=== PATIENT | male | born 1975 | race Caucasian/White ===

== ENCOUNTER 2017-02-18 19:54 | Emergency (ER) | payer OTHER ==
[2017-02-18 20:07] VITALS: TEMP 98.2; BMI 27.4
--- NOTE | 2017-02-18 20:34 | PDOC ---
History of Present Illness - General Chief Complaint: Injury Stated Complaint: FALL/EVALUATION Time Seen by Provider: 02/18/17 20:17 History Source: Care Provider, Detention Records Exam Limitations: Clinical Condition - History of Present Illness Initial Comments: 02/18/17 20:33 41yo Male patient w/ PmHx: Neurotic disorder, Congenital Quadriplegia, Convulsive Epilepsy, Profound Mental Retardation, Cortical blindness, presented to ED by care provider stating patient was found on floor. 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 Patient was found on his back and sent to the ED for evaluation of injury. Patient is non-verbal. Patient has no signs of injury per caregiver. Past History - Travel Traveled outside of the country in the last 30 days: No Close contact w/someone who was outside of country & ill: No - Past Medical History Allergies/Adverse Reactions: Allergies Allergy/AdvReac Type Severity Reaction Status Date / Time No Known Allergies Allergy Verified 02/18/17 20:07 Home Medications: Ambulatory Orders Bisacodyl Suppository [Dulcolax Suppository -] 10 mg RC ONCE PRN 02/18/17 Calcium Carbonate/Vitamin D3 [Oyster Shell Calcium-Vit D Tab] 1 each PO TID Clindamycin Phosphate [Cleocin T] 60 ml TP ASDIR 02/18/17 Clobazam [Onfi -] 5 mg PO AM 02/18/17 Clobazam [Onfi -] 10 mg PO HS 02/18/17 Diazepam Rectal Gel [Diastat Rectal Gel -] 10 mg NC ONCE PRN 02/18/17 Diazepam [Valium] 5 mg PO Q8H 02/18/17 Magnesium Hydroxide [Milk of Magnesia] 15 ml PO AM 02/18/17 Magnesium Hydroxide [Milk of Magnesia] 30 ml PO HS 02/18/17 Multivits,Ca,Min/Iron/FA/Lycop [Centrum Men's Tablet] 1 each PO DAILY 02/18/17 Phenobarbital 64.8 mg PO HS 02/18/17 Sennosides/Docusate Sodium [Senna S Tablet] 2 each PO BID 02/18/17 Seizures: Yes Other medical history: Mental Retardation, Hydrocephalus,Cerebral palsy - Immunization History Immunization Up to Date: Yes - Psycho/Social/Smoking Cessation Hx Anxiety: No Suicidal Ideation: No Smoking History: Never smoked Have you smoked in the past 12 months: No Information on smoking cessation initiated: No Hx Alcohol Use: No Drug/Substance Use Hx: No Substance Use Type: None Review of Systems - Review of Systems Able to Perform ROS?: No Is the patient limited Urdu proficient: Yes Constitutional: No: Fever Respiratory: No: Stridor, Wheezing, Hemoptysis Cardiac (ROS): No: Irregular Heart Rate, Palpitations ABD/GI: No: Diarrhea, Nausea, Vomiting Integumentary: No: Bruising, Erythema, Lumps Neurological: No: Seizure All Other Systems: Reviewed and Negative *Physical Exam - Vital Signs Last Vital Signs Temp Pulse Resp BP Pulse Ox 98.2 F 93 H 19 125/89 97 02/18/17 20:01 02/18/17 20:01 02/18/17 20:01 02/18/17 20:01 02/18/17 20:01 - Physical Exam General Appearance: Yes: Nourished, Appropriately Dressed. No: Apparent Distress, Mild Distress, Moderate Distress, Severe Distress HEENT: positive: EOMI, CHUNG, TMs Normal, Pharynx Normal. negative: Pharyngeal Erythema, Tonsillar Exudate, Tonsillar Erythema, Nasal Congestion, Rhinorrhea, TM Bulging, TM Dull, TM Erythema Neck: positive: Trachea midline, Supple. negative: Lymphadenopathy (R), Lymphadenopathy (L) Respiratory/Chest: positive: Lungs Clear. negative: Respiratory Distress, Accessory Muscle Use, Labored Respiration, Rapid RR, Decreased Breath Sounds, Crackles, Rales, Rhonchi, Stridor, Wheezing Cardiovascular: positive: Regular Rhythm, Regular Rate. negative: Edema, Bradycardia, Tachycardia Gastrointestinal/Abdominal: positive: Normal Bowel Sounds, Flat, Soft. negative : Distended, Tenderness Musculoskeletal: positive: Normal Inspection (No obvious signs of injury, step offs or deformity noted on examination.) Extremity: positive: Normal Inspection Integumentary: positive: Normal Color, Dry, Warm Neurologic: positive: Alert *DC/Admit/Observation/Transfer Diagnosis at time of Disposition: Fall - Discharge Dispostion Disposition: NURSING HOME FACILITY Condition at time of disposition: Stable Admit: No - Patient Instructions Printed Discharge Instructions: How to Prevent Falls, DI for Closed Head Injury Additional Instructions: FOLLOW UP WITH PRIMARY CARE PROVIDER THIS WEEK FOR FURTHER EVALUATION. RETURN IF ANY CONCERNS FOR FURTHER EVALUATION. Print Language: KAZAKH
[2017-02-18 20:46] VITALS: BP 122/74; PULSE 91
== END 2017-02-18 20:47 ==
LOC: JER 19:54 → SUPCPDRO 19:54 → JER 20:47
DX: Z04.9 Encounter for examination and observation for unspecified reason (principal); W05.0XXA Fall from non-moving wheelchair, initial encounter; Y93.89 Activity, other specified; Y92.198 Other place in other specified residential institution as the place of occurrence of the external cause; F48.9 Nonpsychotic mental disorder, unspecified; G80.8 Other cerebral palsy; G40.802 Other epilepsy, not intractable, without status epilepticus; F73 Profound intellectual disabilities; H47.619 Cortical blindness, unspecified side of brain
CPT/HCPCS: 99282-25

== ENCOUNTER 2019-03-10 11:41 | Inpatient (IN) | payer OTHER | END 2019-03-14 15:18 | disposition home or self-care (01) | LOC: J8W 03-13 14:45 → JER 11:41 → JERBED 15:16 → J8W 18:43 ==

== ENCOUNTER 2019-05-03 06:56 | Inpatient (IN) | payer OTHER | END 2019-05-09 17:49 | LOC: JER 06:56 → JERBED 10:10 → J8W 11:39 ==

== ENCOUNTER 2019-09-03 16:09 | Emergency (ER) | payer OTHER ==
[2019-09-03 16:33] VITALS: BMI 14.5
--- NOTE | 2019-09-03 16:46 | PDOC ---
History of Present Illness - General Chief Complaint: Seizure Stated Complaint: SEIZURE Time Seen by Provider: 09/03/19 16:45 - History of Present Illness Initial Comments: 09/03/19 17:42 HPI: 44 y/o M from 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 Seizure was witnessed and lasted 4-5min. Patient's supposed to receive diastat rectally if seizure >3min however, staff at [facility] was not certified to administer medication and called EMS. Vitals were stable and afebrile. There was no trauma. Last documented seizure was 06/10/19 at [place] and patient received diastat and stayed at center. Aid at bedside and staff at [place] no other symptoms. Aid at bedside states he is currently at his baseline and smiling per usual. PMHx: as noted above ROS: as noted SHx: resident of [place] Allergies: pncln ROS: unable to perform due to mental status PE: GENERAL: Awake, nonverbal, contracted HEAD: No signs of trauma, normocephalic, atraumatic EYES: EOMI ENT: Auricles normal inspection, nares patent, oropharynx clear without exudates. Moist mucosa NECK: Normal ROM, no lymphadenopathy LUNGS: No increased work of breathing, symmetrical chest rise, clear to auscultation bilaterally, no wheezes, crackles or rhonchi HEART: Regular rate and rhythm, normal S1 and S2, no murmurs, peripheral pulses 2+ and equal bilaterally. ABDOMEN: Soft, nondistended, nontender, normoactive bowel sounds. No guarding, no rebound. No masses. No CVAT EXTREMITIES: contracted UEs and deformed LEs NEUROLOGICAL: unable to perform due to patient mental status SKIN: Warm, Dry, normal turgor, no rashes or lesions noted Past History - Past Medical History Allergies/Adverse Reactions: Allergies Allergy/AdvReac Type Severity Reaction Status Date / Time Penicillins Allergy Verified 05/03/19 07:23 Home Medications: Ambulatory Orders Bisacodyl Suppository [Dulcolax Suppository -] 10 mg RC ONCE PRN 02/18/17 Calcium Carbonate/Vitamin D3 [Oyster Shell Calcium-Vit D Tab] 1 each PO TID 05/ 20/17 Clobazam [Onfi -] 5 mg PO AM 02/18/17 Clobazam [Onfi -] 5 mg PO HS 02/18/17 Diazepam Rectal Gel [Diastat Rectal Gel -] 10 mg OH ONCE PRN 02/18/17 Diazepam [Valium] 5 mg PO TID 02/18/17 Magnesium Hydroxide [Milk of Magnesia] 15 ml PO AM 02/18/17 Magnesium Hydroxide [Milk of Magnesia] 30 ml PO HS 02/18/17 Multivit-Mins/Iron/Folic/Lycop [Centrum Men's Tablet] 1 each PO DAILY 02/18/17 Phenobarbital 64.8 mg PO HS 02/18/17 Sennosides/Docusate Sodium [Senna-S Tablet] 2 each PO BID 02/18/17 Calcium Carbonate/Vitamin D3 [Oyster Shell 500-Vit D3 200 Tb] 1 each PO TID 12/18 Clindamycin 1% Gel [Cleocin] 1 gm TP AM 09/03/19 COPD: No Seizures: Yes - Immunization History Immunization Up to Date: Yes - Psycho Social/Smoking Cessation Hx Smoking History: Never smoked Have you smoked in the past 12 months: No Information on smoking cessation initiated: No Hx Alcohol Use: No Drug/Substance Use Hx: No Substance Use Type: None Hx Substance Use Treatment: No *Physical Exam - Vital Signs Last Vital Signs Temp Pulse Resp BP Pulse Ox 98.9 F 66 18 129/95 97 09/03/19 16:26 09/03/19 16:26 09/03/19 16:26 09/03/19 16:26 09/03/19 16:26 Medical Decision Making - Medical Decision Making 09/03/19 18:11 44 y/o M from 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 VSS, AF. PE without any abnormal findings from patient's baseline -will administer phenobarb PM dose and valium midday dose -cxr 09/03/19 18:15 cxr without any acute findings after review with attending patient currently at baseline will DC to facility aid at bedside understands patient requires last 2 doses tonight; questions answered Discharge - Discharge Information Problems reviewed: Yes Clinical Impression/Diagnosis: Seizure Condition: Stable Disposition: HOME - Follow up/Referral Referrals: Heron De Oliveira MD [Primary Care Provider] - - Patient Discharge Instructions Patient Printed Discharge Instructions: DI for Seizure Disorder -- Adult Additional Instructions: Return to the ED if there is concern for new or worsening symptoms including prolonged seizure, fever, cough, foul smelling urine, concern for infection Please take remaining night valium dose and night clozabam dose Followup with physicians as needed - Post Discharge Activity
[2019-09-03] MEDS ORDERED: diazePAM 5 MG TABLET PO ONE (17:36)
[2019-09-03] MEDS ORDERED: PHENobarbital 30 MG TABLET PO ONE (17:37)
[2019-09-03] MEDS ORDERED: diazePAM 5 MG TABLET ONE (17:39)
[2019-09-03] MEDS ORDERED: PHENobarbital 30 MG TABLET ONE (17:47)
--- NOTE | 2019-09-03 18:13 | PDOC ---
Documentation entered by Mc Solano SCRIBE, acting as scribe for Meredith Segovia MD. Meredith Segovia MD: This documentation has been prepared by the Russ bautista Xhesika, SCRIBE, under my direction and personally reviewed by me in its entirety. I confirm that the documentation accurately reflects all work, treatment, procedures, and medical decision making performed by me. Attending Attestation - Resident Resident Name: Suzie Aranda - ED Attending Attestation I have performed the following: I have examined & evaluated the patient, The case was reviewed & discussed with the resident, I agree w/resident's findings & plan, Exceptions are as noted - HPI HPI: 09/03/19 17:42 44-year-old male with multiple medical problems from [facility] brought in by ambulance for seizure. He has a history of seizures. HPI his daycare facility that does not carry Diastat so ambulance needs to be called and he was brought here - Physicial Exam PE: 09/03/19 17:43 Patient appears to be at baseline according to the aide Head no scalp lacerations or scalp hematomas noted dentition -severe erosion/bruxism on maxillary dentition Lungs no wheezing or crackles appreciated CVS regular rate rhythm S1-S2 Extremities he has contracted limbs Musculoskeletal he has severe spinal lordosis Skin warm and dry Neuro functional quadriplegia, nonverbal, head turned to the left this is chronic - Medical Decision Making 09/03/19 18:15 pt is afebrile and at baseline evening dose of phenobarbital and valium given plan d/c back to [place] 09/03/19 18:16
[2019-09-03 18:23] VITALS: BP 139/85; PULSE 84; TEMP 98
[2019-09-04] MEDS ORDERED: PHENobarbital 30 MG TABLET PO ONE ×2 (17:37)
== END 2019-09-03 19:08 | disposition home or self-care (01) ==
LOC: JER 16:09
DX: R56.9 Unspecified convulsions (principal); Z88.0 Allergy status to penicillin; R62.50 Unspecified lack of expected normal physiological development in childhood; Z98.2 Presence of cerebrospinal fluid drainage device; H54.7 Unspecified visual loss; G80.8 Other cerebral palsy
CPT/HCPCS: 71045-TC-FY; 99282-25

== ENCOUNTER 2019-10-18 11:39 | Inpatient (IN) | payer OTHER ==
[2019-10-18] MEDS ORDERED: SODIUM CHLORIDE 1,089 ML IV ONE (12:05)
--- NOTE | 2019-10-18 12:08 | PDOC ---
History of Present Illness - General Chief Complaint: Cold Symptoms Stated Complaint: Cold Symptoms Time Seen by Provider: 10/18/19 12:06 History Source: Patient Exam Limitations: No Limitations - History of Present Illness Initial Comments: 10/18/19 12:08 Lauro Arevalo is a 44M with H epilepsy sent from [place] with flu-like symptoms. Per transfer paperwork, patient was sent for tachycardia and fever since last night, did not respond to pyretics. Pre home health aide at bedsides, come loose stools but otherwise no acute changes in mental status, SOB, vomiting. Reported to have outbreak of influenza at [place] with multiple other clients sick. No seizures today. Past History - Past Medical History Allergies/Adverse Reactions: Allergies Allergy/AdvReac Type Severity Reaction Status Date / Time Penicillins Allergy Verified 10/18/19 12:04 Home Medications: Ambulatory Orders Bisacodyl Suppository [Dulcolax Suppository -] 10 mg RC ONCE PRN 02/18/17 Clobazam [Onfi -] 5 mg PO AM 02/18/17 Clobazam [Onfi -] 5 mg PO HS 02/18/17 Diazepam Rectal Gel [Diastat Rectal Gel -] 10 mg MS ONCE PRN 02/18/17 Diazepam [Valium] 5 mg PO TID 02/18/17 Magnesium Hydroxide [Milk of Magnesia] 15 ml PO AM 02/18/17 Magnesium Hydroxide [Milk of Magnesia] 30 ml PO HS 02/18/17 Phenobarbital 64.8 mg PO HS 02/18/17 Sennosides/Docusate Sodium [Senna-S Tablet] 2 each PO BID 02/18/17 Calcium Carbonate/Vitamin D3 [Oyster Shell 500-Vit D3 200 Tb] 1 each PO TID 12/18 COPD: No Seizures: Yes - Immunization History Immunization Up to Date: Yes - Psycho Social/Smoking Cessation Hx Smoking History: Never smoked Have you smoked in the past 12 months: No Hx Alcohol Use: No Drug/Substance Use Hx: No Substance Use Type: None Hx Substance Use Treatment: No Review of Systems - Review of Systems Able to Perform ROS?: No (non-verbal at baseline) *Physical Exam - Vital Signs Last Vital Signs Temp Pulse Resp BP Pulse Ox 103.5 F H 141 H 26 H 143/89 96 10/18/19 11:59 10/18/19 11:59 10/18/19 11:59 10/18/19 11:59 10/18/19 11:59 - Physical Exam General Appearance: Yes: Thin. No: Apparent Distress HEENT: positive: EOMI, CHUNG, Symmetrical. negative: Scleral Icterus (R), Scleral Icterus (L), Excessive drooling, Thrush Neck: positive: Trachea midline, Normal Thyroid, Supple. negative: Tender, Lymphadenopathy (R), Lymphadenopathy (L) Respiratory/Chest: positive: Lungs Clear, Normal Breath Sounds, Labored Respiration. negative: Chest Tender, Respiratory Distress, Accessory Muscle Use , Crackles, Rales, Stridor, Wheezing Cardiovascular: positive: Regular Rhythm, Tachycardia. negative: Murmur Gastrointestinal/Abdominal: positive: Normal Bowel Sounds, Flat, Soft, Other ( ventriculoperitoneal shunt tubing palpable to right anterior chest and abdomen and non-tender, diaper in place without stool). negative: Tender Musculoskeletal: positive: Normal Inspection. negative: CVA Tenderness, Decreased Range of Motion, Vertebral Tenderness Integumentary: positive: Normal Color, Dry, Diaphoresis Neurologic: positive: Alert, Other (upper and lower extremities contracted). negative: proj mgr II-XII NML intact, Fully Oriented ED Treatment Course - LABORATORY CBC & Chemistry Diagram: 10/18/19 12:05 10/18/19 12:25 Medical Decision Making - Medical Decision Making 10/18/19 13:00 Patient is a 44M [facility] with PMH epilepsy presenting with tachycardia to 140s and fever with rectal temp 103.5. Sepsis workup initiated, including labs, BC, UA/UC, CXR, ECG ordered. Giving 1L NS bolus for tachycardia and presumed dehydration, giving Ofirmev for fever. Given prevalence of influenza at [place] getting influenza swab as well. Ddx includes PNA, flu, UTI. Patient BP and O2 saturation stable Labs notable for: - WBC 12.2 - CBG WNL - influenza A positive, consistent with symptoms - Trop negative - Coags hemolyzed but unnecessary to evaluation CXR shows no acute infiltrate concerning for PNA on prelim read. ECG is poor quality, shows sinus tachycardia with TWI in V1-V4 with improvement of TWI in inferior leads. 10/18/19 15:34 Patient has proven influenza A. Will symptomatically control and likely discharge back to [place]. HR down to 122, giving 2nd 1L NS Rectal temp down to 101F Giving Caldolor for further fever management. 10/18/19 16:53 HR down to 110 with 2nd bolus, patient more responsive and calm. Rectal temp down to 98.6. 3rd bolus ordered. 10/18/19 21:31 After 3rd bolus tachycardia persists to 110s. Unable to determine why. Patient appears well clinically but unable to get more history, non-verbal. Needs admission for further monitoring and eval of tachycardia despite appearing well. Discussed case with admitting team, [facility] for Med Surg under Dr. Jeter. Discharge - Discharge Information Problems reviewed: Yes Clinical Impression/Diagnosis: Influenza A Condition: Stable - Admission Yes - Follow up/Referral Referrals: Heron De Oliveira MD [Primary Care Provider] - - Patient Discharge Instructions Patient Printed Discharge Instructions: DI for Viral Upper Respiratory Infection -- Adult Additional Instructions: Today you were evaluated for fever and tachycardia. Your labs do not show a significant infection, and your chest X-ray does not show pneumonia. Your symptoms are caused by an influenza infection. The treatment for this is lots of fluids and soups and Tylenol as needed for fever every 4-6 hours. Follow-up with your primary doctor in the next 3 days. If you experience worsening fever, shortness of breath, chest pain, diarrhea, or any other new or concerning symptoms, please return to the emergency room. - Post Discharge Activity
[2019-10-18] MEDS ORDERED: ACETAMINOPHEN 1000 MG/100 ML VIAL (NON FORMULARY) IVPB ONE (12:09)
[2019-10-18] MEDS ORDERED: ACETAMINOPHEN INJECTION 100 ML IVPB ONE ×2 (12:12→23:46)
[2019-10-18 12:45] LABS: BASO % 0.3 % (0-2.0); HEMATOCRIT 51.2 % (35.4-49); HEMOGLOBIN 17.9 GM/dL (11.7-16.9); LYMPH % 3.1 % (8-40); MCH 30.2 pg (25.7-33.7); MCHC 34.9 g/dl (32.0-35.9); MEAN CELL VOLUME 86.8 fl (80-96); MEAN PLT VOLUME 9.2 fl (7.5-11.1); MONO % 6.8 % (3.8-10.2); NEUT % 89.8 % (42.8-82.8); PLATELET COUNT 198 K/MM3 (134-434); RBC 5.91 M/mm3 (4.00-5.60); RDW 13.4 % (11.9-15.9); WHITE BLOOD COUNT 12.2 K/mm3 (4.0-10.0)
[2019-10-18 12:55] LABS: VENOUS PC02 44.9 mmHg (38-52); VENOUS PO2 < 49 mmHg (28-48)
--- NOTE | 2019-10-18 13:15 | EKG ---
Test Reason : Blood Pressure : / mmHG Vent. Rate : 138 BPM Atrial Rate : 138 BPM P-R Int : 128 ms QRS Dur : 068 ms QT Int : 282 ms P-R-T Axes : 061 023 068 degrees QTc Int : 427 ms POOR DATA QUALITY, INTERPRETATION MAY BE ADVERSELY AFFECTED SINUS TACHYCARDIA POSSIBLE LEFT ATRIAL ENLARGEMENT ABNORMAL ECG WHEN COMPARED WITH ECG OF 03-MAY-2019 08:03, NONSPECIFIC T WAVE ABNORMALITY NO LONGER EVIDENT IN INFERIOR LEADS Confirmed by CAROLINA SILVA MD ([id number]) on 10/18/2019 1:14:57 PM Referred By: Confirmed By:CAROLINA SILVA MD
[2019-10-18 13:24] LABS: BILIRUBIN,TOTAL 0.5 mg/dL (0.2-1); BLOOD UREA NITROGEN 16.9 mg/dL (7-18); CREATININE 1.1 mg/dL (0.55-1.3); POTASSIUM 4.7 mmol/L (3.5-5.1); TOT PROT 7.8 g/dl (6.4-8.2)
[2019-10-18] MEDS ORDERED: IBUPROFEN 800 MG/8 ML IJ IVPB ONE ×2 (14:00→14:08)
--- NOTE | 2019-10-18 14:02 | PDOC ---
Documentation entered by Komal Glass SCRIBE, acting as scribe for Merced Ford MD. Merced Ford MD: This documentation has been prepared by the Quan bautista Brenda, SCRIBE, under my direction and personally reviewed by me in its entirety. I confirm that the documentation accurately reflects all work, treatment, procedures, and medical decision making performed by me. Attending Attestation - Resident Resident Name: ToniximenaJaime - ED Attending Attestation I have performed the following: I have examined & evaluated the patient, The case was reviewed & discussed with the resident, I agree w/resident's findings & plan, Exceptions are as noted - HPI HPI: 44 yo M history epilepsy sent from [place] for flu-like symptoms. He has had high fever, tachycardia that did not respond to antipyretics, as per note in his paperwork. Patient is non-verbal and unable to provide any history. - Physicial Exam PE: 10/18/19 13:06 GENERAL: Awake, alert, and fully oriented, in no acute distress HEAD: No signs of trauma EYES: PERRLA, EOMI, sclera anicteric, conjunctiva clear ENT: Auricles normal inspection, hearing grossly normal, nares patent, oropharynx clear without exudates. Moist mucosa NECK: Normal ROM, supple, no lymphadenopathy, JVD, or masses LUNGS: Breath sounds equal, clear to auscultation bilaterally. No wheezes, and no crackles HEART: Regular rate and rhythm, normal S1 and S2, no murmurs, rubs or gallops ABDOMEN: Soft, nontender, normoactive bowel sounds. No guarding, no rebound. No masses EXTREMITIES: Normal range of motion, no edema. No clubbing or cyanosis. No cords, erythema, or tenderness NEUROLOGICAL: Cranial nerves II through XII grossly intact. Normal speech, normal gait SKIN: Warm, Dry, normal turgor, no rashes or lesions noted. - Medical Decision Making Pt with high fever and tachycardia in the setting of a flu outbreak at [place]. Found to be flu A positive. He has clear lungs. Will give antipyretics and fluids. If vital signs improve, will DC back to [place].
[2019-10-18] MEDS ORDERED: SODIUM CHLORIDE 0.9% 500 ML INFUS.BAG IV ONE ×2 (15:34→17:31)
[2019-10-18] MEDS ORDERED: SODIUM CHLORIDE 1,000 ML IV STA (21:35)
--- NOTE | 2019-10-18 21:38 | HP ---
CHIEF COMPLAINT: shortness of breath PCP: Dr. Argueta HISTORY OF PRESENT ILLNESS: Patient is a 44 year old male with history of hydrocephalus (s/p BOOK REVIEWER shunt), cerebral palsy, functional quadriplegia, seizure disorder presents from [facility] with complaint of shortness of breath, and fevers with associated sneezing and coughing. Patient's aide at bedside endorses symptoms have been ongoing for past two days. Denies hemoptysis, dysuria, heamturia, diarrhea, melena, hematochezia. Admits sick contacts as numerous residents of [facility] with Influenza. Admits diminished oral intake (reportedly normally tolerates puree diet). Denies recent seizure activity. ER course was notable for: (1) Infleunza A positive (2) Chest radiograph without acute infiltrates. Questionable right rib fracture. (3) Tachycardic to 140s and febrile to 103.5 (rectal). WBC 12.2 Recent Travel: Denies PAST MEDICAL HISTORY: hydrocephalus, cerebral palsy, functional quadriplegia, seizure disorder PAST SURGICAL HISTORY: V/P shunt Social History: Resident of [facility]. Smoking: Denies Alcohol: Denies Drugs: Denies Allergies Penicillins Allergy (Verified 10/18/19 12:04) HOME MEDICATIONS: Home Medications Medication Instructions Recorded Bisacodyl Suppository [Dulcolax 10 mg RC ONCE PRN 02/18/17 Suppository -] Clobazam [Onfi -] 5 mg PO AM 02/18/17 Clobazam [Onfi -] 5 mg PO HS 02/18/17 Diazepam Rectal Gel [Diastat 10 mg OR ONCE PRN 02/18/17 Rectal Gel -] Diazepam [Valium] 5 mg PO TID 02/18/17 Magnesium Hydroxide [Milk of 15 ml PO AM 02/18/17 Magnesia] Magnesium Hydroxide [Milk of 30 ml PO HS 02/18/17 Magnesia] Phenobarbital 64.8 mg PO HS 02/18/17 Sennosides/Docusate Sodium 2 each PO BID 02/18/17 [Senna-S Tablet] Calcium Carbonate/Vitamin D3 1 each PO TID 09/03/19 [Oyster Shell 500-Vit D3 200 Tb] REVIEW OF SYSTEMS As per HPI; unable to evaluate further as patient nonverbal at baseline. PHYSICAL EXAMINATION Vital Signs - 24 hr 10/18/19 10/18/19 10/18/19 11:59 13:55 14:26 Temperature 103.5 F H 101.4 F H Pulse Rate 141 H Pulse Rate [ 121 H Apical] Respiratory 26 H 24 H Rate Blood Pressure 143/89 Blood Pressure 130/79 [Right Arm] O2 Sat by Pulse 96 98 Oximetry (%) 10/18/19 10/18/19 17:44 17:50 Temperature 98.6 F 98.6 F Pulse Rate Pulse Rate [ 113 H Apical] Respiratory 22 H Rate Blood Pressure Blood Pressure 128/92 [Right Arm] O2 Sat by Pulse 98 Oximetry (%) GENERAL: The patient is awake, alert, in no acute distress. HEAD: Normocephalic, atraumatic. EYES: PERRL, extraocular movements intact, sclera anicteric, conjunctiva clear. ENT: Oropharynx clear, without erythema or exudates. Dry mucous membranes. NECK: Supple without lymphadenopathy. Negative stridor. LUNGS: Good inspiratory effort and air entry bilaterally. Rhonchi auscultated bilaterally. No wheezes, no crackles. No accessory muscle use. HEART: Regular rate and rhythm. S1, S2 without murmur, rub or gallop. ABDOMEN: Soft, nondistended, nontender to light and deep palpation x4 quadrants. No rebound tenderness, no guarding. Normoactive bowel sounds x4 quadrants. No hepatosplenomegaly, no masses appreciated. EXTREMITIES: 2+ radial, dorsalis pedis pulses bilaterally. Warm, well-perfused. No lower extremity edema bilaterally. SKIN: Warm, dry. Laboratory Results - last 24 hr 10/18/19 10/18/19 10/18/19 12:05 12:11 12:25 WBC 12.2 H RBC 5.91 H Hgb 17.9 H Hct 51.2 H D MCV 86.8 MCH 30.2 MCHC 34.9 RDW 13.4 Plt Count 198 D MPV 9.2 D Absolute Neuts (auto) 10.9 H Neutrophils % 89.8 H D Lymphocytes % 3.1 L D Monocytes % 6.8 Eosinophils % 0.0 D Basophils % 0.3 Nucleated RBC % 0 PT with INR Cancelled INR Cancelled PTT (Actin FS) Cancelled VBG pH POC VBG pCO2 POC VBG pO2 VBG HCO3 VBG O2 Sat (Teo) VBG Base Excess Sodium Potassium Chloride Carbon Dioxide Anion Gap BUN Creatinine Est GFR (CKD-EPI)AfAm Est GFR (CKD-EPI)NonAf Random Glucose Lactic Acid Calcium Total Bilirubin AST ALT Alkaline Phosphatase Troponin I Total Protein Albumin Influenza A (Rapid) Positive A Influenza B (Rapid) Negative 10/18/19 10/18/19 10/18/19 12:25 12:25 12:25 WBC RBC Hgb Hct MCV MCH MCHC RDW Plt Count MPV Absolute Neuts (auto) Neutrophils % Lymphocytes % Monocytes % Eosinophils % Basophils % Nucleated RBC % PT with INR INR PTT (Actin FS) VBG pH 7.40 POC VBG pCO2 44.9 POC VBG pO2 < 49 H VBG HCO3 27.2 VBG O2 Sat (Teo) 37.2 L VBG Base Excess 2.2 H Sodium 138 Potassium 4.7 Chloride 106 Carbon Dioxide 26 Anion Gap 6 L BUN 16.9 Creatinine 1.1 Est GFR (CKD-EPI)AfAm 95.46 Est GFR (CKD-EPI)NonAf 82.36 Random Glucose 142 H Lactic Acid Calcium 9.0 Total Bilirubin 0.5 AST 31 ALT 26 Alkaline Phosphatase 156 H Troponin I < 0.02 Total Protein 7.8 Albumin 4.0 Influenza A (Rapid) Influenza B (Rapid) 10/18/19 12:25 WBC RBC Hgb Hct MCV MCH MCHC RDW Plt Count MPV Absolute Neuts (auto) Neutrophils % Lymphocytes % Monocytes % Eosinophils % Basophils % Nucleated RBC % PT with INR INR PTT (Actin FS) VBG pH POC VBG pCO2 POC VBG pO2 VBG HCO3 VBG O2 Sat (Teo) VBG Base Excess Sodium Potassium Chloride Carbon Dioxide Anion Gap BUN Creatinine Est GFR (CKD-EPI)AfAm Est GFR (CKD-EPI)NonAf Random Glucose Lactic Acid 1.7 Calcium Total Bilirubin AST ALT Alkaline Phosphatase Troponin I Total Protein Albumin Influenza A (Rapid) Influenza B (Rapid) ASSESSMENT/PLAN: Patient is a 44 year old male with history of hydrocephalus (s/p BOOK REVIEWER shunt), cerebral palsy, functional quadriplegia, seizure disorder presents from [facility] with complaint of shortness of breath, and fevers with associated sneezing and coughing. Sepsis secondary to Infleunza A -Tachycardic to 140s and febrile to 103.5 (rectal). WBC 12.2 -Chest radiograph without acute infiltrates. Questionable right rib fracture. Will obtain CT chest. -Infleunza A positive -Patient received 2L IV normal saline in ED. Bolus additional liter IV normal saline as patient remains clinically dry, tachycardic. -Continue hydration with IV normal saline at 125mL/ hour -Oseltamivir 30mL GT BID (adjusted for GFR, dosed with pharmacist) -Acetaminophen for fevers -Given chest radiograph does not reveal acute infiltrates, will withhold further antibiotics at this time. Seizures -Continue Onfi, Valium, Pheobarbital -Seizure precautions -Elevate head of bed, aspiration precautions. Constipation -Continue Magnesium Hydroxide, Senna, Colace. Bisacodyl PRN FEN -IV normal saline at 125mL/ hour -Follow BMP -Puree diet once tolerating oral intake Prophylaxis -Lovenox 40mg subq daily Disposition -Admit to medical surgical floor. Visit type - Emergency Visit Emergency Visit: Yes ED Registration Date: 10/18/19 Care time: The patient presented to the Emergency Department on the above date and was hospitalized for further evaluation of their emergent condition. - New Patient This patient is new to me today: Yes Date on this admission: 10/19/19 - Critical Care Critical Care patient: No ATTENDING PHYSICIAN STATEMENT I saw and evaluated the patient. I reviewed the resident's note and discussed the case with the resident. I agree with the resident's findings and plan as documented. SUBJECTIVE: OBJECTIVE: ASSESSMENT AND PLAN:
--- NOTE | 2019-10-18 21:57 | PN ---
Teaching Attending Note Name of Resident: Wilder Mcclendon ATTENDING PHYSICIAN STATEMENT I saw and evaluated the patient. I reviewed the resident's note and discussed the case with the resident. I agree with the resident's findings and plan as documented. 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 He has had high fever, tachycardia that did not respond to antipyretics, as per note in his paperwork. Patient is non-verbal and unable to provide any additional history. Per home health aide at bedsides, come loose stools but otherwise no acute changes in mental status, SOB, vomiting. There is a reported of Influenza at [facility] with multiple other clients sick. No witnessed seizures today. OBJECTIVE: Alert and nonverbal Vital Signs Period Temp Pulse Resp BP Sys/Patterson Pulse Ox Last 24 Hr 98.6 F-103.5 F 113-141 22-26 128-143/79-92 96-98 HEENT: No Jaundice, eye redness or discharge, PERRLA, EOMI. Normocephalic; surgical scar occipital region. External ears are normal; No nasal discharge. Neck: Supple, nontender. No palpable adenopathy or thyromegaly. No JVD Chest: Good effort. Intermittent rhonchi. Clear to percussion. Heart: Tachycardia. No S3, rub or murmur Abdomen: Not distended, soft, nontender and no HSM. No rebound or guarding. Normal bowel sounds. Ext: Limb contractures. No leg edema. Skin: Warm and dry. No petechiae, rash or ecchymosis. Neuro: Alert. Quadriplegia. Psych: Unable to assess. Current Medications Generic Name Dose Route Start Last Admin Trade Name Freq PRN Reason Stop Dose Admin Acetaminophen 1,000 mg 10/18/19 21:01 Ofirmev Injection - IVPB Q6H PRN FEVER Enoxaparin Sodium 40 mg 10/19/19 10:00 Lovenox - SQ DAILY VERONICA Oseltamivir Phosphate 75 mg 10/18/19 22:00 Tamiflu Oral Suspension - PO 10/23/19 21:59 BID [facility] Home Medications Medication Instructions Recorded Bisacodyl Suppository [Dulcolax 10 mg RC ONCE PRN 02/18/17 Suppository -] Clobazam [Onfi -] 5 mg PO AM 02/18/17 Clobazam [Onfi -] 5 mg PO HS 02/18/17 Diazepam Rectal Gel [Diastat 10 mg MN ONCE PRN 02/18/17 Rectal Gel -] Diazepam [Valium] 5 mg PO TID 02/18/17 Magnesium Hydroxide [Milk of 15 ml PO AM 02/18/17 Magnesia] Magnesium Hydroxide [Milk of 30 ml PO HS 02/18/17 Magnesia] Phenobarbital 64.8 mg PO HS 02/18/17 Sennosides/Docusate Sodium 2 each PO BID 02/18/17 [Senna-S Tablet] Calcium Carbonate/Vitamin D3 1 each PO TID 09/03/19 [Oyster Shell 500-Vit D3 200 Tb] Abnormal Lab Results 10/18/19 10/18/19 10/18/19 12:05 12:11 12:25 WBC 12.2 H RBC 5.91 H Hgb 17.9 H Hct 51.2 H D Absolute Neuts (auto) 10.9 H Neutrophils % 89.8 H D Lymphocytes % 3.1 L D POC VBG pO2 VBG O2 Sat (Teo) VBG Base Excess Anion Gap 6 L Random Glucose 142 H Alkaline Phosphatase 156 H Influenza A (Rapid) Positive A 10/18/19 12:25 WBC RBC Hgb Hct Absolute Neuts (auto) Neutrophils % Lymphocytes % POC VBG pO2 < 49 H VBG O2 Sat (Teo) 37.2 L VBG Base Excess 2.2 H Anion Gap Random Glucose Alkaline Phosphatase Influenza A (Rapid) ASSESSMENT AND PLAN: 1. Influenza A infection - No acute infiltrate on CXR but possible "right rib fracture" - will get a chest CT for clarification. Placed on isolation and being treated with Tamiflu, tylenol and IV NS. EKG shows sinus tachycardia at 138/minute, LAE and no significant ST-T wave changes. Erythrocytosis may be due to dehydration - will hydrate and repeat CBC. Will continue comprehensive care for all of patients comorbid conditions including, seizure/aspiration precautions, phenobarb for epilepsy and frequent repositioning to prevent decubitus ulcers. 2. DVT prophylaxis - Lovenox 40 mg SQ q 24 hours. 3. Advance directives - Full code
[2019-10-18] MEDS ORDERED: OSELTAMIVIR PHOSPHATE 6 MG/1 ML PO SCH (22:00)
[2019-10-18] MEDS ORDERED: OSELTAMIVIR PHOSPHATE 75 MG CAPSULE ONE (22:18)
[2019-10-18] MEDS: ACETAMINOPHEN 1000 MG/100 ML VIAL (NON FORMULARY) IVPB PRN (23:45)
[2019-10-19] MEDS ORDERED: SODIUM CHLORIDE 1,000 ML IV SCH (00:45)
[2019-10-19] MEDS ORDERED: diazePAM ACUDIAL 5-7.5-10 MG 1 EACH KIT RC PRN (01:05)
[2019-10-19] MEDS ORDERED: ACETAMINOPHEN INJECTION 100 ML IVPB ONE ×3 (05:14→20:31)
[2019-10-19] MEDS ORDERED: diazePAM 5 MG TABLET ONE ×2 (05:14→15:47)
[2019-10-19] MEDS: ACETAMINOPHEN 1000 MG/100 ML VIAL (NON FORMULARY) IVPB PRN ×2 (05:24→20:30)
[2019-10-19] MEDS: diazePAM 5 MG TABLET PO SCH ×3 (05:46→23:04)
[2019-10-19] MEDS: cloBAZam 10 MG TABLET PO SCH ×2 (06:28→23:04)
[2019-10-19] MEDS: MAGNESIUM HYDROX 2400MG/30ML ORAL SUSPENSION 30 ML CUP PO SCH ×2 (07:20→22:47)
[2019-10-19 09:48] LABS: HEMATOCRIT 43.5 % (35.4-49); HEMOGLOBIN 14.9 GM/dL (11.7-16.9); MCH 29.9 pg (25.7-33.7); MCHC 34.2 g/dl (32.0-35.9); MEAN CELL VOLUME 87.5 fl (80-96); MEAN PLT VOLUME 8.5 fl (7.5-11.1); PLATELET COUNT 104 K/MM3 (134-434); RBC 4.97 M/mm3 (4.00-5.60)
[2019-10-19 09:56] LABS: WHITE BLOOD COUNT 1.2 K/mm3 (4.0-10.0)
[2019-10-19] MEDS: OSELTAMIVIR PHOSPHATE 6 MG/1 ML PO SCH ×2 (10:56→23:29)
[2019-10-19] MEDS: ENOXAPARIN NA (PORCINE) 40 MG/0.4 ML DISP.SYRIN SQ SCH (10:56)
[2019-10-19] MEDS: SENNOSIDES/DOCUSATE COMBO (SENNA PLUS) TABLET (UD) PO SCH ×2 (10:56→23:28)
[2019-10-19 12:18] LABS: ALBUMIN 2.7 g/dl (3.4-5.0); BILIRUBIN,TOTAL 0.9 mg/dL (0.2-1); BLOOD UREA NITROGEN 17.2 mg/dL (7-18); CALCIUM 7.6 mg/dL (8.5-10.1); CREATININE 1.1 mg/dL (0.55-1.3); MAGNESIUM 1.6 mg/dL (1.8-2.4); PHOSPHOROUS 1.4 mg/dL (2.5-4.9); POTASSIUM 3.3 mmol/L (3.5-5.1); TOT PROT 5.3 g/dl (6.4-8.2)
[2019-10-19] MEDS ORDERED: HEPARIN NA (PORCINE) 5,000 UNITS/ML 1ML VIAL ONE (14:57)
[2019-10-19] MEDS: DEXTROSE 5%-0.45% SALINE 1,000 ML IV SCH (15:20)
[2019-10-19 15:33] LABS: ANISOCYTOSIS 2+; MACROCYTOSIS 0; PLATELET ESTIMATE DECREASED; TEAR DROP CELLS 1+
[2019-10-19] MEDS ORDERED: KCL 10 MEQ IVPB 10 MEQ/100 ML INFUS.BAG IVPB ONE (17:22)
[2019-10-19] MEDS: KCL 10 MEQ IVPB 10 MEQ/100 ML INFUS.BAG IVPB SCH ×3 (17:29→19:59)
--- NOTE | 2019-10-19 18:01 | PN ---
Progress Note, Physician History of Present Illness: 44 y.o. male with PMH of Cerebral palsy, hydrocephalus s/p PRINTED CIRCUIT BOARDS PLASMA ETCHER shunt, epilepsy, functional quadriplegia sent from [facility] for fever > 103F and tachycardia noted from the previous night. No incidence of recent seizure noted. There is reportedly an influenza outbreak at the facility currently. In the ER patient was noted to be febrile to 103.5F with leukocytosis. Influenza A test +. Pt himself is nonverbal and not a source of history. - Current Medication List Current Medications: Active Medications Acetaminophen (Ofirmev Injection -) 1,000 mg IVPB Q6H PRN PRN Reason: FEVER Last Admin: 10/19/19 05:24 Dose: 1,000 mg Clobazam (Onfi -) 5 mg PO AM [facility] Last Admin: 10/19/19 06:28 Dose: 5 mg Clobazam (Onfi -) 5 mg PO HS [facility] Diazepam (Valium -) 5 mg PO TID [facility] Last Admin: 10/19/19 15:14 Dose: 5 mg Diazepam (Diastat Rectal Gel -) 10 mg RC PRN PRN PRN Reason: seizure Enoxaparin Sodium (Lovenox -) 40 mg SQ DAILY [facility] Last Admin: 10/19/19 10:56 Dose: 40 mg Dextrose/Sodium Chloride (D5-1/2ns -) 1,000 mls @ 100 mls/hr IV ASDIR [facility] Magnesium Hydroxide (Milk Of Magnesia -) 15 ml PO AM [facility] Last Admin: 10/19/19 07:20 Dose: Not Given Magnesium Hydroxide (Milk Of Magnesia -) 30 ml PO HS [facility] Oseltamivir Phosphate (Tamiflu Oral Suspension -) 30 mg PO BID [facility] Stop: 10/23/19 21:59 Last Admin: 10/19/19 10:56 Dose: 30 mg Phenobarbital (Phenobarbital -) 60 mg PO HS [facility] Senna/Docusate Sodium (Pericolace -) 2 tablet PO BID [facility] Last Admin: 10/19/19 10:56 Dose: 2 tablet - Objective Vital Signs: Vital Signs Temperature 101 F H 10/19/19 17:16 Pulse Rate 128 H 10/19/19 17:16 Respiratory Rate 20 10/19/19 17:16 Blood Pressure 90/59 L 10/19/19 17:16 O2 Sat by Pulse Oximetry (%) 96 10/19/19 14:40 Constitutional: Yes: Mild Distress Eyes: Yes: Other (injected sclera b/l) Cardiovascular: Yes: Tachycardia Respiratory: Yes: Regular Gastrointestinal: Yes: Normal Bowel Sounds, Soft Genitourinary: Yes: WNL Extremities: Yes: Other (contracted) Edema: No Peripheral Pulses WNL: Yes Integumentary: Yes: WNL Neurological: Yes: Alert, Other (mentally retarded, nonverbal) Labs: CBC, BMP 10/19/19 09:40 10/19/19 09:40 INR, PTT INR Cancelled 10/18/19 12:25 Laboratory Tests 10/18/19 10/18/19 10/18/19 12:05 12:11 12:25 WBC 12.2 H RBC 5.91 H Hgb 17.9 H Hct 51.2 H D MCV 86.8 MCH 30.2 MCHC 34.9 RDW 13.4 Plt Count 198 D MPV 9.2 D Absolute Neuts (auto) 10.9 H Neutrophils % 89.8 H D Neutrophils % (Manual) Band Neutrophils % Lymphocytes % 3.1 L D Lymphocytes % (Manual) Monocytes % 6.8 Monocytes % (Manual) Eosinophils % 0.0 D Eosinophils % (Manual) Basophils % 0.3 Basophils % (Manual) Myelocytes % (Man) Promyelocytes % (Man) Blast Cells % (Manual) Nucleated RBC % 0 Metamyelocytes Hypochromia Platelet Estimate Platelet Comment Polychromasia Poikilocytosis Anisocytosis Microcytosis Macrocytosis Spherocytes Tear Drop Cells Ruddy Cells Schistocytes PT with INR Cancelled INR Cancelled PTT (Actin FS) Cancelled VBG pH POC VBG pCO2 POC VBG pO2 VBG HCO3 VBG O2 Sat (Teo) VBG Base Excess Sodium Potassium Chloride Carbon Dioxide Anion Gap BUN Creatinine Est GFR (CKD-EPI)AfAm Est GFR (CKD-EPI)NonAf Random Glucose Lactic Acid Calcium Phosphorus Magnesium Total Bilirubin AST ALT Alkaline Phosphatase Troponin I Total Protein Albumin Influenza A (Rapid) Positive A Influenza B (Rapid) Negative 10/18/19 10/18/19 10/18/19 12:25 12:25 12:25 WBC RBC Hgb Hct MCV MCH MCHC RDW Plt Count MPV Absolute Neuts (auto) Neutrophils % Neutrophils % (Manual) Band Neutrophils % Lymphocytes % Lymphocytes % (Manual) Monocytes % Monocytes % (Manual) Eosinophils % Eosinophils % (Manual) Basophils % Basophils % (Manual) Myelocytes % (Man) Promyelocytes % (Man) Blast Cells % (Manual) Nucleated RBC % Metamyelocytes Hypochromia Platelet Estimate Platelet Comment Polychromasia Poikilocytosis Anisocytosis Microcytosis Macrocytosis Spherocytes Tear Drop Cells [place] Cells Schistocytes PT with INR INR PTT (Actin FS) VBG pH 7.40 POC VBG pCO2 44.9 POC VBG pO2 < 49 H VBG HCO3 27.2 VBG O2 Sat (Teo) 37.2 L VBG Base Excess 2.2 H Sodium 138 Potassium 4.7 Chloride 106 Carbon Dioxide 26 Anion Gap 6 L BUN 16.9 Creatinine 1.1 Est GFR (CKD-EPI)AfAm 95.46 Est GFR (CKD-EPI)NonAf 82.36 Random Glucose 142 H Lactic Acid Calcium 9.0 Phosphorus Magnesium Total Bilirubin 0.5 AST 31 ALT 26 Alkaline Phosphatase 156 H Troponin I < 0.02 Total Protein 7.8 Albumin 4.0 Influenza A (Rapid) Influenza B (Rapid) 10/18/19 10/19/19 10/19/19 12:25 09:40 09:40 WBC 1.2 L* RBC 4.97 Hgb 14.9 Hct 43.5 D MCV 87.5 MCH 29.9 MCHC 34.2 RDW 13.0 Plt Count 104 L D MPV 8.5 Absolute Neuts (auto) Neutrophils % Neutrophils % (Manual) 67.1 D Band Neutrophils % 5.3 Lymphocytes % Lymphocytes % (Manual) 17.1 D Monocytes % Monocytes % (Manual) 0 L D Eosinophils % Eosinophils % (Manual) 1.3 D Basophils % Basophils % (Manual) 0.0 Myelocytes % (Man) 0 Promyelocytes % (Man) 0 Blast Cells % (Manual) 0 Nucleated RBC % 0 Metamyelocytes 0 Hypochromia 0 Platelet Estimate Decreased Platelet Comment Present Polychromasia 0 Poikilocytosis 2+ Anisocytosis 2+ Microcytosis 2+ Macrocytosis 0 Spherocytes 2+ Tear Drop Cells 1+ [place] Cells 2+ Schistocytes 1+ PT with INR INR PTT (Actin FS) VBG pH POC VBG pCO2 POC VBG pO2 VBG HCO3 VBG O2 Sat (Teo) VBG Base Excess Sodium 143 Potassium 3.3 L Chloride 115 H Carbon Dioxide 18 L Anion Gap 10 BUN 17.2 Creatinine 1.1 Est GFR (CKD-EPI)AfAm 95.46 Est GFR (CKD-EPI)NonAf 82.36 Random Glucose 85 Lactic Acid 1.7 Calcium 7.6 L Phosphorus 1.4 L Magnesium 1.6 L Total Bilirubin 0.9 AST 42 H ALT 31 Alkaline Phosphatase 141 H Troponin I Total Protein 5.3 L Albumin 2.7 L Influenza A (Rapid) Influenza B (Rapid) - ....Imaging Chest X-ray: Report Reviewed Problem List - Problems (1) Influenza A Code(s): J10.1 - FLU DUE TO OTH IDENT INFLUENZA VIRUS W OTH RESP MANIFEST (2) Epilepsy Code(s): G40.909 - EPILEPSY, UNSP, NOT INTRACTABLE, WITHOUT STATUS EPILEPTICUS (3) Hydrocephalus Code(s): G91.9 - HYDROCEPHALUS, UNSPECIFIED (4) Fever Code(s): R50.9 - FEVER, UNSPECIFIED (5) Sepsis Code(s): A41.9 - SEPSIS, UNSPECIFIED ORGANISM Qualifiers: Sepsis type: sepsis due to unspecified organism Qualified Code(s): A41.9 - Sepsis, unspecified organism Assessment/Plan 44 y.o. male with PMH of Cerebral palsy, hydrocephalus s/p PRINTED CIRCUIT BOARDS PLASMA ETCHER shunt, epilepsy, functional quadriplegia sent from [facility] for fever > 103F and tachycardia noted from the previous night Influenza A Fever Tachycardia Leukocytosis Sepsis Cerebral Palsy Hydrocephalus s/p PRINTED CIRCUIT BOARDS PLASMA ETCHER Shunt Epilepsy -- started on Tamiflu. Will add Levaquin empirically for now. -- blood cultures neg 24hr, continue to follow -- repeat cbc -- CT Chest ordered -- monitor vitals closely Will follow Thank you
--- NOTE | 2019-10-19 18:51 | CONSULT ---
Consult Consult Specialty:: Heme Referred by:: Dr. Jeter Reason for Consultation:: neutropenia - History of Present Illness History of Present Illness: 44M, from SNF, with hydrocephalus s/p PROMOTIONAL MARKETING ANALYST shunt, seizure d/o, developmental delay , blindness, non-verbal at baseline, congenital quadrapligia presented with influenza yesterday. Started on Tamiflu. On presentation yesterday, WBC 12.2 ( ANC 10.9), plt 198, Hgb 17.9. Today WBC 1.2, ANC 800, Hgb 14. Pt unable to provide hx. - History Source History Provided By: Caregiver Limitations to Obtaining History: Other - Alcohol/Substance Use Hx Alcohol Use: No - Smoking History Smoking history: Never smoked Have you smoked in the past 12 months: No Home Medications - Allergies Allergies/Adverse Reactions: Allergies Allergy/AdvReac Type Severity Reaction Status Date / Time Penicillins Allergy Verified 10/18/19 12:04 - Home Medications Home Medications: Ambulatory Orders Bisacodyl Suppository [Dulcolax Suppository -] 10 mg RC ONCE PRN 02/18/17 Clobazam [Onfi -] 5 mg PO AM 02/18/17 Clobazam [Onfi -] 5 mg PO HS 02/18/17 Diazepam Rectal Gel [Diastat Rectal Gel -] 10 mg MA ONCE PRN 02/18/17 Diazepam [Valium] 5 mg PO TID 02/18/17 Magnesium Hydroxide [Milk of Magnesia] 15 ml PO AM 02/18/17 Magnesium Hydroxide [Milk of Magnesia] 30 ml PO HS 02/18/17 Phenobarbital 64.8 mg PO HS 02/18/17 Sennosides/Docusate Sodium [Senna-S Tablet] 2 each PO BID 02/18/17 Calcium Carbonate/Vitamin D3 [Oyster Shell 500-Vit D3 200 Tb] 1 each PO TID 12/18 Physical Exam Vital Signs: Vital Signs Temperature 101 F H 10/19/19 17:16 Pulse Rate 128 H 10/19/19 17:16 Respiratory Rate 20 10/19/19 17:16 Blood Pressure 90/59 L 10/19/19 17:16 O2 Sat by Pulse Oximetry (%) 96 10/19/19 14:40 Constitutional: Yes: No Distress, Calm Eyes: Yes: Other (erythematous sclera) Cardiovascular: Yes: Tachycardia Respiratory: Yes: Regular, CTA Bilaterally Edema: No Labs: CBC, BMP 10/19/19 09:40 10/19/19 09:40 Assessment/Plan 44M, from SNF, with hydrocephalus s/p PROMOTIONAL MARKETING ANALYST shunt, seizure d/o, developmental delay , blindness, non-verbal at baseline, congenital quadrapligia presented with influenza yesterday. Started on Tamiflu. Acute thrombocytopenia and leukopenia likely 2/2 influenza. Peripheral smear without plt clumps, schistocytes; neutropenia, no immature cells. Continue to monitor CBC
--- NOTE | 2019-10-19 20:23 | PN ---
Progress Note, Physician - Current Medication List Current Medications: Active Medications Acetaminophen (Ofirmev Injection -) 1,000 mg IVPB Q6H PRN PRN Reason: FEVER Last Admin: 10/19/19 05:24 Dose: 1,000 mg Clobazam (Onfi -) 5 mg PO AM [facility] Last Admin: 10/19/19 06:28 Dose: 5 mg Clobazam (Onfi -) 5 mg PO HS [facility] Diazepam (Valium -) 5 mg PO TID [facility] Last Admin: 10/19/19 15:14 Dose: 5 mg Diazepam (Diastat Rectal Gel -) 10 mg RC PRN PRN PRN Reason: seizure Enoxaparin Sodium (Lovenox -) 40 mg SQ DAILY [facility] Last Admin: 10/19/19 10:56 Dose: 40 mg Dextrose/Sodium Chloride (D5-1/2ns -) 1,000 mls @ 100 mls/hr IV ASDIR [facility] Last Admin: 10/19/19 15:20 Dose: 100 mls/hr Levofloxacin (Levaquin 750 Mg Premixed Ivpb -) 750 mg in 150 mls @ 100 mls/hr IVPB Q2D [facility]; Protocol Last Admin: 10/19/19 19:42 Dose: 100 mls/hr Magnesium Hydroxide (Milk Of Magnesia -) 15 ml PO AM [facility] Last Admin: 10/19/19 07:20 Dose: Not Given Magnesium Hydroxide (Milk Of Magnesia -) 30 ml PO HS [facility] Oseltamivir Phosphate (Tamiflu Oral Suspension -) 30 mg PO BID [facility] Stop: 10/23/19 21:59 Last Admin: 10/19/19 10:56 Dose: 30 mg Phenobarbital (Phenobarbital -) 60 mg PO HS [facility] Senna/Docusate Sodium (Pericolace -) 2 tablet PO BID [facility] Last Admin: 10/19/19 10:56 Dose: 2 tablet - Objective Vital Signs: Vital Signs Temperature 101 F H 10/19/19 17:16 Pulse Rate 128 H 10/19/19 17:16 Respiratory Rate 20 10/19/19 17:16 Blood Pressure 90/59 L 10/19/19 17:16 O2 Sat by Pulse Oximetry (%) 96 10/19/19 14:40 Labs: CBC, BMP 10/19/19 09:40 10/19/19 09:40 INR, PTT INR Cancelled 10/18/19 12:25
[2019-10-19 20:37] LABS: EPI CELLS 3.1 /HPF (0-5/HPF); HYALINE CASTS 13 /lpf (0-8); PH,URINE 5.5 (5.0-8.0); URINE APPEARANCE TURBID; URINE BACTERIA 371.2 /hpf (NEGATIVE); URINE BILIRUBIN NEGATIVE (NEGATIVE); URINE COLOR YELLOW; URINE GLUCOSE (UA) NEGATIVE (NEGATIVE); URINE KETONE TRACE (NEGATIVE); URINE LEUK ESTERASE 2+ (NEGATIVE); URINE NITRITE NEGATIVE (NEGATIVE); URINE PROTEIN 1+ (NEGATIVE); URINE RBC 16 /hpf (0-4); URINE WBC 215 /hpf (0-5)
[2019-10-19 21:22] LABS: BASO % 0.1 % (0-2.0); HEMATOCRIT 43.1 % (35.4-49); HEMOGLOBIN 14.4 GM/dL (11.7-16.9); LYMPH % 2.5 % (8-40); MCH 29.6 pg (25.7-33.7); MCHC 33.4 g/dl (32.0-35.9); MEAN CELL VOLUME 88.7 fl (80-96); MEAN PLT VOLUME 8.8 fl (7.5-11.1); MONO % 1.3 % (3.8-10.2); NEUT % 96.1 % (42.8-82.8); PLATELET COUNT 92 K/MM3 (134-434); RBC 4.86 M/mm3 (4.00-5.60); RDW 13.4 % (11.9-15.9); WHITE BLOOD COUNT 18.9 K/mm3 (4.0-10.0)
[2019-10-19 21:49] LABS: ALBUMIN 2.5 g/dl (3.4-5.0); BILIRUBIN,TOTAL 0.7 mg/dL (0.2-1); BLOOD UREA NITROGEN 23.9 mg/dL (7-18); CREATININE 1.7 mg/dL (0.55-1.3); TOT PROT 5.2 g/dl (6.4-8.2)
[2019-10-19] MEDS ORDERED: PATIENT'S OWN MEDICATION (NON-FORMULARY) (Phenobarbital [Phenobarbital] 64.8 MG) PO SCH (22:00)
[2019-10-19] MEDS ORDERED: PHENobarbital 30 MG TABLET PO SCH ×2 (22:51→23:15)
[2019-10-19 23:26] LABS: PLATELET ESTIMATE DECREASED; TOXIC GRANULATION 1+
[2019-10-19] MEDS: PHENobarbital 30 MG TABLET PO SCH (23:28)
[2019-10-20 00:58] VITALS: BMI 25.7
[2019-10-20] MEDS: ACETAMINOPHEN 1000 MG/100 ML VIAL (NON FORMULARY) IVPB PRN ×2 (02:07→19:27)
[2019-10-20] MEDS: DEXTROSE 5%-0.45% SALINE 1,000 ML IV SCH ×2 (03:47→14:16)
[2019-10-20] MEDS: cloBAZam 10 MG TABLET PO SCH (06:48)
[2019-10-20] MEDS: diazePAM 5 MG TABLET PO SCH ×2 (06:48→14:16)
[2019-10-20] MEDS: MAGNESIUM HYDROX 2400MG/30ML ORAL SUSPENSION 30 ML CUP PO SCH (06:48)
[2019-10-20 08:54] LABS: BASO % 0.1 % (0-2.0); EOS % 0.3 % (0-4.5); HEMATOCRIT 41.6 % (35.4-49); HEMOGLOBIN 14.3 GM/dL (11.7-16.9); LYMPH % 6.7 % (8-40); MCH 29.8 pg (25.7-33.7); MCHC 34.4 g/dl (32.0-35.9); MEAN CELL VOLUME 86.6 fl (80-96); MEAN PLT VOLUME 9.3 fl (7.5-11.1); MONO % 1.9 % (3.8-10.2); PLATELET COUNT 64 K/MM3 (134-434); RBC 4.81 M/mm3 (4.00-5.60); RDW 13.4 % (11.9-15.9); WHITE BLOOD COUNT 20.3 K/mm3 (4.0-10.0)
[2019-10-20 09:29] LABS: ALBUMIN 2.4 g/dl (3.4-5.0); BILIRUBIN,TOTAL 1.1 mg/dL (0.2-1); BLOOD UREA NITROGEN 24.1 mg/dL (7-18); CALCIUM 7.3 mg/dL (8.5-10.1); CREATININE 1.2 mg/dL (0.55-1.3); POTASSIUM 3.9 mmol/L (3.5-5.1); TOT PROT 5.1 g/dl (6.4-8.2)
[2019-10-20] MEDS: SENNOSIDES/DOCUSATE COMBO (SENNA PLUS) TABLET (UD) PO SCH (10:38)
[2019-10-20] MEDS: ENOXAPARIN NA (PORCINE) 40 MG/0.4 ML DISP.SYRIN SQ SCH (10:38)
[2019-10-20] MEDS: OSELTAMIVIR PHOSPHATE 6 MG/1 ML PO SCH (10:39)
[2019-10-20 12:50] LABS: ANISOCYTOSIS 1+; MACROCYTOSIS 0; PLATELET ESTIMATE DECREASED; TEAR DROP CELLS 1+
--- NOTE | 2019-10-20 18:11 | PN ---
Progress Note, Physician History of Present Illness: Pt appears be less lethargic. Currently afebrile, without acute distress. WBC trending up. - Current Medication List Current Medications: Active Medications Acetaminophen (Ofirmev Injection -) 1,000 mg IVPB Q6H PRN PRN Reason: FEVER Last Admin: 10/20/19 02:07 Dose: 1,000 mg Clobazam (Onfi -) 5 mg PO AM [facility] Last Admin: 10/20/19 06:48 Dose: 5 mg Clobazam (Onfi -) 5 mg PO HS [facility] Last Admin: 10/19/19 23:04 Dose: 5 mg Diazepam (Valium -) 5 mg PO TID [facility] Last Admin: 10/20/19 14:16 Dose: 5 mg Diazepam (Diastat Rectal Gel -) 10 mg RC PRN PRN PRN Reason: seizure Enoxaparin Sodium (Lovenox -) 40 mg SQ DAILY [facility] Last Admin: 10/20/19 10:38 Dose: 40 mg Dextrose/Sodium Chloride (D5-1/2ns -) 1,000 mls @ 100 mls/hr IV ASDIR [facility] Last Admin: 10/20/19 14:16 Dose: 100 mls/hr Levofloxacin (Levaquin 750 Mg Premixed Ivpb -) 750 mg in 150 mls @ 100 mls/hr IVPB Q2D [facility]; Protocol Last Admin: 10/19/19 19:42 Dose: 100 mls/hr Magnesium Hydroxide (Milk Of Magnesia -) 15 ml PO AM [facility] Last Admin: 10/20/19 06:48 Dose: Not Given Magnesium Hydroxide (Milk Of Magnesia -) 30 ml PO HS [facility] Last Admin: 10/19/19 22:47 Dose: Not Given Oseltamivir Phosphate (Tamiflu Oral Suspension -) 30 mg PO BID [facility] Stop: 10/23/19 21:59 Last Admin: 10/20/19 10:39 Dose: 30 mg Phenobarbital (Phenobarbital -) 60 mg PO HS [facility] Last Admin: 10/19/19 23:28 Dose: 60 mg Senna/Docusate Sodium (Pericolace -) 2 tablet PO BID [facility] Last Admin: 10/20/19 10:38 Dose: 2 tablet - Objective Vital Signs: Vital Signs Temperature 97.9 F 10/20/19 14:00 Pulse Rate 120 H 10/20/19 14:00 Respiratory Rate 20 01/19/20 14:00 Blood Pressure 121/77 10/20/19 14:00 O2 Sat by Pulse Oximetry (%) 96 10/20/19 09:00 Constitutional: Yes: No Distress, Calm Cardiovascular: Yes: Tachycardia Respiratory: Yes: CTA Bilaterally (but poor inspiratory effort) Gastrointestinal: Yes: Normal Bowel Sounds, Soft Genitourinary: Yes: WNL Extremities: Yes: Other (contracted) Edema: No Labs: CBC, BMP 10/20/19 07:00 10/20/19 07:00 INR, PTT INR Cancelled 10/18/19 12:25 - ....Imaging Chest X-ray: Report Reviewed Cat Scan: Pending Problem List - Problems (1) Influenza A Code(s): J10.1 - FLU DUE TO OTH IDENT INFLUENZA VIRUS W OTH RESP MANIFEST (2) Epilepsy Code(s): G40.909 - EPILEPSY, UNSP, NOT INTRACTABLE, WITHOUT STATUS EPILEPTICUS (3) Hydrocephalus Code(s): G91.9 - HYDROCEPHALUS, UNSPECIFIED (4) Fever Code(s): R50.9 - FEVER, UNSPECIFIED (5) Sepsis Code(s): A41.9 - SEPSIS, UNSPECIFIED ORGANISM Qualifiers: Sepsis type: sepsis due to unspecified organism Qualified Code(s): A41.9 - Sepsis, unspecified organism Assessment/Plan 44 y.o. male with PMH of Cerebral palsy, hydrocephalus s/p OFFICE SERVICES COORDINATOR shunt, epilepsy, functional quadriplegia sent from [facility] for fever > 103F and tachycardia noted from the previous night Influenza A Sepsis r/o UTI Fever Leukocytosis Cerebral Palsy Hydrocephalus s/p OFFICE SERVICES COORDINATOR Shunt Epilepsy -- WBC and LFTs increasing, currently afebrile/BP stable -- blood cultures neg so far, urine culture is pending -- continue Tamiflu -- will switch from Levaquin to Meropenem, monitor for seizure activity/adverse effects -- CT Chest results pending -- monitor vitals closely
[2019-10-20] MEDS ORDERED: DEXTROSE 5%-WATER 100 ML IVPB ONE (18:52)
[2019-10-20] MEDS ORDERED: MEROPENEM 1 GM VIAL (RESTRICTED TO ID) IVPB ONE (18:52)
[2019-10-20] MEDS: MEROPENEM 1 GM in DEXTROSE 5%-WATER 100 ML IVPB SCH (18:55)
--- NOTE | 2019-10-20 23:15 | PN ---
Progress Note, Physician History of Present Illness: No new changes - Current Medication List Current Medications: Active Medications Acetaminophen (Ofirmev Injection -) 1,000 mg IVPB Q6H PRN PRN Reason: FEVER Last Admin: 10/20/19 19:27 Dose: 1,000 mg Clobazam (Onfi -) 5 mg PO AM [facility] Last Admin: 10/20/19 06:48 Dose: 5 mg Clobazam (Onfi -) 5 mg PO HS [facility] Last Admin: 10/19/19 23:04 Dose: 5 mg Diazepam (Valium -) 5 mg PO TID [facility] Last Admin: 10/20/19 14:16 Dose: 5 mg Diazepam (Diastat Rectal Gel -) 10 mg RC PRN PRN PRN Reason: seizure Enoxaparin Sodium (Lovenox -) 40 mg SQ DAILY [facility] Last Admin: 10/20/19 10:38 Dose: 40 mg Dextrose/Sodium Chloride (D5-1/2ns -) 1,000 mls @ 100 mls/hr IV ASDIR [facility] Last Admin: 10/20/19 14:16 Dose: 100 mls/hr Meropenem 1 gm/ Dextrose 100 mls @ 200 mls/hr IVPB Q8H-IV [facility] Last Admin: 10/20/19 18:55 Dose: 200 mls/hr Magnesium Hydroxide (Milk Of Magnesia -) 15 ml PO AM [facility] Last Admin: 10/20/19 06:48 Dose: Not Given Magnesium Hydroxide (Milk Of Magnesia -) 30 ml PO HS [facility] Last Admin: 10/19/19 22:47 Dose: Not Given Oseltamivir Phosphate (Tamiflu Oral Suspension -) 30 mg PO BID [facility] Stop: 10/23/19 21:59 Last Admin: 10/20/19 10:39 Dose: 30 mg Phenobarbital (Phenobarbital -) 60 mg PO HS [facility] Last Admin: 10/19/19 23:28 Dose: 60 mg Senna/Docusate Sodium (Pericolace -) 2 tablet PO BID [facility] Last Admin: 10/20/19 10:38 Dose: 2 tablet - Objective Vital Signs: Vital Signs Temperature 101 F H 10/20/19 19:27 Pulse Rate 121 H 10/20/19 18:00 Respiratory Rate 20 10/20/19 18:00 Blood Pressure 137/85 10/20/19 18:00 O2 Sat by Pulse Oximetry (%) 96 10/20/19 09:00 Neck: Yes: WNL, Supple Cardiovascular: Yes: Tachycardia Respiratory: Yes: Diminished Gastrointestinal: Yes: WNL, Normal Bowel Sounds, Soft Labs: CBC, BMP 10/20/19 07:00 10/20/19 07:00 INR, PTT INR Cancelled 10/18/19 12:25 Problem List - Problems (1) Sepsis Assessment/Plan: Cont IV antibx Monitor cultures Code(s): A41.9 - SEPSIS, UNSPECIFIED ORGANISM Qualifiers: Sepsis type: sepsis due to unspecified organism Qualified Code(s): A41.9 - Sepsis, unspecified organism (2) Influenza A Assessment/Plan: Cont antiviral Cont IVF Code(s): J10.1 - FLU DUE TO OTH IDENT INFLUENZA VIRUS W OTH RESP MANIFEST (3) Seizure Assessment/Plan: Cont phenobarb Code(s): R56.9 - UNSPECIFIED CONVULSIONS (4) Pancytopenia Assessment/Plan: Will dc lovenox due to thrombocytopenia Code(s): D61.818 - OTHER PANCYTOPENIA (5) Elevated LFTs Assessment/Plan: Check US abd GI consult Code(s): R94.5 - ABNORMAL RESULTS OF LIVER FUNCTION STUDIES
[2019-10-21] MEDS: PHENobarbital 30 MG TABLET PO SCH ×2 (00:07→21:42)
[2019-10-21] MEDS: diazePAM 5 MG TABLET PO SCH ×4 (00:09→21:43)
[2019-10-21] MEDS: cloBAZam 10 MG TABLET PO SCH ×3 (00:09→21:42)
[2019-10-21] MEDS: MAGNESIUM HYDROX 2400MG/30ML ORAL SUSPENSION 30 ML CUP PO SCH ×3 (00:09→21:42)
[2019-10-21] MEDS: OSELTAMIVIR PHOSPHATE 6 MG/1 ML PO SCH ×3 (00:11→21:42)
[2019-10-21] MEDS ORDERED: DEXTROSE 5%-WATER 100 ML IVPB ONE ×3 (01:27→17:20)
[2019-10-21] MEDS ORDERED: MEROPENEM 1 GM VIAL (RESTRICTED TO ID) IVPB ONE ×3 (01:27→17:20)
[2019-10-21] MEDS: SENNOSIDES/DOCUSATE COMBO (SENNA PLUS) TABLET (UD) PO SCH ×3 (01:30→21:42)
[2019-10-21] MEDS: MEROPENEM 1 GM in DEXTROSE 5%-WATER 100 ML IVPB SCH ×3 (01:32→17:50)
[2019-10-21] MEDS: DEXTROSE 5%-0.45% SALINE 1,000 ML IV SCH ×2 (06:22→13:40)
[2019-10-21 09:04] LABS: BASO % 0.2 % (0-2.0); EOS % 0.1 % (0-4.5); HEMATOCRIT 41.6 % (35.4-49); HEMOGLOBIN 14.4 GM/dL (11.7-16.9); LYMPH % 6.9 % (8-40); MCH 29.7 pg (25.7-33.7); MCHC 34.5 g/dl (32.0-35.9); MEAN CELL VOLUME 86.1 fl (80-96); MEAN PLT VOLUME 10.4 fl (7.5-11.1); MONO % 3.4 % (3.8-10.2); NEUT % 89.4 % (42.8-82.8); PLATELET COUNT 54 K/MM3 (134-434); RBC 4.83 M/mm3 (4.00-5.60); RDW 13.4 % (11.9-15.9); WHITE BLOOD COUNT 15.7 K/mm3 (4.0-10.0)
[2019-10-21 09:30] LABS: ALBUMIN 2.1 g/dl (3.4-5.0); BILIRUBIN,TOTAL 0.6 mg/dL (0.2-1); BLOOD UREA NITROGEN 14.6 mg/dL (7-18); CALCIUM 7.4 mg/dL (8.5-10.1); CREATININE 0.7 mg/dL (0.55-1.3); POTASSIUM 3.2 mmol/L (3.5-5.1); TOT PROT 4.8 g/dl (6.4-8.2)
[2019-10-21] MEDS ORDERED: PT OWN MED DRAWER 7, Y5N ONE (11:53)
--- NOTE | 2019-10-21 12:30 | PN ---
Progress Note (short form) - Note Progress Note: Patient seen and examined Last Vital Signs Temp Pulse Resp BP Pulse Ox 100.1 F H 111 H 18 114/62 96 10/21/19 11:00 10/21/19 11:00 10/21/19 11:00 10/21/19 11:00 10/20/19 21:00 Lungs- rhonchi anteriorly Cor-RSR Abdomen- distended Ext- contracted CBC, BMP 10/21/19 08:23 10/21/19 08:23 Current Medications Generic Name Dose Route Start Last Admin Trade Name Freq PRN Reason Stop Dose Admin Acetaminophen 1,000 mg 10/18/19 21:01 10/20/19 19:27 Ofirmev Injection - IVPB 1,000 mg Q6H PRN Administration FEVER Clobazam 5 mg 10/19/19 07:00 10/21/19 06:15 Onfi - PO 5 mg AM [facility] Administration Clobazam 5 mg 10/19/19 22:00 10/21/19 00:09 Onfi - PO 5 mg HS [facility] Administration Diazepam 5 mg 10/19/19 06:00 10/21/19 06:15 Valium - PO 5 mg TID [facility] Administration Diazepam 10 mg 10/19/19 01:05 Diastat Rectal Gel - RC PRN PRN seizure Dextrose/Sodium Chloride 1,000 mls @ 100 mls/hr 10/19/19 13:30 10/21/19 06:22 D5-1/2ns - IV 100 mls/hr ASDIR [facility] Administration Meropenem 1 gm/ Dextrose 100 mls @ 200 mls/hr 10/20/19 18:30 10/21/19 11:56 IVPB 200 mls/hr Q8H-IV [facility] Administration Potassium Chloride 10 meq in 100 mls @ 100 mls/hr 10/21/19 11:45 Potassium Chloride 10 Meq Premix Ivpb - IVPB 10/21/19 14:44 Q60M [facility] Magnesium Hydroxide 15 ml 10/19/19 07:00 10/21/19 06:15 Milk Of Magnesia - PO Not Given AM [facility] Magnesium Hydroxide 30 ml 10/19/19 22:00 10/21/19 00:09 Milk Of Magnesia - PO 30 ml HS [facility] Administration Oseltamivir Phosphate 30 mg 10/18/19 23:08 10/21/19 00:11 Tamiflu Oral Suspension - PO 10/23/19 21:59 30 mg BID [facility] Administration Phenobarbital 60 mg 10/19/19 23:15 10/21/19 00:07 Phenobarbital - PO 60 mg HS [facility] Administration Senna/Docusate Sodium 2 tablet 10/19/19 10:00 10/21/19 01:30 Pericolace - PO 2 tablet BID [facility] Administration 44M, from SNF, with hydrocephalus s/p UNITIZER shunt, seizure d/o, developmental delay , blindness, non-verbal at baseline, congenital quadrapligia presented with influenza yesterday. Started on Tamiflu. Acute thrombocytopenia and leukopenia likely 2/2 influenza. Peripheral smear without plt clumps, schistocytes; neutropenia, no immature cells. Continue to monitor CBC Suspect lab with WBC on 10/19- spurious value Falling platelets- Suspect flu related, check HIT antibody To monitor
[2019-10-21 12:51] LABS: ANISOCYTOSIS 1+; MACROCYTOSIS 0; PLATELET ESTIMATE DECREASED; TARGET CELLS 1+; TEAR DROP CELLS 1+; TOXIC GRANULATION 1+
[2019-10-21] MEDS: KCL 10 MEQ IVPB 10 MEQ/100 ML INFUS.BAG IVPB SCH ×3 (13:04→16:09)
--- NOTE | 2019-10-21 14:30 | PN ---
Progress Note, Physician History of Present Illness: patient still spikng fevers wbc trending down - Current Medication List Current Medications: Active Medications Acetaminophen (Ofirmev Injection -) 1,000 mg IVPB Q6H PRN PRN Reason: FEVER Last Admin: 10/20/19 19:27 Dose: 1,000 mg Clobazam (Onfi -) 5 mg PO AM [facility] Last Admin: 10/21/19 06:15 Dose: 5 mg Clobazam (Onfi -) 5 mg PO [facility] Last Admin: 10/21/19 00:09 Dose: 5 mg Diazepam (Valium -) 5 mg PO TID [facility] Last Admin: 10/21/19 06:15 Dose: 5 mg Diazepam (Diastat Rectal Gel -) 10 mg RC PRN PRN PRN Reason: seizure Dextrose/Sodium Chloride (D5-1/2ns -) 1,000 mls @ 100 mls/hr IV ASDIR [facility] Last Admin: 10/21/19 06:22 Dose: 100 mls/hr Meropenem 1 gm/ Dextrose 100 mls @ 200 mls/hr IVPB Q8H-IV [facility] Last Admin: 10/21/19 11:56 Dose: 200 mls/hr Potassium Chloride (Potassium Chloride 10 Meq Premix Ivpb -) 10 meq in 100 mls @ 100 mls/hr IVPB Q60M [facility] Stop: 10/21/19 14:44 Last Admin: 10/21/19 13:04 Dose: 100 mls/hr Magnesium Hydroxide (Milk Of Magnesia -) 15 ml PO AM [facility] Last Admin: 10/21/19 06:15 Dose: Not Given Magnesium Hydroxide (Milk Of Magnesia -) 30 ml PO [facility] Last Admin: 10/21/19 00:09 Dose: 30 ml Oseltamivir Phosphate (Tamiflu Oral Suspension -) 30 mg PO BID [facility] Stop: 10/23/19 21:59 Last Admin: 10/21/19 12:30 Dose: Not Given Phenobarbital (Phenobarbital -) 60 mg PO [facility] Last Admin: 10/21/19 00:07 Dose: 60 mg Senna/Docusate Sodium (Pericolace -) 2 tablet PO BID [facility] Last Admin: 10/21/19 12:30 Dose: Not Given - Objective Vital Signs: Vital Signs Temperature 100.1 F H 10/21/19 11:00 Pulse Rate 111 H 10/21/19 11:00 Respiratory Rate 18 10/21/19 11:00 Blood Pressure 114/62 10/21/19 11:00 O2 Sat by Pulse Oximetry (%) 96 10/20/19 21:00 Constitutional: Yes: Other HENT: Yes: Other Neck: Yes: Supple Cardiovascular: Yes: S1, S2 Respiratory: Yes: On Nasal O2, Poor Air Entry, Rhonchi Gastrointestinal: Yes: Normal Bowel Sounds, Soft Musculoskeletal: Yes: Other Extremities: Yes: Other Neurological: Yes: Other Labs: CBC, BMP 10/21/19 08:23 10/21/19 08:23 INR, PTT INR Cancelled 10/18/19 12:25 Assessment/Plan Problem List - Problems (1) Influenza A Code(s): J10.1 - FLU DUE TO OTH IDENT INFLUENZA VIRUS W OTH RESP MANIFEST (2) Epilepsy Code(s): G40.909 - EPILEPSY, UNSP, NOT INTRACTABLE, WITHOUT STATUS EPILEPTICUS (3) Hydrocephalus Code(s): G91.9 - HYDROCEPHALUS, UNSPECIFIED (4) Fever Code(s): R50.9 - FEVER, UNSPECIFIED (5) Sepsis Code(s): A41.9 - SEPSIS, UNSPECIFIED ORGANISM Qualifiers: Sepsis type: sepsis due to unspecified organism Qualified Code(s): A41.9 - Sepsis, unspecified organism Assessment/Plan 44 y.o. 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
[2019-10-21] MEDS: ACETAMINOPHEN 1000 MG/100 ML VIAL (NON FORMULARY) IVPB PRN (14:42)
--- NOTE | 2019-10-21 15:25 | CON.GI ---
Consult Consult Specialty:: GI Referred by:: Dr. Londono Reason for Consultation:: abnormal LFTs - History of Present Illness Chief Complaint: Patient non-verbal. History per the chart History of Present Illness: 44M admitted from [facility] for evaluation of fever, cough, sneezing. Noted influenza A +. Noted top have elevated ALP on admission. Transaminases lady as well during the course of the admission along with bilirubin. Has been getting IV tylenol. Abdominal US limited but revealed normal appearing GB and CBD. He has been developing a metabolic acidosis as well. He has received heparin, lovenox, levaquin during the course of his admission. Liver chemistries seem to be in a downward trend. 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, Other (Hydrocephalus, cerebral palsy, quadraplegia) - Past Surgical History Additional Surgical History: SUPERVISOR CD AREA-Shunt - Alcohol/Substance Use Hx Alcohol Use: No History of Substance Use: reports: None - Smoking History Smoking history: Never smoked Have you smoked in the past 12 months: No - Social History Usual Living Arrangement: Halfway ADL: Support Services Place of : [facility] History of Recent Travel: No Home Medications - Allergies Allergies/Adverse Reactions: Allergies Allergy/AdvReac Type Severity Reaction Status Date / Time Penicillins Allergy Verified 10/18/19 12:04 - Home Medications Home Medications: Ambulatory Orders Bisacodyl Suppository [Dulcolax Suppository -] 10 mg RC ONCE PRN 02/18/17 Clobazam [Onfi -] 5 mg PO AM 02/18/17 Clobazam [Onfi -] 5 mg PO HS 02/18/17 Diazepam Rectal Gel [Diastat Rectal Gel -] 10 mg GA ONCE PRN 02/18/17 Diazepam [Valium] 5 mg PO TID 02/18/17 Magnesium Hydroxide [Milk of Magnesia] 15 ml PO AM 02/18/17 Magnesium Hydroxide [Milk of Magnesia] 30 ml PO HS 02/18/17 Phenobarbital 64.8 mg PO HS 02/18/17 Sennosides/Docusate Sodium [Senna-S Tablet] 2 each PO BID 02/18/17 Calcium Carbonate/Vitamin D3 [Oyster Shell 500-Vit D3 200 Tb] 1 each PO TID 12/18 Family Medical History Family History: Unable to Obtain Review of Systems Unable to obtain ROS, reason: Patient non-verbal Physical Exam-GI Vital Signs: Vital Signs Temperature 100.1 F H 10/21/19 11:00 Pulse Rate 111 H 10/21/19 11:00 Respiratory Rate 18 10/21/19 11:00 Blood Pressure 114/62 10/21/19 11:00 O2 Sat by Pulse Oximetry (%) 96 10/20/19 21:00 Constitutional: Yes: Calm Eyes: No: Sclera Icterus Cardiovascular: Yes: Regular Rate and Rhythm Respiratory: Yes: Diminished (at bases bilaterally but with poor insp effort) Gastrointestinal Inspection: Yes: Scars (RLQ scar, two horizontal right sided upper abdominal scars), Other. No: Distention ...Auscultate: Yes: Normoactive Bowel Sounds ...Palpate: Yes: Soft, Other (palpable cord extending from right paramedian upper abdomen to right lower abdomen (presumed SUPERVISOR CD AREA shunt)). No: Tenderness (No grimacing upon palpation) ...Percussion: No: Tympanitic Extremities: Yes: Other (contractures) Edema: No (No LE eema) Neurological: Yes: Other (somnolent) Labs: CBC, BMP 10/21/19 08:23 10/21/19 08:23 INR, PTT INR Cancelled 10/18/19 12:25 Problem List - Problems (1) Elevated LFTs Assessment/Plan: Seem to be on a downward trend. ? if medication related, related to ongoing respiratory process. No sign of biliary tract pathology on US: Advise: Avoiding hepatotoxic agents. D/C'd IV tylenol Ordered CPK to assess for component of rhabdo. If elevated, further w/u per primary team Ordered urine for legionella antigen Ordered Hepatitis A/B panel, HCV antibody Monitor LFT's Code(s): R94.5 - ABNORMAL RESULTS OF LIVER FUNCTION STUDIES
[2019-10-21] MEDS ORDERED: KCL 10 MEQ IVPB 10 MEQ/100 ML INFUS.BAG IVPB SCH (16:00)
--- NOTE | 2019-10-21 17:33 | CONSULT ---
Consultation: REQUESTING PROVIDER: Dr. Londono CONSULT REQUEST: We have been asked to medically evaluate this patient for ICU monitoring. HISTORY OF PRESENT ILLNESS: 44M w/ pmhx of hydrocephalus (s/p SNUFF DRIER shunt), cerebral palsy, functional quadriplegia, seizure disorder presents from [facility] with shortness of breath, and fevers with associated sneezing and coughing admitted on 10/18/19 found to be Influenza A positive. Upon presentation in the ED, pt was found to be febrile at 103.5, and tachycardic. UA showed LE 2+, WBC 215. Full septic workup was initiated with results pending. Pt is currently on Oseltamivir and Meropenem for treatment of Flu A as well as possible UTI. ICU was consulted for concern of worsening lethargy, mental status and fever despite antibiotic therapy. Latest recorded temp was 103.8 today at 3pm. Pt was not able to receive PO meds earlier today due to increasing lethargy worsening temp. Upon my exam, pt was found to be awake and alert. He was responsive to verbal stimuli and able to open his mouth when physically prompted. Per nurse, pt was much more alert during my exam. He had no visible facial grimace to pain upon palpation and was in no acute distress. Pt remained hemodynamically stable. REVIEW OF SYSTEMS: Unable to obtain due to underlying medical condition. Nonverbal at baseline. PHYSICAL EXAMINATION Vital Signs - 24 hr 10/20/19 10/20/19 10/20/19 18:00 19:27 21:00 Temperature 101 F H 101 F H Pulse Rate 121 H Respiratory 20 Rate Blood Pressure 137/85 O2 Sat by Pulse 96 Oximetry (%) 10/20/19 10/21/19 10/21/19 22:00 02:00 07:00 Temperature 97.5 F L 98.6 F 98.0 F Pulse Rate 114 H 118 H 102 H Respiratory 20 20 2 L Rate Blood Pressure 132/73 118/70 98/74 O2 Sat by Pulse Oximetry (%) 10/21/19 10/21/19 11:00 15:00 Temperature 100.1 F H 103.8 F H Pulse Rate 111 H 129 H Respiratory 18 18 Rate Blood Pressure 114/62 118/70 O2 Sat by Pulse Oximetry (%) GENERAL: Awake and alert. NAD. Resting comfortably in bed. Mildly diaphoretic. Nonverbal. HEENT: Well healed surgical scar on head. Dry mucus membranes. Opens eyes spontaneously. Opens mouth when physically prompted. NECK: Moves neck with ease. No LAD/JVD. LUNGS: Poor inspiratory effort. Decreased breath sounds, no wheezes or rales appreciated. HEART: Regular rate and rhythm, normal S1 and S2 without murmur, rub or gallop. ABDOMEN: Distended. Nontender to palpation. Hypoactive bowel sounds. Tympanic to percussion. MUSCULOSKELETAL: Chronic u/l extremity contractures bilaterally. B/l hand and foot deformities. UPPER EXTREMITIES: 2+ pulses, warm, well-perfused. No cyanosis. No clubbing. Cap refill <2 seconds. No peripheral edema. LOWER EXTREMITIES: 2+ pulses, warm, well-perfused. No calf tenderness. No peripheral edema. NEUROLOGICAL: Facial symmetry noted. SKIN: Warm, dry, normal turgor, no rashes or lesions noted. CBCD WBC 15.7 K/mm3 (4.0-10.0) H 10/21/19 08:23 RBC 4.83 M/mm3 (4.00-5.60) 10/21/19 08:23 Hgb 14.4 GM/dL (11.7-16.9) 10/21/19 08:23 Hct 41.6 % (35.4-49) 10/21/19 08:23 MCV 86.1 fl (80-96) 10/21/19 08:23 MCHC 34.5 g/dl (32.0-35.9) 10/21/19 08:23 RDW 13.4 % (11.9-15.9) 10/21/19 08:23 Plt Count 54 K/MM3 (134-434) L 10/21/19 08:23 MPV 10.4 fl (7.5-11.1) D 10/21/19 08:23 CMP Sodium 143 mmol/L (136-145) 10/21/19 08:23 Potassium 3.2 mmol/L (3.5-5.1) L 10/21/19 08:23 Chloride 114 mmol/L (98-107) H 10/21/19 08:23 Carbon Dioxide 23 mmol/L (21-32) 10/21/19 08:23 Anion Gap 6 MMOL/L (8-16) L 10/21/19 08:23 BUN 14.6 mg/dL (7-18) 10/21/19 08:23 Creatinine 0.7 mg/dL (0.55-1.3) 10/21/19 08:23 Calcium 7.4 mg/dL (8.5-10.1) L 10/21/19 08:23 Total Bilirubin 0.6 mg/dL (0.2-1) 10/21/19 08:23 AST 193 U/L (15-37) H 10/21/19 08:23 ALT 364 U/L (13-61) H 10/21/19 08:23 Alkaline Phosphatase 124 U/L (45-117) H 10/21/19 08:23 Total Protein 4.8 g/dl (6.4-8.2) L 10/21/19 08:23 Albumin 2.1 g/dl (3.4-5.0) L 10/21/19 08:23 Active Medications Clobazam (Onfi -) 5 mg PO AM [facility] Last Admin: 10/21/19 06:15 Dose: 5 mg Clobazam (Onfi -) 5 mg PO [facility] Last Admin: 10/21/19 00:09 Dose: 5 mg Diazepam (Valium -) 5 mg PO TID [facility] Last Admin: 10/21/19 15:00 Dose: Not Given Diazepam (Diastat Rectal Gel -) 10 mg RC PRN PRN PRN Reason: seizure Dextrose/Sodium Chloride (D5-1/2ns -) 1,000 mls @ 100 mls/hr IV ASDIR [facility] Last Admin: 10/21/19 13:40 Dose: Not Given Meropenem 1 gm/ Dextrose 100 mls @ 200 mls/hr IVPB Q8H-IV [facility] Last Admin: 10/21/19 17:50 Dose: 200 mls/hr Magnesium Hydroxide (Milk Of Magnesia -) 15 ml PO AM [facility] Last Admin: 10/21/19 06:15 Dose: Not Given Magnesium Hydroxide (Milk Of Magnesia -) 30 ml PO [facility] Last Admin: 10/21/19 00:09 Dose: 30 ml Oseltamivir Phosphate (Tamiflu Oral Suspension -) 30 mg PO BID [facility] Stop: 10/23/19 21:59 Last Admin: 10/21/19 12:30 Dose: Not Given Phenobarbital (Phenobarbital -) 60 mg PO [facility] Last Admin: 10/21/19 00:07 Dose: 60 mg Senna/Docusate Sodium (Pericolace -) 2 tablet PO BID [facility] Last Admin: 10/21/19 12:30 Dose: Not Given ASSESSMENT/PLAN: 44M w/ pmhx of hydrocephalus (s/p SNUFF DRIER shunt), cerebral palsy, functional quadriplegia, seizure disorder presents from [facility] with shortness of breath, and fevers with associated sneezing and coughing admitted on 10/18/19 found to be Influenza A positive. Neuro Hx of Seizure Disorder Cerebral Palsy Hydrocephalus (s/p SNUFF DRIER shunt) Functional Quadriplegia -Now awake and alert; mental status improved. -Cont home meds: Clobazam, Diazepam, Onfi, Phenobarbital Cardiovascular -Hemodynamically stable -Cont to monitor Pulmonary Shortness of breath, likely 2/2 Sepsis -Stable -CXR unremarkable -O2 2L NC GI Acute Transaminitis Hx of Constipation -Pt remains with distended abdomen. LFTs are elevated but are currently trending down. -GI consulted with recommendation to obtain hepatitis panel -Abd U/S showed normal CBD, no acute GB pathology, trace R sided pleural effusion noted -Cont to trend LFTs; avoid hepatotoxic agents -Cont home meds: Milk of Magnesia ID Sepsis 2/2 +Influenza A, UTI R/o Intra-Abdominal source -Pt remains febrile with leukocytosis today, temp 103.8. Droplet precautions. -UA 2+ LE, 216 WBCs -BCx neg x72h, UCx/SCx neg; Repeat BCx pending. Lactate wnl today. -Urine Legionella/S. pneumo ordered -Currently on Oseltamivir 30 BID and Meropenem 1gm Q8H IVP -IV Tylenol given; however given transaminitis, consider NSAIDs PRN for breakthrough fever. Cont ice packs. -ID consulted -CXR unremarkable -Abd showed normal CBD, no acute GB pathology, trace R sided pleural effusion noted -Pt remains aspiration risk; advise to keep HOB elevated Heme Acute Thrombocytopenia, likely flu-related Leukopenia; likely lab error as it is inconsistent with rest of labs -WBC 15.7 --> 17.1 today -Pl 54 --> 57 -Heme consulted, recommend checking HIT Ab -Cont to trend CBC -Hold heparin products for now Prophylaxis DVT: SCDs; hold heparin products due to thrombocytopenia FEN -cont IVf -recheck lytes in AM (K+) -NPO for now except for meds Dispo Pt does not currently need ICU level of care at this time. Please re-consult if patient needs hemodynamic monitoring requiring pressor support or intubation. Dispo: We will continue to follow the patient. Thank you for this consultative opportunity. Visit type - Emergency Visit Emergency Visit: Yes ED Registration Date: 10/18/19 Care time: The patient presented to the Emergency Department on the above date and was hospitalized for further evaluation of their emergent condition. - New Patient This patient is new to me today: Yes Date on this admission: 10/21/19 - Critical Care Critical Care patient: No ATTENDING PHYSICIAN STATEMENT I saw and evaluated the patient. I reviewed the resident's note and discussed the case with the resident. I agree with the resident's findings and plan as documented. SUBJECTIVE: OBJECTIVE: ASSESSMENT AND PLAN:
[2019-10-21 18:17] LABS: BASO % 0.1 % (0-2.0); HEMATOCRIT 43.6 % (35.4-49); LYMPH % 8.2 % (8-40); MCH 29.6 pg (25.7-33.7); MCHC 34.5 g/dl (32.0-35.9); MEAN PLT VOLUME 11.2 fl (7.5-11.1); MONO % 3.3 % (3.8-10.2); NEUT % 88.4 % (42.8-82.8); PLATELET COUNT 57 K/MM3 (134-434); RBC 5.07 M/mm3 (4.00-5.60); RDW 13.4 % (11.9-15.9); WHITE BLOOD COUNT 17.1 K/mm3 (4.0-10.0)
[2019-10-21 18:43] LABS: ALBUMIN 2.4 g/dl (3.4-5.0); BLOOD UREA NITROGEN 16.1 mg/dL (7-18); CALCIUM 7.5 mg/dL (8.5-10.1); CREATININE 0.7 mg/dL (0.55-1.3); POTASSIUM 3.6 mmol/L (3.5-5.1); TOT PROT 5.1 g/dl (6.4-8.2)
[2019-10-21 19:37] LABS: PLATELET ESTIMATE DECREASED
--- NOTE | 2019-10-21 22:37 | PN ---
Progress Note, Physician History of Present Illness: Pt found to be lethargic today - Current Medication List Current Medications: Active Medications Clobazam (Onfi -) 5 mg PO AM [facility] Last Admin: 10/21/19 06:15 Dose: 5 mg Clobazam (Onfi -) 5 mg PO HS [facility] Last Admin: 10/21/19 21:42 Dose: Not Given Diazepam (Valium -) 5 mg PO TID [facility] Last Admin: 10/21/19 21:43 Dose: Not Given Diazepam (Diastat Rectal Gel -) 10 mg RC PRN PRN PRN Reason: seizure Dextrose/Sodium Chloride (D5-1/2ns -) 1,000 mls @ 100 mls/hr IV ASDIR [facility] Last Admin: 10/21/19 13:40 Dose: Not Given Meropenem 1 gm/ Dextrose 100 mls @ 200 mls/hr IVPB Q8H-IV [facility] Last Admin: 10/21/19 17:50 Dose: 200 mls/hr Magnesium Hydroxide (Milk Of Magnesia -) 15 ml PO AM [facility] Last Admin: 10/21/19 06:15 Dose: Not Given Magnesium Hydroxide (Milk Of Magnesia -) 30 ml PO [facility] Last Admin: 10/21/19 21:42 Dose: Not Given Oseltamivir Phosphate (Tamiflu Oral Suspension -) 30 mg PO BID [facility] Stop: 10/23/19 21:59 Last Admin: 10/21/19 21:42 Dose: Not Given Phenobarbital (Phenobarbital -) 60 mg PO [facility] Last Admin: 10/21/19 21:42 Dose: Not Given Senna/Docusate Sodium (Pericolace -) 2 tablet PO BID [facility] Last Admin: 10/21/19 21:42 Dose: Not Given - Objective Vital Signs: Vital Signs Temperature 101.1 F H 10/21/19 19:00 Pulse Rate 118 H 10/21/19 19:00 Respiratory Rate 18 10/21/19 19:00 Blood Pressure 126/66 10/21/19 19:00 O2 Sat by Pulse Oximetry (%) 95 10/21/19 09:00 Neck: Yes: WNL, Supple Cardiovascular: Yes: WNL, Regular Rate and Rhythm Respiratory: Yes: WNL, Regular, CTA Bilaterally Gastrointestinal: Yes: WNL, Normal Bowel Sounds, Soft Labs: CBC, BMP 10/21/19 17:35 10/21/19 17:35 INR, PTT INR Cancelled 10/18/19 12:25 Problem List - Problems (1) Sepsis Assessment/Plan: Pt evaluated by ICU due to sepsis/fatigue Influenza A Cont os Cont IV meropenem Monitor cultures Code(s): A41.9 - SEPSIS, UNSPECIFIED ORGANISM Qualifiers: Sepsis type: sepsis due to unspecified organism Qualified Code(s): A41.9 - Sepsis, unspecified organism (2) Influenza A Assessment/Plan: Cont antiviral Cont IVF Code(s): J10.1 - FLU DUE TO OTH IDENT INFLUENZA VIRUS W OTH RESP MANIFEST (3) Seizure Assessment/Plan: Cont phenobarb Code(s): R56.9 - UNSPECIFIED CONVULSIONS (4) Pancytopenia Assessment/Plan: Counts havwe improved Cont to monitor plts Code(s): D61.818 - OTHER PANCYTOPENIA (5) Elevated LFTs Assessment/Plan: Abdominal US was unremarkable DC tylenol GI consult noted Hep panel pending Code(s): R94.5 - ABNORMAL RESULTS OF LIVER FUNCTION STUDIES (6) Functional quadriplegia Code(s): R53.2 - FUNCTIONAL QUADRIPLEGIA (7) Hydrocephalus Code(s): G91.9 - HYDROCEPHALUS, UNSPECIFIED
[2019-10-21] MEDS ORDERED: IBUPROFEN 400 MG TABLET (FP) PO PRN (22:51)
[2019-10-22] MEDS ORDERED: MEROPENEM 1 GM VIAL (RESTRICTED TO ID) IVPB ONE ×3 (00:56→17:07)
[2019-10-22] MEDS ORDERED: DEXTROSE 5%-WATER 100 ML IVPB ONE ×3 (00:57→17:08)
[2019-10-22] MEDS: DEXTROSE 5%-0.45% SALINE 1,000 ML IV SCH ×3 (01:02→16:28)
[2019-10-22] MEDS: MEROPENEM 1 GM in DEXTROSE 5%-WATER 100 ML IVPB SCH ×3 (01:02→17:13)
[2019-10-22] MEDS: IBUPROFEN 800 MG/8 ML IJ IVPB PRN ×3 (01:03→22:45)
[2019-10-22] MEDS: cloBAZam 10 MG TABLET PO SCH ×2 (06:12→22:02)
[2019-10-22] MEDS: MAGNESIUM HYDROX 2400MG/30ML ORAL SUSPENSION 30 ML CUP PO SCH ×2 (06:12→22:09)
[2019-10-22] MEDS: diazePAM 5 MG TABLET PO SCH ×3 (06:12→22:01)
[2019-10-22] MEDS ORDERED: PT OWN MED DRAWER 7, Y5N ONE (09:21)
[2019-10-22] MEDS: OSELTAMIVIR PHOSPHATE 6 MG/1 ML PO SCH ×2 (10:59→22:03)
[2019-10-22] MEDS: SENNOSIDES/DOCUSATE COMBO (SENNA PLUS) TABLET (UD) PO SCH ×2 (11:06→22:02)
--- NOTE | 2019-10-22 12:23 | PN ---
Progress Note, Physician History of Present Illness: still spiking fevers events noted patient looks comfortable today - Current Medication List Current Medications: Active Medications Clobazam (Onfi -) 5 mg PO AM [facility] Last Admin: 10/22/19 06:12 Dose: Not Given Clobazam (Onfi -) 5 mg PO HS [facility] Last Admin: 10/21/19 21:42 Dose: Not Given Diazepam (Valium -) 5 mg PO TID [facility] Last Admin: 10/22/19 06:12 Dose: Not Given Diazepam (Diastat Rectal Gel -) 10 mg RC PRN PRN PRN Reason: seizure Dextrose/Sodium Chloride (D5-1/2ns -) 1,000 mls @ 100 mls/hr IV ASDIR [facility] Last Admin: 10/22/19 01:02 Dose: 100 mls/hr Meropenem 1 gm/ Dextrose 100 mls @ 200 mls/hr IVPB Q8H-IV [facility] Last Admin: 10/22/19 09:25 Dose: 200 mls/hr Ibuprofen (Caldolor Injection -) 400 mg IVPB Q6H PRN PRN Reason: FEVER Last Admin: 10/22/19 10:53 Dose: 400 mg Magnesium Hydroxide (Milk Of Magnesia -) 15 ml PO AM [facility] Last Admin: 10/22/19 06:12 Dose: Not Given Magnesium Hydroxide (Milk Of Magnesia -) 30 ml PO [facility] Last Admin: 10/21/19 21:42 Dose: Not Given Oseltamivir Phosphate (Tamiflu Oral Suspension -) 30 mg PO BID [facility] Stop: 10/23/19 21:59 Last Admin: 10/22/19 10:59 Dose: 30 mg Phenobarbital (Phenobarbital -) 60 mg PO [facility] Last Admin: 10/21/19 21:42 Dose: Not Given Senna/Docusate Sodium (Pericolace -) 2 tablet PO BID [facility] Last Admin: 10/22/19 11:06 Dose: 2 tablet - Objective Vital Signs: Vital Signs Temperature 102.1 F H 10/22/19 10:31 Pulse Rate 112 H 10/22/19 10:31 Respiratory Rate 18 10/22/19 10:31 Blood Pressure 115/65 10/22/19 10:31 O2 Sat by Pulse Oximetry (%) 95 10/21/19 21:00 Constitutional: Yes: No Distress, Calm Cardiovascular: Yes: S1, S2 Respiratory: Yes: Regular, Poor Air Entry (bases) Gastrointestinal: Yes: Normal Bowel Sounds, Soft Musculoskeletal: Yes: WNL Extremities: Yes: Other Neurological: Yes: Other Psychiatric: Yes: Other Labs: CBC, BMP 10/21/19 17:35 10/21/19 17:35 INR, PTT INR Cancelled 10/18/19 12:25 Assessment/Plan Problem List - Problems (1) Influenza A Code(s): J10.1 - FLU DUE TO OTH IDENT INFLUENZA VIRUS W OTH RESP MANIFEST (2) Epilepsy Code(s): G40.909 - EPILEPSY, UNSP, NOT INTRACTABLE, WITHOUT STATUS EPILEPTICUS (3) Hydrocephalus Code(s): G91.9 - HYDROCEPHALUS, UNSPECIFIED (4) Fever Code(s): R50.9 - FEVER, UNSPECIFIED (5) Sepsis Code(s): A41.9 - SEPSIS, UNSPECIFIED ORGANISM Qualifiers: Sepsis type: sepsis due to unspecified organism Qualified Code(s): A41.9 - Sepsis, unspecified organism Assessment/Plan 44 y.o. male with PMH of Cerebral palsy, hydrocephalus s/p SETUP OPERATOR shunt, epilepsy, functional quadriplegia sent from [facility] for fever > 103F and tachycardia noted from the previous night Influenza A Sepsis r/o UTI Fever Leukocytosis Cerebral Palsy Hydrocephalus s/p SETUP OPERATOR Shunt Epilepsy plan continue abx avoid aspiration monitor fevers rest as per the team await for cx reports
[2019-10-22 15:48] LABS: INR 1.1 (0.83-1.09)
[2019-10-22 15:58] LABS: ALBUMIN 1.9 g/dl (3.4-5.0); BILIRUBIN,DIRECT 0.4 mg/dL (0.0-0.2); BILIRUBIN,TOTAL 1.1 mg/dL (0.2-1); TOT PROT 4.5 g/dl (6.4-8.2)
[2019-10-22 16:14] LABS: BASO % 0.2 % (0-2.0); HEMATOCRIT 39.2 % (35.4-49); HEMOGLOBIN 13.6 GM/dL (11.7-16.9); LYMPH % 10.6 % (8-40); MCH 29.7 pg (25.7-33.7); MCHC 34.8 g/dl (32.0-35.9); MEAN CELL VOLUME 85.5 fl (80-96); MEAN PLT VOLUME 10.1 fl (7.5-11.1); MONO % 5.9 % (3.8-10.2); NEUT % 82.3 % (42.8-82.8); PLATELET COUNT 47 K/MM3 (134-434); RBC 4.58 M/mm3 (4.00-5.60); RDW 13.5 % (11.9-15.9)
[2019-10-22 16:19] LABS: ALBUMIN 1.9 g/dl (3.4-5.0); BILIRUBIN,TOTAL 0.9 mg/dL (0.2-1); BLOOD UREA NITROGEN 13.8 mg/dL (7-18); CALCIUM 7.3 mg/dL (8.5-10.1); CREATININE 0.5 mg/dL (0.55-1.3); MAGNESIUM 1.8 mg/dL (1.8-2.4); TOT PROT 4.5 g/dl (6.4-8.2)
[2019-10-22 16:24] LABS: POTASSIUM 2.9 mmol/L (3.5-5.1)
[2019-10-22 17:01] LABS: PLATELET ESTIMATE DECREASED
--- NOTE | 2019-10-22 17:37 | PN ---
Progress Note (short form) - Note Progress Note: Patient seen and examined Prior notes reviewed Platelets decreased to 47K No active bleeding ?? infection , ??meds, ??HIT, ??liver dysfunction (although currently improving ) Last Vital Signs Temp Pulse Resp BP Pulse Ox 101.1 F H 96 H 20 131/79 95 10/22/19 14:43 10/22/19 14:43 10/22/19 14:43 10/22/19 14:43 10/21/19 21:00 Lungs-rhonchi RSR Soft abdomen, scar, palpable cord (APPEALS COORDINATOR shunt) Contracted CBC, BMP 10/22/19 15:00 10/22/19 15:00 Current Medications Generic Name Dose Route Start Last Admin Trade Name Freq PRN Reason Stop Dose Admin Clobazam 5 mg 10/19/19 07:00 10/22/19 06:12 Onfi - PO Not Given AM [facility] Clobazam 5 mg 10/19/19 22:00 10/21/19 21:42 Onfi - PO Not Given HS [facility] Diazepam 5 mg 10/19/19 06:00 10/22/19 14:02 Valium - PO 5 mg TID [facility] Administration Diazepam 10 mg 10/19/19 01:05 Diastat Rectal Gel - RC PRN PRN seizure Dextrose/Sodium Chloride 1,000 mls @ 100 mls/hr 10/19/19 13:30 10/22/19 16:28 D5-1/2ns - IV 100 mls/hr ASDIR [facility] Administration Meropenem 1 gm/ Dextrose 100 mls @ 200 mls/hr 10/20/19 18:30 10/22/19 17:13 IVPB 200 mls/hr Q8H-IV [facility] Administration Ibuprofen 400 mg 10/21/19 23:31 10/22/19 10:53 Caldolor Injection - IVPB 400 mg Q6H PRN Administration FEVER Magnesium Hydroxide 15 ml 10/19/19 07:00 10/22/19 06:12 Milk Of Magnesia - PO Not Given AM [facility] Magnesium Hydroxide 30 ml 10/19/19 22:00 10/21/19 21:42 Milk Of Magnesia - PO Not Given HS [facility] Oseltamivir Phosphate 30 mg 10/18/19 23:08 10/22/19 10:59 Tamiflu Oral Suspension - PO 10/23/19 21:59 30 mg BID [facility] Administration Phenobarbital 60 mg 10/19/19 23:15 10/21/19 21:42 Phenobarbital - PO Not Given HS [facility] Senna/Docusate Sodium 2 tablet 10/19/19 10:00 10/22/19 11:06 Pericolace - PO 2 tablet BID [facility] Administration Impression: Thrombocytopenia--etiology --???HIT, MEDS,Infection, Abnormal LFT's Monitor
--- NOTE | 2019-10-22 18:33 | PN.GI ---
GI Progress Note Subjective: No acute events Continued fevers Loos - Objective Vital Signs: Vital Signs Temperature 101.1 F H 10/22/19 14:43 Pulse Rate 96 H 10/22/19 14:43 Respiratory Rate 10/22/19 14:43 Blood Pressure 131/79 10/22/19 14:43 O2 Sat by Pulse Oximetry (%) 95 10/21/19 21:00 Constitutional: Calm Cardiovascular: No: Tachycardia Respiratory: Yes: Diminished (at bases bilaterally) Gastrointestinal Inspection: Yes: Other (protuberant abdomen) ...Auscultate: Yes: Normoactive Bowel Sounds, Other (protuberant) ...Palpate: Yes: Soft. No: Tenderness (No grimacing upon palpation) ...Percussion: Yes: Tympanitic Neurological: Yes: Alert Labs: CBC, BMP 10/22/19 15:00 10/22/19 15:00 INR, PTT INR 1.10 (0.83-1.09) H 10/22/19 15:00 Problem List - Problems (1) Elevated LFTs Assessment/Plan: Some improvement. ? if reactive from systemic process, CPK was elevated. ? if some component of rhabdomyolysis contrinuting to transaminase elevation as well. Ordered CT scan of A/P with IV contrast to evaluate for ileus ort any obvious intraabdominal source for sepsis. Stool for C. Diff ordered Avoid hepatotoxic agents Follow-up hepatitis serologies Code(s): R94.5 - ABNORMAL RESULTS OF LIVER FUNCTION STUDIES
[2019-10-22] MEDS: KCL 10 MEQ IVPB 10 MEQ/100 ML INFUS.BAG IVPB SCH ×2 (20:52→22:21)
[2019-10-22] MEDS: PHENobarbital 30 MG TABLET PO SCH (22:02)
--- NOTE | 2019-10-22 23:37 | PN ---
Progress Note, Physician - Current Medication List Current Medications: Active Medications Clobazam (Onfi -) 5 mg PO AM [facility] Last Admin: 10/22/19 06:12 Dose: Not Given Clobazam (Onfi -) 5 mg PO HS [facility] Last Admin: 10/22/19 22:02 Dose: 5 mg Diazepam (Valium -) 5 mg PO TID [facility] Last Admin: 10/22/19 22:01 Dose: 5 mg Diazepam (Diastat Rectal Gel -) 10 mg RC PRN PRN PRN Reason: seizure Dextrose/Sodium Chloride (D5-1/2ns -) 1,000 mls @ 100 mls/hr IV ASDIR [facility] Last Admin: 10/22/19 16:28 Dose: 100 mls/hr Meropenem 1 gm/ Dextrose 100 mls @ 200 mls/hr IVPB Q8H-IV [facility] Last Admin: 10/22/19 17:13 Dose: 200 mls/hr Ibuprofen (Caldolor Injection -) 400 mg IVPB Q6H PRN PRN Reason: FEVER Last Admin: 10/22/19 22:45 Dose: 400 mg Magnesium Hydroxide (Milk Of Magnesia -) 15 ml PO AM [facility] Last Admin: 10/22/19 06:12 Dose: Not Given Magnesium Hydroxide (Milk Of Magnesia -) 30 ml PO HS [facility] Last Admin: 10/22/19 22:09 Dose: Not Given Oseltamivir Phosphate (Tamiflu Oral Suspension -) 30 mg PO BID [facility] Stop: 10/23/19 21:59 Last Admin: 10/22/19 22:03 Dose: 30 mg Pantoprazole Sodium (Protonix Iv) 40 mg IVPUSH DAILY [facility] Phenobarbital (Phenobarbital -) [address] [facility] Last Admin: 10/22/19 22:02 Dose: 60 mg Senna/Docusate Sodium (Pericolace -) 2 tablet PO BID [facility] Last Admin: 10/22/19 22:02 Dose: 2 tablet - Objective Vital Signs: Vital Signs Temperature 103.3 F H 10/22/19 22:30 Pulse Rate 106 H 10/22/19 18:00 Respiratory Rate 22 H 10/22/19 18:00 Blood Pressure 134/85 10/22/19 18:00 O2 Sat by Pulse Oximetry (%) 95 10/22/19 09:00 Labs: CBC, BMP 10/22/19 15:00 10/22/19 15:00 INR, PTT INR 1.10 (0.83-1.09) H 10/22/19 15:00 Problem List - Problems (1) Sepsis Code(s): A41.9 - SEPSIS, UNSPECIFIED ORGANISM Qualifiers: Sepsis type: sepsis due to unspecified organism Qualified Code(s): A41.9 - Sepsis, unspecified organism (2) Influenza A Code(s): J10.1 - FLU DUE TO OTH IDENT INFLUENZA VIRUS W OTH RESP MANIFEST (3) Seizure Code(s): R56.9 - UNSPECIFIED CONVULSIONS (4) Pancytopenia Code(s): D61.818 - OTHER PANCYTOPENIA (5) Elevated LFTs Code(s): R94.5 - ABNORMAL RESULTS OF LIVER FUNCTION STUDIES (6) Functional quadriplegia Code(s): R53.2 - FUNCTIONAL QUADRIPLEGIA (7) Hydrocephalus Code(s): G91.9 - HYDROCEPHALUS, UNSPECIFIED
[2019-10-23] MEDS: KCL 10 MEQ IVPB 10 MEQ/100 ML INFUS.BAG IVPB SCH (00:38)
[2019-10-23] MEDS ORDERED: MEROPENEM 1 GM VIAL (RESTRICTED TO ID) IVPB ONE ×3 (01:32→18:30)
[2019-10-23] MEDS ORDERED: DEXTROSE 5%-WATER 200 ML IVPB ONE (01:33)
[2019-10-23] MEDS: MEROPENEM 1 GM in DEXTROSE 5%-WATER 100 ML IVPB SCH ×3 (02:03→18:36)
[2019-10-23] MEDS: cloBAZam 10 MG TABLET PO SCH ×2 (06:50→23:16)
[2019-10-23] MEDS: diazePAM 5 MG TABLET PO SCH ×3 (06:50→23:17)
[2019-10-23] MEDS: MAGNESIUM HYDROX 2400MG/30ML ORAL SUSPENSION 30 ML CUP PO SCH ×2 (06:51→22:23)
--- NOTE | 2019-10-23 11:09 | PN ---
Progress Note, Physician History of Present Illness: still continues to spike fever last wbc was normal - Current Medication List Current Medications: Active Medications Clobazam (Onfi -) 5 mg PO AM [facility] Last Admin: 10/23/19 06:50 Dose: 5 mg Clobazam (Onfi -) 5 mg PO HS [facility] Last Admin: 10/22/19 22:02 Dose: 5 mg Diazepam (Valium -) 5 mg PO TID [facility] Last Admin: 10/23/19 06:50 Dose: 5 mg Diazepam (Diastat Rectal Gel -) 10 mg RC PRN PRN PRN Reason: seizure Dextrose/Sodium Chloride (D5-1/2ns -) 1,000 mls @ 100 mls/hr IV ASDIR [facility] Last Admin: 10/22/19 16:28 Dose: 100 mls/hr Meropenem 1 gm/ Dextrose 100 mls @ 200 mls/hr IVPB Q8H-IV [facility] Last Admin: 10/23/19 02:03 Dose: 200 mls/hr Ibuprofen (Caldolor Injection -) 400 mg IVPB Q6H PRN PRN Reason: FEVER Last Admin: 10/22/19 22:45 Dose: 400 mg Magnesium Hydroxide (Milk Of Magnesia -) 15 ml PO AM [facility] Last Admin: 10/23/19 06:51 Dose: 15 ml Magnesium Hydroxide (Milk Of Magnesia -) 30 ml PO HS [facility] Last Admin: 10/22/19 22:09 Dose: Not Given Oseltamivir Phosphate (Tamiflu Oral Suspension -) 30 mg PO BID [facility] Stop: 10/23/19 21:59 Last Admin: 10/22/19 22:03 Dose: 30 mg Pantoprazole Sodium (Protonix Iv) 40 mg IVPUSH DAILY [facility] Phenobarbital (Phenobarbital -) 60 mg PO [facility] Last Admin: 10/22/19 22:02 Dose: 60 mg Senna/Docusate Sodium (Pericolace -) 2 tablet PO BID [facility] Last Admin: 10/22/19 22:02 Dose: 2 tablet - Objective Vital Signs: Vital Signs Temperature 99.4 F 10/23/19 09:54 Pulse Rate 91 H 10/23/19 09:54 Respiratory Rate 20 10/23/19 09:54 Blood Pressure 112/78 10/23/19 09:54 O2 Sat by Pulse Oximetry (%) 96 10/22/19 21:00 Constitutional: Yes: No Distress, Calm Cardiovascular: Yes: S1, S2 Respiratory: Yes: Regular, CTA Bilaterally Gastrointestinal: Yes: Normal Bowel Sounds, Soft Musculoskeletal: Yes: WNL Extremities: Yes: Other Neurological: Yes: Other Labs: CBC, BMP 10/22/19 15:00 10/22/19 15:00 INR, PTT INR 1.10 (0.83-1.09) H 10/22/19 15:00 Assessment/Plan Problem List - Problems (1) Influenza A Code(s): J10.1 - FLU DUE TO OTH IDENT INFLUENZA VIRUS W OTH RESP MANIFEST (2) Epilepsy Code(s): G40.909 - EPILEPSY, UNSP, NOT INTRACTABLE, WITHOUT STATUS EPILEPTICUS (3) Hydrocephalus Code(s): G91.9 - HYDROCEPHALUS, UNSPECIFIED (4) Fever Code(s): R50.9 - FEVER, UNSPECIFIED (5) Sepsis Code(s): A41.9 - SEPSIS, UNSPECIFIED ORGANISM Qualifiers: Sepsis type: sepsis due to unspecified organism Qualified Code(s): A41.9 - Sepsis, unspecified organism Assessment/Plan 44 y.o. male with PMH of Cerebral palsy, hydrocephalus s/p RN FLOAT shunt, epilepsy, functional quadriplegia sent from [facility] for fever > 103F and tachycardia noted from the previous night Influenza A Sepsis r/o UTI Fever Leukocytosis Cerebral Palsy Hydrocephalus s/p RN FLOAT Shunt Epilepsy plan continue abx avoid aspiration monitor fevers rest as per the team await for cx reports
[2019-10-23] MEDS ORDERED: DEXTROSE 5%-WATER 100 ML IVPB ONE ×2 (11:30→18:30)
[2019-10-23] MEDS ORDERED: PT OWN MED DRAWER 7, Y5N ONE (11:31)
[2019-10-23] MEDS: SENNOSIDES/DOCUSATE COMBO (SENNA PLUS) TABLET (UD) PO SCH ×3 (11:35→23:16)
[2019-10-23] MEDS: PANTOPRAZOLE SODIUM 40 MG VIAL IVPUSH SCH (11:35)
[2019-10-23] MEDS: OSELTAMIVIR PHOSPHATE 6 MG/1 ML PO SCH (11:38)
[2019-10-23] MEDS: DEXTROSE 5%-0.45% SALINE 1,000 ML IV SCH ×2 (11:38→15:09)
[2019-10-23 14:15] LABS: BASO % 0.3 % (0-2.0); EOS % 6.3 % (0-4.5); HEMATOCRIT 40.3 % (35.4-49); HEMOGLOBIN 14.1 GM/dL (11.7-16.9); LYMPH % 20.1 % (8-40); MCH 29.8 pg (25.7-33.7); MEAN CELL VOLUME 85.1 fl (80-96); MEAN PLT VOLUME 9.9 fl (7.5-11.1); MONO % 14.6 % (3.8-10.2); NEUT % 58.7 % (42.8-82.8); PLATELET COUNT 65 K/MM3 (134-434); RBC 4.74 M/mm3 (4.00-5.60); RDW 13.5 % (11.9-15.9); WHITE BLOOD COUNT 7.2 K/mm3 (4.0-10.0)
[2019-10-23 14:52] LABS: BILIRUBIN,TOTAL 0.7 mg/dL (0.2-1); CALCIUM 7.5 mg/dL (8.5-10.1); CREATININE 0.5 mg/dL (0.55-1.3); POTASSIUM 3.2 mmol/L (3.5-5.1); TOT PROT 4.7 g/dl (6.4-8.2)
--- NOTE | 2019-10-23 15:17 | CONSULT ---
Admitting History and Physical - Admission History of Present Illness: Pt admitted with Flu. Poor PO acceptance. Nursing having difficulty giving medication and she is not sure if pt received Tamiflu as he spits most PO trials out. Pt on puree honey thick liquid at facility. PSelected Entries 10/19/19 10/19/19 10/19/19 00:39 04:00 06:52 Breakfast Lunch Supper Temperature 101.3 F H 100.2 F H 98.9 F 10/19/19 10/19/19 10/19/19 10:00 11:45 14:40 Breakfast Lunch Supper Temperature 102.8 F H 104.5 F H 102 F H 10/19/19 10/19/19 10/20/19 17:16 23:00 02:04 Breakfast Lunch Supper Temperature 101 F H 99.4 F 101.9 F H 10/20/19 10/20/19 10/20/19 06:00 06:32 10:00 Breakfast Lunch Supper Temperature 99.9 F H 99.4 F 98.4 F 10/20/19 10/20/19 10/20/19 14:00 18:00 19:27 Breakfast NPO NPO Lunch NPO NPO Supper Temperature 97.9 F 101 F H 101 F H 10/20/19 10/21/19 10/21/19 22:00 02:00 07:00 Breakfast Lunch Supper Temperature 97.5 F L 98.6 F 98.0 F 10/21/19 10/21/19 10/21/19 11:00 15:00 18:00 Breakfast NPO NPO Lunch NPO NPO Supper Temperature 100.1 F H 103.8 F H 10/21/19 10/21/19 10/22/19 19:00 22:00 00:45 Breakfast Lunch Supper Temperature 101.1 F H 101.6 F H 103 F H 10/22/19 10/22/19 10/22/19 04:00 07:36 10:31 Breakfast Lunch Supper Temperature 100.9 F H 100 F H 102.1 F H 10/22/19 10/22/19 10/22/19 14:43 18:00 22:30 Breakfast Lunch 0 Supper 25% Temperature 101.1 F H 100.2 F H 103.3 F H 10/23/19 10/23/19 10/23/19 02:00 06:00 09:54 Breakfast Lunch Supper Temperature 100.8 F H 99.9 F H 99.4 F Laboratory Tests 10/19/19 10/20/19 10/21/19 09:40 07:00 08:23 WBC 1.2 L* 20.3 H 15.7 H 10/22/19 10/23/19 15:00 13:45 WBC 9.0 7.2 This is my first consult with this pt. 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, Other (Hydrocephalus, cerebral palsy, quadraplegia) - Smoking History Smoking history: Never smoked Have you smoked in the past 12 months: No - Alcohol/Substance Use Hx Alcohol Use: No History of Substance Use: reports: None - Social History ADL: Support Services History of Recent Travel: No History - Admission Reason For Visit: INFLUENZA DUE TO INFLUENZA VIRUS,TYPE A, HUMAN, - Diagnostics X-ray: Report Reviewed - General Ability to Follow Directions: Poor Head/Neck Control: Needs Assist - Hearing Hearing Aide: No With Patient: No Speech Evaluation - Communication Primary Language: CZECH Communication: Yes: Non-Communicable - Swallow Evaluation/Bedside Assessment Current Nutritional Intake: Dysphagia Pureed, Honey Textured Liquids Oral Secretions: Yes: WFL (coughs, upper airway congestion vs aspiration with cough response with po trials) Jaw Position: Open at Rest Laryngeal Elevation: Impaired Laryngeal Movement: Reduced Excursion, Labored,delay initiation Rate of Intake: Slow/Holding (tongue thrust, open mouth posture, with impaired bolus formation, retention, anmd propulsion) Labial Seal: Impaired Bilaterally Oral Prep Time: Increased A-P Transit: Impaired Pocketing: Present Bilaterally Timing of Swallow: Delayed Coughing/Throat Clear: Yes Recommendations - Speech Evaluation, Impression/Plan Impression: Tongue thrust, open mouth posture, with impaired bolus formation, retention, anmd propulsion. Coughs, upper airway congestion vs aspiration with cough response with po trials - Dysphagia Impressions/Plan Swallowing Skills: Impaired (Baseline swallowing function likely impaired but functional ? on puree/honey TL) Dysphagia Impressions: Ongoing Evaluation *Silent aspiration: cannot be R/O at bedside Recommendations: Other ( No longer febrile/WBC down. Ready for mbs vs wait? Would family allow NGT feeding for medication/nutrition until medically improved.)
[2019-10-23] MEDS: IBUPROFEN 800 MG/8 ML IJ IVPB PRN ×2 (15:35→22:31)
--- NOTE | 2019-10-23 16:56 | PN.GI ---
GI Progress Note Subjective: Pt seen/examined at bedside, lethargic, nonverbal, per nurse has had limited po intake, spits out food and medications, loose bm reported, still with fevers - Objective Vital Signs: Vital Signs Temperature 102.6 F H 10/23/19 15:00 Pulse Rate 95 H 10/23/19 13:00 Respiratory Rate 10/23/19 13:00 Blood Pressure 102/72 10/23/19 13:00 O2 Sat by Pulse Oximetry (%) 96 10/22/19 21:00 Constitutional: Calm Cardiovascular: Yes: WNL, Regular Rate and Rhythm Respiratory: Yes: WNL, Regular, Diminished ...Palpate: Yes: Other (Abd softly distended, no tenderness elicited) Labs: CBC, BMP 10/23/19 13:45 10/23/19 13:45 INR, PTT INR 1.10 (0.83-1.09) H 10/22/19 15:00 Problem List - Problems (1) Elevated LFTs Assessment/Plan: 44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 Now downtrending and likely multifactorial in setting of sepsis, medications. Hep panel pending. CT revealing possible sigmoid colon thickening however limited exam, no obvious hepatobiliary abnormality. -Recommend continue to monitor LFT trend to ensure improvement/normalization -Await results of hepatitis panel -Avoid nonessential hepatotoxic medications -Consider NG tube placement in the interim if limited po intake/tolerance -Check C difficile if further loose stool -Repeat cxr and cultures -Could consider flex sig to evaluate CT findings once clinically improved and pending infectious workup -Further recommendations per primary team and ID Code(s): R94.5 - ABNORMAL RESULTS OF LIVER FUNCTION STUDIES
--- NOTE | 2019-10-23 18:11 | PN ---
Progress Note (short form) - Note Progress Note: Discussed with nursing staff- Spiking fevers. Repeat chest - x-ray and cultures - pending Unable to tolerate p.o. meds- coughs and tongue thrusts. Not taking meals ?? need for NG tube -- GI input / swallowing input . Platelet count improved--to monitor --
[2019-10-23] MEDS: PHENobarbital 30 MG TABLET PO SCH (23:16)
--- NOTE | 2019-10-23 23:42 | PN ---
Progress Note, Physician History of Present Illness: Spiked temp to 102 today Pt not taking PO and probably not taking meds - Current Medication List Current Medications: Active Medications Clobazam (Onfi -) 5 mg PO AM [facility] Last Admin: 10/23/19 06:50 Dose: 5 mg Clobazam (Onfi -) 5 mg PO [facility] Last Admin: 10/23/19 23:16 Dose: Not Given Diazepam (Valium -) 5 mg PO TID [facility] Last Admin: 10/23/19 23:17 Dose: Not Given Diazepam (Diastat Rectal Gel -) 10 mg RC PRN PRN PRN Reason: seizure Dextrose/Sodium Chloride (D5-1/2ns -) 1,000 mls @ 100 mls/hr IV ASDIR [facility] Last Admin: 10/23/19 15:09 Dose: Not Given Meropenem 1 gm/ Dextrose 100 mls @ 200 mls/hr IVPB Q8H-IV [facility] Last Admin: 10/23/19 18:36 Dose: 200 mls/hr Ibuprofen (Caldolor Injection -) 400 mg IVPB Q6H PRN PRN Reason: FEVER Last Admin: 10/23/19 22:31 Dose: 400 mg Magnesium Hydroxide (Milk Of Magnesia -) 15 ml PO AM [facility] Last Admin: 10/23/19 06:51 Dose: 15 ml Magnesium Hydroxide (Milk Of Magnesia -) 30 ml PO [facility] Last Admin: 10/23/19 22:23 Dose: Not Given Pantoprazole Sodium (Protonix Iv) 40 mg IVPUSH DAILY [facility] Last Admin: 10/23/19 11:35 Dose: 40 mg Phenobarbital (Phenobarbital -) 60 mg PO [facility] Last Admin: 10/23/19 23:16 Dose: Not Given Senna/Docusate Sodium (Pericolace -) 2 tablet PO BID [facility] Last Admin: 10/23/19 23:16 Dose: Not Given - Objective Vital Signs: Vital Signs Temperature 100.8 F H 10/23/19 22:28 Pulse Rate 88 10/23/19 22:28 Respiratory Rate 20 10/23/19 22:28 Blood Pressure 136/94 10/23/19 22:28 O2 Sat by Pulse Oximetry (%) 96 10/23/19 09:00 Neck: Yes: WNL, Supple Cardiovascular: Yes: Tachycardia Respiratory: Yes: Diminished Gastrointestinal: Yes: WNL, Normal Bowel Sounds, Soft Labs: CBC, BMP 10/23/19 13:45 10/23/19 13:45 INR, PTT INR 1.10 (0.83-1.09) H 10/22/19 15:00 Problem List - Problems (1) Sepsis Assessment/Plan: Pt continues to spike temp Influenza A Possibly due to poor intake w/ tamiflu? Cultures remain negative Cont tamiflu Cont IV meropenem Monitor cultures Pt's nutritional status is poor Swallow eval noted NGT vs IV clinamax Will speak to GI Will speak to family Code(s): A41.9 - SEPSIS, UNSPECIFIED ORGANISM Qualifiers: Sepsis type: sepsis due to unspecified organism Qualified Code(s): A41.9 - Sepsis, unspecified organism (2) Influenza A Assessment/Plan: Cont tamiflu Cont IVF Code(s): J10.1 - FLU DUE TO OTH IDENT INFLUENZA VIRUS W OTH RESP MANIFEST (3) Seizure Assessment/Plan: Cont phenobarb Code(s): R56.9 - UNSPECIFIED CONVULSIONS (4) Pancytopenia Assessment/Plan: Counts have improved Cont to monitor plts Code(s): D61.818 - OTHER PANCYTOPENIA (5) Elevated LFTs Assessment/Plan: Abdominal US was unremarkable DC tylenol GI consult noted Hep panel pending LFT's are improving Code(s): R94.5 - ABNORMAL RESULTS OF LIVER FUNCTION STUDIES (6) Functional quadriplegia Code(s): R53.2 - FUNCTIONAL QUADRIPLEGIA (7) Hydrocephalus Code(s): G91.9 - HYDROCEPHALUS, UNSPECIFIED
[2019-10-24] MEDS: DEXTROSE 5%-0.45% SALINE 1,000 ML IV SCH ×2 (01:11→14:54)
[2019-10-24] MEDS ORDERED: DEXTROSE 5%-WATER 100 ML IVPB ONE ×3 (01:22→18:32)
[2019-10-24] MEDS ORDERED: MEROPENEM 1 GM VIAL (RESTRICTED TO ID) IVPB ONE ×3 (01:22→18:32)
[2019-10-24] MEDS: KCL 10 MEQ IVPB 10 MEQ/100 ML INFUS.BAG IVPB SCH ×4 (01:24→17:32)
[2019-10-24] MEDS: MEROPENEM 1 GM in DEXTROSE 5%-WATER 100 ML IVPB SCH ×3 (02:14→18:39)
[2019-10-24] MEDS: diazePAM 5 MG TABLET PO SCH ×3 (05:19→22:09)
[2019-10-24] MEDS: cloBAZam 10 MG TABLET PO SCH ×2 (05:19→06:18)
[2019-10-24] MEDS: MAGNESIUM HYDROX 2400MG/30ML ORAL SUSPENSION 30 ML CUP PO SCH ×3 (05:35→22:10)
--- NOTE | 2019-10-24 10:47 | PN ---
Progress Note, Physician History of Present Illness: still spiking fevers spitting out everything moew awake today though - Current Medication List Current Medications: Active Medications Clobazam (Onfi -) 5 mg PO AM [facility] Last Admin: 10/24/19 06:18 Dose: Not Given Clobazam (Onfi -) 5 mg PO HS [facility] Last Admin: 10/23/19 23:16 Dose: Not Given Diazepam (Valium -) 5 mg PO TID [facility] Last Admin: 10/24/19 05:19 Dose: 5 mg Diazepam (Diastat Rectal Gel -) 10 mg RC PRN PRN PRN Reason: seizure Dextrose/Sodium Chloride (D5-1/2ns -) 1,000 mls @ 100 mls/hr IV ASDIR [facility] Last Admin: 10/24/19 01:11 Dose: 100 mls/hr Meropenem 1 gm/ Dextrose 100 mls @ 200 mls/hr IVPB Q8H-IV [facility] Last Admin: 10/24/19 02:14 Dose: 200 mls/hr Ibuprofen (Caldolor Injection -) 400 mg IVPB Q6H PRN PRN Reason: FEVER Last Admin: 10/23/19 22:31 Dose: 400 mg Magnesium Hydroxide (Milk Of Magnesia -) 15 ml PO AM [facility] Last Admin: 10/24/19 06:18 Dose: Not Given Magnesium Hydroxide (Milk Of Magnesia -) 30 ml PO [facility] Last Admin: 10/23/19 22:23 Dose: Not Given Pantoprazole Sodium (Protonix Iv) 40 mg IVPUSH DAILY [facility] Last Admin: 10/23/19 11:35 Dose: 40 mg Phenobarbital (Phenobarbital -) 60 mg PO [facility] Last Admin: 10/23/19 23:16 Dose: Not Given Senna/Docusate Sodium (Pericolace -) 2 tablet PO BID [facility] Last Admin: 10/23/19 23:16 Dose: Not Given - Objective Vital Signs: Vital Signs Temperature 99.6 F 10/24/19 06:00 Pulse Rate 87 10/24/19 06:00 Respiratory Rate 20 10/24/19 06:00 Blood Pressure 131/79 10/24/19 06:00 O2 Sat by Pulse Oximetry (%) 96 10/23/19 21:00 Constitutional: Yes: Calm Cardiovascular: Yes: S1, S2 Respiratory: Yes: On Nasal O2, Poor Air Entry, Other Gastrointestinal: Yes: Normal Bowel Sounds, Soft Musculoskeletal: Yes: WNL Extremities: Yes: Other Neurological: Yes: Alert Psychiatric: Yes: Other Labs: CBC, BMP 10/23/19 13:45 10/23/19 13:45 INR, PTT INR 1.10 (0.83-1.09) H 10/22/19 15:00 Assessment/Plan Problem List - Problems (1) Influenza A Code(s): J10.1 - FLU DUE TO OTH IDENT INFLUENZA VIRUS W OTH RESP MANIFEST (2) Epilepsy Code(s): G40.909 - EPILEPSY, UNSP, NOT INTRACTABLE, WITHOUT STATUS EPILEPTICUS (3) Hydrocephalus Code(s): G91.9 - HYDROCEPHALUS, UNSPECIFIED (4) Fever Code(s): R50.9 - FEVER, UNSPECIFIED (5) Sepsis Code(s): A41.9 - SEPSIS, UNSPECIFIED ORGANISM Qualifiers: Sepsis type: sepsis due to unspecified organism Qualified Code(s): A41.9 - Sepsis, unspecified organism Assessment/Plan 44 y.o. male with PMH of Cerebral palsy, hydrocephalus s/p BANKRUPTCY ATTORNEY shunt, epilepsy, functional quadriplegia sent from [facility] for fever > 103F and tachycardia noted from the previous night Influenza A Sepsis r/o UTI Fever Leukocytosis Cerebral Palsy Hydrocephalus s/p BANKRUPTCY ATTORNEY Shunt Epilepsy plan continue abx avoid aspiration monitor fevers rest as per the team
[2019-10-24] MEDS: PANTOPRAZOLE SODIUM 40 MG VIAL IVPUSH SCH (10:53)
[2019-10-24] MEDS: SENNOSIDES/DOCUSATE COMBO (SENNA PLUS) TABLET (UD) PO SCH (10:55)
[2019-10-24 11:45] LABS: BASO % 0.2 % (0-2.0); EOS % 8.9 % (0-4.5); HEMATOCRIT 39.7 % (35.4-49); HEMOGLOBIN 13.9 GM/dL (11.7-16.9); MCH 29.7 pg (25.7-33.7); MEAN CELL VOLUME 84.8 fl (80-96); MEAN PLT VOLUME 9.6 fl (7.5-11.1); MONO % 12.4 % (3.8-10.2); NEUT % 63.5 % (42.8-82.8); PLATELET COUNT 122 K/MM3 (134-434); RBC 4.68 M/mm3 (4.00-5.60); RDW 13.5 % (11.9-15.9); WHITE BLOOD COUNT 8.1 K/mm3 (4.0-10.0)
[2019-10-24 12:08] LABS: BILIRUBIN,TOTAL 0.6 mg/dL (0.2-1); BLOOD UREA NITROGEN 5.8 mg/dL (7-18); CALCIUM 7.5 mg/dL (8.5-10.1); CREATININE 0.4 mg/dL (0.55-1.3); POTASSIUM 3.4 mmol/L (3.5-5.1); TOT PROT 4.8 g/dl (6.4-8.2)
[2019-10-24] MEDS: IBUPROFEN 800 MG/8 ML IJ IVPB PRN (12:49)
--- NOTE | 2019-10-24 14:32 | PN ---
Progress Note, NURSE CASE MANAGEMENT - Note Progress Note: Selected Entries 10/23/19 10/23/19 10/23/19 02:00 06:00 09:54 Breakfast Lunch Temperature 100.8 F H 99.9 F H 99.4 F 10/23/19 10/23/19 10/23/19 15:00 19:00 22:28 Breakfast 25% Lunch 0 Temperature 102.6 F H 100.3 F H 100.8 F H 10/24/19 10/24/19 01:56 06:00 Breakfast Lunch Temperature 98.9 F 99.6 F Laboratory Tests 10/23/19 10/24/19 13:45 10:40 WBC 7.2 8.1 Repeat chest - x-ray and cultures - pending Pt coughs with and without po intake, with tongue thrust pushing out all PO. Baseline Dysphagia suspected with Puree/honey thick liquid at facility. Consider NGT, if family/facility agrees, if not medically contraaindicated? Clinimix?
--- NOTE | 2019-10-24 18:27 | PN.GI ---
GI Progress Note Subjective: No acute events oor PO intake Still with fevers CT scan with mild sided hydrnephosis, renal calculi, significant bladder thickening along with equivocal sigmoid thickening. No copious diarrhea noted - Objective Vital Signs: Vital Signs Temperature 100.3 F H 10/24/19 14:00 Pulse Rate 88 10/24/19 14:00 Respiratory Rate 10/24/19 14:00 Blood Pressure 106/62 10/24/19 14:00 O2 Sat by Pulse Oximetry (%) 98 10/24/19 09:00 Constitutional: Calm Eyes: No: Sclera Icterus Cardiovascular: Yes: Regular Rate and Rhythm Gastrointestinal Inspection: No: Distention ...Auscultate: Yes: Normoactive Bowel Sounds ...Palpate: Yes: Soft. No: Hepatomegaly, Splenomegaly, Tenderness ...Percussion: No: Tympanitic Neurological: Yes: Alert Labs: CBC, BMP 10/24/19 10:40 10/24/19 10:40 INR, PTT INR 1.10 (0.83-1.09) H 10/22/19 15:00 Hepatic Panel Total Bilirubin 0.6 mg/dL (0.2-1) 10/24/19 10:40 Direct Bilirubin 0.4 mg/dL (0.0-0.2) H 10/22/19 15:00 AST 43 U/L (15-37) H 10/24/19 10:40 ALT 96 U/L (13-61) H 10/24/19 10:40 Alkaline Phosphatase 98 U/L (45-117) 10/24/19 10:40 Albumin 2.0 g/dl (3.4-5.0) L 10/24/19 10:40 Problem List - Problems (1) Elevated LFTs Assessment/Plan: Liver chemistries continue to improve Still with low grade fevers. ? if urological source given CT scan findings of thickened bladder and mild left sided hydroureter. Further evaluation per PMD Avoid hepatotoxic agents Monitor LFts Code(s): R94.5 - ABNORMAL RESULTS OF LIVER FUNCTION STUDIES
[2019-10-24 21:07] LABS: HEP B CORE AB, TOT Negative (Negative)
[2019-10-24] MEDS ORDERED: PT OWN MED DRAWER 7, Y5N ONE (21:54)
[2019-10-24] MEDS: PHENobarbital 30 MG TABLET PO SCH (22:09)
--- NOTE | 2019-10-24 22:47 | PN ---
Progress Note, Physician History of Present Illness: Tmax 100.3 - Current Medication List Current Medications: Active Medications Clobazam (Onfi -) 5 mg PO AM [facility] Last Admin: 10/24/19 06:18 Dose: Not Given Diazepam (Valium -) 5 mg PO TID [facility] Last Admin: 10/24/19 22:09 Dose: 5 mg Dextrose/Sodium Chloride (D5-1/2ns -) 1,000 mls @ 100 mls/hr IV ASDIR [facility] Last Admin: 10/24/19 14:54 Dose: 100 mls/hr Meropenem 1 gm/ Dextrose 100 mls @ 200 mls/hr IVPB Q8H-IV [facility] Last Admin: 10/24/19 18:39 Dose: 200 mls/hr Ibuprofen (Caldolor Injection -) 400 mg IVPB Q6H PRN PRN Reason: FEVER Last Admin: 10/24/19 12:49 Dose: 400 mg Magnesium Hydroxide (Milk Of Magnesia -) 15 ml PO AM [facility] Last Admin: 10/24/19 06:18 Dose: Not Given Magnesium Hydroxide (Milk Of Magnesia -) 30 ml PO HS [facility] Last Admin: 10/24/19 22:10 Dose: Not Given Pantoprazole Sodium (Protonix Iv) 40 mg IVPUSH DAILY [facility] Last Admin: 10/24/19 10:53 Dose: 40 mg Phenobarbital (Phenobarbital -) 60 mg PO HS [facility] Last Admin: 10/24/19 22:09 Dose: 60 mg Senna/Docusate Sodium (Pericolace -) 2 tablet PO BID [facility] Last Admin: 10/24/19 10:55 Dose: Not Given - Objective Vital Signs: Vital Signs Temperature 99.4 F 10/24/19 18:00 Pulse Rate 86 10/24/19 18:00 Respiratory Rate 20 10/24/19 18:00 Blood Pressure 108/71 10/24/19 18:00 O2 Sat by Pulse Oximetry (%) 98 10/24/19 09:00 Cardiovascular: Yes: WNL, Regular Rate and Rhythm Respiratory: Yes: WNL, Regular, CTA Bilaterally Gastrointestinal: Yes: WNL, Normal Bowel Sounds, Soft Labs: CBC, BMP 10/24/19 10:40 10/24/19 10:40 INR, PTT INR 1.10 (0.83-1.09) H 10/22/19 15:00 Problem List - Problems (1) Sepsis Assessment/Plan: Pt continues to spike temp Influenza A Possibly due to poor intake w/ tamiflu? Cultures remain negative CXR showed pleural effusion Cont tamiflu Cont IV meropenem Monitor cultures Pt's nutritional status is poor Swallow eval noted NGT vs IV clinamax Spoke to pt's father Dr Lionel Arevalo who has agreed to NGT and we also spoke the possibility of PEG wc he is agreeable to also if necessary Will place NGT in am Code(s): A41.9 - SEPSIS, UNSPECIFIED ORGANISM Qualifiers: Sepsis type: sepsis due to unspecified organism Qualified Code(s): A41.9 - Sepsis, unspecified organism (2) Hydronephrosis Assessment/Plan: Uro consult Code(s): N13.30 - UNSPECIFIED HYDRONEPHROSIS (3) Influenza A Assessment/Plan: Cont tamiflu Cont IVF Code(s): J10.1 - FLU DUE TO OTH IDENT INFLUENZA VIRUS W OTH RESP MANIFEST (4) Seizure Assessment/Plan: Cont phenobarb Code(s): R56.9 - UNSPECIFIED CONVULSIONS (5) Pancytopenia Assessment/Plan: Counts have improved Cont to monitor plts Code(s): D61.818 - OTHER PANCYTOPENIA (6) Elevated LFTs Assessment/Plan: Abdominal US was unremarkable DC'ed tylenol LFT's are improving Code(s): R94.5 - ABNORMAL RESULTS OF LIVER FUNCTION STUDIES (7) Functional quadriplegia Code(s): R53.2 - FUNCTIONAL QUADRIPLEGIA (8) Hydrocephalus Code(s): G91.9 - HYDROCEPHALUS, UNSPECIFIED
[2019-10-25] MEDS: SENNOSIDES/DOCUSATE COMBO (SENNA PLUS) TABLET (UD) PO SCH ×3 (00:02→23:20)
[2019-10-25] MEDS ORDERED: MEROPENEM 1 GM VIAL (RESTRICTED TO ID) IVPB ONE ×2 (00:30→11:48)
[2019-10-25] MEDS ORDERED: DEXTROSE 5%-WATER 100 ML IVPB ONE ×2 (00:30→11:49)
[2019-10-25] MEDS: MEROPENEM 1 GM in DEXTROSE 5%-WATER 100 ML IVPB SCH ×2 (02:44→11:50)
[2019-10-25] MEDS: DEXTROSE 5%-0.45% SALINE 1,000 ML IV SCH ×2 (02:44→15:06)
[2019-10-25] MEDS: cloBAZam 10 MG TABLET PO SCH (06:23)
[2019-10-25] MEDS: MAGNESIUM HYDROX 2400MG/30ML ORAL SUSPENSION 30 ML CUP PO SCH ×2 (06:23→23:21)
[2019-10-25] MEDS: diazePAM 5 MG TABLET PO SCH ×3 (06:23→23:15)
[2019-10-25 08:44] LABS: BASO % 0.5 % (0-2.0); EOS % 9.5 % (0-4.5); HEMATOCRIT 40.4 % (35.4-49); HEMOGLOBIN 13.8 GM/dL (11.7-16.9); LYMPH % 19.3 % (8-40); MCH 29.5 pg (25.7-33.7); MCHC 34.2 g/dl (32.0-35.9); MEAN CELL VOLUME 86.2 fl (80-96); MEAN PLT VOLUME 9.3 fl (7.5-11.1); NEUT % 59.7 % (42.8-82.8); PLATELET COUNT 204 K/MM3 (134-434); RBC 4.68 M/mm3 (4.00-5.60); RDW 13.7 % (11.9-15.9); WHITE BLOOD COUNT 11.1 K/mm3 (4.0-10.0)
--- NOTE | 2019-10-25 09:17 | CONSULT ---
Consult Consult Specialty:: UROLOGY Reason for Consultation:: LEFT HYDRO AND FEVER - History of Present Illness Chief Complaint: 44 Y/O Male patient with history of CP, Hydrocephalus s/p GAS LEAK TESTER shunt and Quadriplegia. developed fever and CT-scan revealed Left renal stone 1.8 cm with left hydronephrosis. 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, Other (Hydrocephalus, cerebral palsy, quadraplegia) - Past Surgical History Additional Surgical History: GAS LEAK TESTER-Shunt - Alcohol/Substance Use Hx Alcohol Use: No History of Substance Use: reports: None - Smoking History Smoking history: Never smoked Have you smoked in the past 12 months: No - Social History Usual Living Arrangement: Long-Term ADL: Support Services History of Recent Travel: No Home Medications - Allergies Allergies/Adverse Reactions: Allergies Allergy/AdvReac Type Severity Reaction Status Date / Time Penicillins Allergy Verified 10/18/19 12:04 - Home Medications Home Medications: Ambulatory Orders Bisacodyl Suppository [Dulcolax Suppository -] 10 mg RC ONCE PRN 02/18/17 Clobazam [Onfi -] 5 mg PO AM 02/18/17 Clobazam [Onfi -] 5 mg PO HS 02/18/17 Diazepam Rectal Gel [Diastat Rectal Gel -] 10 mg ID ONCE PRN 02/18/17 Diazepam [Valium] 5 mg PO TID 02/18/17 Magnesium Hydroxide [Milk of Magnesia] 15 ml PO AM 02/18/17 Magnesium Hydroxide [Milk of Magnesia] 30 ml PO HS 02/18/17 Phenobarbital 64.8 mg PO HS 02/18/17 Sennosides/Docusate Sodium [Senna-S Tablet] 2 each PO BID 02/18/17 Calcium Carbonate/Vitamin D3 [Oyster Shell 500-Vit D3 200 Tb] 1 each PO TID 12/18 Physical Exam Vital Signs: Vital Signs Temperature 99.1 F 10/25/19 06:00 Pulse Rate 63 10/25/19 06:00 Respiratory Rate 20 10/25/19 06:00 Blood Pressure 130/78 10/25/19 06:00 O2 Sat by Pulse Oximetry (%) 98 10/24/19 21:00 Labs: CBC, BMP 10/25/19 07:37 Assessment/Plan Left renal stone Left hydronephrosis UTI Plan: Keep NPO for left URS, laser and jj stent insertion. keep IV abx.
[2019-10-25 09:28] LABS: ALBUMIN 2.2 g/dl (3.4-5.0); BILIRUBIN,TOTAL 0.6 mg/dL (0.2-1); CALCIUM 7.5 mg/dL (8.5-10.1); CREATININE 0.5 mg/dL (0.55-1.3); POTASSIUM 4.1 mmol/L (3.5-5.1); TOT PROT 5.4 g/dl (6.4-8.2)
--- NOTE | 2019-10-25 11:41 | PN ---
Physical Exam: SUBJECTIVE: Patient seen and examined still with fever OBJECTIVE: Vital Signs Period Temp Pulse Resp BP Sys/Patterson Pulse Ox Last 24 Hr 99.1 F-100.3 F 63-96 20-22 106-135/62-87 98 GENERAL: The patient is awake, alert, in no acute distress. HEAD: Normocephalic, atraumatic. EYES: PERRL, extraocular movements intact, sclera anicteric, conjunctiva clear. ENT: Oropharynx clear, without erythema or exudates. Dry mucous membranes. NECK: Supple without lymphadenopathy. Negative stridor. LUNGS: Good inspiratory effort and air entry bilaterally. Rhonchi auscultated bilaterally. No wheezes, no crackles. No accessory muscle use. HEART: Regular rate and rhythm. S1, S2 without murmur, rub or gallop. ABDOMEN: Soft, nondistended, nontender to light and deep palpation x4 quadrants. No rebound tenderness, no guarding. Normoactive bowel sounds x4 quadrants. No hepatosplenomegaly, no masses appreciated. EXTREMITIES: 2+ radial, dorsalis pedis pulses bilaterally. Warm, well-perfused. No lower extremity edema bilaterally. SKIN: Warm, dry. Laboratory Results - last 24 hr 10/22/19 10/24/19 10/24/19 15:00 10:40 10:40 WBC 8.1 RBC 4.68 Hgb 13.9 Hct 39.7 MCV 84.8 MCH 29.7 MCHC 35.0 RDW 13.5 Plt Count 122 L D MPV 9.6 Absolute Neuts (auto) 5.2 Neutrophils % 63.5 Lymphocytes % 15.0 D Monocytes % 12.4 H Eosinophils % 8.9 H Basophils % 0.2 Nucleated RBC % 0 Sodium 142 Potassium 3.4 L Chloride 109 H Carbon Dioxide 29 Anion Gap 4 L BUN 5.8 L Creatinine 0.4 L Est GFR (CKD-EPI)AfAm 169.79 Est GFR (CKD-EPI)NonAf 146.50 Random Glucose 109 H Calcium 7.5 L Total Bilirubin 0.6 AST 43 H ALT 96 H Alkaline Phosphatase 98 Total Protein 4.8 L Albumin 2.0 L Hep A IgM Ab Confirm Negative Hepatitis A Ab Total Positive H Hep Bs Antigen Negative Hep Bs Antibody Reactive Hep B Core Total Ab Negative Hep B Core IgM Ab Negative Hepatitis Be Antibody Negative Hepatitis Be Antigen Negative 10/25/19 10/25/19 07:37 07:37 WBC 11.1 H RBC 4.68 Hgb 13.8 Hct 40.4 MCV 86.2 MCH 29.5 MCHC 34.2 RDW 13.7 Plt Count 204 D MPV 9.3 Absolute Neuts (auto) 6.6 Neutrophils % 59.7 Lymphocytes % 19.3 D Monocytes % 11.0 H Eosinophils % 9.5 H Basophils % 0.5 Nucleated RBC % 0 Sodium 138 Potassium 4.1 Chloride 108 H Carbon Dioxide 21 Anion Gap 10 BUN 5.0 L Creatinine 0.5 L Est GFR (CKD-EPI)AfAm 154.91 Est GFR (CKD-EPI)NonAf 133.66 Random Glucose 104 Calcium 7.5 L Total Bilirubin 0.6 AST 41 H ALT 81 H Alkaline Phosphatase 100 Total Protein 5.4 L Albumin 2.2 L Hep A IgM Ab Confirm Hepatitis A Ab Total Hep Bs Antigen Hep Bs Antibody Hep B Core Total Ab Hep B Core IgM Ab Hepatitis Be Antibody Hepatitis Be Antigen Active Medications Generic Name Dose Route Start Last Admin Trade Name Freq PRN Reason Stop Dose Admin Clobazam 5 mg 10/19/19 07:00 10/25/19 06:23 Onfi - PO 5 mg AM [facility] Administration Diazepam 5 mg 10/19/19 06:00 10/25/19 06:23 Valium - PO 5 mg TID [facility] Administration Dextrose/Sodium Chloride 1,000 mls @ 100 mls/hr 10/19/19 13:30 10/25/19 02:44 D5-1/2ns - IV 100 mls/hr ASDIR [facility] Administration Meropenem 1 gm/ Dextrose 100 mls @ 200 mls/hr 10/20/19 18:30 10/25/19 02:44 IVPB 200 mls/hr Q8H-IV [facility] Administration Ibuprofen 400 mg 10/21/19 23:31 10/24/19 12:49 Caldolor Injection - IVPB 400 mg Q6H PRN Administration FEVER Magnesium Hydroxide 15 ml 10/19/19 07:00 10/25/19 06:23 Milk Of Magnesia - PO Not Given AM [facility] Magnesium Hydroxide 30 ml 10/19/19 22:00 10/24/19 22:10 Milk Of Magnesia - PO Not Given HS [facility] Pantoprazole Sodium 40 mg 10/23/19 10:00 10/24/19 10:53 Protonix Iv IVPUSH 40 mg DAILY [facility] Administration Phenobarbital 60 mg 10/19/19 23:15 10/24/19 22:09 Phenobarbital - PO 60 mg HS [facility] Administration Senna/Docusate Sodium 2 tablet 10/19/19 10:00 10/25/19 00:02 Pericolace - PO 2 tablet BID [facility] Administration CBC, BMP 10/25/19 07:37 10/25/19 07:37 ASSESSMENT/PLAN: 44 y.o. male with PMH of Cerebral palsy, hydrocephalus s/p CUSHION INSTALLER shunt, epilepsy, functional quadriplegia sent from [facility] for fever > 103F and tachycardia noted from the previous night Influenza A Sepsis r/o UTI Fever Leukocytosis Cerebral Palsy Hydrocephalus s/p CUSHION INSTALLER Shunt Epilepsy plan continue abx avoid aspiration monitor fevers rest as per the team Visit type - Emergency Visit Emergency Visit: Yes ED Registration Date: 10/18/19 Care time: The patient presented to the Emergency Department on the above date and was hospitalized for further evaluation of their emergent condition. - New Patient This patient is new to me today: No - Critical Care Critical Care patient: No - Discharge Referral Referred to [facility] No ATTENDING PHYSICIAN STATEMENT I saw and evaluated the patient. I reviewed the resident's note and discussed the case with the resident. I agree with the resident's findings and plan as documented. SUBJECTIVE: OBJECTIVE: ASSESSMENT AND PLAN:
--- NOTE | 2019-10-25 11:50 | PN ---
Progress Note, Physician History of Present Illness: stable no new issues fever curve better - Current Medication List Current Medications: Active Medications Clobazam (Onfi -) 5 mg PO AM [facility] Last Admin: 10/25/19 06:23 Dose: 5 mg Diazepam (Valium -) 5 mg PO TID [facility] Last Admin: 10/25/19 06:23 Dose: 5 mg Dextrose/Sodium Chloride (D5-1/2ns -) 1,000 mls @ 100 mls/hr IV ASDIR [facility] Last Admin: 10/25/19 02:44 Dose: 100 mls/hr Meropenem 1 gm/ Dextrose 100 mls @ 200 mls/hr IVPB Q8H-IV [facility] Last Admin: 10/25/19 02:44 Dose: 200 mls/hr Ibuprofen (Caldolor Injection -) 400 mg IVPB Q6H PRN PRN Reason: FEVER Last Admin: 10/24/19 12:49 Dose: 400 mg Magnesium Hydroxide (Milk Of Magnesia -) 15 ml PO AM [facility] Last Admin: 10/25/19 06:23 Dose: Not Given Magnesium Hydroxide (Milk Of Magnesia -) 30 ml PO HS [facility] Last Admin: 10/24/19 22:10 Dose: Not Given Pantoprazole Sodium (Protonix Iv) 40 mg IVPUSH DAILY [facility] Last Admin: 10/24/19 10:53 Dose: 40 mg Phenobarbital (Phenobarbital -) 60 mg PO HS [facility] Last Admin: 10/24/19 22:09 Dose: 60 mg Senna/Docusate Sodium (Pericolace -) 2 tablet PO BID [facility] Last Admin: 10/25/19 00:02 Dose: 2 tablet - Objective Vital Signs: Vital Signs Temperature 99.1 F 10/25/19 06:00 Pulse Rate 63 10/25/19 06:00 Respiratory Rate 20 10/25/19 06:00 Blood Pressure 130/78 10/25/19 06:00 O2 Sat by Pulse Oximetry (%) 98 10/24/19 21:00 Constitutional: Yes: No Distress, Calm Cardiovascular: Yes: S1, S2 Respiratory: Yes: Regular, Poor Air Entry Gastrointestinal: Yes: Normal Bowel Sounds, Soft Musculoskeletal: Yes: WNL Extremities: Yes: Other Neurological: Yes: Alert, Other Labs: CBC, BMP 10/25/19 07:37 10/25/19 07:37 INR, PTT INR 1.10 (0.83-1.09) H 10/22/19 15:00 Assessment/Plan Problem List - Problems (1) Influenza A Code(s): J10.1 - FLU DUE TO OTH IDENT INFLUENZA VIRUS W OTH RESP MANIFEST (2) Epilepsy Code(s): G40.909 - EPILEPSY, UNSP, NOT INTRACTABLE, WITHOUT STATUS EPILEPTICUS (3) Hydrocephalus Code(s): G91.9 - HYDROCEPHALUS, UNSPECIFIED (4) Fever Code(s): R50.9 - FEVER, UNSPECIFIED (5) Sepsis Code(s): A41.9 - SEPSIS, UNSPECIFIED ORGANISM Qualifiers: Sepsis type: sepsis due to unspecified organism Qualified Code(s): A41.9 - Sepsis, unspecified organism Assessment/Plan 44 y.o. male with PMH of Cerebral palsy, hydrocephalus s/p ELECTRICAL LINE SPLICER shunt, epilepsy, functional quadriplegia sent from [facility] for fever > 103F and tachycardia noted from the previous night Influenza A Sepsis r/o UTI Fever Leukocytosis Cerebral Palsy Hydrocephalus s/p ELECTRICAL LINE SPLICER Shunt Epilepsy plan continue abx avoid aspiration monitor fevers rest as per the team
[2019-10-25] MEDS: PANTOPRAZOLE SODIUM 40 MG VIAL IVPUSH SCH (11:53)
--- NOTE | 2019-10-25 12:02 | PN ---
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 Pt better able to eat yesterday, accepted 25% B/L and 50% dinner. Swallowing reassessed. Pt better able to accept po, still with tongue thrust which is likely baseline, but no longer with responsive cough. Reported to be coughing but less frequently. Pt looks more comfortable. Consider deferring NGT, continue PO trials, add Ensure compact TID for more nutritionally dense caloric intact. Possibly Clinimix , if not medically contraindicated, for additional support.
[2019-10-25] MEDS: AMINO ACIDS 4.25%/D5W 1,000 ML IV SCH (15:06)
[2019-10-25] MEDS ORDERED: GENTAMICIN SO4 80 MG/2 ML VIAL ONE (16:41)
[2019-10-25] MEDS ORDERED: ROCURONIUM BROMIDE 50 MG/5 ML SYRINGE ONE (17:01)
[2019-10-25] MEDS ORDERED: PROPOFOL 20 ML ONE (17:01)
--- NOTE | 2019-10-25 17:07 | PN ---
Progress Note (short form) - Note Progress Note: Patient off floor Still spiking fevers To O.R. for cysto and stents Platelets- normal.
--- NOTE | 2019-10-25 17:10 | HP ---
DATE OF ADMISSION: 10/18/2019 DATE OF DICTATION: 10/25/2019 Patient is a 44-year-old male resident of [facility], history of CP with hydrocephalus status post PROPERTY CARETAKER shunt. Patient is quadriplegic. Developed fever, abdominal pain. A CAT scan revealed a 1.8-cm left ureteral stone with hydronephrosis and perinephric stranding. Patient is incontinent of urine and wears a condom catheter. He is on multiple medications including clobazam, diazepam, phenobarbital, vitamins, and stool softeners. His temperature is 99.1, blood pressure 130/78. His white count is 11,100. Hemoglobin 13.8, hematocrit 40.4, platelets are 204. The patient's BUN is 5, creatinine 0.5. Random glucose is 104. Blood cultures, there was no growth after 24 hours incubation. Urine also showed no growth. The patient's maximum temperature today is 100.2. I spoke to the patient's father and , and we got a verbal consent for a cystoscopy, left retrograde pyelogram, left placement of a JJ stent. ABELINO CAUSEY M.D. [id number]
[2019-10-25] MEDS ORDERED: NEOSTIGMINE METHYLSULFATE 0.5 MG/1 ML - 10 ML MDV ONE (17:39)
--- NOTE | 2019-10-25 17:49 | OP ---
Operative Note - Note: Operative Date: 10/25/19 Pre-Operative Diagnosis: lt. hydro,lt. ureteral stone Operation: cysto,lt. retro. pyelogram and lt. ureteroscopy, stone manipulation and jj stent insertion Findings: lt. hydreonephrosis Post-Operative Diagnosis: Same as Pre-op Surgeon: Durga De Oliveira Anesthesia: General Estimated Blood Loss (mls): 0 Drains & Tubes with Location: 22cm-6f lt. jj stent Drains, Volume Out (mls): 0 Blood Volume Replaced (mls): 0 Fluid Volume Replaced (mls): 0 Operative Report Dictated: Yes
[2019-10-25] MEDS ORDERED: ONDANSETRON 4 MG/2 ML VIAL IVPUSH PRN (18:01)
--- NOTE | 2019-10-25 18:09 | OP ---
DATE OF OPERATION: 10/25/2019 PREOPERATIVE DIAGNOSIS: Left hydronephrosis, left pyonephrosis, left upper ureteral stone. OPERATIVE PROCEDURE: Cystoscopy, left retrograde pyelogram, left ureteroscopy, stone manipulation, and placement of a left JJ stent. ANESTHESIA: General DESCRIPTION OF PROCEDURE: Under above-stated anesthesia, patient is prepped and draped in the usual sterile manner. He is placed in the dorsal lithotomy position. Cystoscopy revealed a normal anterior urethra. Prostatic urethra was high riding. The cystoscope was able to pass into the bladder. There appeared to be a large amount of postvoid residual. Patient is on continuous condom catheter drainage. The bladder revealed a grade 2 trabeculation. No overt lesions or calculi were seen. Ureteral orifices were within normal limits. Efflux of urine was noted from the right. None was seen from the left. A Flexi-Tip catheter was placed into the left ureteral orifice, and contrast was injected. This revealed a filling defect at the left ureteropelvic junction due to a 2-cm stone at that level. There was proximal hydronephrosis. Ureteroscopy was performed, and the stone was pushed into the renal pelvis. No other lesions or stones were seen. A Glidewire was left in the renal pelvis, and the ureteroscope was withdrawn. A 22-cm 6-Armenian JJ stent was left in place. X-rays confirmed good position of the stent. The bladder was emptied. The scope was removed. The patient tolerated the procedure well. He returned to the recovery room in good condition. Mauricio [id number]
[2019-10-25] MEDS ORDERED: LACTATED RINGERS SOLUTION 1,000 ML IV SCH (18:15)
[2019-10-25] MEDS ORDERED: PT OWN MED DRAWER 7, Y5N ONE (21:25)
--- NOTE | 2019-10-25 21:37 | PN ---
Progress Note, Physician - Current Medication List Current Medications: Active Medications Clobazam (Onfi -) 5 mg PO AM [facility] Last Admin: 10/25/19 06:23 Dose: 5 mg Diazepam (Valium -) 5 mg PO TID [facility] Last Admin: 10/25/19 15:08 Dose: 5 mg Fentanyl (Sublimaze Injection -) 50 mcg IVPUSH [id number] PRN PRN Reason: PAIN-PACU ORDER X 4 DOSES ONLY Dextrose/Sodium Chloride (D5-1/2ns -) 1,000 mls @ 100 mls/hr IV ASDIR [facility] Last Admin: 10/25/19 15:06 Dose: Not Given Meropenem 1 gm/ Dextrose 100 mls @ 200 mls/hr IVPB Q8H-IV [facility] Last Admin: 10/25/19 11:50 Dose: 200 mls/hr Amino Acids (Clinimix -) 1,000 mls @ 42 mls/hr IV Q24H [facility] Last Admin: 10/25/19 15:06 Dose: 42 mls/hr Lactated Ringer's (Lactated Ringers Solution) 1,000 mls @ 125 mls/hr IV ASDIR [facility] Ibuprofen (Caldolor Injection -) 400 mg IVPB Q6H PRN PRN Reason: FEVER Last Admin: 10/24/19 12:49 Dose: 400 mg Magnesium Hydroxide (Milk Of Magnesia -) 15 ml PO AM [facility] Last Admin: 10/25/19 06:23 Dose: Not Given Magnesium Hydroxide (Milk Of Magnesia -) 30 ml PO HS [facility] Last Admin: 10/24/19 22:10 Dose: Not Given Ondansetron HCl (Zofran Injection) 4 mg IVPUSH Q6H PRN PRN Reason: NAUSEA AND/OR VOMITING Pantoprazole Sodium (Protonix Iv) 40 mg IVPUSH DAILY [facility] Last Admin: 10/25/19 11:53 Dose: 40 mg Phenobarbital (Phenobarbital -) 60 mg PO HS [facility] Last Admin: 10/24/19 22:09 Dose: 60 mg Senna/Docusate Sodium (Pericolace -) 2 tablet PO BID [facility] Last Admin: 10/25/19 11:55 Dose: 2 tablet - Objective Vital Signs: Vital Signs Temperature 98.8 F 10/25/19 19:30 Pulse Rate 79 10/25/19 19:30 Respiratory Rate 19 10/25/19 19:30 Blood Pressure 127/86 10/25/19 19:30 O2 Sat by Pulse Oximetry (%) 100 10/25/19 19:30 Labs: CBC, BMP 10/25/19 07:37 10/25/19 07:37 INR, PTT INR 1.10 (0.83-1.09) H 10/22/19 15:00 Problem List - Problems (1) Sepsis Code(s): A41.9 - SEPSIS, UNSPECIFIED ORGANISM Qualifiers: Sepsis type: sepsis due to unspecified organism Qualified Code(s): A41.9 - Sepsis, unspecified organism (2) Hydronephrosis Code(s): N13.30 - UNSPECIFIED HYDRONEPHROSIS (3) Influenza A Code(s): J10.1 - FLU DUE TO OTH IDENT INFLUENZA VIRUS W OTH RESP MANIFEST (4) Seizure Code(s): R56.9 - UNSPECIFIED CONVULSIONS (5) Pancytopenia Code(s): D61.818 - OTHER PANCYTOPENIA (6) Elevated LFTs Code(s): R94.5 - ABNORMAL RESULTS OF LIVER FUNCTION STUDIES (7) Functional quadriplegia Code(s): R53.2 - FUNCTIONAL QUADRIPLEGIA (8) Hydrocephalus Code(s): G91.9 - HYDROCEPHALUS, UNSPECIFIED
[2019-10-25] MEDS: PHENobarbital 30 MG TABLET PO SCH (23:13)
[2019-10-26] MEDS ORDERED: MEROPENEM 1 GM VIAL (RESTRICTED TO ID) IVPB ONE ×3 (01:14→17:45)
[2019-10-26] MEDS ORDERED: DEXTROSE 5%-WATER 100 ML IVPB ONE ×3 (01:15→17:46)
[2019-10-26] MEDS: MEROPENEM 1 GM in DEXTROSE 5%-WATER 100 ML IVPB SCH ×3 (01:23→18:00)
[2019-10-26] MEDS: MAGNESIUM HYDROX 2400MG/30ML ORAL SUSPENSION 30 ML CUP PO SCH (06:20)
[2019-10-26] MEDS: diazePAM 5 MG TABLET PO SCH (06:22)
[2019-10-26] MEDS: PANTOPRAZOLE SODIUM 40 MG VIAL IVPUSH SCH (09:06)
[2019-10-26] MEDS: SENNOSIDES/DOCUSATE COMBO (SENNA PLUS) TABLET (UD) PO SCH (09:06)
--- NOTE | 2019-10-26 12:01 | PN ---
Progress Note, Physician History of Present Illness: stable still with fevers - Current Medication List Current Medications: Active Medications Fentanyl (Sublimaze Injection -) 50 mcg IVPUSH [id number] PRN PRN Reason: PAIN-PACU ORDER X 4 DOSES ONLY Meropenem 1 gm/ Dextrose 100 mls @ 200 mls/hr IVPB Q8H-IV [facility] Last Admin: 10/26/19 09:15 Dose: 200 mls/hr Amino Acids (Clinimix -) 1,000 mls @ 42 mls/hr IV Q24H [facility] Last Admin: 10/25/19 15:06 Dose: 42 mls/hr Ibuprofen (Caldolor Injection -) 400 mg IVPB Q6H PRN PRN Reason: FEVER Last Admin: 10/24/19 12:49 Dose: 400 mg Magnesium Hydroxide (Milk Of Magnesia -) 15 ml PO AM [facility] Last Admin: 10/26/19 06:20 Dose: Not Given Magnesium Hydroxide (Milk Of Magnesia -) 30 ml PO HS [facility] Last Admin: 10/25/19 23:21 Dose: Not Given Ondansetron HCl (Zofran Injection) 4 mg IVPUSH Q6H PRN PRN Reason: NAUSEA AND/OR VOMITING Pantoprazole Sodium (Protonix Iv) 40 mg IVPUSH DAILY [facility] Last Admin: 10/26/19 09:06 Dose: 40 mg Phenobarbital (Phenobarbital -) 60 mg PO [facility] Senna/Docusate Sodium (Pericolace -) 2 tablet PO BID [facility] Last Admin: 10/26/19 09:06 Dose: 2 tablet - Objective Vital Signs: Vital Signs Temperature 98.9 F 10/26/19 06:00 Pulse Rate 93 H 10/26/19 06:00 Respiratory Rate 20 10/26/19 06:00 Blood Pressure 125/65 10/26/19 06:00 O2 Sat by Pulse Oximetry (%) 100 10/25/19 21:00 Constitutional: Yes: No Distress, Calm Cardiovascular: Yes: S1, S2 Respiratory: Yes: Regular, CTA Bilaterally Gastrointestinal: Yes: Normal Bowel Sounds, Soft Musculoskeletal: Yes: WNL Extremities: Yes: Other Neurological: Yes: Alert Psychiatric: Yes: Alert Labs: CBC, BMP 10/25/19 07:37 10/25/19 07:37 INR, PTT INR 1.10 (0.83-1.09) H 10/22/19 15:00 Assessment/Plan Problem List - Problems (1) Influenza A Code(s): J10.1 - FLU DUE TO OTH IDENT INFLUENZA VIRUS W OTH RESP MANIFEST (2) Epilepsy Code(s): G40.909 - EPILEPSY, UNSP, NOT INTRACTABLE, WITHOUT STATUS EPILEPTICUS (3) Hydrocephalus Code(s): G91.9 - HYDROCEPHALUS, UNSPECIFIED (4) Fever Code(s): R50.9 - FEVER, UNSPECIFIED (5) Sepsis Code(s): A41.9 - SEPSIS, UNSPECIFIED ORGANISM Qualifiers: Sepsis type: sepsis due to unspecified organism Qualified Code(s): A41.9 - Sepsis, unspecified organism Assessment/Plan 44 y.o. male with PMH of Cerebral palsy, hydrocephalus s/p PAVING AND SURFACING LABOURER shunt, epilepsy, functional quadriplegia sent from [facility] for fever > 103F and tachycardia noted from the previous night Influenza A Sepsis r/o UTI Fever Leukocytosis Cerebral Palsy Hydrocephalus s/p PAVING AND SURFACING LABOURER Shunt Epilepsy plan continue abx avoid aspiration monitor fevers rest as per the team
[2019-10-26] MEDS: AMINO ACIDS 4.25%/D5W 1,000 ML IV SCH (17:45)
--- NOTE | 2019-10-26 22:03 | PN ---
Progress Note, Physician - Current Medication List Current Medications: Active Medications Fentanyl (Sublimaze Injection -) 50 mcg IVPUSH [id number] PRN PRN Reason: PAIN-PACU ORDER X 4 DOSES ONLY Meropenem 1 gm/ Dextrose 100 mls @ 200 mls/hr IVPB Q8H-IV [facility] Last Admin: 10/26/19 18:00 Dose: 200 mls/hr Amino Acids (Clinimix -) 1,000 mls @ 42 mls/hr IV Q24H [facility] Last Admin: 10/26/19 17:45 Dose: 42 mls/hr Ibuprofen (Caldolor Injection -) 400 mg IVPB Q6H PRN PRN Reason: FEVER Last Admin: 10/24/19 12:49 Dose: 400 mg Magnesium Hydroxide (Milk Of Magnesia -) 15 ml PO AM [facility] Last Admin: 10/26/19 06:20 Dose: Not Given Magnesium Hydroxide (Milk Of Magnesia -) 30 ml PO HS [facility] Last Admin: 10/25/19 23:21 Dose: Not Given Ondansetron HCl (Zofran Injection) 4 mg IVPUSH Q6H PRN PRN Reason: NAUSEA AND/OR VOMITING Pantoprazole Sodium (Protonix Iv) 40 mg IVPUSH DAILY [facility] Last Admin: 10/26/19 09:06 Dose: 40 mg Phenobarbital (Phenobarbital -) 60 mg PO [facility] Senna/Docusate Sodium (Pericolace -) 2 tablet PO BID [facility] Last Admin: 10/26/19 09:06 Dose: 2 tablet - Objective Vital Signs: Vital Signs Temperature 100 F H 10/26/19 18:00 Pulse Rate 96 H 10/26/19 18:00 Respiratory Rate 20 10/26/19 18:00 Blood Pressure 101/71 10/26/19 18:00 O2 Sat by Pulse Oximetry (%) 97 10/26/19 09:00 Labs: CBC, BMP 10/25/19 07:37 10/25/19 07:37 INR, PTT INR 1.10 (0.83-1.09) H 10/22/19 15:00 Problem List - Problems (1) Sepsis Code(s): A41.9 - SEPSIS, UNSPECIFIED ORGANISM Qualifiers: Sepsis type: sepsis due to unspecified organism Qualified Code(s): A41.9 - Sepsis, unspecified organism (2) Hydronephrosis Code(s): N13.30 - UNSPECIFIED HYDRONEPHROSIS (3) Influenza A Code(s): J10.1 - FLU DUE TO OTH IDENT INFLUENZA VIRUS W OTH RESP MANIFEST (4) Seizure Code(s): R56.9 - UNSPECIFIED CONVULSIONS (5) Pancytopenia Code(s): D61.818 - OTHER PANCYTOPENIA (6) Elevated LFTs Code(s): R94.5 - ABNORMAL RESULTS OF LIVER FUNCTION STUDIES (7) Functional quadriplegia Code(s): R53.2 - FUNCTIONAL QUADRIPLEGIA (8) Hydrocephalus Code(s): G91.9 - HYDROCEPHALUS, UNSPECIFIED
[2019-10-27] MEDS: PHENobarbital 30 MG TABLET PO SCH ×2 (00:04→22:44)
[2019-10-27] MEDS: SENNOSIDES/DOCUSATE COMBO (SENNA PLUS) TABLET (UD) PO SCH ×3 (00:06→22:43)
[2019-10-27] MEDS: MAGNESIUM HYDROX 2400MG/30ML ORAL SUSPENSION 30 ML CUP PO SCH ×3 (00:07→22:44)
[2019-10-27] MEDS ORDERED: MEROPENEM 1 GM VIAL (RESTRICTED TO ID) IVPB ONE ×3 (02:04→17:09)
[2019-10-27] MEDS ORDERED: DEXTROSE 5%-WATER 100 ML IVPB ONE ×3 (02:04→17:09)
[2019-10-27] MEDS: MEROPENEM 1 GM in DEXTROSE 5%-WATER 100 ML IVPB SCH ×3 (02:12→17:30)
[2019-10-27] MEDS: PANTOPRAZOLE SODIUM 40 MG VIAL IVPUSH SCH (11:08)
--- NOTE | 2019-10-27 12:21 | PN ---
Progress Note, Physician History of Present Illness: stable still with fevers but low grade - Current Medication List Current Medications: Active Medications Fentanyl (Sublimaze Injection -) 50 mcg IVPUSH [id number] PRN PRN Reason: PAIN-PACU ORDER X 4 DOSES ONLY Meropenem 1 gm/ Dextrose 100 mls @ 200 mls/hr IVPB Q8H-IV [facility] Last Admin: 10/27/19 11:12 Dose: 200 mls/hr Amino Acids (Clinimix -) 1,000 mls @ 42 mls/hr IV Q24H [facility] Last Admin: 10/26/19 17:45 Dose: 42 mls/hr Ibuprofen (Caldolor Injection -) 400 mg IVPB Q6H PRN PRN Reason: FEVER Last Admin: 10/24/19 12:49 Dose: 400 mg Magnesium Hydroxide (Milk Of Magnesia -) 15 ml PO AM [facility] Last Admin: 10/27/19 06:54 Dose: Not Given Magnesium Hydroxide (Milk Of Magnesia -) 30 ml PO HS [facility] Last Admin: 10/27/19 00:07 Dose: Not Given Ondansetron HCl (Zofran Injection) 4 mg IVPUSH Q6H PRN PRN Reason: NAUSEA AND/OR VOMITING Pantoprazole Sodium (Protonix Iv) 40 mg IVPUSH DAILY [facility] Last Admin: 10/27/19 11:08 Dose: 40 mg Phenobarbital (Phenobarbital -) 60 mg PO [facility] Last Admin: 10/27/19 00:04 Dose: 60 mg Senna/Docusate Sodium (Pericolace -) 2 tablet PO BID [facility] Last Admin: 10/27/19 11:09 Dose: 2 tablet - Objective Vital Signs: Vital Signs Temperature 97.8 F 10/27/19 10:00 Pulse Rate 84 10/27/19 10:00 Respiratory Rate 20 10/27/19 10:00 Blood Pressure 108/63 10/27/19 10:00 O2 Sat by Pulse Oximetry (%) 100 10/26/19 21:00 Constitutional: Yes: No Distress, Calm Cardiovascular: Yes: S1, S2 Respiratory: Yes: Regular, CTA Bilaterally, On Nasal O2 Gastrointestinal: Yes: Normal Bowel Sounds, Soft Musculoskeletal: Yes: WNL Extremities: Yes: Other Neurological: Yes: Alert, Other Psychiatric: Yes: Other Labs: CBC, BMP 10/25/19 07:37 10/25/19 07:37 INR, PTT INR 1.10 (0.83-1.09) H 10/22/19 15:00 Assessment/Plan Problem List - Problems (1) Influenza A Code(s): J10.1 - FLU DUE TO OTH IDENT INFLUENZA VIRUS W OTH RESP MANIFEST (2) Epilepsy Code(s): G40.909 - EPILEPSY, UNSP, NOT INTRACTABLE, WITHOUT STATUS EPILEPTICUS (3) Hydrocephalus Code(s): G91.9 - HYDROCEPHALUS, UNSPECIFIED (4) Fever Code(s): R50.9 - FEVER, UNSPECIFIED (5) Sepsis Code(s): A41.9 - SEPSIS, UNSPECIFIED ORGANISM Qualifiers: Sepsis type: sepsis due to unspecified organism Qualified Code(s): A41.9 - Sepsis, unspecified organism Assessment/Plan 44 y.o. 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
[2019-10-27] MEDS: AMINO ACIDS 4.25%/D5W 1,000 ML IV SCH (16:55)
--- NOTE | 2019-10-27 20:38 | PN ---
Progress Note, Physician History of Present Illness: Pt more awake and eating more - Current Medication List Current Medications: Active Medications Fentanyl (Sublimaze Injection -) 50 mcg IVPUSH [id number] PRN PRN Reason: PAIN-PACU ORDER X 4 DOSES ONLY Meropenem 1 gm/ Dextrose 100 mls @ 200 mls/hr IVPB Q8H-IV [facility] Last Admin: 10/27/19 17:30 Dose: 200 mls/hr Amino Acids (Clinimix -) 1,000 mls @ 42 mls/hr IV Q24H [facility] Last Admin: 10/27/19 16:55 Dose: 42 mls/hr Ibuprofen (Caldolor Injection -) 400 mg IVPB Q6H PRN PRN Reason: FEVER Last Admin: 10/24/19 12:49 Dose: 400 mg Magnesium Hydroxide (Milk Of Magnesia -) 15 ml PO AM [facility] Last Admin: 10/27/19 06:54 Dose: Not Given Magnesium Hydroxide (Milk Of Magnesia -) 30 ml PO HS [facility] Last Admin: 10/27/19 00:07 Dose: Not Given Ondansetron HCl (Zofran Injection) 4 mg IVPUSH Q6H PRN PRN Reason: NAUSEA AND/OR VOMITING Pantoprazole Sodium (Protonix Iv) 40 mg IVPUSH DAILY [facility] Last Admin: 10/27/19 11:08 Dose: 40 mg Phenobarbital (Phenobarbital -) 60 mg PO [facility] Last Admin: 10/27/19 00:04 Dose: 60 mg Senna/Docusate Sodium (Pericolace -) 2 tablet PO BID [facility] Last Admin: 10/27/19 11:09 Dose: 2 tablet - Objective Vital Signs: Vital Signs Temperature 98.0 F 10/27/19 18:00 Pulse Rate 96 H 10/27/19 18:00 Respiratory Rate 20 10/27/19 18:00 Blood Pressure 100/67 10/27/19 18:00 O2 Sat by Pulse Oximetry (%) 100 10/27/19 09:00 Neck: Yes: WNL, Supple Cardiovascular: Yes: WNL, Regular Rate and Rhythm Respiratory: Yes: WNL, Regular, CTA Bilaterally Gastrointestinal: Yes: WNL, Normal Bowel Sounds, Soft Extremities: Yes: Other ((+) contractures) Labs: CBC, BMP 10/25/19 07:37 10/25/19 07:37 INR, PTT INR 1.10 (0.83-1.09) H 10/22/19 15:00 Problem List - Problems (1) Sepsis Assessment/Plan: Influenza A Cultures remain negative CXR showed pleural effusion Cont IV meropenem Cont clinimix Code(s): A41.9 - SEPSIS, UNSPECIFIED ORGANISM Qualifiers: Sepsis type: sepsis due to unspecified organism Qualified Code(s): A41.9 - Sepsis, unspecified organism (2) Hydronephrosis Assessment/Plan: S/P cysto/Lt pyelogram w/ jj stent placement Code(s): N13.30 - UNSPECIFIED HYDRONEPHROSIS (3) Influenza A Assessment/Plan: Pt finished course of tamiflu Code(s): J10.1 - FLU DUE TO OTH IDENT INFLUENZA VIRUS W OTH RESP MANIFEST (4) Seizure Assessment/Plan: Cont phenobarb Code(s): R56.9 - UNSPECIFIED CONVULSIONS (5) Pancytopenia Assessment/Plan: Counts have improved Resolved Code(s): D61.818 - OTHER PANCYTOPENIA (6) Elevated LFTs Assessment/Plan: Abdominal US was unremarkable DC'ed tylenol LFT's have returned to normal Code(s): R94.5 - ABNORMAL RESULTS OF LIVER FUNCTION STUDIES (7) Functional quadriplegia Code(s): R53.2 - FUNCTIONAL QUADRIPLEGIA (8) Hydrocephalus Code(s): G91.9 - HYDROCEPHALUS, UNSPECIFIED
[2019-10-27] MEDS ORDERED: PT OWN MED DRAWER 7, Y5N ONE (22:37)
[2019-10-28] MEDS ORDERED: DEXTROSE 5%-WATER 100 ML IVPB ONE ×2 (04:56→09:07)
[2019-10-28] MEDS ORDERED: MEROPENEM 1 GM VIAL (RESTRICTED TO ID) IVPB ONE ×2 (04:56→09:07)
[2019-10-28] MEDS: MEROPENEM 1 GM in DEXTROSE 5%-WATER 100 ML IVPB SCH ×3 (04:57→11:30)
[2019-10-28] MEDS: MAGNESIUM HYDROX 2400MG/30ML ORAL SUSPENSION 30 ML CUP PO SCH (06:13)
[2019-10-28 08:47] LABS: BASO % 0.3 % (0-2.0); HEMATOCRIT 39.5 % (35.4-49); HEMOGLOBIN 13.8 GM/dL (11.7-16.9); LYMPH % 22.5 % (8-40); MCH 29.7 pg (25.7-33.7); MEAN CELL VOLUME 84.8 fl (80-96); MEAN PLT VOLUME 8.3 fl (7.5-11.1); MONO % 9.8 % (3.8-10.2); NEUT % 62.4 % (42.8-82.8); PLATELET COUNT 491 K/MM3 (134-434); RBC 4.65 M/mm3 (4.00-5.60); RDW 13.5 % (11.9-15.9); WHITE BLOOD COUNT 9.4 K/mm3 (4.0-10.0)
[2019-10-28] MEDS ORDERED: PT OWN MED DRAWER 7, Y5N ONE (09:08)
[2019-10-28 09:28] LABS: ALBUMIN 2.7 g/dl (3.4-5.0); BILIRUBIN,TOTAL 0.6 mg/dL (0.2-1); BLOOD UREA NITROGEN 13.4 mg/dL (7-18); CALCIUM 8.4 mg/dL (8.5-10.1); CREATININE 0.4 mg/dL (0.55-1.3); TOT PROT 6.5 g/dl (6.4-8.2)
[2019-10-28] MEDS: SENNOSIDES/DOCUSATE COMBO (SENNA PLUS) TABLET (UD) PO SCH (11:12)
[2019-10-28] MEDS: PANTOPRAZOLE SODIUM 40 MG VIAL IVPUSH SCH (11:30)
--- NOTE | 2019-10-28 11:45 | PN ---
Progress Note, Physician History of Present Illness: stable has been afebrile - Current Medication List Current Medications: Active Medications Fentanyl (Sublimaze Injection -) 50 mcg IVPUSH [id number] PRN PRN Reason: PAIN-PACU ORDER X 4 DOSES ONLY Amino Acids (Clinimix -) 1,000 mls @ 42 mls/hr IV Q24H [facility] Last Admin: 10/27/19 16:55 Dose: 42 mls/hr Ibuprofen (Caldolor Injection -) 400 mg IVPB Q6H PRN PRN Reason: FEVER Last Admin: 10/24/19 12:49 Dose: 400 mg Ondansetron HCl (Zofran Injection) 4 mg IVPUSH Q6H PRN PRN Reason: NAUSEA AND/OR VOMITING Pantoprazole Sodium (Protonix Iv) 40 mg IVPUSH DAILY [facility] Last Admin: 10/28/19 11:30 Dose: 40 mg Phenobarbital (Phenobarbital -) 60 mg PO HS [facility] Last Admin: 10/27/19 22:44 Dose: 60 mg - Objective Vital Signs: Vital Signs Temperature 98.5 F 10/28/19 11:36 Pulse Rate 101 H 10/28/19 11:36 Respiratory Rate 18 10/28/19 11:36 Blood Pressure 126/72 10/28/19 11:36 O2 Sat by Pulse Oximetry (%) 100 10/27/19 21:00 Constitutional: Yes: No Distress, Calm Cardiovascular: Yes: S1, S2 Respiratory: Yes: Regular, CTA Bilaterally Gastrointestinal: Yes: Normal Bowel Sounds, Soft Genitourinary: Yes: Anderson Present Musculoskeletal: Yes: WNL Extremities: Yes: WNL Neurological: Yes: Alert Psychiatric: Yes: Other Labs: CBC, BMP 10/28/19 08:04 10/28/19 08:04 INR, PTT INR 1.10 (0.83-1.09) H 10/22/19 15:00 Assessment/Plan Problem List - Problems (1) Influenza A Code(s): J10.1 - FLU DUE TO OTH IDENT INFLUENZA VIRUS W OTH RESP MANIFEST (2) Epilepsy Code(s): G40.909 - EPILEPSY, UNSP, NOT INTRACTABLE, WITHOUT STATUS EPILEPTICUS (3) Hydrocephalus Code(s): G91.9 - HYDROCEPHALUS, UNSPECIFIED (4) Fever Code(s): R50.9 - FEVER, UNSPECIFIED (5) Sepsis Code(s): A41.9 - SEPSIS, UNSPECIFIED ORGANISM Qualifiers: Sepsis type: sepsis due to unspecified organism Qualified Code(s): A41.9 - Sepsis, unspecified organism Assessment/Plan 44 y.o. 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
--- NOTE | 2019-10-28 13:20 | PN ---
Progress Note, RED CAP - Note Progress Note: Selected Entries 10/24/19 10/24/19 10/25/19 14:00 18:00 14:00 Breakfast 25% 25% Lunch 25% 25% Supper 50% Temperature 10/26/19 10/26/19 10/27/19 15:00 18:00 02:00 Breakfast 25% Lunch 25% Supper 25% Temperature 97.8 F 10/27/19 10/27/19 10/27/19 06:00 10:00 14:00 Breakfast Lunch Supper Temperature 98.3 F 97.8 F 99.4 F 10/27/19 10/27/19 10/27/19 15:00 18:00 22:00 Breakfast 25% Lunch 25% Supper 25% Temperature 98.0 F 98.9 F 10/28/19 10/28/19 10/28/19 02:00 06:00 11:36 Breakfast Lunch Supper Temperature 99.4 F 99.6 F 98.5 F Laboratory Tests 10/25/19 10/28/19 07:37 08:04 WBC 11.1 H 9.4 Reported to be stable, afebrile. Pt tolerating diet but accepting only 25% per meal. Tongue thrust, pushes food out with staff aware of swallowing techniques to continue to provide trials, as tolerated and desired. Pt dislikes Ensure pudding. Suggest Magic cup TID. Plan is for pt to return to [facility] when medically cleared. I suspect pt will eat more, with his caretakers in his own environment.
[2019-10-28] MEDS: AMINO ACIDS 4.25%/D5W 1,000 ML IV SCH (17:38)
[2019-10-28] MEDS: PHENobarbital 30 MG TABLET PO SCH (22:15)
--- NOTE | 2019-10-28 22:30 | PN ---
Progress Note, Physician History of Present Illness: No new complaints - Current Medication List Current Medications: Active Medications Fentanyl (Sublimaze Injection -) 50 mcg IVPUSH [id number] PRN PRN Reason: PAIN-PACU ORDER X 4 DOSES ONLY Amino Acids (Clinimix -) 1,000 mls @ 42 mls/hr IV Q24H [facility] Last Admin: 10/28/19 17:38 Dose: 42 mls/hr Ibuprofen (Caldolor Injection -) 400 mg IVPB Q6H PRN PRN Reason: FEVER Last Admin: 10/24/19 12:49 Dose: 400 mg Ondansetron HCl (Zofran Injection) 4 mg IVPUSH Q6H PRN PRN Reason: NAUSEA AND/OR VOMITING Pantoprazole Sodium (Protonix Iv) 40 mg IVPUSH DAILY [facility] Last Admin: 10/28/19 11:30 Dose: 40 mg Phenobarbital (Phenobarbital -) 60 mg PO HS [facility] Last Admin: 10/28/19 22:15 Dose: 60 mg - Objective Vital Signs: Vital Signs Temperature 98.3 F 10/28/19 19:00 Pulse Rate 107 H 10/28/19 19:00 Respiratory Rate 18 10/28/19 19:00 Blood Pressure 108/70 10/28/19 19:00 O2 Sat by Pulse Oximetry (%) 96 10/28/19 09:00 Neck: Yes: WNL, Supple Cardiovascular: Yes: WNL, Regular Rate and Rhythm Respiratory: Yes: WNL, Regular, CTA Bilaterally Gastrointestinal: Yes: WNL, Normal Bowel Sounds, Soft Labs: CBC, BMP 10/28/19 08:04 10/28/19 08:04 INR, PTT INR 1.10 (0.83-1.09) H 10/22/19 15:00 Problem List - Problems (1) Sepsis Assessment/Plan: Influenza A Cultures remain negative CXR showed pleural effusion Antibxs dc'ed DC planning for am Code(s): A41.9 - SEPSIS, UNSPECIFIED ORGANISM Qualifiers: Sepsis type: sepsis due to unspecified organism Qualified Code(s): A41.9 - Sepsis, unspecified organism (2) Hydronephrosis Assessment/Plan: S/P cysto/Lt pyelogram w/ jj stent placement Code(s): N13.30 - UNSPECIFIED HYDRONEPHROSIS (3) Influenza A Assessment/Plan: Pt finished course of tamiflu Code(s): J10.1 - FLU DUE TO OTH IDENT INFLUENZA VIRUS W OTH RESP MANIFEST (4) Seizure Assessment/Plan: Cont phenobarb Code(s): R56.9 - UNSPECIFIED CONVULSIONS (5) Pancytopenia Assessment/Plan: Counts have improved Resolved Code(s): D61.818 - OTHER PANCYTOPENIA (6) Elevated LFTs Assessment/Plan: Abdominal US was unremarkable DC'ed tylenol LFT's have returned to normal Code(s): R94.5 - ABNORMAL RESULTS OF LIVER FUNCTION STUDIES (7) Functional quadriplegia Code(s): R53.2 - FUNCTIONAL QUADRIPLEGIA (8) Hydrocephalus Code(s): G91.9 - HYDROCEPHALUS, UNSPECIFIED
--- NOTE | 2019-10-29 09:40 | PN ---
DATE OF DICTATION: 10/27/2019 HISTORY: Patient is postop day number 3. He is status post cystoscopy, left retrograde pyelogram, left ureteroscopic stone manipulation, and placement of a left JJ stent. An ultrasound revealed resolution of left hydronephrosis. The patient remains afebrile. BUN 5, creatinine 0.5, his white count is 11,000. His abdomen is soft. His urine is clear. PLAN: Uneventful postop course. Patient is urologically cleared for discharge. Will need elective extracorporeal shock-wave lithotripsy as an outpatient in the near future. Once this is performed then the double J stent can be removed. We will follow patient in office. Mauricio [id number]
[2019-10-29] MEDS: PANTOPRAZOLE SODIUM 40 MG VIAL IVPUSH SCH (10:38)
--- NOTE | 2019-10-29 11:34 | PN ---
DATE OF DICTATION: 10/28/2019 Patient is a 44-year-old quadriplegic cerebral palsy patient from [facility]. His vital signs are stable. He is status post a cystoscopy with stone manipulation and placement of a left JJ stent due to left hydronephrosis and pyonephrosis. Patient is urologically cleared for discharge. He is tolerating a diet, but accepting only 25% per meal. Tongue thrusts, pushes food out with staff aware of swallowing technique. To continue to provide trials as tolerated and desired. Patient dislikes Ensure pudding. Suggest Magic Cup p IV. When the patient returns to [facility], he will probably eat more being in his own environment and with caretakers that he is used to. Patient will be scheduled for an outpatient extracorporeal shock wave lithotripsy in several weeks. After that, the JJ stent will be removed. ABELINO CAUSEY M.D. [id number]
--- NOTE | 2019-10-29 12:10 | PN ---
Progress Note, Physician History of Present Illness: stable no new issues - Current Medication List Current Medications: Active Medications Fentanyl (Sublimaze Injection -) 50 mcg IVPUSH [id number] PRN PRN Reason: PAIN-PACU ORDER X 4 DOSES ONLY Amino Acids (Clinimix -) 1,000 mls @ 42 mls/hr IV Q24H [facility] Last Admin: 10/28/19 17:38 Dose: 42 mls/hr Ibuprofen (Caldolor Injection -) 400 mg IVPB Q6H PRN PRN Reason: FEVER Last Admin: 10/24/19 12:49 Dose: 400 mg Ondansetron HCl (Zofran Injection) 4 mg IVPUSH Q6H PRN PRN Reason: NAUSEA AND/OR VOMITING Pantoprazole Sodium (Protonix Iv) 40 mg IVPUSH DAILY [facility] Last Admin: 10/29/19 10:38 Dose: 40 mg Phenobarbital (Phenobarbital -) 60 mg PO HS [facility] Last Admin: 10/28/19 22:15 Dose: 60 mg - Objective Vital Signs: Vital Signs Temperature 98.4 F 10/29/19 10:00 Pulse Rate 111 H 10/29/19 10:00 Respiratory Rate 19 10/29/19 10:00 Blood Pressure 107/70 10/29/19 10:00 O2 Sat by Pulse Oximetry (%) 98 10/28/19 21:00 Constitutional: Yes: No Distress, Calm Cardiovascular: Yes: S1, S2 Respiratory: Yes: Regular, CTA Bilaterally Gastrointestinal: Yes: Normal Bowel Sounds, Soft Musculoskeletal: Yes: WNL Extremities: Yes: Other Neurological: Yes: Alert Psychiatric: Yes: Other Labs: CBC, BMP 10/28/19 08:04 10/28/19 08:04 INR, PTT INR 1.10 (0.83-1.09) H 10/22/19 15:00 Assessment/Plan Problem List - Problems (1) Influenza A Code(s): J10.1 - FLU DUE TO OTH IDENT INFLUENZA VIRUS W OTH RESP MANIFEST (2) Epilepsy Code(s): G40.909 - EPILEPSY, UNSP, NOT INTRACTABLE, WITHOUT STATUS EPILEPTICUS (3) Hydrocephalus Code(s): G91.9 - HYDROCEPHALUS, UNSPECIFIED (4) Fever Code(s): R50.9 - FEVER, UNSPECIFIED (5) Sepsis Code(s): A41.9 - SEPSIS, UNSPECIFIED ORGANISM Qualifiers: Sepsis type: sepsis due to unspecified organism Qualified Code(s): A41.9 - Sepsis, unspecified organism Assessment/Plan 44 y.o. male with PMH of Cerebral palsy, hydrocephalus s/p MANAGER DELIVERY shunt, epilepsy, functional quadriplegia sent from [facility] for fever > 103F and tachycardia noted from the previous night Influenza A Sepsis r/o UTI Fever Leukocytosis Cerebral Palsy Hydrocephalus s/p MANAGER DELIVERY Shunt Epilepsy plan continue current mgmt patient improving
[2019-10-29] MEDS: AMINO ACIDS 4.25%/D5W 1,000 ML IV SCH (19:11)
[2019-10-29] MEDS: PHENobarbital 30 MG TABLET PO SCH (21:44)
--- NOTE | 2019-10-29 22:57 | PN ---
Progress Note, Physician History of Present Illness: Pt was discharged however then developed a temp to 100.2 - Current Medication List Current Medications: Active Medications Fentanyl (Sublimaze Injection -) 50 mcg IVPUSH [id number] PRN PRN Reason: PAIN-PACU ORDER X 4 DOSES ONLY Amino Acids (Clinimix -) 1,000 mls @ 42 mls/hr IV Q24H [facility] Last Admin: 10/29/19 19:11 Dose: 42 mls/hr Ibuprofen (Caldolor Injection -) 400 mg IVPB Q6H PRN PRN Reason: FEVER Last Admin: 10/24/19 12:49 Dose: 400 mg Ondansetron HCl (Zofran Injection) 4 mg IVPUSH Q6H PRN PRN Reason: NAUSEA AND/OR VOMITING Pantoprazole Sodium (Protonix Iv) 40 mg IVPUSH DAILY [facility] Last Admin: 10/29/19 10:38 Dose: 40 mg Phenobarbital (Phenobarbital -) 60 mg PO HS [facility] Last Admin: 10/29/19 21:44 Dose: 60 mg - Objective Vital Signs: Vital Signs Temperature 99 F 10/29/19 18:00 Pulse Rate 96 H 10/29/19 16:02 Respiratory Rate 18 10/29/19 18:00 Blood Pressure 136/81 10/29/19 18:00 O2 Sat by Pulse Oximetry (%) 95 10/29/19 09:00 Neck: Yes: WNL, Supple Cardiovascular: Yes: WNL, Regular Rate and Rhythm Respiratory: Yes: WNL, Regular, CTA Bilaterally Gastrointestinal: Yes: WNL, Normal Bowel Sounds, Soft Labs: CBC, BMP 10/28/19 08:04 10/28/19 08:04 INR, PTT INR 1.10 (0.83-1.09) H 10/22/19 15:00 Problem List - Problems (1) Sepsis Assessment/Plan: Influenza A Cultures remain negative CXR showed pleural effusion Antibxs dc'ed Cont to monitor temp curve Code(s): A41.9 - SEPSIS, UNSPECIFIED ORGANISM Qualifiers: Sepsis type: sepsis due to unspecified organism Qualified Code(s): A41.9 - Sepsis, unspecified organism (2) Hydronephrosis Assessment/Plan: S/P cysto/Lt pyelogram w/ jj stent placement Code(s): N13.30 - UNSPECIFIED HYDRONEPHROSIS (3) Influenza A Assessment/Plan: Pt finished course of tamiflu Code(s): J10.1 - FLU DUE TO OTH IDENT INFLUENZA VIRUS W OTH RESP MANIFEST (4) Seizure Assessment/Plan: Cont phenobarb Code(s): R56.9 - UNSPECIFIED CONVULSIONS (5) Pancytopenia Assessment/Plan: Counts have improved Resolved Code(s): D61.818 - OTHER PANCYTOPENIA (6) Elevated LFTs Assessment/Plan: Abdominal US was unremarkable DC'ed tylenol LFT's have returned to normal Code(s): R94.5 - ABNORMAL RESULTS OF LIVER FUNCTION STUDIES (7) Functional quadriplegia Code(s): R53.2 - FUNCTIONAL QUADRIPLEGIA (8) Hydrocephalus Code(s): G91.9 - HYDROCEPHALUS, UNSPECIFIED
[2019-10-30] MEDS: PANTOPRAZOLE SODIUM 40 MG VIAL IVPUSH SCH (10:49)
--- NOTE | 2019-10-30 11:33 | PN ---
Progress Note, Physician History of Present Illness: stable no new issues - Current Medication List Current Medications: Active Medications Acetaminophen (Tylenol -) 650 mg PO Q6H PRN PRN Reason: FEVER Fentanyl (Sublimaze Injection -) 50 mcg IVPUSH [id number] PRN PRN Reason: PAIN-PACU ORDER X 4 DOSES ONLY Amino Acids (Clinimix -) 1,000 mls @ 42 mls/hr IV Q24H [facility] Last Admin: 10/29/19 19:11 Dose: 42 mls/hr Ibuprofen (Caldolor Injection -) 400 mg IVPB Q6H PRN PRN Reason: FEVER Last Admin: 10/24/19 12:49 Dose: 400 mg Ondansetron HCl (Zofran Injection) 4 mg IVPUSH Q6H PRN PRN Reason: NAUSEA AND/OR VOMITING Pantoprazole Sodium (Protonix Iv) 40 mg IVPUSH DAILY [facility] Last Admin: 10/30/19 10:49 Dose: 40 mg Phenobarbital (Phenobarbital -) 60 mg PO HS [facility] Last Admin: 10/29/19 21:44 Dose: 60 mg - Objective Vital Signs: Vital Signs Temperature 99.6 F 10/30/19 06:00 Pulse Rate 104 H 10/30/19 06:00 Respiratory Rate 18 10/30/19 06:00 Blood Pressure 118/68 10/30/19 06:00 O2 Sat by Pulse Oximetry (%) 95 10/29/19 21:00 Constitutional: Yes: No Distress, Calm Cardiovascular: Yes: S1, S2 Respiratory: Yes: Regular, CTA Bilaterally Gastrointestinal: Yes: Normal Bowel Sounds, Soft Musculoskeletal: Yes: WNL Extremities: Yes: Other Neurological: Yes: Alert, Oriented Psychiatric: Yes: Alert, Oriented Labs: CBC, BMP 10/28/19 08:04 10/28/19 08:04 INR, PTT INR 1.10 (0.83-1.09) H 10/22/19 15:00 Assessment/Plan Problem List - Problems (1) Influenza A Code(s): J10.1 - FLU DUE TO OTH IDENT INFLUENZA VIRUS W OTH RESP MANIFEST (2) Epilepsy Code(s): G40.909 - EPILEPSY, UNSP, NOT INTRACTABLE, WITHOUT STATUS EPILEPTICUS (3) Hydrocephalus Code(s): G91.9 - HYDROCEPHALUS, UNSPECIFIED (4) Fever Code(s): R50.9 - FEVER, UNSPECIFIED (5) Sepsis Code(s): A41.9 - SEPSIS, UNSPECIFIED ORGANISM Qualifiers: Sepsis type: sepsis due to unspecified organism Qualified Code(s): A41.9 - Sepsis, unspecified organism Assessment/Plan 44 y.o. male with PMH of Cerebral palsy, hydrocephalus s/p [employer] shunt, epilepsy, functional quadriplegia sent from [facility] for fever > 103F and tachycardia noted from the previous night Influenza A Sepsis r/o UTI Fever Leukocytosis Cerebral Palsy Hydrocephalus s/p [employer] Shunt Epilepsy plan continue current mgmt patient improving
[2019-10-30] MEDS: ACETAMINOPHEN 325 MG TABLET (FP) PO PRN (12:00)
--- NOTE | 2019-10-30 12:15 | PN ---
Progress Note, SOLUTION ADVISOR - Note Progress Note: Selected Entries 10/28/19 10/28/19 10/28/19 02:00 06:00 11:36 Breakfast Lunch Temperature 99.4 F 99.6 F 98.5 F 10/28/19 10/28/19 10/28/19 15:00 19:00 22:00 Breakfast 25% Lunch 50% Temperature 99.3 F 98.3 F 98.6 F 10/29/19 10/29/19 10/29/19 02:00 06:00 10:00 Breakfast Lunch Temperature 98.1 F 98.5 F 98.4 F 10/29/19 10/29/19 10/29/19 16:02 16:15 18:00 Breakfast 25% 25% Lunch 25% 25% Temperature 98.0 F 100.2 F H 99 F 10/29/19 10/30/19 10/30/19 23:00 03:00 06:00 Breakfast Lunch Temperature 99.1 F 99.4 F 99.6 F Laboratory Tests 10/28/19 08:04 WBC 9.4 On puree/honey thick liquid,on Ensure pudding, magic cup Pt dislikes Ensure pudding. Suggest Magic cup TID. Plan is for pt to return to [facility] when medically cleared. I suspect pt will eat more, with his caretakers in his own environment.
[2019-10-30] MEDS: PHENobarbital 30 MG TABLET PO SCH (22:41)
--- NOTE | 2019-10-30 23:16 | PN ---
Progress Note, Physician History of Present Illness: Tmax 100.3 - Current Medication List Current Medications: Active Medications Acetaminophen (Tylenol -) 650 mg PO Q6H PRN PRN Reason: FEVER Last Admin: 10/30/19 12:00 Dose: 650 mg Fentanyl (Sublimaze Injection -) 50 mcg IVPUSH [id number] PRN PRN Reason: PAIN-PACU ORDER X 4 DOSES ONLY Amino Acids (Clinimix -) 1,000 mls @ 42 mls/hr IV Q24H [facility] Last Admin: 10/29/19 19:11 Dose: 42 mls/hr Ibuprofen (Caldolor Injection -) 400 mg IVPB Q6H PRN PRN Reason: FEVER Last Admin: 10/24/19 12:49 Dose: 400 mg Ondansetron HCl (Zofran Injection) 4 mg IVPUSH Q6H PRN PRN Reason: NAUSEA AND/OR VOMITING Pantoprazole Sodium (Protonix Iv) 40 mg IVPUSH DAILY [facility] Last Admin: 10/30/19 10:49 Dose: 40 mg Phenobarbital (Phenobarbital -) 60 mg PO HS [facility] Last Admin: 10/30/19 22:41 Dose: 60 mg - Objective Vital Signs: Vital Signs Temperature 98.9 F 10/30/19 18:00 Pulse Rate 114 H 10/30/19 18:00 Respiratory Rate 18 10/30/19 18:00 Blood Pressure 127/64 10/30/19 18:00 O2 Sat by Pulse Oximetry (%) 96 10/30/19 16:14 Cardiovascular: Yes: Tachycardia Respiratory: Yes: Diminished Gastrointestinal: Yes: WNL, Normal Bowel Sounds, Soft Labs: CBC, BMP 10/28/19 08:04 10/28/19 08:04 INR, PTT INR 1.10 (0.83-1.09) H 10/22/19 15:00 Problem List - Problems (1) Sepsis Assessment/Plan: Influenza A treated Cultures negative CXR showed pleural effusion Antibxs dc'ed Cont to monitor temp curve Code(s): A41.9 - SEPSIS, UNSPECIFIED ORGANISM Qualifiers: Sepsis type: sepsis due to unspecified organism Qualified Code(s): A41.9 - Sepsis, unspecified organism (2) Hydronephrosis Assessment/Plan: S/P cysto/Lt pyelogram w/ jj stent placement Code(s): N13.30 - UNSPECIFIED HYDRONEPHROSIS (3) Influenza A Assessment/Plan: Pt finished course of tamiflu Code(s): J10.1 - FLU DUE TO OTH IDENT INFLUENZA VIRUS W OTH RESP MANIFEST (4) Seizure Assessment/Plan: Cont phenobarb Code(s): R56.9 - UNSPECIFIED CONVULSIONS (5) Pancytopenia Assessment/Plan: Counts have improved Resolved Code(s): D61.818 - OTHER PANCYTOPENIA (6) Elevated LFTs Assessment/Plan: Abdominal US was unremarkable DC'ed tylenol LFT's have returned to normal Code(s): R94.5 - ABNORMAL RESULTS OF LIVER FUNCTION STUDIES (7) Functional quadriplegia Code(s): R53.2 - FUNCTIONAL QUADRIPLEGIA (8) Hydrocephalus Code(s): G91.9 - HYDROCEPHALUS, UNSPECIFIED
[2019-10-31] MEDS ORDERED: LORazepam 2 MG/ML SDV VIAL ONE (09:12)
--- NOTE | 2019-10-31 09:26 | RAPID ---
Physical Examination Vital Signs: Vital Signs Temperature 99.5 F 10/31/19 06:00 Pulse Rate 116 H 10/31/19 06:00 Respiratory Rate 18 10/31/19 06:00 Blood Pressure 118/65 10/31/19 06:00 O2 Sat by Pulse Oximetry (%) 96 10/30/19 21:00 Rapid response called 0912. Rapid response team to bedside. Per nurse patient actively seizing for 5 minutes. Patient has a history of seizure and did not receive morning medications yet. Patient stopped seizing when rapid response team arrived. Ativan not given. Vitals: HR 132, 97% SpO2 Physical: Head: NCAT Cardio: tachycardic Neuro: nystagmus, tonic clonic movements of the head and upper extremities On chart review of patient's home meds, only phenobarbital on active medication list. Advised nurse to give morning meds. Ordered 5mg Clobazam once time dose as per patients home meds. Ordered 1000mg Keppra for loading dose. Reinstated home meds. Labs: CBC, BMP 10/28/19 08:04 10/28/19 08:04
[2019-10-31] MEDS ORDERED: diazePAM ACUDIAL 5-7.5-10 MG 1 EACH KIT RC SCH (09:30)
[2019-10-31] MEDS ORDERED: levETIRAcetam 500 MG/5 ML INJECTION VIAL IVPB ONE (10:30)
[2019-10-31] MEDS ORDERED: cloBAZam 10 MG TABLET PO ONE (10:30)
[2019-10-31] MEDS: PANTOPRAZOLE SODIUM 40 MG VIAL IVPUSH SCH (11:18)
[2019-10-31] MEDS: ACETAMINOPHEN 325 MG TABLET (FP) PO PRN (11:19)
[2019-10-31] MEDS: AMINO ACIDS 4.25%/D5W 1,000 ML IV SCH (11:19)
--- NOTE | 2019-10-31 13:00 | PN ---
Progress Note, Physician - Current Medication List Current Medications: Active Medications Acetaminophen (Tylenol -) 650 mg PO Q6H PRN PRN Reason: FEVER Last Admin: 10/31/19 11:19 Dose: 650 mg Clobazam (Onfi -) 5 mg PO HS [facility] Clobazam (Onfi -) 5 mg PO DAILY [facility] Diazepam (Valium -) 5 mg PO TID [facility] Diazepam (Diastat Rectal Gel -) 10 mg RC PRN [facility] Fentanyl (Sublimaze Injection -) 50 mcg IVPUSH [id number] PRN PRN Reason: PAIN-PACU ORDER X 4 DOSES ONLY Ibuprofen (Caldolor Injection -) 400 mg IVPB Q6H PRN PRN Reason: FEVER Last Admin: 10/24/19 12:49 Dose: 400 mg Ondansetron HCl (Zofran Injection) 4 mg IVPUSH Q6H PRN PRN Reason: NAUSEA AND/OR VOMITING Pantoprazole Sodium (Protonix Iv) 40 mg IVPUSH DAILY [facility] Last Admin: 10/31/19 11:18 Dose: 40 mg Phenobarbital (Phenobarbital -) 60 mg PO HS [facility] Last Admin: 10/30/19 22:41 Dose: 60 mg - Objective Vital Signs: Vital Signs Temperature 99.5 F 10/31/19 06:00 Pulse Rate 116 H 10/31/19 06:00 Respiratory Rate 18 10/31/19 06:00 Blood Pressure 118/65 10/31/19 06:00 O2 Sat by Pulse Oximetry (%) 97 10/31/19 09:00 Labs: CBC, BMP 10/28/19 08:04 10/28/19 08:04 INR, PTT INR 1.10 (0.83-1.09) H 10/22/19 15:00
--- NOTE | 2019-10-31 14:06 | PN ---
Progress Note, COTA - Note Progress Note: Selected Entries 10/28/19 10/28/19 10/28/19 02:00 06:00 11:36 Breakfast Lunch Temperature 99.4 F 99.6 F 98.5 F 10/28/19 10/28/19 10/28/19 15:00 19:00 22:00 Breakfast 25% Lunch 50% Temperature 99.3 F 98.3 F 98.6 F 10/29/19 10/29/19 10/29/19 02:00 06:00 10:00 Breakfast Lunch Temperature 98.1 F 98.5 F 98.4 F 10/29/19 10/29/19 10/29/19 16:02 16:15 18:00 Breakfast 25% 25% Lunch 25% 25% Temperature 98.0 F 100.2 F H 99 F 10/29/19 10/30/19 10/30/19 23:00 03:00 06:00 Breakfast Lunch Temperature 99.1 F 99.4 F 99.6 F Laboratory Tests 10/28/19 08:04 WBC 9.4 Selected Entries 10/30/19 10/30/19 10/30/19 03:00 06:00 10:18 Breakfast Lunch Supper Temperature 99.4 F 99.6 F 100.3 F H 10/30/19 10/30/19 10/30/19 14:00 15:00 17:20 Breakfast 25% Lunch 50% Supper 50% Temperature 99.4 F 10/30/19 10/30/19 10/31/19 18:00 22:00 01:54 Breakfast Lunch Supper Temperature 98.9 F 99 F 99.4 F 10/31/19 06:00 Breakfast Lunch Supper Temperature 99.5 F Laboratory Tests 10/28/19 08:04 WBC 9.4 Seizure this am, noted by nursing. Pt tolerated lunch well afterwards. Enjoyed Ensure pudding today. On puree/honey thick liquid,on Ensure pudding, magic cup Plan is for pt to return to [facility] when medically cleared. I suspect pt will eat more, with his caretakers in his own environment.
[2019-10-31] MEDS: diazePAM 5 MG TABLET PO SCH ×2 (16:33→21:33)
--- NOTE | 2019-10-31 20:59 | CONSULT ---
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 Maintained on: Bisacodyl Suppository; Clobazam [Onfi -] 5 mg BID; Diazepam Rectal PRN; Diazepam 5 mg PO TID; Phenobarbital 64.8 mg PO HS. Admitted with fever, UTI. Rapid response this AM for generalized seizure activity x 5 mins Given 1000 mg Levetiracetam and replaced on out patient therapy. 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 Anderson or suprapubic Eyes open. No resonse to name. Frequent, stereotyped left conjugate gaze deviation and left head turning. Clonus left ankle. IMP: Severe, B/L cerebral dysfunction (Static encephalopathy). Probably continuing to have right cerebral (frontal) partial seizures. SUGGEST: Check PB level. May need to be reloaded with phenobarbital. Until available, continue levetiracetam 500 mg IV or elixor q 12 hrs, Clobazam 5 mg q12 hrs; Valium 5 mg TID; and Phenobarbitral 64.8 mg qHS. If seizures controlled on levetiracetam continue this Rx as out patient. Perhaps this will allow simplification of regimen wince both clobazam and Valium are benzodiazepines and, in conjuction with PB, might be respiratory depressant. Thank you very much, Kenton Arenas MD
[2019-10-31] MEDS: cloBAZam 10 MG TABLET PO SCH (21:33)
[2019-10-31] MEDS: PHENobarbital 30 MG TABLET PO SCH (21:34)
[2019-10-31] MEDS: levETIRAcetam 500 MG/5 ML ORAL SOLUTION (UNIT-DOSE CUPS) PO SCH (21:34)
--- NOTE | 2019-10-31 22:35 | PN ---
Progress Note, Physician - Current Medication List Current Medications: Active Medications Acetaminophen (Tylenol -) 650 mg PO Q6H PRN PRN Reason: FEVER Last Admin: 10/31/19 11:19 Dose: 650 mg Clobazam (Onfi -) 5 mg PO HS [facility] Last Admin: 10/31/19 21:33 Dose: 5 mg Clobazam (Onfi -) 5 mg PO DAILY [facility] Diazepam (Valium -) 5 mg PO TID [facility] Last Admin: 10/31/19 21:33 Dose: 5 mg Diazepam (Diastat Rectal Gel -) 10 mg RC PRN [facility] Fentanyl (Sublimaze Injection -) 50 mcg IVPUSH [id number] PRN PRN Reason: PAIN-PACU ORDER X 4 DOSES ONLY Ibuprofen (Caldolor Injection -) 400 mg IVPB Q6H PRN PRN Reason: FEVER Last Admin: 10/24/19 12:49 Dose: 400 mg Levetiracetam (Keppra Oral Solution -) 500 mg PO BID [facility] Last Admin: 10/31/19 21:34 Dose: 500 mg Ondansetron HCl (Zofran Injection) 4 mg IVPUSH Q6H PRN PRN Reason: NAUSEA AND/OR VOMITING Pantoprazole Sodium (Protonix Iv) 40 mg IVPUSH DAILY [facility] Last Admin: 10/31/19 11:18 Dose: 40 mg Phenobarbital (Phenobarbital -) 60 mg PO HS [facility] Last Admin: 10/31/19 21:34 Dose: 60 mg - Objective Vital Signs: Vital Signs Temperature 98.1 F 10/31/19 18:00 Pulse Rate 122 H 10/31/19 18:00 Respiratory Rate 20 10/31/19 18:00 Blood Pressure 120/63 10/31/19 18:00 O2 Sat by Pulse Oximetry (%) 97 10/31/19 09:00 Labs: CBC, BMP 10/28/19 08:04 10/28/19 08:04 INR, PTT INR 1.10 (0.83-1.09) H 10/22/19 15:00 Problem List - Problems (1) Sepsis Code(s): A41.9 - SEPSIS, UNSPECIFIED ORGANISM Qualifiers: Sepsis type: sepsis due to unspecified organism Qualified Code(s): A41.9 - Sepsis, unspecified organism (2) Hydronephrosis Code(s): N13.30 - UNSPECIFIED HYDRONEPHROSIS (3) Influenza A Code(s): J10.1 - FLU DUE TO OTH IDENT INFLUENZA VIRUS W OTH RESP MANIFEST (4) Seizure Code(s): R56.9 - UNSPECIFIED CONVULSIONS (5) Pancytopenia Code(s): D61.818 - OTHER PANCYTOPENIA (6) Elevated LFTs Code(s): R94.5 - ABNORMAL RESULTS OF LIVER FUNCTION STUDIES (7) Functional quadriplegia Code(s): R53.2 - FUNCTIONAL QUADRIPLEGIA (8) Hydrocephalus Code(s): G91.9 - HYDROCEPHALUS, UNSPECIFIED
[2019-11-01] MEDS: ACETAMINOPHEN 325 MG TABLET (FP) PO PRN (03:47)
[2019-11-01] MEDS: diazePAM 5 MG TABLET PO SCH ×2 (05:31→15:09)
[2019-11-01 09:14] LABS: BASO % 0.9 % (0-2.0); EOS % 0.1 % (0-4.5); HEMATOCRIT 46.4 % (35.4-49); HEMOGLOBIN 16.2 GM/dL (11.7-16.9); LYMPH % 30.2 % (8-40); MCHC 34.8 g/dl (32.0-35.9); MEAN CELL VOLUME 86.3 fl (80-96); MONO % 11.9 % (3.8-10.2); NEUT % 56.9 % (42.8-82.8); PLATELET COUNT 800 K/MM3 (134-434); RBC 5.38 M/mm3 (4.00-5.60); RDW 13.7 % (11.9-15.9); WHITE BLOOD COUNT 10.4 K/mm3 (4.0-10.0)
[2019-11-01 09:55] LABS: ALBUMIN 3.5 g/dl (3.4-5.0); BILIRUBIN,TOTAL 0.8 mg/dL (0.2-1); BLOOD UREA NITROGEN 26.4 mg/dL (7-18); CALCIUM 9.5 mg/dL (8.5-10.1); CREATININE 0.7 mg/dL (0.55-1.3); POTASSIUM 4.9 mmol/L (3.5-5.1); TOT PROT 7.8 g/dl (6.4-8.2)
--- NOTE | 2019-11-01 11:03 | PN ---
Progress Note, Physician History of Present Illness: had a seizure spiked fever today and yesterday clinically looks tired - Current Medication List Current Medications: Active Medications Acetaminophen (Tylenol -) 650 mg PO Q6H PRN PRN Reason: FEVER Last Admin: 11/01/19 03:47 Dose: 650 mg Clobazam (Onfi -) 5 mg PO HS [facility] Last Admin: 10/31/19 21:33 Dose: 5 mg Clobazam (Onfi -) 5 mg PO DAILY [facility] Diazepam (Valium -) 5 mg PO TID [facility] Last Admin: 11/01/19 05:31 Dose: 5 mg Diazepam (Diastat Rectal Gel -) 10 mg RC PRN [facility] Ibuprofen (Caldolor Injection -) 400 mg IVPB Q6H PRN PRN Reason: FEVER Last Admin: 10/24/19 12:49 Dose: 400 mg Levetiracetam (Keppra Oral Solution -) 500 mg PO BID [facility] Last Admin: 10/31/19 21:34 Dose: 500 mg Ondansetron HCl (Zofran Injection) 4 mg IVPUSH Q6H PRN PRN Reason: NAUSEA AND/OR VOMITING Phenobarbital (Phenobarbital -) 60 mg PO HS [facility] Last Admin: 10/31/19 21:34 Dose: 60 mg - Objective Vital Signs: Vital Signs Temperature 100.4 F H 11/01/19 05:39 Pulse Rate 128 H 10/31/19 22:00 Respiratory Rate 24 H 10/31/19 22:00 Blood Pressure 97/51 L 10/31/19 22:00 O2 Sat by Pulse Oximetry (%) 95 10/31/19 21:00 Constitutional: Yes: No Distress, Calm Cardiovascular: Yes: S1, S2 Respiratory: Yes: Regular, CTA Bilaterally Gastrointestinal: Yes: Normal Bowel Sounds, Soft Musculoskeletal: Yes: WNL Extremities: Yes: Other Neurological: Yes: Alert, Other Psychiatric: Yes: Other Labs: CBC, BMP 11/01/19 08:00 11/01/19 08:00 INR, PTT INR 1.10 (0.83-1.09) H 10/22/19 15:00 Assessment/Plan Problem List - Problems (1) Influenza A Code(s): J10.1 - FLU DUE TO OTH IDENT INFLUENZA VIRUS W OTH RESP MANIFEST (2) Epilepsy Code(s): G40.909 - EPILEPSY, UNSP, NOT INTRACTABLE, WITHOUT STATUS EPILEPTICUS (3) Hydrocephalus Code(s): G91.9 - HYDROCEPHALUS, UNSPECIFIED (4) Fever Code(s): R50.9 - FEVER, UNSPECIFIED (5) Sepsis Code(s): A41.9 - SEPSIS, UNSPECIFIED ORGANISM Qualifiers: Sepsis type: sepsis due to unspecified organism Qualified Code(s): A41.9 - Sepsis, unspecified organism Assessment/Plan 44 y.o. male with PMH of Cerebral palsy, hydrocephalus s/p [employer] shunt, epilepsy, functional quadriplegia sent from [facility] for fever > 103F and tachycardia noted from the previous night Influenza A Sepsis r/o UTI Fever Leukocytosis Cerebral Palsy Hydrocephalus s/p [employer] Shunt Epilepsy plan continue current mgmt monitor fevers asp precautions rest as per the team
[2019-11-01] MEDS: levETIRAcetam 500 MG/5 ML ORAL SOLUTION (UNIT-DOSE CUPS) PO SCH (11:17)
[2019-11-01] MEDS: cloBAZam 10 MG TABLET PO SCH (11:18)
--- NOTE | 2019-11-01 21:51 | PN ---
Progress Note, Physician - Current Medication List Current Medications: Active Medications Acetaminophen (Tylenol -) 650 mg PO Q6H PRN PRN Reason: FEVER Last Admin: 11/01/19 03:47 Dose: 650 mg Clobazam (Onfi -) 5 mg PO HS [facility] Last Admin: 10/31/19 21:33 Dose: 5 mg Clobazam (Onfi -) 5 mg PO DAILY [facility] Last Admin: 11/01/19 11:18 Dose: 5 mg Diazepam (Valium -) 5 mg PO TID [facility] Last Admin: 11/01/19 15:09 Dose: 5 mg Diazepam (Diastat Rectal Gel -) 10 mg RC PRN [facility] Ibuprofen (Caldolor Injection -) 400 mg IVPB Q6H PRN PRN Reason: FEVER Last Admin: 10/24/19 12:49 Dose: 400 mg Levetiracetam (Keppra Oral Solution -) 500 mg PO BID [facility] Last Admin: 11/01/19 11:17 Dose: 500 mg Ondansetron HCl (Zofran Injection) 4 mg IVPUSH Q6H PRN PRN Reason: NAUSEA AND/OR VOMITING Phenobarbital (Phenobarbital -) 60 mg PO HS [facility] Last Admin: 10/31/19 21:34 Dose: 60 mg - Objective Vital Signs: Vital Signs Temperature 99.5 F 11/01/19 18:00 Pulse Rate 123 H 11/01/19 18:00 Respiratory Rate 24 H 11/01/19 14:00 Blood Pressure 130/82 11/01/19 18:00 O2 Sat by Pulse Oximetry (%) 95 11/01/19 09:00 Labs: CBC, BMP 11/01/19 08:00 11/01/19 08:00 INR, PTT INR 1.10 (0.83-1.09) H 10/22/19 15:00 Problem List - Problems (1) Sepsis Code(s): A41.9 - SEPSIS, UNSPECIFIED ORGANISM Qualifiers: Sepsis type: sepsis due to unspecified organism Qualified Code(s): A41.9 - Sepsis, unspecified organism (2) Hydronephrosis Code(s): N13.30 - UNSPECIFIED HYDRONEPHROSIS (3) Influenza A Code(s): J10.1 - FLU DUE TO OTH IDENT INFLUENZA VIRUS W OTH RESP MANIFEST (4) Seizure Code(s): R56.9 - UNSPECIFIED CONVULSIONS (5) Pancytopenia Code(s): D61.818 - OTHER PANCYTOPENIA (6) Elevated LFTs Code(s): R94.5 - ABNORMAL RESULTS OF LIVER FUNCTION STUDIES (7) Functional quadriplegia Code(s): R53.2 - FUNCTIONAL QUADRIPLEGIA (8) Hydrocephalus Code(s): G91.9 - HYDROCEPHALUS, UNSPECIFIED
[2019-11-02] MEDS: ACETAMINOPHEN 325 MG TABLET (FP) PO PRN (01:43)
[2019-11-02] MEDS: diazePAM 5 MG TABLET PO SCH ×4 (07:54→21:58)
[2019-11-02 09:20] LABS: BASO % 0.8 % (0-2.0); EOS % 0.1 % (0-4.5); HEMOGLOBIN 16.8 GM/dL (11.7-16.9); LYMPH % 17.2 % (8-40); MCH 29.2 pg (25.7-33.7); MCHC 33.6 g/dl (32.0-35.9); MEAN CELL VOLUME 86.8 fl (80-96); MEAN PLT VOLUME 8.3 fl (7.5-11.1); MONO % 12.5 % (3.8-10.2); NEUT % 69.4 % (42.8-82.8); PLATELET COUNT 645 K/MM3 (134-434); RBC 5.75 M/mm3 (4.00-5.60); RDW 13.6 % (11.9-15.9); WHITE BLOOD COUNT 16.7 K/mm3 (4.0-10.0)
[2019-11-02 09:48] LABS: ALBUMIN 3.7 g/dl (3.4-5.0); BILIRUBIN,TOTAL 0.8 mg/dL (0.2-1); BLOOD UREA NITROGEN 35.8 mg/dL (7-18); CALCIUM 9.5 mg/dL (8.5-10.1); CREATININE 0.9 mg/dL (0.55-1.3); POTASSIUM 4.7 mmol/L (3.5-5.1); TOT PROT 8.3 g/dl (6.4-8.2)
[2019-11-02] MEDS: levETIRAcetam 500 MG/5 ML ORAL SOLUTION (UNIT-DOSE CUPS) PO SCH ×3 (09:51→21:58)
[2019-11-02] MEDS: cloBAZam 10 MG TABLET PO SCH ×3 (09:51→21:59)
--- NOTE | 2019-11-02 14:29 | PN ---
Progress Note, Physician History of Present Illness: Pt alert (baseline mental status , nonverbal) but febrile this a.m. Tmax 101.7F last night. No distress noted. No seizures noted today. - Current Medication List Current Medications: Active Medications Acetaminophen (Tylenol -) 650 mg PO Q6H PRN PRN Reason: FEVER Last Admin: 11/02/19 01:43 Dose: 650 mg Clobazam (Onfi -) 5 mg PO HS [facility] Last Admin: 11/02/19 00:00 Dose: 5 mg Clobazam (Onfi -) 5 mg PO DAILY [facility] Last Admin: 11/02/19 09:51 Dose: 5 mg Diazepam (Valium -) 5 mg PO TID [facility] Last Admin: 11/02/19 07:54 Dose: Not Given Diazepam (Diastat Rectal Gel -) 10 mg RC PRN [facility] Ibuprofen (Caldolor Injection -) 400 mg IVPB Q6H PRN PRN Reason: FEVER Last Admin: 10/24/19 12:49 Dose: 400 mg Levetiracetam (Keppra Oral Solution -) 500 mg PO BID [facility] Last Admin: 11/02/19 09:51 Dose: 500 mg Ondansetron HCl (Zofran Injection) 4 mg IVPUSH Q6H PRN PRN Reason: NAUSEA AND/OR VOMITING Phenobarbital (Phenobarbital -) 60 mg PO HS [facility] Last Admin: 11/02/19 00:00 Dose: 60 mg - Objective Vital Signs: Vital Signs Temperature 100.1 F H 11/02/19 10:02 Pulse Rate 120 H 11/02/19 10:02 Respiratory Rate 19 11/02/19 10:02 Blood Pressure 116/96 11/02/19 10:02 O2 Sat by Pulse Oximetry (%) 95 11/01/19 21:00 Constitutional: Yes: No Distress, Calm Eyes: Yes: Conjunctiva Clear Cardiovascular: Yes: Tachycardia Respiratory: Yes: Regular Gastrointestinal: Yes: Normal Bowel Sounds, Soft Genitourinary: Yes: Other (condom catheter) Integumentary: Yes: WNL Neurological: Yes: Alert Labs: CBC, BMP 11/02/19 08:05 11/02/19 08:05 INR, PTT INR 1.10 (0.83-1.09) H 10/22/19 15:00 Microbiology 10/23/19 18:00 Blood - Peripheral Venous Blood Culture - Final NO GROWTH AFTER 5 DAYS INCUBATION 10/23/19 18:00 Blood - Peripheral Venous Blood Culture - Final NO GROWTH AFTER 5 DAYS INCUBATION 10/27/19 15:41 Stool Clostridioides difficile Antigen - Final 10/27/19 15:41 Stool Clostridioides difficile Toxin Assay - Final 10/21/19 17:35 Blood - Peripheral Venous Blood Culture - Final NO GROWTH AFTER 5 DAYS INCUBATION 10/21/19 17:40 Blood - Peripheral Venous Blood Culture - Final NO GROWTH AFTER 5 DAYS INCUBATION 10/22/19 22:45 Urine - Urine Clean Catch Legionella Antigen - Final 10/22/19 22:45 Urine - Urine Clean Catch Streptococcus pneumoniae Antigen ( M - Final 10/18/19 12:25 Blood - Peripheral Venous Blood Culture - Final NO GROWTH AFTER 5 DAYS INCUBATION 10/18/19 12:25 Blood - Peripheral Venous Blood Culture - Final NO GROWTH AFTER 5 DAYS INCUBATION 10/20/19 18:00 Sputum - Oropharynx Suctioned Sputum Gram Stain - Final 10/20/19 18:00 Sputum - Oropharynx Suctioned Sputum Sputum Culture - Final NORMAL RESPIRATORY PO 10/19/19 20:24 Urine - Urine - Catheterized Urine Culture - Final NO GROWTH OBTAINED Problem List - Problems (1) Influenza A Code(s): J10.1 - FLU DUE TO OTH IDENT INFLUENZA VIRUS W OTH RESP MANIFEST (2) Epilepsy Code(s): G40.909 - EPILEPSY, UNSP, NOT INTRACTABLE, WITHOUT STATUS EPILEPTICUS (3) Hydrocephalus Code(s): G91.9 - HYDROCEPHALUS, UNSPECIFIED Assessment/Plan Fever Leukocytosis Epilepsy - seizure yesterday Lt hydronephrosis/nephrolithiasis s/p ureteral stent placement s/p Influenza - completed treatment Cerebral Palsy Hydrocephalus / [employer] shunt Functional quadriplegia -- Pt febrile, wbc trending up -- repeat blood and urine cultures -- seizure/ aspiration precautions, no respiratory distress noted -- will start Aztreonam empirically for now -- if diarrhea noted, repeat stool CDT monitor closely
[2019-11-02] MEDS: AZTREONAM 2 GM in DEXTROSE 5%-WATER 100 ML IVPB SCH ×2 (16:19→19:25)
[2019-11-02] MEDS ORDERED: PT OWN MED DRAWER 7, Y5N ONE (19:19)
--- NOTE | 2019-11-02 21:39 | PN ---
Progress Note, Physician - Current Medication List Current Medications: Active Medications Acetaminophen (Tylenol -) 650 mg PO Q6H PRN PRN Reason: FEVER Last Admin: 11/02/19 01:43 Dose: 650 mg Clobazam (Onfi -) 5 mg PO HS [facility] Last Admin: 11/02/19 00:00 Dose: 5 mg Clobazam (Onfi -) 5 mg PO DAILY [facility] Last Admin: 11/02/19 09:51 Dose: 5 mg Diazepam (Valium -) 5 mg PO TID [facility] Last Admin: 11/02/19 15:00 Dose: 5 mg Diazepam (Diastat Rectal Gel -) 10 mg RC PRN [facility] Aztreonam 2 gm/ Dextrose 100 mls @ 100 mls/hr IVPB Q8H-IV [facility]; Protocol Last Admin: 11/02/19 19:25 Dose: 100 mls/hr Ibuprofen (Caldolor Injection -) 400 mg IVPB Q6H PRN PRN Reason: FEVER Last Admin: 10/24/19 12:49 Dose: 400 mg Levetiracetam (Keppra Oral Solution -) 500 mg PO BID [facility] Last Admin: 11/02/19 09:51 Dose: 500 mg Ondansetron HCl (Zofran Injection) 4 mg IVPUSH Q6H PRN PRN Reason: NAUSEA AND/OR VOMITING Phenobarbital (Phenobarbital -) 60 mg PO HS [facility] Last Admin: 11/02/19 00:00 Dose: 60 mg - Objective Vital Signs: Vital Signs Temperature 100.1 F H 11/02/19 14:00 Pulse Rate 129 H 11/02/19 14:00 Respiratory Rate 20 11/02/19 14:00 Blood Pressure 115/72 11/02/19 14:00 O2 Sat by Pulse Oximetry (%) 98 11/02/19 09:00 Labs: CBC, BMP 11/02/19 08:05 11/02/19 08:05 INR, PTT INR 1.10 (0.83-1.09) H 10/22/19 15:00 Problem List - Problems (1) Sepsis Code(s): A41.9 - SEPSIS, UNSPECIFIED ORGANISM Qualifiers: Sepsis type: sepsis due to unspecified organism Qualified Code(s): A41.9 - Sepsis, unspecified organism (2) Hydronephrosis Code(s): N13.30 - UNSPECIFIED HYDRONEPHROSIS (3) Influenza A Code(s): J10.1 - FLU DUE TO OTH IDENT INFLUENZA VIRUS W OTH RESP MANIFEST (4) Seizure Code(s): R56.9 - UNSPECIFIED CONVULSIONS (5) Pancytopenia Code(s): D61.818 - OTHER PANCYTOPENIA (6) Elevated LFTs Code(s): R94.5 - ABNORMAL RESULTS OF LIVER FUNCTION STUDIES (7) Functional quadriplegia Code(s): R53.2 - FUNCTIONAL QUADRIPLEGIA (8) Hydrocephalus Code(s): G91.9 - HYDROCEPHALUS, UNSPECIFIED
[2019-11-02] MEDS: PHENobarbital 30 MG TABLET PO SCH ×2 (21:58)
[2019-11-03] MEDS: ACETAMINOPHEN 325 MG TABLET (FP) PO PRN (01:44)
[2019-11-03] MEDS: AZTREONAM 2 GM in DEXTROSE 5%-WATER 100 ML IVPB SCH ×3 (01:44→18:27)
[2019-11-03] MEDS ORDERED: ACETAMINOPHEN 1000 MG/100 ML VIAL (NON FORMULARY) IVPB ONE (06:02)
[2019-11-03] MEDS: diazePAM 5 MG TABLET PO SCH ×3 (06:22→22:38)
[2019-11-03] MEDS ORDERED: PT OWN MED DRAWER 7, Y5N ONE (09:14)
[2019-11-03] MEDS: cloBAZam 10 MG TABLET PO SCH ×2 (09:49→22:44)
[2019-11-03] MEDS: levETIRAcetam 500 MG/5 ML ORAL SOLUTION (UNIT-DOSE CUPS) PO SCH (09:49)
[2019-11-03] MEDS: IBUPROFEN 800 MG/8 ML IJ IVPB PRN (12:28)
--- NOTE | 2019-11-03 15:26 | CONSULT ---
Consult - text type - Consultation Consultation Note: NEUROLOGY PROGRESS: Events reviewed and discussed with RN. Patient examined. Low-grade fevers noted. On Aztreatam. Cultures pending. Having ultrasound to eval ureteral stent. Pt. continues with frequent, stereotyped episodes of leftward eye and head deviation with posturing of left arm suggesting right partial motor seizures. Nurses note that it is difficult to feed patient during these spells. They note bleeding from left inner cheek PB level = 12 ug% Exam unchanged: Right sided [employer] shunt IMP: Severe static encephalopathy Seizure disorder Possibly exacerbated by fever/infection. SUGGEST: Continue antibiotics. Consider few days of IV hydration Reload with phenobarbital 500 mg slow IV via pump over 1-2 hours. Continue Clobazam 5 mg q 12 hrs Continue levetiracetam 500 mg IV or PO (Elixor) q 12 hrs Continue PB 64.8 mg PO or IV q HS Continue valium 5 mg q 8 Hrs (Can give slow IVP or drip if not taking PO well.) Thank you very much, Kenton Arenas MD
[2019-11-03] MEDS ORDERED: PHENobarbital SODIUM 130 MG/1 ML VIAL IV ONE (16:00)
--- NOTE | 2019-11-03 16:18 | PN ---
Progress Note, Physician History of Present Illness: Pt remains febrile. Evaluated by Neurology and could be having partial seizures. Repeat blood cultures pending. Does not appear to be in respiratory distress. High risk for aspiration. WBC increasing. - Current Medication List Current Medications: Active Medications Acetaminophen (Tylenol -) 650 mg PO Q6H PRN PRN Reason: FEVER Last Admin: 11/03/19 01:44 Dose: 650 mg Clobazam (Onfi -) 5 mg PO HS [facility] Last Admin: 11/02/19 21:59 Dose: 5 mg Clobazam (Onfi -) 5 mg PO DAILY [facility] Last Admin: 11/03/19 09:49 Dose: 5 mg Diazepam (Valium -) 5 mg PO TID [facility] Last Admin: 11/03/19 14:55 Dose: Not Given Diazepam (Diastat Rectal Gel -) 10 mg RC PRN [facility] Aztreonam 2 gm/ Dextrose 100 mls @ 100 mls/hr IVPB Q8H-IV [facility]; Protocol Last Admin: 11/03/19 09:49 Dose: 100 mls/hr Dextrose/Sodium Chloride (D5-1/2ns -) 1,000 mls @ 75 mls/hr IV ASDIR [facility] Ibuprofen (Caldolor Injection -) 400 mg IVPB Q6H PRN PRN Reason: FEVER Last Admin: 11/03/19 12:28 Dose: 400 mg Levetiracetam (Keppra Oral Solution -) 500 mg PO BID [facility] Last Admin: 11/03/19 09:49 Dose: 500 mg Ondansetron HCl (Zofran Injection) 4 mg IVPUSH Q6H PRN PRN Reason: NAUSEA AND/OR VOMITING Phenobarbital (Phenobarbital -) 60 mg PO [facility] Last Admin: 11/02/19 21:58 Dose: 60 mg - Objective Vital Signs: Vital Signs Temperature 100.4 F H 11/03/19 14:00 Pulse Rate 113 H 11/03/19 14:00 Respiratory Rate 11/03/19 14:00 Blood Pressure 137/80 11/03/19 14:00 O2 Sat by Pulse Oximetry (%) 100 11/02/19 21:00 Constitutional: Yes: No Distress Neck: Yes: Supple Cardiovascular: Yes: Tachycardia Respiratory: Yes: Diminished (poor inspiratory effort) Gastrointestinal: Yes: Normal Bowel Sounds, Soft Genitourinary: Yes: WNL Musculoskeletal: Yes: Other (contracted) Edema: No Neurological: Yes: Other (nonverbal/non-communicative at baseline) Labs: CBC, BMP 11/02/19 08:05 11/02/19 08:05 INR, PTT INR 1.10 (0.83-1.09) H 10/22/19 15:00 Microbiology 10/23/19 18:00 Blood - Peripheral Venous Blood Culture - Final NO GROWTH AFTER 5 DAYS INCUBATION 10/23/19 18:00 Blood - Peripheral Venous Blood Culture - Final NO GROWTH AFTER 5 DAYS INCUBATION 10/27/19 15:41 Stool Clostridioides difficile Antigen - Final 10/27/19 15:41 Stool Clostridioides difficile Toxin Assay - Final 10/21/19 17:35 Blood - Peripheral Venous Blood Culture - Final NO GROWTH AFTER 5 DAYS INCUBATION 10/21/19 17:40 Blood - Peripheral Venous Blood Culture - Final NO GROWTH AFTER 5 DAYS INCUBATION 10/22/19 22:45 Urine - Urine Clean Catch Legionella Antigen - Final 10/22/19 22:45 Urine - Urine Clean Catch Streptococcus pneumoniae Antigen ( M - Final 10/18/19 12:25 Blood - Peripheral Venous Blood Culture - Final NO GROWTH AFTER 5 DAYS INCUBATION 10/18/19 12:25 Blood - Peripheral Venous Blood Culture - Final NO GROWTH AFTER 5 DAYS INCUBATION 10/20/19 18:00 Sputum - Oropharynx Suctioned Sputum Gram Stain - Final 10/20/19 18:00 Sputum - Oropharynx Suctioned Sputum Sputum Culture - Final NORMAL RESPIRATORY PO 10/19/19 20:24 Urine - Urine - Catheterized Urine Culture - Final NO GROWTH OBTAINED Problem List - Problems (1) Influenza A Code(s): J10.1 - FLU DUE TO OTH IDENT INFLUENZA VIRUS W OTH RESP MANIFEST (2) Epilepsy Code(s): G40.909 - EPILEPSY, UNSP, NOT INTRACTABLE, WITHOUT STATUS EPILEPTICUS (3) Hydrocephalus Code(s): G91.9 - HYDROCEPHALUS, UNSPECIFIED Assessment/Plan Fever Leukocytosis Epilepsy - possibly having partial seizures Lt hydronephrosis/nephrolithiasis s/p ureteral stent placement s/p Influenza - completed treatment Cerebral Palsy 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
[2019-11-03] MEDS ORDERED: PHENobarbital SODIUM 65 MG/1 ML VIAL IVPB ONE (16:45)
[2019-11-03] MEDS: DEXTROSE 5%-0.45% SALINE 1,000 ML IV SCH (16:49)
--- NOTE | 2019-11-03 18:36 | PN ---
Progress Note, Physician History of Present Illness: Pt spiking temps again and is lethargic - Current Medication List Current Medications: Active Medications Acetaminophen (Tylenol -) 650 mg PO Q6H PRN PRN Reason: FEVER Last Admin: 11/03/19 01:44 Dose: 650 mg Clobazam (Onfi -) 5 mg PO HS [facility] Last Admin: 11/02/19 21:59 Dose: 5 mg Clobazam (Onfi -) 5 mg PO DAILY [facility] Last Admin: 11/03/19 09:49 Dose: 5 mg Diazepam (Valium -) 5 mg PO TID [facility] Last Admin: 11/03/19 14:55 Dose: Not Given Diazepam (Diastat Rectal Gel -) 10 mg RC PRN [facility] Aztreonam 2 gm/ Dextrose 100 mls @ 100 mls/hr IVPB Q8H-IV [facility]; Protocol Last Admin: 11/03/19 18:27 Dose: 100 mls/hr Dextrose/Sodium Chloride (D5-1/2ns -) 1,000 mls @ 75 mls/hr IV ASDIR [facility] Last Admin: 11/03/19 16:49 Dose: 75 mls/hr Vancomycin HCl (Vancomycin (Pre-Docked)) 1,000 mg in 250 mls @ 166.667 mls/hr IVPB BID@0600,1800 [facility]; Protocol Ibuprofen (Caldolor Injection -) 400 mg IVPB Q6H PRN PRN Reason: FEVER Last Admin: 11/03/19 12:28 Dose: 400 mg Levetiracetam (Keppra Oral Solution -) 500 mg PO BID [facility] Last Admin: 11/03/19 09:49 Dose: 500 mg Ondansetron HCl (Zofran Injection) 4 mg IVPUSH Q6H PRN PRN Reason: NAUSEA AND/OR VOMITING Phenobarbital (Phenobarbital -) 60 mg PO [facility] Last Admin: 11/02/19 21:58 Dose: 60 mg - Objective Vital Signs: Vital Signs Temperature 100.4 F H 11/03/19 14:00 Pulse Rate 113 H 11/03/19 14:00 Respiratory Rate 11/03/19 14:00 Blood Pressure 137/80 11/03/19 14:00 O2 Sat by Pulse Oximetry (%) 97 11/03/19 09:00 Cardiovascular: Yes: Tachycardia Respiratory: Yes: Diminished Gastrointestinal: Yes: WNL, Normal Bowel Sounds, Soft Extremities: Yes: Other ((+) contractures) Labs: CBC, BMP 11/02/19 08:05 11/02/19 08:05 INR, PTT INR 1.10 (0.83-1.09) H 10/22/19 15:00 Problem List - Problems (1) Seizure Assessment/Plan: As per neuro pt is having seizures Phenobarb dose incresed Cont keppra Code(s): R56.9 - UNSPECIFIED CONVULSIONS (2) Sepsis Assessment/Plan: Influenza A treated Cultures negative CXR showed pleural effusion Pt restarted on IV Aztreonam/vanco Pancultured Code(s): A41.9 - SEPSIS, UNSPECIFIED ORGANISM Qualifiers: Sepsis type: sepsis due to unspecified organism Qualified Code(s): A41.9 - Sepsis, unspecified organism (3) Hydronephrosis Assessment/Plan: S/P cysto/Lt pyelogram w/ jj stent placement Repeat renal US showed normal rt kidney Reconsult uro due to fevers Monitor repeat urine culture Code(s): N13.30 - UNSPECIFIED HYDRONEPHROSIS (4) Pancytopenia Assessment/Plan: Counts have improved Resolved Code(s): D61.818 - OTHER PANCYTOPENIA (5) Elevated LFTs Assessment/Plan: Abdominal US was unremarkable LFT's have returned to normal Code(s): R94.5 - ABNORMAL RESULTS OF LIVER FUNCTION STUDIES (6) Functional quadriplegia Code(s): R53.2 - FUNCTIONAL QUADRIPLEGIA (7) Hydrocephalus Code(s): G91.9 - HYDROCEPHALUS, UNSPECIFIED (8) Influenza A Assessment/Plan: Pt finished course of tamiflu Code(s): J10.1 - FLU DUE TO OTH IDENT INFLUENZA VIRUS W OTH RESP MANIFEST
[2019-11-03] MEDS: VANCOMYCIN 1 GRAM (PRE-DOCKED) 1,000 MG/250 ML BAG IVPB SCH (19:34)
[2019-11-03] MEDS: levETIRAcetam 500 MG/5 ML INJECTION VIAL IVPB SCH (22:34)
[2019-11-04] MEDS ORDERED: PT OWN MED DRAWER 7, Y5N ONE ×3 (02:19→17:22)
[2019-11-04] MEDS: AZTREONAM 2 GM in DEXTROSE 5%-WATER 100 ML IVPB SCH ×3 (02:25→17:25)
[2019-11-04] MEDS: VANCOMYCIN 1 GRAM (PRE-DOCKED) 1,000 MG/250 ML BAG IVPB SCH ×2 (06:09→18:51)
[2019-11-04] MEDS: diazePAM 5 MG TABLET PO SCH ×3 (06:13→22:21)
[2019-11-04] MEDS: levETIRAcetam 500 MG/5 ML INJECTION VIAL IVPB SCH ×2 (10:02→22:11)
[2019-11-04] MEDS: cloBAZam 10 MG TABLET PO SCH ×2 (10:07→22:12)
--- NOTE | 2019-11-04 10:46 | PN ---
Progress Note (short form) - Note Progress Note: , but to, Pt with left renal calculus s/p cysto laserlitho and stent placement. Subsequently pt. has been spiking but yesterday temp was normal and today 99.2. Will ask Dr. Nick for possible PCN Left for better drainage. will follow as necessary.
[2019-11-04 11:21] LABS: BASO % 1.2 % (0-2.0); EOS % 4.9 % (0-4.5); HEMATOCRIT 42.2 % (35.4-49); HEMOGLOBIN 14.1 GM/dL (11.7-16.9); LYMPH % 20.8 % (8-40); MCH 29.2 pg (25.7-33.7); MCHC 33.4 g/dl (32.0-35.9); MEAN CELL VOLUME 87.5 fl (80-96); MEAN PLT VOLUME 8.7 fl (7.5-11.1); MONO % 6.4 % (3.8-10.2); NEUT % 66.7 % (42.8-82.8); PLATELET COUNT 344 K/MM3 (134-434); RBC 4.82 M/mm3 (4.00-5.60); RDW 13.2 % (11.9-15.9); WHITE BLOOD COUNT 13.6 K/mm3 (4.0-10.0)
[2019-11-04 11:48] LABS: ALBUMIN 2.7 g/dl (3.4-5.0); BILIRUBIN,TOTAL 0.6 mg/dL (0.2-1); BLOOD UREA NITROGEN 26.2 mg/dL (7-18); CALCIUM 8.3 mg/dL (8.5-10.1); CREATININE 0.6 mg/dL (0.55-1.3); POTASSIUM 4.1 mmol/L (3.5-5.1); TOT PROT 6.5 g/dl (6.4-8.2)
--- NOTE | 2019-11-04 14:37 | PN ---
Progress Note, Physician History of Present Illness: clinically looks stable - Current Medication List Current Medications: Active Medications Acetaminophen (Tylenol -) 650 mg PO Q6H PRN PRN Reason: FEVER Last Admin: 11/03/19 01:44 Dose: 650 mg Clobazam (Onfi -) 5 mg PO HS [facility] Last Admin: 11/03/19 22:44 Dose: 5 mg Clobazam (Onfi -) 5 mg PO DAILY [facility] Last Admin: 11/04/19 10:07 Dose: Not Given Diazepam (Valium -) 5 mg PO TID [facility] Last Admin: 11/04/19 06:13 Dose: 5 mg Diazepam (Diastat Rectal Gel -) 10 mg RC PRN [facility] Aztreonam 2 gm/ Dextrose 100 mls @ 100 mls/hr IVPB Q8H-IV [facility]; Protocol Last Admin: 11/04/19 10:40 Dose: 100 mls/hr Dextrose/Sodium Chloride (D5-1/2ns -) 1,000 mls @ 75 mls/hr IV ASDIR [facility] Last Admin: 11/03/19 16:49 Dose: 75 mls/hr Vancomycin HCl (Vancomycin (Pre-Docked)) 1,000 mg in 250 mls @ 166.667 mls/hr IVPB BID@0600,1800 [facility]; Protocol Last Admin: 11/04/19 06:09 Dose: 166.667 mls/hr Ibuprofen (Caldolor Injection -) 400 mg IVPB Q6H PRN PRN Reason: FEVER Last Admin: 11/03/19 12:28 Dose: 400 mg Levetiracetam (Keppra Injection -) 500 mg IVPB BID [facility] Last Admin: 11/04/19 10:02 Dose: 500 mg Ondansetron HCl (Zofran Injection) 4 mg IVPUSH Q6H PRN PRN Reason: NAUSEA AND/OR VOMITING Phenobarbital (Phenobarbital -) 60 mg PO HS [facility] Last Admin: 11/02/19 21:58 Dose: 60 mg - Objective Vital Signs: Vital Signs Temperature 99.3 F 11/04/19 10:00 Pulse Rate 99 H 11/04/19 10:00 Respiratory Rate 18 11/04/19 10:00 Blood Pressure 124/84 11/04/19 10:00 O2 Sat by Pulse Oximetry (%) 96 11/03/19 21:00 Constitutional: Yes: No Distress, Calm Cardiovascular: Yes: S1, S2 Respiratory: Yes: Regular, Poor Air Entry (bases) Gastrointestinal: Yes: Normal Bowel Sounds, Soft Musculoskeletal: Yes: WNL Extremities: Yes: Other Neurological: Yes: Alert Labs: CBC, BMP 11/04/19 10:05 11/04/19 10:05 INR, PTT INR 1.10 (0.83-1.09) H 10/22/19 15:00 Assessment/Plan Problem List - Problems (1) Influenza A Code(s): J10.1 - FLU DUE TO OTH IDENT INFLUENZA VIRUS W OTH RESP MANIFEST (2) Epilepsy Code(s): G40.909 - EPILEPSY, UNSP, NOT INTRACTABLE, WITHOUT STATUS EPILEPTICUS (3) Hydrocephalus Code(s): G91.9 - HYDROCEPHALUS, UNSPECIFIED (4) Fever Code(s): R50.9 - FEVER, UNSPECIFIED (5) Sepsis Code(s): A41.9 - SEPSIS, UNSPECIFIED ORGANISM Qualifiers: Sepsis type: sepsis due to unspecified organism Qualified Code(s): A41.9 - Sepsis, unspecified organism Assessment/Plan 44 y.o. male with PMH of Cerebral palsy, hydrocephalus s/p [employer] shunt, epilepsy, functional quadriplegia sent from [facility] for fever > 103F and tachycardia noted from the previous night Influenza A Sepsis r/o UTI Fever Leukocytosis Cerebral Palsy Hydrocephalus s/p [employer] Shunt Epilepsy plan repeat cx noted wbc trending down continue abx rest as per the team
[2019-11-04] MEDS: DEXTROSE 5%-0.45% SALINE 1,000 ML IV SCH ×2 (14:54→19:17)
[2019-11-04] MEDS: ACETAMINOPHEN 325 MG TABLET (FP) PO PRN (20:55)
[2019-11-04] MEDS: IBUPROFEN 800 MG/8 ML IJ IVPB PRN (20:57)
--- NOTE | 2019-11-04 21:52 | PN ---
Progress Note, Physician - Current Medication List Current Medications: Active Medications Acetaminophen (Tylenol -) 650 mg PO Q6H PRN PRN Reason: FEVER Last Admin: 11/03/19 01:44 Dose: 650 mg Clobazam (Onfi -) 5 mg PO HS [facility] Last Admin: 11/03/19 22:44 Dose: 5 mg Clobazam (Onfi -) 5 mg PO DAILY [facility] Last Admin: 11/04/19 10:07 Dose: Not Given Diazepam (Valium -) 5 mg PO TID [facility] Last Admin: 11/04/19 14:55 Dose: Not Given Diazepam (Diastat Rectal Gel -) 10 mg RC PRN [facility] Aztreonam 2 gm/ Dextrose 100 mls @ 100 mls/hr IVPB Q8H-IV [facility]; Protocol Last Admin: 11/04/19 17:25 Dose: 100 mls/hr Dextrose/Sodium Chloride (D5-1/2ns -) 1,000 mls @ 75 mls/hr IV ASDIR [facility] Last Admin: 11/04/19 19:17 Dose: 75 mls/hr Vancomycin HCl (Vancomycin (Pre-Docked)) 1,000 mg in 250 mls @ 166.667 mls/hr IVPB BID@0600,1800 [facility]; Protocol Last Admin: 11/04/19 18:51 Dose: 166.667 mls/hr Ibuprofen (Caldolor Injection -) 400 mg IVPB Q6H PRN PRN Reason: FEVER Last Admin: 11/04/19 20:57 Dose: 400 mg Levetiracetam (Keppra Injection -) 500 mg IVPB BID [facility] Last Admin: 11/04/19 10:02 Dose: 500 mg Ondansetron HCl (Zofran Injection) 4 mg IVPUSH Q6H PRN PRN Reason: NAUSEA AND/OR VOMITING Phenobarbital (Phenobarbital -) 60 mg PO HS [facility] Last Admin: 11/02/19 21:58 Dose: 60 mg - Objective Vital Signs: Vital Signs Temperature 99.6 F 11/04/19 18:00 Pulse Rate 111 H 11/04/19 18:00 Respiratory Rate 18 11/04/19 18:00 Blood Pressure 125/92 11/04/19 18:00 O2 Sat by Pulse Oximetry (%) 97 11/04/19 10:00 Labs: CBC, BMP 11/04/19 10:05 11/04/19 10:05 INR, PTT INR 1.10 (0.83-1.09) H 10/22/19 15:00 Problem List - Problems (1) Seizure Code(s): R56.9 - UNSPECIFIED CONVULSIONS (2) Sepsis Code(s): A41.9 - SEPSIS, UNSPECIFIED ORGANISM Qualifiers: Sepsis type: sepsis due to unspecified organism Qualified Code(s): A41.9 - Sepsis, unspecified organism (3) Hydronephrosis Code(s): N13.30 - UNSPECIFIED HYDRONEPHROSIS (4) Pancytopenia Code(s): D61.818 - OTHER PANCYTOPENIA (5) Elevated LFTs Code(s): R94.5 - ABNORMAL RESULTS OF LIVER FUNCTION STUDIES (6) Functional quadriplegia Code(s): R53.2 - FUNCTIONAL QUADRIPLEGIA (7) Hydrocephalus Code(s): G91.9 - HYDROCEPHALUS, UNSPECIFIED (8) Influenza A Code(s): J10.1 - FLU DUE TO OTH IDENT INFLUENZA VIRUS W OTH RESP MANIFEST
[2019-11-04] MEDS: PHENobarbital 30 MG TABLET PO SCH (22:11)
[2019-11-05] MEDS ORDERED: PT OWN MED DRAWER 7, Y5N ONE ×3 (02:00→18:19)
[2019-11-05] MEDS: AZTREONAM 2 GM in DEXTROSE 5%-WATER 100 ML IVPB SCH ×3 (02:04→18:53)
[2019-11-05] MEDS: VANCOMYCIN 1 GRAM (PRE-DOCKED) 1,000 MG/250 ML BAG IVPB SCH (05:43)
[2019-11-05] MEDS: diazePAM 5 MG TABLET PO SCH ×3 (05:55→22:56)
[2019-11-05] MEDS: cloBAZam 10 MG TABLET PO SCH ×2 (09:20→22:56)
[2019-11-05] MEDS: levETIRAcetam 500 MG/5 ML INJECTION VIAL IVPB SCH ×2 (09:20→21:07)
--- NOTE | 2019-11-05 12:50 | PN ---
Progress Note, Physician History of Present Illness: patient stable still with low grade fever more awake still very congested gurgling - Current Medication List Current Medications: Active Medications Acetaminophen (Tylenol -) 650 mg PO Q6H PRN PRN Reason: FEVER Last Admin: 11/03/19 01:44 Dose: 650 mg Clobazam (Onfi -) 5 mg PO HS [facility] Last Admin: 11/04/19 22:12 Dose: 5 mg Clobazam (Onfi -) 5 mg PO DAILY [facility] Last Admin: 11/05/19 09:20 Dose: Not Given Diazepam (Valium -) 5 mg PO TID [facility] Last Admin: 11/05/19 05:55 Dose: Not Given Diazepam (Diastat Rectal Gel -) 10 mg RC PRN [facility] Aztreonam 2 gm/ Dextrose 100 mls @ 100 mls/hr IVPB Q8H-IV [facility]; Protocol Last Admin: 11/05/19 11:28 Dose: 100 mls/hr Dextrose/Sodium Chloride (D5-1/2ns -) 1,000 mls @ 75 mls/hr IV ASDIR [facility] Last Admin: 11/04/19 19:17 Dose: 75 mls/hr Vancomycin HCl (Vancomycin (Pre-Docked)) 1,000 mg in 250 mls @ 166.667 mls/hr IVPB BID@0600,1800 [facility]; Protocol Last Admin: 11/05/19 05:43 Dose: 166.667 mls/hr Ibuprofen (Caldolor Injection -) 400 mg IVPB Q6H PRN PRN Reason: FEVER Last Admin: 11/04/19 20:57 Dose: 400 mg Levetiracetam (Keppra Injection -) 500 mg IVPB BID [facility] Last Admin: 11/05/19 09:20 Dose: 500 mg Ondansetron HCl (Zofran Injection) 4 mg IVPUSH Q6H PRN PRN Reason: NAUSEA AND/OR VOMITING Phenobarbital (Phenobarbital -) 60 mg PO HS [facility] Last Admin: 11/04/19 22:11 Dose: 60 mg - Objective Vital Signs: Vital Signs Temperature 99.0 F 11/05/19 10:00 Pulse Rate 84 11/05/19 10:00 Respiratory Rate 18 11/05/19 10:00 Blood Pressure 103/77 11/05/19 10:00 O2 Sat by Pulse Oximetry (%) 98 11/04/19 21:00 Constitutional: Yes: No Distress, Calm Cardiovascular: Yes: S1, S2 Respiratory: Yes: Regular, CTA Bilaterally Gastrointestinal: Yes: Normal Bowel Sounds, Soft Musculoskeletal: Yes: WNL Extremities: Yes: Other Neurological: Yes: Alert Psychiatric: Yes: Other Labs: CBC, BMP 11/04/19 10:05 11/04/19 10:05 INR, PTT INR 1.10 (0.83-1.09) H 10/22/19 15:00 Assessment/Plan Problem List - Problems (1) Influenza A Code(s): J10.1 - FLU DUE TO OTH IDENT INFLUENZA VIRUS W OTH RESP MANIFEST (2) Epilepsy Code(s): G40.909 - EPILEPSY, UNSP, NOT INTRACTABLE, WITHOUT STATUS EPILEPTICUS (3) Hydrocephalus Code(s): G91.9 - HYDROCEPHALUS, UNSPECIFIED (4) Fever Code(s): R50.9 - FEVER, UNSPECIFIED (5) Sepsis Code(s): A41.9 - SEPSIS, UNSPECIFIED ORGANISM Qualifiers: Sepsis type: sepsis due to unspecified organism Qualified Code(s): A41.9 - Sepsis, unspecified organism Assessment/Plan 44 y.o. male with PMH of Cerebral palsy, hydrocephalus s/p [employer] TE[employer] shunt, epilepsy, functional quadriplegia sent from [facility] for fever > 103F and tachycardia noted from the previous night Influenza A Sepsis r/o UTI Fever Leukocytosis Cerebral Palsy Hydrocephalus s/p [employer] Shunt Epilepsy plan repeat cx noted wbc trending down continue abx rest as per the team will stop kwaku
[2019-11-05] MEDS: DEXTROSE 5%-0.45% SALINE 1,000 ML IV SCH ×2 (14:08→15:49)
[2019-11-05] MEDS: IBUPROFEN 800 MG/8 ML IJ IVPB PRN (15:48)
--- NOTE | 2019-11-05 21:19 | PN ---
Progress Note, Physician History of Present Illness: Pt lethargic today and not taking much PO - Current Medication List Current Medications: Active Medications Acetaminophen (Tylenol -) 650 mg PO Q6H PRN PRN Reason: FEVER Last Admin: 11/03/19 01:44 Dose: 650 mg Clobazam (Onfi -) 5 mg PO [facility] Last Admin: 11/04/19 22:12 Dose: 5 mg Clobazam (Onfi -) 5 mg PO DAILY [facility] Last Admin: 11/05/19 09:20 Dose: Not Given Diazepam (Valium -) 5 mg PO TID [facility] Last Admin: 11/05/19 14:08 Dose: Not Given Diazepam (Diastat Rectal Gel -) 10 mg RC PRN [facility] Aztreonam 2 gm/ Dextrose 100 mls @ 100 mls/hr IVPB Q8H-IV [facility]; Protocol Last Admin: 11/05/19 18:53 Dose: 100 mls/hr Dextrose/Sodium Chloride (D5-1/2ns -) 1,000 mls @ 75 mls/hr IV ASDIR [facility] Last Admin: 11/05/19 15:49 Dose: 75 mls/hr Ibuprofen (Caldolor Injection -) 400 mg IVPB Q6H PRN PRN Reason: FEVER Last Admin: 11/05/19 15:48 Dose: 400 mg Levetiracetam (Keppra Injection -) 500 mg IVPB BID [facility] Last Admin: 11/05/19 21:07 Dose: 500 mg Ondansetron HCl (Zofran Injection) 4 mg IVPUSH Q6H PRN PRN Reason: NAUSEA AND/OR VOMITING Phenobarbital (Phenobarbital -) 60 mg PO [facility] Last Admin: 11/04/19 22:11 Dose: 60 mg - Objective Vital Signs: Vital Signs Temperature 97.6 F 11/05/19 18:00 Pulse Rate 95 H 11/05/19 20:17 Respiratory Rate 18 11/05/19 20:17 Blood Pressure 123/43 L 11/05/19 20:17 O2 Sat by Pulse Oximetry (%) 99 11/05/19 10:00 Cardiovascular: Yes: Tachycardia Respiratory: Yes: WNL, Regular, CTA Bilaterally Gastrointestinal: Yes: WNL, Normal Bowel Sounds, Soft Extremities: Yes: Other ((+) Contractures) Labs: CBC, BMP 11/04/19 10:05 11/04/19 10:05 INR, PTT INR 1.10 (0.83-1.09) H 10/22/19 15:00 Problem List - Problems (1) Fever Assessment/Plan: Cont IV aztreonam Cultures remain negative Lethargy due to fevers Cont IVF Code(s): R50.9 - FEVER, UNSPECIFIED (2) Seizure Assessment/Plan: Cont phenobarb/keppra Will give both meds IV while pt is not tolerating PO Code(s): R56.9 - UNSPECIFIED CONVULSIONS (3) Hydronephrosis Assessment/Plan: S/P cysto/Lt pyelogram w/ jj stent placement Repeat renal US showed normal rt kidney and 2 nonobstructing stones LT kidney Repeat urine culture remains negative Code(s): N13.30 - UNSPECIFIED HYDRONEPHROSIS (4) Pancytopenia Assessment/Plan: Counts have improved Resolved Code(s): D61.818 - OTHER PANCYTOPENIA (5) Elevated LFTs Assessment/Plan: Abdominal US was unremarkable LFT's have returned to normal Code(s): R94.5 - ABNORMAL RESULTS OF LIVER FUNCTION STUDIES (6) Functional quadriplegia Code(s): R53.2 - FUNCTIONAL QUADRIPLEGIA (7) Hydrocephalus Code(s): G91.9 - HYDROCEPHALUS, UNSPECIFIED (8) Influenza A Assessment/Plan: Pt finished course of tamiflu Code(s): J10.1 - FLU DUE TO OTH IDENT INFLUENZA VIRUS W OTH RESP MANIFEST
[2019-11-05] MEDS: PHENobarbital SODIUM 65 MG/1 ML VIAL IV SCH (22:43)
[2019-11-06] MEDS: AZTREONAM 2 GM in DEXTROSE 5%-WATER 100 ML IVPB SCH ×3 (01:59→19:00)
[2019-11-06] MEDS: diazePAM 5 MG TABLET PO SCH ×3 (05:30→21:31)
[2019-11-06] MEDS ORDERED: PT OWN MED DRAWER 7, Y5N ONE ×2 (09:04→19:53)
[2019-11-06 09:15] LABS: BASO % 0.9 % (0-2.0); EOS % 8.8 % (0-4.5); HEMATOCRIT 36.3 % (35.4-49); HEMOGLOBIN 12.4 GM/dL (11.7-16.9); LYMPH % 31.1 % (8-40); MCH 28.8 pg (25.7-33.7); MCHC 34.1 g/dl (32.0-35.9); MEAN CELL VOLUME 84.6 fl (80-96); MEAN PLT VOLUME 8.8 fl (7.5-11.1); MONO % 7.2 % (3.8-10.2); PLATELET COUNT 260 K/MM3 (134-434); RDW 12.6 % (11.9-15.9); WHITE BLOOD COUNT 7.1 K/mm3 (4.0-10.0)
[2019-11-06] MEDS: levETIRAcetam 500 MG/5 ML INJECTION VIAL IVPB SCH ×2 (09:15→21:31)
[2019-11-06] MEDS: cloBAZam 10 MG TABLET PO SCH ×2 (09:17→21:31)
[2019-11-06 09:44] LABS: ALBUMIN 2.2 g/dl (3.4-5.0); BILIRUBIN,TOTAL 0.3 mg/dL (0.2-1); BLOOD UREA NITROGEN 12.7 mg/dL (7-18); CALCIUM 7.8 mg/dL (8.5-10.1); CREATININE 0.4 mg/dL (0.55-1.3); POTASSIUM 3.5 mmol/L (3.5-5.1); TOT PROT 5.6 g/dl (6.4-8.2)
--- NOTE | 2019-11-06 10:57 | PN ---
Progress Note (short form) - Note Progress Note: Urology followup. Renal ultrasound reviwed. Two small non obstructing calc left . No hydro. Will just observe. No intervention at present.
--- NOTE | 2019-11-06 12:47 | PN ---
Progress Note, Physician History of Present Illness: stable no new issues - Current Medication List Current Medications: Active Medications Acetaminophen (Tylenol -) 650 mg PO Q6H PRN PRN Reason: FEVER Last Admin: 11/03/19 01:44 Dose: 650 mg Clobazam (Onfi -) 5 mg PO HS [facility] Last Admin: 11/05/19 22:56 Dose: Not Given Clobazam (Onfi -) 5 mg PO DAILY [facility] Last Admin: 11/06/19 09:17 Dose: Not Given Diazepam (Valium -) 5 mg PO TID [facility] Last Admin: 11/06/19 05:30 Dose: Not Given Diazepam (Diastat Rectal Gel -) 10 mg RC PRN [facility] Aztreonam 2 gm/ Dextrose 100 mls @ 100 mls/hr IVPB Q8H-IV [facility]; Protocol Last Admin: 11/06/19 09:15 Dose: 100 mls/hr Dextrose/Sodium Chloride (D5-1/2ns -) 1,000 mls @ 75 mls/hr IV ASDIR [facility] Last Admin: 11/05/19 15:49 Dose: 75 mls/hr Ibuprofen (Caldolor Injection -) 400 mg IVPB Q6H PRN PRN Reason: FEVER Last Admin: 11/05/19 15:48 Dose: 400 mg Levetiracetam (Keppra Injection -) 500 mg IVPB BID [facility] Last Admin: 11/06/19 09:15 Dose: 500 mg Ondansetron HCl (Zofran Injection) 4 mg IVPUSH Q6H PRN PRN Reason: NAUSEA AND/OR VOMITING Phenobarbital (Phenobarbital Injection -) 60 mg IV HS [facility] Last Admin: 11/05/19 22:43 Dose: 60 mg - Objective Vital Signs: Vital Signs Temperature 98 F 11/06/19 09:12 Pulse Rate 74 11/06/19 09:12 Respiratory Rate 18 11/06/19 09:12 Blood Pressure 121/72 11/06/19 09:12 O2 Sat by Pulse Oximetry (%) 99 11/05/19 21:00 Constitutional: Yes: No Distress, Calm Cardiovascular: Yes: S1, S2 Respiratory: Yes: Regular, CTA Bilaterally Gastrointestinal: Yes: Normal Bowel Sounds, Soft Musculoskeletal: Yes: WNL Extremities: Yes: Other Neurological: Yes: Alert Psychiatric: Yes: Other Labs: CBC, BMP 11/06/19 07:55 11/06/19 07:55 INR, PTT INR 1.10 (0.83-1.09) H 10/22/19 15:00 Assessment/Plan Problem List - Problems (1) Influenza A Code(s): J10.1 - FLU DUE TO OTH IDENT INFLUENZA VIRUS W OTH RESP MANIFEST (2) Epilepsy Code(s): G40.909 - EPILEPSY, UNSP, NOT INTRACTABLE, WITHOUT STATUS EPILEPTICUS (3) Hydrocephalus Code(s): G91.9 - HYDROCEPHALUS, UNSPECIFIED (4) Fever Code(s): R50.9 - FEVER, UNSPECIFIED (5) Sepsis Code(s): A41.9 - SEPSIS, UNSPECIFIED ORGANISM Qualifiers: Sepsis type: sepsis due to unspecified organism Qualified Code(s): A41.9 - Sepsis, unspecified organism Assessment/Plan 44 y.o. male with PMH of Cerebral palsy, hydrocephalus s/p [employer] shunt, epilepsy, functional quadriplegia sent from [facility] for fever > 103F and tachycardia noted from the previous night Influenza A Sepsis r/o UTI Fever Leukocytosis Cerebral Palsy Hydrocephalus s/p [employer] Shunt Epilepsy plan continue abx wbc normalized will deescalte rest as per the team
[2019-11-06] MEDS: DEXTROSE 5%-0.45% SALINE 1,000 ML IV SCH (21:30)
[2019-11-06] MEDS: PHENobarbital SODIUM 65 MG/1 ML VIAL IV SCH (21:30)
--- NOTE | 2019-11-06 22:07 | PN ---
Progress Note, Physician - Current Medication List Current Medications: Active Medications Acetaminophen (Tylenol -) 650 mg PO Q6H PRN PRN Reason: FEVER Last Admin: 11/03/19 01:44 Dose: 650 mg Clobazam (Onfi -) 5 mg PO HS [facility] Last Admin: 11/06/19 21:31 Dose: Not Given Clobazam (Onfi -) 5 mg PO DAILY [facility] Last Admin: 11/06/19 09:17 Dose: Not Given Diazepam (Valium -) 5 mg PO TID [facility] Last Admin: 11/06/19 21:31 Dose: Not Given Diazepam (Diastat Rectal Gel -) 10 mg RC PRN [facility] Aztreonam 2 gm/ Dextrose 100 mls @ 100 mls/hr IVPB Q8H-IV [facility]; Protocol Last Admin: 11/06/19 19:00 Dose: 100 mls/hr Dextrose/Sodium Chloride (D5-1/2ns -) 1,000 mls @ 75 mls/hr IV ASDIR [facility] Last Admin: 11/06/19 21:30 Dose: 75 mls/hr Ibuprofen (Caldolor Injection -) 400 mg IVPB Q6H PRN PRN Reason: FEVER Last Admin: 11/05/19 15:48 Dose: 400 mg Levetiracetam (Keppra Injection -) 500 mg IVPB BID [facility] Last Admin: 11/06/19 21:31 Dose: 500 mg Ondansetron HCl (Zofran Injection) 4 mg IVPUSH Q6H PRN PRN Reason: NAUSEA AND/OR VOMITING Phenobarbital (Phenobarbital Injection -) 60 mg IV HS [facility] Last Admin: 11/06/19 21:30 Dose: 60 mg - Objective Vital Signs: Vital Signs Temperature 98.4 F 11/06/19 18:00 Pulse Rate 82 11/06/19 18:00 Respiratory Rate 18 11/06/19 18:00 Blood Pressure 115/71 11/06/19 18:00 O2 Sat by Pulse Oximetry (%) 100 11/06/19 09:00 Labs: CBC, BMP 11/06/19 07:55 11/06/19 07:55 INR, PTT INR 1.10 (0.83-1.09) H 10/22/19 15:00 Problem List - Problems (1) Fever Code(s): R50.9 - FEVER, UNSPECIFIED (2) Seizure Code(s): R56.9 - UNSPECIFIED CONVULSIONS (3) Hydronephrosis Code(s): N13.30 - UNSPECIFIED HYDRONEPHROSIS (4) Pancytopenia Code(s): D61.818 - OTHER PANCYTOPENIA (5) Elevated LFTs Code(s): R94.5 - ABNORMAL RESULTS OF LIVER FUNCTION STUDIES (6) Functional quadriplegia Code(s): R53.2 - FUNCTIONAL QUADRIPLEGIA (7) Hydrocephalus Code(s): G91.9 - HYDROCEPHALUS, UNSPECIFIED (8) Influenza A Code(s): J10.1 - FLU DUE TO OTH IDENT INFLUENZA VIRUS W OTH RESP MANIFEST
[2019-11-07] MEDS: AZTREONAM 2 GM in DEXTROSE 5%-WATER 100 ML IVPB SCH ×3 (02:05→17:32)
[2019-11-07] MEDS: diazePAM 5 MG TABLET PO SCH ×3 (06:06→22:04)
[2019-11-07] MEDS: levETIRAcetam 500 MG/5 ML INJECTION VIAL IVPB SCH ×2 (09:43→21:58)
[2019-11-07] MEDS: cloBAZam 10 MG TABLET PO SCH (09:45)
--- NOTE | 2019-11-07 13:01 | PN ---
Progress Note, Physician History of Present Illness: stable - Current Medication List Current Medications: Active Medications Acetaminophen (Tylenol -) 650 mg PO Q6H PRN PRN Reason: FEVER Last Admin: 11/03/19 01:44 Dose: 650 mg Clobazam (Onfi -) 5 mg PO HS [facility] Last Admin: 11/06/19 21:31 Dose: Not Given Clobazam (Onfi -) 5 mg PO DAILY [facility] Last Admin: 11/07/19 09:45 Dose: 5 mg Diazepam (Valium -) 5 mg PO TID [facility] Last Admin: 11/07/19 06:06 Dose: Not Given Diazepam (Diastat Rectal Gel -) 10 mg RC PRN [facility] Aztreonam 2 gm/ Dextrose 100 mls @ 100 mls/hr IVPB Q8H-IV [facility]; Protocol Last Admin: 11/07/19 09:42 Dose: 100 mls/hr Dextrose/Sodium Chloride (D5-1/2ns -) 1,000 mls @ 75 mls/hr IV ASDIR [facility] Last Admin: 11/06/19 21:30 Dose: 75 mls/hr Ibuprofen (Caldolor Injection -) 400 mg IVPB Q6H PRN PRN Reason: FEVER Last Admin: 11/05/19 15:48 Dose: 400 mg Levetiracetam (Keppra Injection -) 500 mg IVPB BID [facility] Last Admin: 11/07/19 09:43 Dose: 500 mg Ondansetron HCl (Zofran Injection) 4 mg IVPUSH Q6H PRN PRN Reason: NAUSEA AND/OR VOMITING Phenobarbital (Phenobarbital Injection -) 60 mg IV HS [facility] Last Admin: 11/06/19 21:30 Dose: 60 mg - Objective Vital Signs: Vital Signs Temperature 98.8 F 11/07/19 09:32 Pulse Rate 73 11/07/19 09:32 Respiratory Rate 20 11/07/19 09:32 Blood Pressure 125/82 11/07/19 09:32 O2 Sat by Pulse Oximetry (%) 98 11/06/19 21:00 Constitutional: Yes: No Distress, Calm Cardiovascular: Yes: S1, S2 Respiratory: Yes: Regular, CTA Bilaterally Gastrointestinal: Yes: Normal Bowel Sounds, Soft Musculoskeletal: Yes: WNL Extremities: Yes: WNL Neurological: Yes: Alert Psychiatric: Yes: Alert Labs: CBC, BMP 11/06/19 07:55 11/06/19 07:55 INR, PTT INR 1.10 (0.83-1.09) H 10/22/19 15:00 Assessment/Plan Problem List - Problems (1) Influenza A Code(s): J10.1 - FLU DUE TO OTH IDENT INFLUENZA VIRUS W OTH RESP MANIFEST (2) Epilepsy Code(s): G40.909 - EPILEPSY, UNSP, NOT INTRACTABLE, WITHOUT STATUS EPILEPTICUS (3) Hydrocephalus Code(s): G91.9 - HYDROCEPHALUS, UNSPECIFIED (4) Fever Code(s): R50.9 - FEVER, UNSPECIFIED (5) Sepsis Code(s): A41.9 - SEPSIS, UNSPECIFIED ORGANISM Qualifiers: Sepsis type: sepsis due to unspecified organism Qualified Code(s): A41.9 - Sepsis, unspecified organism Assessment/Plan 44 y.o. male with PMH of Cerebral palsy, hydrocephalus s/p [employer]LL [employer] shunt, epilepsy, functional quadriplegia sent from [facility] for fever > 103F and tachycardia noted from the previous night Influenza A Sepsis r/o UTI Fever Leukocytosis Cerebral Palsy Hydrocephalus s/p [employer] Shunt Epilepsy plan continue current mgmt rest as per the team
[2019-11-07] MEDS: DEXTROSE 5%-0.45% SALINE 1,000 ML IV SCH (17:32)
[2019-11-07] MEDS ORDERED: PT OWN MED DRAWER 7, Y5N ONE (21:46)
[2019-11-07] MEDS: PHENobarbital SODIUM 65 MG/1 ML VIAL IV SCH (22:16)
--- NOTE | 2019-11-07 23:28 | PN ---
Progress Note, Physician History of Present Illness: No new complaints Pt afebrile - Current Medication List Current Medications: Active Medications Acetaminophen (Tylenol -) 650 mg PO Q6H PRN PRN Reason: FEVER Last Admin: 11/03/19 01:44 Dose: 650 mg Clobazam (Onfi -) 5 mg PO DAILY [facility] Last Admin: 11/07/19 09:45 Dose: 5 mg Clobazam (Onfi -) 5 mg PO HS [facility] Diazepam (Valium -) 5 mg PO TID [facility] Last Admin: 11/07/19 22:04 Dose: 5 mg Diazepam (Diastat Rectal Gel -) 10 mg RC PRN [facility] Aztreonam 2 gm/ Dextrose 100 mls @ 100 mls/hr IVPB Q8H-IV [facility]; Protocol Last Admin: 11/07/19 17:32 Dose: 100 mls/hr Dextrose/Sodium Chloride (D5-1/2ns -) 1,000 mls @ 75 mls/hr IV ASDIR [facility] Last Admin: 11/07/19 17:32 Dose: 75 mls/hr Ibuprofen (Caldolor Injection -) 400 mg IVPB Q6H PRN PRN Reason: FEVER Last Admin: 11/05/19 15:48 Dose: 400 mg Levetiracetam (Keppra Injection -) 500 mg IVPB BID [facility] Last Admin: 11/07/19 21:58 Dose: 500 mg Ondansetron HCl (Zofran Injection) 4 mg IVPUSH Q6H PRN PRN Reason: NAUSEA AND/OR VOMITING Phenobarbital (Phenobarbital Injection -) 60 mg IV HS [facility] Last Admin: 11/07/19 22:16 Dose: 60 mg - Objective Vital Signs: Vital Signs Temperature 97.8 F 11/07/19 18:00 Pulse Rate 80 11/07/19 18:00 Respiratory Rate 20 11/07/19 18:00 Blood Pressure 116/80 11/07/19 18:00 O2 Sat by Pulse Oximetry (%) 98 11/07/19 09:00 Neck: Yes: WNL, Supple Cardiovascular: Yes: WNL, Regular Rate and Rhythm Respiratory: Yes: WNL, Regular, CTA Bilaterally Gastrointestinal: Yes: WNL, Normal Bowel Sounds, Soft Extremities: Yes: Other ((+) contractures) Labs: CBC, BMP 11/06/19 07:55 11/06/19 07:55 INR, PTT INR 1.10 (0.83-1.09) H 10/22/19 15:00 Problem List - Problems (1) Fever Assessment/Plan: Cont IV aztreonam Cultures remain negative WBC now normal Code(s): R50.9 - FEVER, UNSPECIFIED (2) Seizure Assessment/Plan: Cont phenobarb/keppra Code(s): R56.9 - UNSPECIFIED CONVULSIONS (3) Hydronephrosis Assessment/Plan: S/P cysto/Lt pyelogram w/ jj stent placement Repeat renal US showed normal rt kidney and 2 nonobstructing stones LT kidney Repeat urine culture remains negative Code(s): N13.30 - UNSPECIFIED HYDRONEPHROSIS (4) Pancytopenia Assessment/Plan: Counts have improved Resolved Code(s): D61.818 - OTHER PANCYTOPENIA (5) Elevated LFTs Assessment/Plan: Abdominal US was unremarkable LFT's have returned to normal Code(s): R94.5 - ABNORMAL RESULTS OF LIVER FUNCTION STUDIES (6) Functional quadriplegia Code(s): R53.2 - FUNCTIONAL QUADRIPLEGIA (7) Hydrocephalus Code(s): G91.9 - HYDROCEPHALUS, UNSPECIFIED (8) Influenza A Code(s): J10.1 - FLU DUE TO OTH IDENT INFLUENZA VIRUS W OTH RESP MANIFEST
[2019-11-08] MEDS ORDERED: cloBAZam 10 MG TABLET PO ONE (01:06)
[2019-11-08] MEDS ORDERED: PT OWN MED DRAWER 7, Y5N ONE ×2 (01:09→11:48)
[2019-11-08] MEDS: AZTREONAM 2 GM in DEXTROSE 5%-WATER 100 ML IVPB SCH ×2 (01:25→11:56)
[2019-11-08] MEDS: diazePAM 5 MG TABLET PO SCH ×3 (06:37→22:56)
[2019-11-08 08:32] LABS: BASO % 0.7 % (0-2.0); EOS % 4.9 % (0-4.5); HEMATOCRIT 39.2 % (35.4-49); HEMOGLOBIN 13.9 GM/dL (11.7-16.9); MCH 29.9 pg (25.7-33.7); MCHC 35.5 g/dl (32.0-35.9); MEAN CELL VOLUME 84.2 fl (80-96); MEAN PLT VOLUME 9.1 fl (7.5-11.1); MONO % 8.1 % (3.8-10.2); NEUT % 56.3 % (42.8-82.8); PLATELET COUNT 252 K/MM3 (134-434); RBC 4.65 M/mm3 (4.00-5.60); RDW 12.6 % (11.9-15.9); WHITE BLOOD COUNT 7.6 K/mm3 (4.0-10.0)
[2019-11-08 08:58] LABS: ALBUMIN 2.3 g/dl (3.4-5.0); BILIRUBIN,TOTAL 0.4 mg/dL (0.2-1); BLOOD UREA NITROGEN 7.2 mg/dL (7-18); CALCIUM 8.2 mg/dL (8.5-10.1); CREATININE 0.4 mg/dL (0.55-1.3); POTASSIUM 3.2 mmol/L (3.5-5.1)
[2019-11-08] MEDS: cloBAZam 10 MG TABLET PO SCH ×2 (11:55→22:55)
[2019-11-08] MEDS: levETIRAcetam 500 MG/5 ML INJECTION VIAL IVPB SCH ×2 (11:55→22:55)
--- NOTE | 2019-11-08 13:29 | PN ---
Progress Note, Physician History of Present Illness: stable looks better remaining afebrile - Current Medication List Current Medications: Active Medications Acetaminophen (Tylenol -) 650 mg PO Q6H PRN PRN Reason: FEVER Last Admin: 11/03/19 01:44 Dose: 650 mg Clobazam (Onfi -) 5 mg PO DAILY [facility] Last Admin: 11/08/19 11:55 Dose: 5 mg Clobazam (Onfi -) 5 mg PO HS [facility] Diazepam (Valium -) 5 mg PO TID [facility] Last Admin: 11/08/19 06:37 Dose: 5 mg Diazepam (Diastat Rectal Gel -) 10 mg RC PRN [facility] Aztreonam 2 gm/ Dextrose 100 mls @ 100 mls/hr IVPB Q8H-IV [facility]; Protocol Last Admin: 11/08/19 11:56 Dose: 100 mls/hr Dextrose/Sodium Chloride (D5-1/2ns -) 1,000 mls @ 75 mls/hr IV ASDIR [facility] Last Admin: 11/07/19 17:32 Dose: 75 mls/hr Potassium Chloride (Potassium Chloride 10 Meq Premix Ivpb -) 10 meq in 100 mls @ 100 mls/hr IVPB Q60M [facility] Stop: 11/08/19 14:44 Ibuprofen (Caldolor Injection -) 400 mg IVPB Q6H PRN PRN Reason: FEVER Last Admin: 11/05/19 15:48 Dose: 400 mg Levetiracetam (Keppra Injection -) 500 mg IVPB BID [facility] Last Admin: 11/08/19 11:55 Dose: 500 mg Ondansetron HCl (Zofran Injection) 4 mg IVPUSH Q6H PRN PRN Reason: NAUSEA AND/OR VOMITING Phenobarbital (Phenobarbital Injection -) 60 mg IV HS [facility] Last Admin: 11/07/19 22:16 Dose: 60 mg - Objective Vital Signs: Vital Signs Temperature 98.3 F 11/08/19 09:07 Pulse Rate 70 11/08/19 09:07 Respiratory Rate 20 11/08/19 09:07 Blood Pressure 135/95 11/08/19 09:07 O2 Sat by Pulse Oximetry (%) 99 11/08/19 09:00 Constitutional: Yes: No Distress, Calm Cardiovascular: Yes: S1, S2 Respiratory: Yes: Regular, CTA Bilaterally Gastrointestinal: Yes: Normal Bowel Sounds, Soft Musculoskeletal: Yes: WNL Extremities: Yes: Other Neurological: Yes: Alert Labs: CBC, BMP 11/08/19 07:45 11/08/19 07:45 INR, PTT INR 1.10 (0.83-1.09) H 10/22/19 15:00 Assessment/Plan Problem List - Problems (1) Influenza A Code(s): J10.1 - FLU DUE TO OTH IDENT INFLUENZA VIRUS W OTH RESP MANIFEST (2) Epilepsy Code(s): G40.909 - EPILEPSY, UNSP, NOT INTRACTABLE, WITHOUT STATUS EPILEPTICUS (3) Hydrocephalus Code(s): G91.9 - HYDROCEPHALUS, UNSPECIFIED (4) Fever Code(s): R50.9 - FEVER, UNSPECIFIED (5) Sepsis Code(s): A41.9 - SEPSIS, UNSPECIFIED ORGANISM Qualifiers: Sepsis type: sepsis due to unspecified organism Qualified Code(s): A41.9 - Sepsis, unspecified organism Assessment/Plan 44 y.o. male with PMH of Cerebral palsy, hydrocephalus s/p [employer] shunt, epilepsy, functional quadriplegia sent from [facility] for fever > 103F and tachycardia noted from the previous night Influenza A Sepsis r/o UTI Fever Leukocytosis Cerebral Palsy Hydrocephalus s/p [employer] Shunt Epilepsy plan will stop abx monitor rest as per the team
[2019-11-08] MEDS: KCL 10 MEQ IVPB 10 MEQ/100 ML INFUS.BAG IVPB SCH ×3 (14:40→18:04)
[2019-11-08] MEDS: DEXTROSE 5%-0.45% SALINE 1,000 ML IV SCH (14:41)
--- NOTE | 2019-11-08 21:09 | PN ---
Progress Note, Physician - Current Medication List Current Medications: Active Medications Acetaminophen (Tylenol -) 650 mg PO Q6H PRN PRN Reason: FEVER Last Admin: 11/03/19 01:44 Dose: 650 mg Clobazam (Onfi -) 5 mg PO DAILY [facility] Last Admin: 11/08/19 11:55 Dose: 5 mg Clobazam (Onfi -) 5 mg PO HS [facility] Diazepam (Valium -) 5 mg PO TID [facility] Last Admin: 11/08/19 14:40 Dose: 5 mg Diazepam (Diastat Rectal Gel -) 10 mg RC PRN [facility] Dextrose/Sodium Chloride (D5-1/2ns -) 1,000 mls @ 75 mls/hr IV ASDIR [facility] Last Admin: 11/08/19 14:41 Dose: 75 mls/hr Ibuprofen (Caldolor Injection -) 400 mg IVPB Q6H PRN PRN Reason: FEVER Last Admin: 11/05/19 15:48 Dose: 400 mg Levetiracetam (Keppra Injection -) 500 mg IVPB BID [facility] Last Admin: 11/08/19 11:55 Dose: 500 mg Ondansetron HCl (Zofran Injection) 4 mg IVPUSH Q6H PRN PRN Reason: NAUSEA AND/OR VOMITING Phenobarbital (Phenobarbital Injection -) 60 mg IV HS [facility] Last Admin: 11/07/19 22:16 Dose: 60 mg - Objective Vital Signs: Vital Signs Temperature 98.2 F 11/08/19 18:00 Pulse Rate 86 11/08/19 18:00 Respiratory Rate 20 11/08/19 18:00 Blood Pressure 143/74 11/08/19 18:00 O2 Sat by Pulse Oximetry (%) 99 11/08/19 09:00 Labs: CBC, BMP 11/08/19 07:45 11/08/19 07:45 INR, PTT INR 1.10 (0.83-1.09) H 10/22/19 15:00 Problem List - Problems (1) Fever Code(s): R50.9 - FEVER, UNSPECIFIED (2) Seizure Code(s): R56.9 - UNSPECIFIED CONVULSIONS (3) Hydronephrosis Code(s): N13.30 - UNSPECIFIED HYDRONEPHROSIS (4) Pancytopenia Code(s): D61.818 - OTHER PANCYTOPENIA (5) Elevated LFTs Code(s): R94.5 - ABNORMAL RESULTS OF LIVER FUNCTION STUDIES (6) Functional quadriplegia Code(s): R53.2 - FUNCTIONAL QUADRIPLEGIA (7) Hydrocephalus Code(s): G91.9 - HYDROCEPHALUS, UNSPECIFIED (8) Influenza A Code(s): J10.1 - FLU DUE TO OTH IDENT INFLUENZA VIRUS W OTH RESP MANIFEST
[2019-11-08] MEDS: PHENobarbital SODIUM 65 MG/1 ML VIAL IV SCH (22:55)
[2019-11-09] MEDS: diazePAM 5 MG TABLET PO SCH ×3 (06:47→23:02)
[2019-11-09 10:19] LABS: ALBUMIN 2.3 g/dl (3.4-5.0); BILIRUBIN,TOTAL 0.4 mg/dL (0.2-1); BLOOD UREA NITROGEN 3.2 mg/dL (7-18); CREATININE 0.3 mg/dL (0.55-1.3); POTASSIUM 3.3 mmol/L (3.5-5.1); TOT PROT 5.9 g/dl (6.4-8.2)
[2019-11-09] MEDS: levETIRAcetam 500 MG/5 ML INJECTION VIAL IVPB SCH ×2 (10:20→22:58)
[2019-11-09] MEDS: cloBAZam 10 MG TABLET PO SCH ×2 (10:21→23:01)
[2019-11-09] MEDS: DEXTROSE 5%-0.45% SALINE 1,000 ML IV SCH ×2 (10:23→15:49)
--- NOTE | 2019-11-09 11:34 | PN ---
Progress Note, Physician History of Present Illness: stable no new issues - Current Medication List Current Medications: Active Medications Acetaminophen (Tylenol -) 650 mg PO Q6H PRN PRN Reason: FEVER Last Admin: 11/03/19 01:44 Dose: 650 mg Clobazam (Onfi -) 5 mg PO DAILY [facility] Last Admin: 11/09/19 10:21 Dose: 5 mg Clobazam (Onfi -) 5 mg PO HS [facility] Last Admin: 11/08/19 22:55 Dose: 5 mg Diazepam (Valium -) 5 mg PO TID [facility] Last Admin: 11/09/19 06:47 Dose: 5 mg Diazepam (Diastat Rectal Gel -) 10 mg RC PRN [facility] Dextrose/Sodium Chloride (D5-1/2ns -) 1,000 mls @ 75 mls/hr IV ASDIR [facility] Last Admin: 11/09/19 10:23 Dose: 75 mls/hr Ibuprofen (Caldolor Injection -) 400 mg IVPB Q6H PRN PRN Reason: FEVER Last Admin: 11/05/19 15:48 Dose: 400 mg Levetiracetam (Keppra Injection -) 500 mg IVPB BID [facility] Last Admin: 11/09/19 10:20 Dose: 500 mg Nystatin (Nystop Powder -) 1 applic TP BID [facility] Ondansetron HCl (Zofran Injection) 4 mg IVPUSH Q6H PRN PRN Reason: NAUSEA AND/OR VOMITING Phenobarbital (Phenobarbital Injection -) 60 mg IV HS [facility] Last Admin: 11/08/19 22:55 Dose: 60 mg - Objective Vital Signs: Vital Signs Temperature 98.8 F 11/09/19 09:00 Pulse Rate 94 H 11/09/19 09:00 Respiratory Rate 20 11/09/19 09:00 Blood Pressure 131/79 11/09/19 09:00 O2 Sat by Pulse Oximetry (%) 98 11/08/19 21:00 Constitutional: Yes: No Distress, Calm Cardiovascular: Yes: S1, S2 Respiratory: Yes: Regular, CTA Bilaterally Gastrointestinal: Yes: Normal Bowel Sounds, Soft Musculoskeletal: Yes: Other Extremities: Yes: Other Neurological: Yes: Alert Psychiatric: Yes: Alert Labs: CBC, BMP 11/08/19 07:45 11/09/19 06:00 INR, PTT INR 1.10 (0.83-1.09) H 10/22/19 15:00 Assessment/Plan Problem List - Problems (1) Influenza A Code(s): J10.1 - FLU DUE TO OTH IDENT INFLUENZA VIRUS W OTH RESP MANIFEST (2) Epilepsy Code(s): G40.909 - EPILEPSY, UNSP, NOT INTRACTABLE, WITHOUT STATUS EPILEPTICUS (3) Hydrocephalus Code(s): G91.9 - HYDROCEPHALUS, UNSPECIFIED (4) Fever Code(s): R50.9 - FEVER, UNSPECIFIED (5) Sepsis Code(s): A41.9 - SEPSIS, UNSPECIFIED ORGANISM Qualifiers: Sepsis type: sepsis due to unspecified organism Qualified Code(s): A41.9 - Sepsis, unspecified organism Assessment/Plan 44 y.o. male with PMH of Cerebral palsy, hydrocephalus s/p [employer] shunt, epilepsy, functional quadriplegia sent from [facility] for fever > 103F and tachycardia noted from the previous night Influenza A Sepsis r/o UTI Fever Leukocytosis Cerebral Palsy Hydrocephalus s/p [employer] Shunt Epilepsy plan continue current mgmt rest as per the team
[2019-11-09] MEDS ORDERED: PT OWN MED DRAWER 7, Y5N ONE ×2 (15:51→17:10)
[2019-11-09] MEDS: NYSTATIN POWDER 100,000 UNITS/GM - 15 GM TOPICAL POWDER TP SCH ×2 (15:52→23:02)
[2019-11-09] MEDS: KCL 10 MEQ IVPB 10 MEQ/100 ML INFUS.BAG IVPB SCH ×3 (18:01→21:27)
[2019-11-09] MEDS ORDERED: POLYETHYLENE GLYCOL 3350 119 GM BTL PO SCH (18:15)
--- NOTE | 2019-11-09 22:19 | PN ---
Progress Note, Physician - Current Medication List Current Medications: Active Medications Acetaminophen (Tylenol -) 650 mg PO Q6H PRN PRN Reason: FEVER Last Admin: 11/03/19 01:44 Dose: 650 mg Clobazam (Onfi -) 5 mg PO DAILY [facility] Last Admin: 11/09/19 10:21 Dose: 5 mg Clobazam (Onfi -) 5 mg PO HS [facility] Last Admin: 11/08/19 22:55 Dose: 5 mg Diazepam (Valium -) 5 mg PO TID [facility] Last Admin: 11/09/19 15:47 Dose: 5 mg Diazepam (Diastat Rectal Gel -) 10 mg RC PRN [facility] Dextrose/Sodium Chloride (D5-1/2ns -) 1,000 mls @ 75 mls/hr IV ASDIR [facility] Last Admin: 11/09/19 15:49 Dose: Not Given Ibuprofen (Caldolor Injection -) 400 mg IVPB Q6H PRN PRN Reason: FEVER Last Admin: 11/05/19 15:48 Dose: 400 mg Levetiracetam (Keppra Injection -) 500 mg IVPB BID [facility] Last Admin: 11/09/19 10:20 Dose: 500 mg Nystatin (Nystop Powder -) 1 applic TP BID [facility] Last Admin: 11/09/19 15:52 Dose: 1 applic Ondansetron HCl (Zofran Injection) 4 mg IVPUSH Q6H PRN PRN Reason: NAUSEA AND/OR VOMITING Phenobarbital (Phenobarbital Injection -) 60 mg IV HS [facility] Last Admin: 11/08/19 22:55 Dose: 60 mg - Objective Vital Signs: Vital Signs Temperature 98.8 F 11/09/19 18:00 Pulse Rate 93 H 11/09/19 18:00 Respiratory Rate 20 11/09/19 18:00 Blood Pressure 130/89 11/09/19 18:00 O2 Sat by Pulse Oximetry (%) 98 11/09/19 09:00 Labs: CBC, BMP 11/08/19 07:45 11/09/19 06:00 INR, PTT INR 1.10 (0.83-1.09) H 10/22/19 15:00 Problem List - Problems (1) Fever Code(s): R50.9 - FEVER, UNSPECIFIED (2) Seizure Code(s): R56.9 - UNSPECIFIED CONVULSIONS (3) Hydronephrosis Code(s): N13.30 - UNSPECIFIED HYDRONEPHROSIS (4) Pancytopenia Code(s): D61.818 - OTHER PANCYTOPENIA (5) Elevated LFTs Code(s): R94.5 - ABNORMAL RESULTS OF LIVER FUNCTION STUDIES (6) Functional quadriplegia Code(s): R53.2 - FUNCTIONAL QUADRIPLEGIA (7) Hydrocephalus Code(s): G91.9 - HYDROCEPHALUS, UNSPECIFIED (8) Influenza A Code(s): J10.1 - FLU DUE TO OTH IDENT INFLUENZA VIRUS W OTH RESP MANIFEST
[2019-11-09] MEDS: PHENobarbital SODIUM 65 MG/1 ML VIAL IV SCH (23:01)
[2019-11-10] MEDS: diazePAM 5 MG TABLET PO SCH ×3 (05:39→22:06)
[2019-11-10] MEDS: DEXTROSE 5%-0.45% SALINE 1,000 ML IV SCH ×3 (05:39→22:15)
[2019-11-10 08:57] LABS: ALBUMIN 2.3 g/dl (3.4-5.0); BILIRUBIN,TOTAL 0.4 mg/dL (0.2-1); CALCIUM 8.3 mg/dL (8.5-10.1); CREATININE 0.3 mg/dL (0.55-1.3); POTASSIUM 3.7 mmol/L (3.5-5.1); TOT PROT 5.9 g/dl (6.4-8.2)
[2019-11-10 09:03] LABS: BASO % 0.6 % (0-2.0); BLOOD UREA NITROGEN 2.7 mg/dL (7-18); EOS % 5.1 % (0-4.5); HEMOGLOBIN 13.1 GM/dL (11.7-16.9); LYMPH % 32.5 % (8-40); MCH 29.5 pg (25.7-33.7); MCHC 35.4 g/dl (32.0-35.9); MEAN CELL VOLUME 83.2 fl (80-96); MEAN PLT VOLUME 8.8 fl (7.5-11.1); MONO % 10.1 % (3.8-10.2); NEUT % 51.7 % (42.8-82.8); PLATELET COUNT 279 K/MM3 (134-434); RBC 4.44 M/mm3 (4.00-5.60); RDW 13.1 % (11.9-15.9); WHITE BLOOD COUNT 8.6 K/mm3 (4.0-10.0)
[2019-11-10] MEDS ORDERED: POLYETHYLENE GLYCOL 3350 119 GM BTL PO SCH (10:00)
[2019-11-10] MEDS: levETIRAcetam 500 MG/5 ML INJECTION VIAL IVPB SCH ×2 (10:59→22:06)
[2019-11-10] MEDS: cloBAZam 10 MG TABLET PO SCH ×2 (10:59→22:06)
[2019-11-10] MEDS: NYSTATIN POWDER 100,000 UNITS/GM - 15 GM TOPICAL POWDER TP SCH ×2 (11:00→22:07)
[2019-11-10] MEDS ORDERED: PT OWN MED DRAWER 7, Y5N ONE (16:55)
[2019-11-10] MEDS: PHENobarbital SODIUM 65 MG/1 ML VIAL IV SCH (22:06)
--- NOTE | 2019-11-10 22:48 | PN ---
Progress Note, Physician History of Present Illness: No new complaints Pt afebrile - Current Medication List Current Medications: Active Medications Acetaminophen (Tylenol -) 650 mg PO Q6H PRN PRN Reason: FEVER Last Admin: 11/03/19 01:44 Dose: 650 mg Clobazam (Onfi -) 5 mg PO DAILY [facility] Last Admin: 11/10/19 10:59 Dose: 5 mg Clobazam (Onfi -) 5 mg PO HS [facility] Last Admin: 11/10/19 22:06 Dose: 5 mg Diazepam (Valium -) 5 mg PO TID [facility] Last Admin: 11/10/19 22:06 Dose: 5 mg Diazepam (Diastat Rectal Gel -) 10 mg RC PRN [facility] Dextrose/Sodium Chloride (D5-1/2ns -) 1,000 mls @ 75 mls/hr IV ASDIR [facility] Last Admin: 11/10/19 22:15 Dose: 75 mls/hr Ibuprofen (Caldolor Injection -) 400 mg IVPB Q6H PRN PRN Reason: FEVER Last Admin: 11/05/19 15:48 Dose: 400 mg Levetiracetam (Keppra Injection -) 500 mg IVPB BID [facility] Last Admin: 11/10/19 22:06 Dose: 500 mg Nystatin (Nystop Powder -) 1 applic TP BID [facility] Last Admin: 11/10/19 22:07 Dose: 1 applic Ondansetron HCl (Zofran Injection) 4 mg IVPUSH Q6H PRN PRN Reason: NAUSEA AND/OR VOMITING Phenobarbital (Phenobarbital Injection -) 60 mg IV HS [facility] Last Admin: 11/10/19 22:06 Dose: 60 mg - Objective Vital Signs: Vital Signs Temperature 98.7 F 11/10/19 18:00 Pulse Rate 81 11/10/19 18:00 Respiratory Rate 18 11/10/19 18:00 Blood Pressure 111/78 11/10/19 18:00 O2 Sat by Pulse Oximetry (%) 98 11/10/19 09:00 Neck: Yes: WNL, Supple Cardiovascular: Yes: WNL, Regular Rate and Rhythm Respiratory: Yes: WNL, Regular, CTA Bilaterally Gastrointestinal: Yes: WNL, Normal Bowel Sounds, Soft Labs: CBC, BMP 11/10/19 07:23 11/10/19 07:23 INR, PTT INR 1.10 (0.83-1.09) H 10/22/19 15:00 Problem List - Problems (1) Fever Assessment/Plan: Pt has been off antibxs Cultures remain negative WBC now normal DC planning for am Code(s): R50.9 - FEVER, UNSPECIFIED (2) Seizure Assessment/Plan: Cont phenobarb/keppra Code(s): R56.9 - UNSPECIFIED CONVULSIONS (3) Hydronephrosis Assessment/Plan: S/P cysto/Lt pyelogram w/ jj stent placement Repeat renal US showed normal rt kidney and 2 nonobstructing stones LT kidney Repeat urine culture remains negative Code(s): N13.30 - UNSPECIFIED HYDRONEPHROSIS (4) Pancytopenia Assessment/Plan: Counts have improved Resolved Code(s): D61.818 - OTHER PANCYTOPENIA (5) Elevated LFTs Assessment/Plan: Abdominal US was unremarkable LFT's have returned to normal Code(s): R94.5 - ABNORMAL RESULTS OF LIVER FUNCTION STUDIES (6) Functional quadriplegia Code(s): R53.2 - FUNCTIONAL QUADRIPLEGIA (7) Hydrocephalus Code(s): G91.9 - HYDROCEPHALUS, UNSPECIFIED (8) Influenza A Assessment/Plan: Pt finished course of tamiflu Code(s): J10.1 - FLU DUE TO OTH IDENT INFLUENZA VIRUS W OTH RESP MANIFEST
[2019-11-11] MEDS: diazePAM 5 MG TABLET PO SCH ×2 (05:41→14:52)
[2019-11-11 08:53] VITALS: BP 139/78; PULSE 69; TEMP 97.5
[2019-11-11] MEDS: NYSTATIN POWDER 100,000 UNITS/GM - 15 GM TOPICAL POWDER TP SCH (10:15)
[2019-11-11] MEDS: levETIRAcetam 500 MG/5 ML INJECTION VIAL IVPB SCH (10:15)
[2019-11-11] MEDS: cloBAZam 10 MG TABLET PO SCH (10:15)
--- NOTE | 2019-11-11 11:11 | PN ---
Progress Note, Physician History of Present Illness: stable no new issues - Current Medication List Current Medications: Active Medications Acetaminophen (Tylenol -) 650 mg PO Q6H PRN PRN Reason: FEVER Last Admin: 11/03/19 01:44 Dose: 650 mg Clobazam (Onfi -) 5 mg PO DAILY [facility] Last Admin: 11/11/19 10:15 Dose: 5 mg Clobazam (Onfi -) 5 mg PO HS [facility] Last Admin: 11/10/19 22:06 Dose: 5 mg Diazepam (Valium -) 5 mg PO TID [facility] Last Admin: 11/11/19 05:41 Dose: 5 mg Diazepam (Diastat Rectal Gel -) 10 mg RC PRN [facility] Dextrose/Sodium Chloride (D5-1/2ns -) 1,000 mls @ 75 mls/hr IV ASDIR [facility] Last Admin: 11/10/19 22:15 Dose: 75 mls/hr Ibuprofen (Caldolor Injection -) 400 mg IVPB Q6H PRN PRN Reason: FEVER Last Admin: 11/05/19 15:48 Dose: 400 mg Levetiracetam (Keppra Injection -) 500 mg IVPB BID [facility] Last Admin: 11/11/19 10:15 Dose: 500 mg Nystatin (Nystop Powder -) 1 applic TP BID [facility] Last Admin: 11/11/19 10:15 Dose: 1 applic Ondansetron HCl (Zofran Injection) 4 mg IVPUSH Q6H PRN PRN Reason: NAUSEA AND/OR VOMITING Phenobarbital (Phenobarbital Injection -) 60 mg IV HS [facility] Last Admin: 11/10/19 22:06 Dose: 60 mg - Objective Vital Signs: Vital Signs Temperature 97.5 F L 11/11/19 08:52 Pulse Rate 69 11/11/19 08:52 Respiratory Rate 18 11/11/19 08:52 Blood Pressure 139/78 11/11/19 08:52 O2 Sat by Pulse Oximetry (%) 97 11/10/19 21:00 Constitutional: Yes: No Distress, Calm Cardiovascular: Yes: S1, S2 Respiratory: Yes: Regular, CTA Bilaterally Gastrointestinal: Yes: Normal Bowel Sounds, Soft Musculoskeletal: Yes: WNL Extremities: Yes: Other Neurological: Yes: Alert Psychiatric: Yes: Other Labs: CBC, BMP 11/10/19 07:23 11/10/19 07:23 INR, PTT INR 1.10 (0.83-1.09) H 10/22/19 15:00 Assessment/Plan Problem List - Problems (1) Influenza A Code(s): J10.1 - FLU DUE TO OTH IDENT INFLUENZA VIRUS W OTH RESP MANIFEST (2) Epilepsy Code(s): G40.909 - EPILEPSY, UNSP, NOT INTRACTABLE, WITHOUT STATUS EPILEPTICUS (3) Hydrocephalus Code(s): G91.9 - HYDROCEPHALUS, UNSPECIFIED (4) Fever Code(s): R50.9 - FEVER, UNSPECIFIED (5) Sepsis Code(s): A41.9 - SEPSIS, UNSPECIFIED ORGANISM Qualifiers: Sepsis type: sepsis due to unspecified organism Qualified Code(s): A41.9 - Sepsis, unspecified organism Assessment/Plan 44 y.o. male with PMH of Cerebral palsy, hydrocephalus s/p FLIGHT ATTENDANT IN[employer]IGHT SERVICES shunt, epilepsy, functional quadriplegia sent from [facility] for fever > 103F and tachycardia noted from the previous night Influenza A Sepsis r/o UTI Fever Leukocytosis Cerebral Palsy Hydrocephalus s/p FLIGHT ATTENDANT [employer] Shunt Epilepsy plan continue current mgmt rest as per the team
--- NOTE | 2019-11-11 11:12 | PN ---
Progress Note, Physician History of Present Illness: stable no new issues - Current Medication List Current Medications: Active Medications Acetaminophen (Tylenol -) 650 mg PO Q6H PRN PRN Reason: FEVER Last Admin: 11/03/19 01:44 Dose: 650 mg Clobazam (Onfi -) 5 mg PO DAILY [facility] Last Admin: 11/11/19 10:15 Dose: 5 mg Clobazam (Onfi -) 5 mg PO HS [facility] Last Admin: 11/10/19 22:06 Dose: 5 mg Diazepam (Valium -) 5 mg PO TID [facility] Last Admin: 11/11/19 05:41 Dose: 5 mg Diazepam (Diastat Rectal Gel -) 10 mg RC PRN [facility] Dextrose/Sodium Chloride (D5-1/2ns -) 1,000 mls @ 75 mls/hr IV ASDIR [facility] Last Admin: 11/10/19 22:15 Dose: 75 mls/hr Ibuprofen (Caldolor Injection -) 400 mg IVPB Q6H PRN PRN Reason: FEVER Last Admin: 11/05/19 15:48 Dose: 400 mg Levetiracetam (Keppra Injection -) 500 mg IVPB BID [facility] Last Admin: 11/11/19 10:15 Dose: 500 mg Nystatin (Nystop Powder -) 1 applic TP BID [facility] Last Admin: 11/11/19 10:15 Dose: 1 applic Ondansetron HCl (Zofran Injection) 4 mg IVPUSH Q6H PRN PRN Reason: NAUSEA AND/OR VOMITING Phenobarbital (Phenobarbital Injection -) 60 mg IV HS [facility] Last Admin: 11/10/19 22:06 Dose: 60 mg - Objective Vital Signs: Vital Signs Temperature 97.5 F L 11/11/19 08:52 Pulse Rate 69 11/11/19 08:52 Respiratory Rate 18 11/11/19 08:52 Blood Pressure 139/78 11/11/19 08:52 O2 Sat by Pulse Oximetry (%) 97 11/10/19 21:00 Constitutional: Yes: No Distress, Calm Cardiovascular: Yes: S1, S2 Respiratory: Yes: Regular, CTA Bilaterally Gastrointestinal: Yes: Normal Bowel Sounds, Soft Musculoskeletal: Yes: WNL Extremities: Yes: Other Neurological: Yes: Alert Labs: CBC, BMP 11/10/19 07:23 11/10/19 07:23 INR, PTT INR 1.10 (0.83-1.09) H 10/22/19 15:00 Assessment/Plan Problem List - Problems (1) Influenza A Code(s): J10.1 - FLU DUE TO OTH IDENT INFLUENZA VIRUS W OTH RESP MANIFEST (2) Epilepsy Code(s): G40.909 - EPILEPSY, UNSP, NOT INTRACTABLE, WITHOUT STATUS EPILEPTICUS (3) Hydrocephalus Code(s): G91.9 - HYDROCEPHALUS, UNSPECIFIED (4) Fever Code(s): R50.9 - FEVER, UNSPECIFIED (5) Sepsis Code(s): A41.9 - SEPSIS, UNSPECIFIED ORGANISM Qualifiers: Sepsis type: sepsis due to unspecified organism Qualified Code(s): A41.9 - Sepsis, unspecified organism Assessment/Plan 44 y.o. male with PMH of Cerebral palsy, hydrocephalus s/p UNIT COORDINATOR shunt, epilepsy, functional quadriplegia sent from [facility] for fever > 103F and tachycardia noted from the previous night Influenza A Sepsis r/o UTI Fever Leukocytosis Cerebral Palsy Hydrocephalus s/p UNIT COORDINATOR Shunt Epilepsy plan continue current mgmt rest as per the team nutrition asp precautions
== END 2019-11-11 15:41 | disposition home or self-care (01) | DRG 853 ==
LOC: JER 11:39 → JERBED 19:47 → J5S 10-19 22:25
PROVIDERS: ADMIT Internal Medicine; ATTEND Internal Medicine
PROC: 0T778DZ Dilation of Left Ureter with Intraluminal Device, Via Natural or Artificial Opening Endoscopic (ICD-10-PCS; principal; 2019-10-25 15:00)
PROC: BT1FYZZ Fluoroscopy of Left Kidney, Ureter and Bladder using Other Contrast (ICD-10-PCS; 2019-10-25 15:00)
DX: A41.9 Sepsis, unspecified organism (principal); R53.2 Functional quadriplegia; G91.9 Hydrocephalus, unspecified; G93.40 Encephalopathy, unspecified; J90 Pleural effusion, not elsewhere classified; N13.2 Hydronephrosis with renal and ureteral calculous obstruction; N39.0 Urinary tract infection, site not specified; J10.1 Influenza due to other identified influenza virus with other respiratory manifestations; R00.0 Tachycardia, unspecified; R50.9 Fever, unspecified; D72.829 Elevated white blood cell count, unspecified; G80.9 Cerebral palsy, unspecified; D69.6 Thrombocytopenia, unspecified; G40.909 Epilepsy, unspecified, not intractable, without status epilepticus; R74.0 Nonspecific elevation of levels of transaminase and lactic acid dehydrogenase [LDH]; D70.9 Neutropenia, unspecified; K59.00 Constipation, unspecified
CPT/HCPCS: 36415; 71045-TC-FY; 71046-TC-FY; 71250-TC; 74177-TC; 76000-TC-FY; 76700-TC; 76775-TC; 80053; 80076; 80184; 81003; 82550; 82553; 82803; 83605; 83735; 84100; 84484; 85025; 85027; 85610; 86022; 86704; 86706; 86707; 86708; 86709; 86803; 87040; 87070; 87086; 87205; 87324; 87340; 87449; 87804; 87899; 93005; 93010; 94760; 99285-25; J0131; J7030

== ENCOUNTER 2019-12-06 15:27 | Emergency (ER) | payer OTHER ==
[2019-12-06 15:52] VITALS: BMI 21.0
--- NOTE | 2019-12-06 15:54 | PDOC ---
Rapid Medical Evaluation Chief Complaint: Pain, Acute Time Seen by Provider: 12/06/19 15:47 Medical Evaluation: Allergies Allergy/AdvReac Type Severity Reaction Status Date / Time Penicillins Allergy Verified 12/06/19 15:47 12/06/19 15:52 Pt c/o: staff concerned with knee swelling noted after day program Pt on brief exam: mild effusion to rt knee, no increased warmth no erythema Pt ordered for : KNEE XRAY pt to proceed to the ED Discharge Disposition - Diagnosis Knee pain - Referrals - Patient Instructions - Post Discharge Activity
--- NOTE | 2019-12-06 16:27 | PDOC ---
History of Present Illness - General Chief Complaint: Pain, Acute Stated Complaint: rt. knee pain Time Seen by Provider: 12/06/19 15:47 History Source: Other (Staff from daycare) Past History - Past Medical History Allergies/Adverse Reactions: Allergies Allergy/AdvReac Type Severity Reaction Status Date / Time Penicillins Allergy Verified 12/06/19 15:47 Home Medications: Ambulatory Orders Calcium Carbonate/Vitamin D3 [Oystercal-D 500 mg-400 Unit Tb] 1 each PO TID 12/06/19 Clobazam [Onfi] 10 mg PO BID 12/06/19 Diazepam Rectal Gel [Diastat Rectal Gel -] 10 mg NV ONCE 12/06/19 Diazepam [Valium] 5 mg PO Q8H 12/06/19 Levetiracetam [Keppra] 250 mg PO BID 12/06/19 Magnesium Hydrox 2400MG/30Ml [Milk of Magnesia -] 15 ml PO AM 12/06/19 Magnesium Hydrox 2400MG/30Ml [Milk of Magnesia -] 30 ml PO HS 12/06/19 Multivitamin/Iron/Folic Acid [Centrum Adults Tablet] 1 each PO HS 12/06/19 Phenobarbital 64.8 mg PO HS 12/06/19 Sennosides [Senna] 8.6 mg PO ONCE 12/06/19 COPD: No Seizures: Yes - Immunization History Immunization Up to Date: Yes - Psycho Social/Smoking Cessation Hx Smoking History: Never smoked Have you smoked in the past 12 months: No Information on smoking cessation initiated: No Hx Alcohol Use: No Drug/Substance Use Hx: No Substance Use Type: None Hx Substance Use Treatment: No *Physical Exam - Vital Signs Last Vital Signs Temp Pulse Resp BP Pulse Ox 97.5 F L 111 H 18 0/0 L 100 12/06/19 15:48 12/06/19 15:48 12/06/19 15:48 12/06/19 15:48 12/06/19 15:48 - Physical Exam General Appearance: No: Apparent Distress Extremity: positive: Other (+RLE swelling, no ecchymosis, no significant effusion of R knee joint, no skin color changes) Neurologic: positive: Alert ED Treatment Course - RADIOLOGY Radiology Studies Ordered: Category Date Time Status DUPLEX VASCUL US-1 LEG [US] Stat Ultrasound 12/06/19 16:13 Ordered Medical Decision Making - Medical Decision Making 44 y/o M from [facility] MR, congenital quadriplegia, epilepsy, hypothyroidism, cortical blindness was sent by staff for concern for R leg swelling noted today. Patient is wheelchair bound and moves only with assistance from staff. Staff member with patient is unable to recall if any trauma occurred. Plan: Xray to r/o fracture RLE US to r/o DVT 12/06/19 16:20 Xray shows no fracture pending results of US 12/06/19 16:57 Got call from radiologist as patient with DVT in R popliteal D/W patient's PCP, Dr. Fernando Argueta - would prefer patient get started on Lovenox; would like patient to stay in hospital for 1 day to see how he reacts to the Lovenox Labs ordered and pending to be drawn Endorsed to Dr. Ford Patient to be upgraded to main ED 12/06/19 17:33 Discharge - Discharge Information Problems reviewed: Yes Clinical Impression/Diagnosis: DVT (deep venous thrombosis) Qualifiers: DVT location: lower extremity Affected thrombotic vein of extremity: popliteal Chronicity: acute Laterality: right Qualified Code(s): I82.431 - Acute embolism and thrombosis of right popliteal vein Condition: Stable - Follow up/Referral Referrals: Heron De Oliveira MD [Primary Care Provider] - - Patient Discharge Instructions - Post Discharge Activity
--- NOTE | 2019-12-06 18:40 | PDOC ---
*Physical Exam - Vital Signs Last Vital Signs Temp Pulse Resp BP Pulse Ox 97.5 F L 111 H 18 0/0 L 100 12/06/19 15:48 12/06/19 15:48 12/06/19 15:48 12/06/19 15:48 12/06/19 15:48 ED Treatment Course - LABORATORY CBC & Chemistry Diagram: 12/06/19 18:29 12/06/19 18:29 Medical Decision Making - Medical Decision Making Patient signed out to me from fast track provider to be admitted to the hospital for DVT treatment Plan: Labs, Admit Labs: Unremarkable - 1st dose lovenox given in ED Hospitalist would prefer to start this patient on elliquis and send back to [place] - I spoke with the Patient's PCP - Fernando Argueta - who is concerned that there will be medication interactions with Elliquis and would prefer the patient to be started on lovenox - I relayed these findings to hospitalist - Hospitalist said this patient went to Dr. Lnodono's service last time and I eliseo uld call her up for admission 12/06/19 19:[address] Londono for admission -Answering service says she will call back [phone] 12/06/19 21:[address] Londono a 2nd time - Answering service is reaching out for 2nd time 12/06/19 21:10 - Dr. Londono called back and says this patient is not a Dr. De Oliveira patient and this patient does not come to their clinic. She took him last time because there was confusion about the PCP. Dr. Londono says this patient should be admitted to the hospitalist team - Re-microblogging hospitalist with information provided from Dr. Londono. 12/06/19 22:32 - Hospitalist states they want to give this patient xarelto and send patient back to [place]. Hospitalist says if PCP doesn't want xarelto then we should give first dose of lovenox in ED and observe for adverse reactions. If no adverse reaction hospitalist wants patient DC'ed to [place]. 12/06/19 22:35 - I have called [facility] and they confirmed they can administer lovenox in their facility - Paging Fernando Argueta, patient's PCP again and asking if he is okay with sending patient back to [place] on either xarelto or lovenox - Called 1 hour ago. This is 2nd call. Difficult time reaching PCP at this time. - been on hold with PCP's service for close to 30 minutes 12/06/19 22:39 - Service left [address] Argueta. In voicemail they told Dr. argueta to call back at [phone] 12/06/19 23:23 - Hospitalist has not responded to my microblog for the past 2 hours since 9:30 pm. Decision to admit order placed in [facility]. No Physician's name placed because hospitalist is refusing to accept admission. 12/06/19 23:25 - Will keep patient in ED until either hospitalist accepts patient or PCP calls back allowing us to DC back to [place] 12/07/19 00:04 - Hospitalist is saying there is no reason for patient to be admitted because he resides in a [facility] facility which can administer lovenox and there is no reason why the patient needs to be monitored in the hospital when he can be monitored at [place] - Signing patient out to Dr. Hernandez to deal with patients future ED care and final disposition. 12/07/19 00:06 Rio Hernandez added to Microblog Discharge - Discharge Information Problems reviewed: Yes Clinical Impression/Diagnosis: DVT (deep venous thrombosis) Qualifiers: DVT location: lower extremity Affected thrombotic vein of extremity: popliteal Chronicity: acute Laterality: right Qualified Code(s): I82.431 - Acute embolism and thrombosis of right popliteal vein Condition: Stable - Admission Yes - Follow up/Referral Referrals: Heron De Oliveira MD [Primary Care Provider] - - Patient Discharge Instructions - Post Discharge Activity
--- NOTE | 2019-12-06 18:52 | PDOC ---
Attending Attestation - Resident Resident Name: JanerulaKurtLauro - ED Attending Attestation I have performed the following: I have examined & evaluated the patient, The case was reviewed & discussed with the resident, I agree w/resident's findings & plan, Exceptions are as noted - HPI HPI: 44 yo M history MR, congenital quadriplegia, epilepsy, hypothyroid, cortical blindness sent by staff for concern for RLE swelling. Pt unable to offer any history. - Physicial Exam PE: GENERAL: Awake, alert, in no acute distress HEAD: No signs of trauma EYES: PERRLA, EOMI, sclera anicteric, conjunctiva clear ENT: Auricles normal inspection, hearing grossly normal, nares patent, oropharynx clear without exudates. Moist mucosa NECK: Normal ROM, supple, no lymphadenopathy, JVD, or masses LUNGS: Breath sounds equal, clear to auscultation bilaterally. No wheezes, and no crackles HEART: Regular rate and rhythm, normal S1 and S2, no murmurs, rubs or gallops ABDOMEN: Soft, nontender, normoactive bowel sounds. No guarding, no rebound. No masses EXTREMITIES: +Mild RLE edema. Unable to determine if tender. No clubbing or cyanosis. No cords, erythema NEUROLOGICAL: Limited by severe MR SKIN: Warm, dry, normal turgor, no rashes or lesions noted. - Medical Decision Making Pt upgraded from [facility] after found to have DVT. Case d/w PMD, will admit for treatment based on his severe MR and comorbidities, as well as inability to communicate his symptoms, which makes him higher risk. Discharge - Discharge Information Problems reviewed: Yes Clinical Impression/Diagnosis: DVT (deep venous thrombosis) Qualifiers: DVT location: lower extremity Affected thrombotic vein of extremity: popliteal Chronicity: acute Laterality: right Qualified Code(s): I82.431 - Acute embolism and thrombosis of right popliteal vein Condition: Stable Disposition: HOME - Follow up/Referral Referrals: Fernando Argueta Jr [Non Staff, Medical] - - Patient Discharge Instructions Patient Printed Discharge Instructions: DI for Deep Vein Thrombosis Additional Instructions: 1) Please follow-up with your primary care doctor in the next 2-3 days. Please call tomorrow to schedule a follow up appointment. If you cannot follow up with your doctor within 1 week please return to the Emergency Department for any urgent issues. 2) If you have any worsening of symptoms or any other concerns, please return to the ER immediately. Return if worsening symptoms including fevers, headache, vomiting, visual or hearing disturbances, abdominal pain, chest pain, shortness of breath, syncope, dehydration, inability to take things by mouth/vomiting, altered mental status, or worsening concerning symptoms. 3) Please continue taking your home medications as directed. Your medications on discharge include Lovenox . Side effects may include upset stomach, abdominal pain, vomiting, or diarrhea. Do not drink alcohol with your medications. - Post Discharge Activity
[2019-12-06 19:11] LABS: ALBUMIN 3.3 g/dl (3.4-5.0); BASO % 0.6 % (0-2.0); BILIRUBIN,TOTAL 0.2 mg/dL (0.2-1); BLOOD UREA NITROGEN 9.8 mg/dL (7-18); CALCIUM 8.2 mg/dL (8.5-10.1); CREATININE 0.8 mg/dL (0.55-1.3); EOS % 1.4 % (0-4.5); HEMATOCRIT 45.5 % (35.4-49); HEMOGLOBIN 15.4 GM/dL (11.7-16.9); LYMPH % 23.7 % (8-40); MCH 29.7 pg (25.7-33.7); MCHC 33.8 g/dl (32.0-35.9); MEAN CELL VOLUME 87.7 fl (80-96); MEAN PLT VOLUME 8.2 fl (7.5-11.1); MONO % 6.9 % (3.8-10.2); NEUT % 67.4 % (42.8-82.8); PLATELET COUNT 270 K/MM3 (134-434); POTASSIUM 4.3 mmol/L (3.5-5.1); RBC 5.18 M/mm3 (4.00-5.60); RDW 14.3 % (11.9-15.9); TOT PROT 6.9 g/dl (6.4-8.2)
[2019-12-06] MEDS ORDERED: ENOXAPARIN NA (PORCINE) 40 MG/0.4 ML DISP.SYRIN SQ ONE ×2 (21:35→21:49)
[2019-12-06 22:04] LABS: INR 0.99 (0.83-1.09); PROTHROMBIN TIME (PATIENT) 11.7 SEC (9.7-13.0)
[2019-12-06 22:07] LABS: ACTIVATED PTT 29.5 SECONDS (25.2-36.5)
[2019-12-07 07:32] VITALS: BP 155/91; PULSE 91; TEMP 98.7
[2019-12-07] MEDS ORDERED: ENOXAPARIN NA (PORCINE) 40 MG/0.4 ML DISP.SYRIN SQ ONE ×2 (08:18→08:29)
--- NOTE | 2019-12-07 08:34 | PDOC ---
*Physical Exam - Vital Signs Last Vital Signs Temp Pulse Resp BP Pulse Ox 98.7 F 91 H 16 155/91 99 12/07/19 07:31 12/07/19 07:31 12/07/19 07:31 12/07/19 07:31 12/07/19 07:31 ED Treatment Course - LABORATORY CBC & Chemistry Diagram: 12/06/19 18:29 12/06/19 18:29 - ADDITIONAL ORDERS Additional order review: Laboratory Results 12/06/19 12/06/19 18:29 18:29 PT with INR 11.70 INR 0.99 PTT (Actin FS) 29.5 Blood Type AB POSITIVE Antibody Screen Negative 12/06/19 18:29 RBC 5.18 MCV 87.7 MCHC 33.8 RDW 14.3 MPV 8.2 Neutrophils % 67.4 D Lymphocytes % 23.7 D Monocytes % 6.9 Eosinophils % 1.4 Basophils % 0.6 - Medications Given in the ED: ED Medications Discontinued Medications Generic Name Dose Route Start Last Admin Trade Name Freq PRN Reason Stop Dose Admin Enoxaparin Sodium 40 mg 12/06/19 21:35 12/06/19 21:57 Lovenox - SQ 12/06/19 21:36 40 mg ONCE ONE Administration Medical Decision Making - Medical Decision Making 12/07/19 08:31 Patient has been observed in the ED without reaction to Lovenox. The patient has received a second dose of lovenox without reaction. The patient will be discharged to [place] and is determined to be stable for discharge. Return precautions discussed including but not limited to worsening pain or symptoms, fevers, or signs of infection, chest pain, respiratory distress, inability to tolerate oral intake, dehydration, syncope, or neurologic changes. The patient is to follow up with PMD as recommended within 1 week, follow up information provided and the patient will call for an appointment. The patient is to take medications as instructed for duration of time and continue with supportive care, avoid triggers and precipitants. Patient is safe for outpatient follow-up. Discharge - Discharge Information Problems reviewed: Yes Clinical Impression/Diagnosis: DVT (deep venous thrombosis) Qualifiers: DVT location: lower extremity Affected thrombotic vein of extremity: popliteal Chronicity: acute Laterality: right Qualified Code(s): I82.431 - Acute embolism and thrombosis of right popliteal vein Condition: Stable Disposition: HOME - Follow up/Referral Referrals: Fernando Argueta Jr [Non Staff, Medical] - - Patient Discharge Instructions Patient Printed Discharge Instructions: DI for Deep Vein Thrombosis Additional Instructions: 1) Please follow-up with your primary care doctor in the next 2-3 days. Please call tomorrow to schedule a follow up appointment. If you cannot follow up with your doctor within 1 week please return to the Emergency Department for any urgent issues. 2) If you have any worsening of symptoms or any other concerns, please return to the ER immediately. Return if worsening symptoms including fevers, headache, vomiting, visual or hearing disturbances, abdominal pain, chest pain, shortness of breath, syncope, dehydration, inability to take things by mouth/vomiting, altered mental status, or worsening concerning symptoms. 3) Please continue taking your home medications as directed. Your medications on discharge include Lovenox . Side effects may include upset stomach, abdominal pain, vomiting, or diarrhea. Do not drink alcohol with your medications. - Post Discharge Activity
== END 2019-12-07 09:34 | disposition home or self-care (01) ==
LOC: JERFT 15:27 → JER 15:27
PROC: 3E023GC Introduction of Other Therapeutic Substance into Muscle, Percutaneous Approach (ICD-10-PCS; principal; 2019-12-06)
DX: I82.431 Acute embolism and thrombosis of right popliteal vein (principal); G80.8 Other cerebral palsy; E03.9 Hypothyroidism, unspecified; H47.619 Cortical blindness, unspecified side of brain; Z99.3 Dependence on wheelchair; R56.9 Unspecified convulsions
CPT/HCPCS: 36415; 73562-TC-RT-FY; 80053; 85025; 85610; 85730; 86850; 86900; 86901; 93971-TC; 96372; 99285-25

== ENCOUNTER 2020-05-26 04:17 | Day surgery (SDC) | payer OTHER ==
[2020-05-26] MEDS ORDERED: PROPOFOL 20 ML ONE ×2 (09:49)
[2020-05-26] MEDS ORDERED: ceFAZolin SODIUM 1 GM VIAL IVPB ONE (09:52)
--- NOTE | 2020-05-26 11:44 | HP ---
DATE OF ADMISSION: 05/26/2020 HISTORY: Patient is a 44-year-old male resident of the [facility] with severe cerebral palsy, has had recurrent urosepsis. A renal sonogram revealed a left hydronephrosis with a large left renal pelvic stone. The patient has had recurrent pyelonephritis. He has also had a left lithotripsy in the past. He has got severe contractions of his extremities. ALLERGEIS: He is allergic to PENICILLIN. PHYSICAL EXAMINATION: Lungs: Clear. Abdomen: Soft. Bladder was not distended. An ultrasound of the kidneys revealed a 7-mm and two 5-mm stones in the left renal pelvis. Genitalia are atraumatic. Testes are normal in size and consistency. IMPRESSION AT PRESENT: Multiple left renal stones. PLAN: Left extracorporeal shock wave lithotripsy. Will follow up patient in office to perform a stone workup. Mauricio [id number]
[2020-05-26 11:52] VITALS: BP 115/68; PULSE 74; TEMP 97.4
--- NOTE | 2020-05-26 15:12 | OP ---
DATE OF OPERATION: DATE OF DICTATION: 05/26/2020 PREOPERATIVE DIAGNOSIS: Left renal stone. POSTOPERATIVE DIAGNOSIS: Left renal stone. OPERATIVE PROCEDURE: Left extracorporeal shock wave lithotripsy. ANESTHESIA: General. BLOOD LOSS: None. DESCRIPTION OF PROCEDURE: Under above-stated anesthesia patient was prepped and draped in the usual sterile manner. He was placed in the supine position. After proper placement of the lithotripsy machine, the stones were localized in the left upper and middle pole of the kidney. At an energy of 20 the patient received 2500 shocks. He had a benign and uneventful course. He tolerated the procedure well and returned to the recovery room in good condition. Mauricio [id number]
== END 2020-05-26 11:30 | disposition home or self-care (01) ==
LOC: JASU-SURG 04:17
PROVIDERS: ATTEND Urology
PROC: 0TF4XZZ Fragmentation in Left Kidney Pelvis, External Approach (ICD-10-PCS; principal; 2020-05-26 09:00)
DX: N20.0 Calculus of kidney (principal)

== ENCOUNTER 2021-01-23 07:37 | Emergency (ER) | payer OTHER ==
[2021-01-23 08:14] VITALS: BP 110/82; PULSE 91; TEMP 98.4; BMI 21.9
[2021-01-23 09:09] LABS: PH,URINE 8.5 (5.0-8.0); URINE APPEARANCE Turbid; URINE BILIRUBIN Negative (NEGATIVE); URINE COLOR Red; URINE GLUCOSE (UA) Negative (NEGATIVE); URINE KETONE Negative (NEGATIVE); URINE LEUK ESTERASE 1+ (NEGATIVE); URINE NITRITE Negative (NEGATIVE); URINE PROTEIN 2+ (NEGATIVE); URINE UROBILINOGEN 0.2 mg/dL (0.2-1.0)
[2021-01-23 11:48] LABS: EPI CELLS 47.9 /uL (0-25.1); HYALINE CASTS 14.01 /uL (0-3.1); URINE BACTERIA 8.6 /uL (0-1359); URINE RBC 15698.4 /uL (0-23.9); URINE WBC 251.6 /uL (0-25.8)
== END 2021-01-23 12:05 ==
LOC: JER 07:37
DX: Z48.816 Encounter for surgical aftercare following surgery on the genitourinary system (principal)
CPT/HCPCS: 81003; 99284-25

== ENCOUNTER 2021-06-22 04:19 | Day surgery (SDC) | payer OTHER ==
[2021-06-21 13:49] VITALS: BMI 37.0
[2021-06-22] MEDS ORDERED: ceFAZolin SODIUM 1 GM VIAL ONE (11:17)
[2021-06-22] MEDS ORDERED: MIDAZOLAM HCL 2 MG/2 ML SINGLE DOSE VIAL ONE ×2 (13:03→14:32)
[2021-06-22] MEDS ORDERED: ceFAZolin 2 GRAM PREMIX BAG IVPB ONE (14:44)
[2021-06-22] MEDS ORDERED: ONDANSETRON 4 MG/2 ML VIAL IVPUSH PRN (15:13)
[2021-06-22 17:30] VITALS: BP 140/88; PULSE 76; TEMP 98.4
== END 2021-06-22 17:25 | disposition home or self-care (01) ==
LOC: JASU-SURG 04:19
PROVIDERS: ATTEND Urology
PROC: 0TF4XZZ Fragmentation in Left Kidney Pelvis, External Approach (ICD-10-PCS; principal; 2021-06-22 12:45)
DX: N20.0 Calculus of kidney (principal); F73 Profound intellectual disabilities; G40.311 Generalized idiopathic epilepsy and epileptic syndromes, intractable, with status epilepticus; G80.0 Spastic quadriplegic cerebral palsy
CPT/HCPCS: 94760

== ENCOUNTER 2023-08-04 09:27 | Inpatient (IN) | payer OTHER ==
[2023-08-04] MEDS ORDERED: ACETAMINOPHEN 1000 MG/100 ML BAG IVPB ONE ×2 (09:53→14:34)
[2023-08-04] MEDS ORDERED: KETOROLAC TROMETHAMINE 15 MG/ML VIAL IVPUSH ONE (09:55)
[2023-08-04] MEDS ORDERED: SODIUM CHLORIDE 0.9% 500 ML INFUS.BAG IV ONE (10:01)
[2023-08-04 10:40] LABS: ARTERIAL BLD GAS O2 SATURATION 98.5 % (95-98); ARTERIAL BLOOD GAS BASE EXCESS 1.6 mmol/L (-2-2); ARTERIAL BLOOD GAS PO2 108.7 mmHg (80-100); ARTERIAL BLOOD GAS pH 7.531 (7.350-7.450)
[2023-08-04 11:05] LABS: INR 3.25 (0.83-1.09); PROTHROMBIN TIME (PATIENT) 37.3 SEC (9.7-13.0)
[2023-08-04 11:08] LABS: ACTIVATED PTT 37.3 SECONDS (25.2-36.5)
[2023-08-04 11:14] LABS: POTASSIUM 4.2 mmol/L (3.5-5.1)
[2023-08-04 11:16] LABS: CALCIUM 7.7 mg/dL (8.5-10.1); HEMATOCRIT 37.8 % (35.4-49); HEMOGLOBIN 12.3 GM/dL (11.7-16.9); MCH 27.1 pg (25.7-33.7); MCHC 32.5 g/dl (32.0-35.9); MEAN CELL VOLUME 83.5 fl (80-96); MEAN PLT VOLUME 7.9 fl (7.5-11.1); PLATELET COUNT 631 10^3/uL (134-434); RBC 4.53 M/mm3 (4.00-5.60); RDW 16.2 % (11.9-15.9)
[2023-08-04 11:18] LABS: ALBUMIN 2.4 g/dl (3.4-5.0)
[2023-08-04 11:20] LABS: WHITE BLOOD COUNT 1.8 K/mm3 (4.0-10.0)
[2023-08-04 11:20] LABS: EPI CELLS 13 /uL (0-25.1); HYALINE CASTS 22 /uL (0-3.1); PH,URINE 5.5 (5.0-8.0); URINE APPEARANCE CLOUDY; URINE BILIRUBIN 1+ (NEGATIVE); URINE COLOR DK YELLOW; URINE GLUCOSE (UA) 1+ (NEGATIVE); URINE KETONE TRACE (NEGATIVE); URINE LEUK ESTERASE TRACE (NEGATIVE); URINE NITRITE POSITIVE (NEGATIVE); URINE PROTEIN 2+ (NEGATIVE); URINE RBC 58 /uL (0-23.9); URINE UROBILINOGEN 0.2 mg/dL (0.2-1.0); URINE WBC 594 /uL (0-25.8)
[2023-08-04 11:21] LABS: CREATININE 0.7 mg/dL (0.55-1.3)
[2023-08-04 11:22] LABS: BILIRUBIN,TOTAL 1.2 mg/dL (0.2-1); TOT PROT 7.2 g/dl (6.4-8.2)
[2023-08-04 11:22] LABS: EPI CELLS >36 /uL (0-25.1); HYALINE CASTS 8 /uL (0-3.1); URINE APPEARANCE CLOUDY; URINE BACTERIA 4648 /uL (0-1359); URINE BILIRUBIN NEGATIVE (NEGATIVE); URINE COLOR DK YELLOW; URINE GLUCOSE (UA) 1+ (NEGATIVE); URINE KETONE NEGATIVE (NEGATIVE); URINE LEUK ESTERASE TRACE (NEGATIVE); URINE NITRITE POSITIVE (NEGATIVE); URINE PROTEIN 3+ (NEGATIVE); URINE RBC 16 /uL (0-23.9); URINE UROBILINOGEN 0.2 mg/dL (0.2-1.0); URINE WBC 85 /uL (0-25.8)
[2023-08-04 13:23] LABS: URINE BACTERIA 1080 /uL (0-1359); YEAST NONE SEEN (NEGATIVE)
[2023-08-04 13:35] LABS: ANISOCYTOSIS 0; HELMET CELLS 0; HOWELL-JOLLY BODIES 0; MACROCYTOSIS 0; OVALOCYTE 0; ROULEAU 0; SICKELED CELLS 0; TARGET CELLS 0; TEAR DROP CELLS 0; TOXIC GRANULATION 0
[2023-08-04] MEDS ORDERED: MEROPENEM 1 GM in DEXTROSE 5%-WATER 100 ML IVPB ONE (14:03)
[2023-08-04] MEDS ORDERED: LACTATED RINGERS SOLUTION 1,000 ML/1,000 ML INFUS.BAG IV STA (14:31)
[2023-08-04] MEDS ORDERED: ACETAMINOPHEN INJECTION 100 ML IVPB ONE (15:11)
[2023-08-04] MEDS ORDERED: MEROPENEM 1 GM VIAL (RESTRICTED TO ID) IVPB ONE (15:11)
[2023-08-04] MEDS ORDERED: KETOROLAC TROMETHAMINE 15 MG/ML VIAL ONE (15:11)
[2023-08-04] MEDS ORDERED: VANCOMYCIN 1,000 MG in DEXTROSE 5%-WATER - 250 ML IVPB ONE (15:50)
[2023-08-04] MEDS ORDERED: SODIUM CHLORIDE 1,000 ML IV STA (16:12)
[2023-08-04] MEDS ORDERED: diazePAM RECTAL GEL 10 MG KIT (PRE-CALIBRATED) RC PRN (16:17)
[2023-08-04] MEDS ORDERED: VANCOMYCIN 1 GRAM (PRE-DOCKED) 1,000 MG/250 ML BAG IVPB ONE (16:26)
[2023-08-04 16:51] LABS: HEMATOCRIT 32.4 % (35.4-49); HEMOGLOBIN 10.6 GM/dL (11.7-16.9); MCH 27.2 pg (25.7-33.7); MCHC 32.6 g/dl (32.0-35.9); MEAN CELL VOLUME 83.5 fl (80-96); MEAN PLT VOLUME 7.4 fl (7.5-11.1); PLATELET COUNT 424 10^3/uL (134-434); RBC 3.88 M/mm3 (4.00-5.60)
[2023-08-04 16:56] LABS: WHITE BLOOD COUNT 1.2 K/mm3 (4.0-10.0)
[2023-08-04 17:20] LABS: ANISOCYTOSIS 3+; MACROCYTOSIS 0; OVALOCYTE 0
[2023-08-04 17:28] LABS: LACTIC ACID 2.3 mmol/L (0.4-2.0)
[2023-08-04] MEDS ORDERED: NOREPINEPHRINE BITARTRATE/D5W 8 MG/250 ML BAG IVPB SCH (17:45)
[2023-08-04] MEDS ORDERED: NOREPINEPHRINE BITARTRATE 4 MG/4 ML ML IV ONE (17:50)
[2023-08-04] MEDS ORDERED: LACTATED RINGERS SOLUTION 1000 ML INFUS.BAG IV ONE (17:50)
[2023-08-04] MEDS ORDERED: NOREPINEPHRINE BITARTRATE/D5W 8 MG/250 ML BAG IVPB ONE (18:10)
[2023-08-04] MEDS ORDERED: cloBAZam 10 MG TABLET ONE (18:14)
[2023-08-04] MEDS: cloBAZam 10 MG TABLET PO SCH ×2 (18:15→18:22)
[2023-08-04] MEDS ORDERED: cloBAZam 10 MG TABLET PO SCH (20:00)
[2023-08-04] MEDS ORDERED: APIXABAN 5 MG TABLET PO SCH (22:00)
[2023-08-04] MEDS ORDERED: levETIRAcetam 250 MG TABLET PO SCH (22:00)
[2023-08-04] MEDS ORDERED: MEROPENEM 1 GM in DEXTROSE 5%-WATER 100 ML IVPB SCH (22:00)
[2023-08-04] MEDS ORDERED: MAGNESIUM HYDROX 2400MG/30ML ORAL SUSPENSION 30 ML CUP PO SCH (22:00)
[2023-08-04] MEDS ORDERED: diazePAM 5 MG TABLET PO SCH (22:00)
[2023-08-04] MEDS: MUPIROCIN 2% TOPICAL OINTMENT FOR DECOLONIZATION NS SCH (22:58)
[2023-08-04] MEDS: levETIRAcetam 500 MG/5 ML INJECTION VIAL IVPB SCH (22:58)
[2023-08-04] MEDS: CHLORHEXIDINE GLUCONATE 4% CLEANSER FOR DECOLONIZATION TP SCH (22:58)
[2023-08-04] MEDS: SODIUM CHLORIDE 1,000 ML IV SCH (23:09)
[2023-08-05] MEDS: ACETAMINOPHEN 1000 MG/100 ML BAG IVPB PRN ×3 (00:42→17:12)
[2023-08-05] MEDS ORDERED: NOREPINEPHRINE BITARTRATE/D5W 8 MG/250 ML BAG IVPB SCH (01:00)
[2023-08-05] MEDS ORDERED: diazePAM RECTAL GEL 10 MG KIT (PRE-CALIBRATED) RC PRN (01:00)
[2023-08-05] MEDS: cloBAZam 10 MG TABLET PO SCH ×3 (05:03→20:16)
[2023-08-05] MEDS ORDERED: MEROPENEM 1 GM in DEXTROSE 5%-WATER 100 ML IVPB SCH (06:00)
[2023-08-05 07:42] LABS: HEMATOCRIT 29.9 % (35.4-49); HEMOGLOBIN 9.8 GM/dL (11.7-16.9); MCH 27.5 pg (25.7-33.7); MCHC 32.7 g/dl (32.0-35.9); MEAN PLT VOLUME 8.3 fl (7.5-11.1); PLATELET COUNT 341 10^3/uL (134-434); RBC 3.56 M/mm3 (4.00-5.60); RDW 16.5 % (11.9-15.9)
[2023-08-05 07:44] LABS: PROTHROMBIN TIME (PATIENT) 57.3 SEC (9.7-13.0); WHITE BLOOD COUNT 1.3 K/mm3 (4.0-10.0)
[2023-08-05 07:47] LABS: ACTIVATED PTT 39.7 SECONDS (25.2-36.5)
[2023-08-05 07:57] LABS: POTASSIUM 3.9 mmol/L (3.5-5.1)
[2023-08-05 07:59] LABS: BLOOD UREA NITROGEN 20.8 mg/dL (7-18); MAGNESIUM 2.1 mg/dL (1.8-2.4)
[2023-08-05 08:02] LABS: CREATININE 0.5 mg/dL (0.55-1.3)
[2023-08-05] MEDS ORDERED: NAPH,MB-DB/K PH,MBDB POWDER PACKET PO ONE (08:17)
[2023-08-05 08:36] LABS: INR 5.02 (0.83-1.09)
[2023-08-05] MEDS ORDERED: PHYTONADIONE 10 MG/1 ML AMP IVPB ONE (08:45)
[2023-08-05] MEDS: levETIRAcetam 500 MG/5 ML INJECTION VIAL IVPB SCH ×2 (09:27→21:28)
[2023-08-05] MEDS: diazePAM 5 MG TABLET PO SCH ×2 (09:32→21:29)
[2023-08-05] MEDS: MAGNESIUM HYDROX 2400MG/30ML ORAL SUSPENSION 30 ML CUP PO SCH ×2 (09:32→21:29)
[2023-08-05] MEDS: BISACODYL 10 MG SUPP.RECT PR SCH (09:33)
[2023-08-05] MEDS: POLYETHYLENE GLYCOL (HEALTHYLAX) 3350 17 GM PACKET PO SCH (09:33)
[2023-08-05] MEDS: MUPIROCIN 2% TOPICAL OINTMENT FOR DECOLONIZATION NS SCH ×2 (09:33→21:28)
[2023-08-05 09:38] LABS: ANISOCYTOSIS 2+; MACROCYTOSIS 0; OVALOCYTE 1+
[2023-08-05] MEDS ORDERED: PATIENT'S OWN MEDICATION (NON-FORMULARY) (Protein Supplement [Promod] 946 ML Liquid) PO SCH (10:00)
[2023-08-05] MEDS ORDERED: BISACODYL 10 MG SUPP.RECT PR SCH (10:00)
[2023-08-05] MEDS ORDERED: VANCOMYCIN 1,000 MG in DEXTROSE 5%-WATER - 250 ML IVPB SCH (10:00)
[2023-08-05] MEDS ORDERED: POLYETHYLENE GLYCOL (HEALTHYLAX) 3350 17 GM PACKET PO SCH (10:00)
[2023-08-05] MEDS: VANCOMYCIN/WATER FOR INJ (PEG) 1,000 MG/200 ML BAG IVPB SCH ×2 (12:16→21:27)
[2023-08-05] MEDS ORDERED: VANCOMYCIN/WATER FOR INJ (PEG) 1,000 MG/200 ML BAG IVPB SCH ×2 (16:00)
[2023-08-05] MEDS: MEROPENEM 1 GM in DEXTROSE 5%-WATER 100 ML IVPB SCH (17:12)
[2023-08-05] MEDS: FLUCONAZOLE 40 MG/ML SUSPENSION PO SCH (20:15)
[2023-08-05] MEDS: SODIUM CHLORIDE 1,000 ML IV SCH (20:16)
[2023-08-05] MEDS: CHLORHEXIDINE GLUCONATE 4% CLEANSER FOR DECOLONIZATION TP SCH (21:28)
[2023-08-05] MEDS: PHENobarbital 30 MG TABLET PO SCH (21:29)
[2023-08-05] MEDS: valACYclovir HCL 500 MG TABLET (FP) PO SCH (21:29)
[2023-08-06] MEDS: MEROPENEM 1 GM in DEXTROSE 5%-WATER 100 ML IVPB SCH ×3 (01:13→17:13)
[2023-08-06] MEDS ORDERED: ACETAMINOPHEN 325 MG TABLET (FP) PO PRN (03:55)
[2023-08-06] MEDS: cloBAZam 10 MG TABLET PO SCH ×4 (05:37→22:01)
[2023-08-06 08:06] LABS: INR 1.15 (0.83-1.09); PROTHROMBIN TIME (PATIENT) 13.3 SEC (9.7-13.0)
[2023-08-06 08:10] LABS: POTASSIUM 3.7 mmol/L (3.5-5.1)
[2023-08-06 08:12] LABS: CALCIUM 7.3 mg/dL (8.5-10.1)
[2023-08-06 08:13] LABS: BLOOD UREA NITROGEN 18.5 mg/dL (7-18); MAGNESIUM 1.9 mg/dL (1.8-2.4)
[2023-08-06 08:16] LABS: CREATININE 0.5 mg/dL (0.55-1.3); PHOSPHOROUS 1.9 mg/dL (2.5-4.9)
[2023-08-06 08:17] LABS: BILIRUBIN,TOTAL 0.7 mg/dL (0.2-1)
[2023-08-06 08:32] LABS: HEMATOCRIT 31.4 % (35.4-49); HEMOGLOBIN 10.1 GM/dL (11.7-16.9); MCH 27.2 pg (25.7-33.7); MCHC 32.3 g/dl (32.0-35.9); MEAN PLT VOLUME 8.6 fl (7.5-11.1); PLATELET COUNT 390 10^3/uL (134-434); RBC 3.73 M/mm3 (4.00-5.60); RDW 16.6 % (11.9-15.9); WHITE BLOOD COUNT 3.3 K/mm3 (4.0-10.0)
[2023-08-06 08:40] LABS: ALBUMIN 1.7 g/dl (3.4-5.0)
[2023-08-06] MEDS: MAGNESIUM HYDROX 2400MG/30ML ORAL SUSPENSION 30 ML CUP PO SCH ×2 (09:05→21:54)
[2023-08-06] MEDS: ACETAMINOPHEN 1000 MG/100 ML BAG IVPB PRN ×2 (09:05→19:08)
[2023-08-06 09:08] LABS: ANISOCYTOSIS 1+; MACROCYTOSIS 0
[2023-08-06] MEDS: MUPIROCIN 2% TOPICAL OINTMENT FOR DECOLONIZATION NS SCH ×2 (09:09→21:54)
[2023-08-06] MEDS: VANCOMYCIN/WATER FOR INJ (PEG) 1,000 MG/200 ML BAG IVPB SCH ×2 (09:10→21:53)
[2023-08-06] MEDS: valACYclovir HCL 500 MG TABLET (FP) PO SCH ×2 (09:10→21:54)
[2023-08-06] MEDS: diazePAM 5 MG TABLET PO SCH ×3 (09:10→22:00)
[2023-08-06] MEDS: BISACODYL 10 MG SUPP.RECT PR SCH (09:10)
[2023-08-06] MEDS: POLYETHYLENE GLYCOL (HEALTHYLAX) 3350 17 GM PACKET PO SCH (09:15)
[2023-08-06] MEDS: levETIRAcetam 500 MG/5 ML INJECTION VIAL IVPB SCH ×2 (09:15→21:53)
[2023-08-06] MEDS: FLUCONAZOLE 40 MG/ML SUSPENSION PO SCH (09:27)
[2023-08-06] MEDS: PHENobarbital 30 MG TABLET PO SCH ×2 (21:53→22:01)
[2023-08-06] MEDS: CHLORHEXIDINE GLUCONATE 4% CLEANSER FOR DECOLONIZATION TP SCH (21:54)
[2023-08-06] MEDS: SODIUM CHLORIDE 1,000 ML IV SCH (21:54)
[2023-08-06] MEDS ORDERED: PHENobarbital SODIUM 65 MG/1 ML VIAL IVPUSH STA (22:17)
[2023-08-07] MEDS: MEROPENEM 1 GM in DEXTROSE 5%-WATER 100 ML IVPB SCH ×3 (02:58→17:11)
[2023-08-07] MEDS: cloBAZam 10 MG TABLET PO SCH ×3 (05:13→21:53)
[2023-08-07 07:18] LABS: HEMATOCRIT 30.6 % (35.4-49); MCH 27.4 pg (25.7-33.7); MCHC 32.7 g/dl (32.0-35.9); MEAN CELL VOLUME 83.8 fl (80-96); MEAN PLT VOLUME 8.6 fl (7.5-11.1); PLATELET COUNT 389 10^3/uL (134-434); RBC 3.65 M/mm3 (4.00-5.60); RDW 16.8 % (11.9-15.9)
[2023-08-07 07:25] LABS: INR 1.07 (0.83-1.09); PROTHROMBIN TIME (PATIENT) 12.4 SEC (9.7-13.0)
[2023-08-07 07:27] LABS: ACTIVATED PTT 24.2 SECONDS (25.2-36.5)
[2023-08-07 07:32] LABS: POTASSIUM 3.2 mmol/L (3.5-5.1)
[2023-08-07 07:36] LABS: CALCIUM 7.2 mg/dL (8.5-10.1); MAGNESIUM 1.6 mg/dL (1.8-2.4)
[2023-08-07 07:39] LABS: CREATININE 0.3 mg/dL (0.55-1.3)
[2023-08-07 07:40] LABS: PHOSPHOROUS 2.2 mg/dL (2.5-4.9)
[2023-08-07] MEDS ORDERED: MAGNESIUM 2GM/50ML STERILE WATER IVPB IVPB ONE (08:00)
[2023-08-07] MEDS ORDERED: PATIENT'S OWN MEDICATION (NON-FORMULARY) (Midazolam [Nayzilam] 5 MG/0.1 ML Spray) NS PRN (08:26)
[2023-08-07 08:57] LABS: ANISOCYTOSIS 1+; MACROCYTOSIS 1+
[2023-08-07] MEDS: levETIRAcetam 500 MG/5 ML INJECTION VIAL IVPB SCH ×2 (09:30→21:53)
[2023-08-07] MEDS: MUPIROCIN 2% TOPICAL OINTMENT FOR DECOLONIZATION NS SCH ×2 (10:04→21:54)
[2023-08-07] MEDS: KCL 10 MEQ IVPB 10 MEQ/100 ML INFUS.BAG IVPB SCH ×3 (10:04→12:00)
[2023-08-07] MEDS: VANCOMYCIN/WATER FOR INJ (PEG) 1,000 MG/200 ML BAG IVPB SCH (10:04)
[2023-08-07] MEDS: POLYETHYLENE GLYCOL (HEALTHYLAX) 3350 17 GM PACKET PO SCH (10:31)
[2023-08-07] MEDS: FLUCONAZOLE 40 MG/ML SUSPENSION PO SCH (10:31)
[2023-08-07] MEDS: diazePAM 5 MG TABLET PO SCH ×2 (10:32→21:53)
[2023-08-07] MEDS: MAGNESIUM HYDROX 2400MG/30ML ORAL SUSPENSION 30 ML CUP PO SCH ×2 (10:32→21:53)
[2023-08-07] MEDS: BISACODYL 10 MG SUPP.RECT PR SCH (12:00)
[2023-08-07 14:31] VITALS: BMI 24.0
[2023-08-07] MEDS: ENOXAPARIN NA (PORCINE) 40 MG/0.4 ML DISP.SYRIN SQ SCH (14:45)
[2023-08-07] MEDS: valACYclovir HCL 500 MG TABLET (FP) PO SCH (19:21)
[2023-08-07] MEDS ORDERED: NAPH,MB-DB/K PH,MBDB POWDER PACKET PO ONE (19:36)
[2023-08-07] MEDS ORDERED: NAPH,MB-DB/K PH,MBDB POWDER PACKET GT ONE (19:36)
[2023-08-07] MEDS: PHENobarbital 30 MG TABLET PO SCH (21:53)
[2023-08-07] MEDS: SODIUM CHLORIDE 1,000 ML IV SCH (21:54)
[2023-08-07] MEDS: CHLORHEXIDINE GLUCONATE 4% CLEANSER FOR DECOLONIZATION TP SCH (21:55)
[2023-08-08] MEDS: MEROPENEM 1 GM in DEXTROSE 5%-WATER 100 ML IVPB SCH (01:00)
[2023-08-08] MEDS: cloBAZam 10 MG TABLET PO SCH ×3 (05:33→21:03)
[2023-08-08 06:12] LABS: HEMATOCRIT 33.3 % (35.4-49); HEMOGLOBIN 10.9 GM/dL (11.7-16.9); MCH 27.1 pg (25.7-33.7); MCHC 32.7 g/dl (32.0-35.9); MEAN CELL VOLUME 82.6 fl (80-96); MEAN PLT VOLUME 8.3 fl (7.5-11.1); PLATELET COUNT 429 10^3/uL (134-434); RBC 4.03 M/mm3 (4.00-5.60); RDW 16.8 % (11.9-15.9); WHITE BLOOD COUNT 8.9 K/mm3 (4.0-10.0)
[2023-08-08 06:33] LABS: CHLORIDE 112 mmol/L (98-107); POTASSIUM 3.3 mmol/L (3.5-5.1); SODIUM 142 mmol/L (136-145)
[2023-08-08 06:36] LABS: ALBUMIN 1.5 g/dl (3.4-5.0); ANION GAP 6 mmol/L (4-13); CO2 25 mmol/L (21-32)
[2023-08-08 06:37] LABS: BLOOD UREA NITROGEN 7.7 mg/dL (7-18); GLUCOSE,RANDOM 119 mg/dL (74-106); MAGNESIUM 1.8 mg/dL (1.8-2.4)
[2023-08-08 06:39] LABS: PHOSPHOROUS 2.2 mg/dL (2.5-4.9)
[2023-08-08 06:40] LABS: CREATININE 0.3 mg/dL (0.55-1.3); SGOT/AST 20 U/L (15-37); SGPT/ALT 11 U/L (13-61)
[2023-08-08 06:41] LABS: BILIRUBIN,TOTAL 0.5 mg/dL (0.2-1); TOT PROT 4.6 g/dl (6.4-8.2)
[2023-08-08 06:42] LABS: ALK PHOS 71 U/L (45-117)
[2023-08-08 07:07] LABS: CALCIUM 6.9 mg/dL (8.5-10.1)
[2023-08-08] MEDS ORDERED: KCL 20 MEQ PREMIX BAG 100 ML IVPB ONE (07:30)
[2023-08-08] MEDS ORDERED: NAPH,MB-DB/K PH,MBDB POWDER PACKET GT ONE (07:45)
[2023-08-08] MEDS ORDERED: MAGNESIUM SULF 50% (8.12 MEQ/2 ML-1 GM VIAL) IVPB ONE (07:45)
[2023-08-08] MEDS: MUPIROCIN 2% TOPICAL OINTMENT FOR DECOLONIZATION NS SCH ×2 (09:33→21:04)
[2023-08-08] MEDS: POLYETHYLENE GLYCOL (HEALTHYLAX) 3350 17 GM PACKET PO SCH (09:33)
[2023-08-08] MEDS: levETIRAcetam 500 MG/5 ML INJECTION VIAL IVPB SCH ×2 (09:33→21:04)
[2023-08-08] MEDS: BISACODYL 10 MG SUPP.RECT PR SCH (09:34)
[2023-08-08] MEDS: MAGNESIUM HYDROX 2400MG/30ML ORAL SUSPENSION 30 ML CUP PO SCH ×2 (09:34→21:05)
[2023-08-08] MEDS: diazePAM 5 MG TABLET PO SCH ×2 (09:34→21:06)
[2023-08-08] MEDS: ENOXAPARIN NA (PORCINE) 40 MG/0.4 ML DISP.SYRIN SQ SCH (09:34)
[2023-08-08] MEDS: SODIUM CHLORIDE 1,000 ML IV SCH (21:02)
[2023-08-08] MEDS: CHLORHEXIDINE GLUCONATE 4% CLEANSER FOR DECOLONIZATION TP SCH (21:04)
[2023-08-08] MEDS: PHENobarbital 30 MG TABLET PO SCH (21:05)
[2023-08-09] MEDS: cloBAZam 10 MG TABLET PO SCH ×3 (04:39→21:27)
[2023-08-09 08:23] LABS: POTASSIUM 4.2 mmol/L (3.5-5.1)
[2023-08-09 08:25] LABS: HEMATOCRIT 38.6 % (35.4-49); HEMOGLOBIN 12.9 GM/dL (11.7-16.9); MCHC 33.5 g/dl (32.0-35.9); MEAN CELL VOLUME 80.6 fl (80-96); MEAN PLT VOLUME 8.6 fl (7.5-11.1); PLATELET COUNT 439 10^3/uL (134-434); RBC 4.79 M/mm3 (4.00-5.60); RDW 17.4 % (11.9-15.9); WHITE BLOOD COUNT 8.5 K/mm3 (4.0-10.0)
[2023-08-09 08:37] LABS: CALCIUM 7.3 mg/dL (8.5-10.1)
[2023-08-09 08:38] LABS: ALBUMIN 1.5 g/dl (3.4-5.0)
[2023-08-09 08:41] LABS: PHOSPHOROUS 2.2 mg/dL (2.5-4.9)
[2023-08-09 08:42] LABS: BILIRUBIN,TOTAL 0.7 mg/dL (0.2-1)
[2023-08-09 08:51] LABS: CREATININE 0.3 mg/dL (0.55-1.3)
[2023-08-09] MEDS: MAGNESIUM HYDROX 2400MG/30ML ORAL SUSPENSION 30 ML CUP PO SCH ×2 (09:00→21:27)
[2023-08-09] MEDS: POLYETHYLENE GLYCOL (HEALTHYLAX) 3350 17 GM PACKET PO SCH (09:02)
[2023-08-09] MEDS: levETIRAcetam 500 MG/5 ML INJECTION VIAL IVPB SCH ×2 (09:02→21:26)
[2023-08-09] MEDS: MUPIROCIN 2% TOPICAL OINTMENT FOR DECOLONIZATION NS SCH (09:02)
[2023-08-09] MEDS: diazePAM 5 MG TABLET PO SCH ×2 (09:02→21:27)
[2023-08-09] MEDS: ENOXAPARIN NA (PORCINE) 40 MG/0.4 ML DISP.SYRIN SQ SCH (09:02)
[2023-08-09] MEDS: BISACODYL 10 MG SUPP.RECT PR SCH (09:02)
[2023-08-09] MEDS: SODIUM CHLORIDE 1,000 ML IV SCH (09:03)
[2023-08-09 09:59] LABS: ANISOCYTOSIS 2+; MACROCYTOSIS 0
[2023-08-09] MEDS: CHLORHEXIDINE GLUCONATE 4% CLEANSER FOR DECOLONIZATION TP SCH (21:27)
[2023-08-09] MEDS: PHENobarbital 30 MG TABLET PO SCH (21:27)
[2023-08-10] MEDS: cloBAZam 10 MG TABLET PO SCH ×3 (04:51→21:17)
[2023-08-10 07:47] LABS: POTASSIUM 4.3 mmol/L (3.5-5.1)
[2023-08-10 07:51] LABS: HEMATOCRIT 37.9 % (35.4-49); MCH 26.1 pg (25.7-33.7); MCHC 31.8 g/dl (32.0-35.9); MEAN CELL VOLUME 82.2 fl (80-96); MEAN PLT VOLUME 8.8 fl (7.5-11.1); PLATELET COUNT 496 10^3/uL (134-434); RBC 4.61 M/mm3 (4.00-5.60); RDW 17.1 % (11.9-15.9); WHITE BLOOD COUNT 11.6 K/mm3 (4.0-10.0)
[2023-08-10 07:52] LABS: ALBUMIN 1.7 g/dl (3.4-5.0); CALCIUM 7.4 mg/dL (8.5-10.1)
[2023-08-10 07:53] LABS: BLOOD UREA NITROGEN 6.1 mg/dL (7-18)
[2023-08-10 07:56] LABS: CREATININE 0.2 mg/dL (0.55-1.3); PHOSPHOROUS 2.6 mg/dL (2.5-4.9)
[2023-08-10 07:57] LABS: BILIRUBIN,TOTAL 0.5 mg/dL (0.2-1); TOT PROT 5.6 g/dl (6.4-8.2)
[2023-08-10 08:38] LABS: ANISOCYTOSIS 0; MACROCYTOSIS 0
[2023-08-10] MEDS: BISACODYL 10 MG SUPP.RECT PR SCH (09:57)
[2023-08-10] MEDS: MAGNESIUM HYDROX 2400MG/30ML ORAL SUSPENSION 30 ML CUP PO SCH ×2 (09:57→21:19)
[2023-08-10] MEDS: levETIRAcetam 500 MG/5 ML INJECTION VIAL IVPB SCH ×2 (09:57→21:19)
[2023-08-10] MEDS: POLYETHYLENE GLYCOL (HEALTHYLAX) 3350 17 GM PACKET PO SCH (09:58)
[2023-08-10] MEDS: diazePAM 5 MG TABLET PO SCH ×2 (09:58→21:26)
[2023-08-10] MEDS ORDERED: ENOXAPARIN NA (PORCINE) 40 MG/0.4 ML DISP.SYRIN SQ ONE (14:30)
[2023-08-10] MEDS: CHLORHEXIDINE GLUCONATE 4% CLEANSER FOR DECOLONIZATION TP SCH (21:19)
[2023-08-10] MEDS: PHENobarbital 30 MG TABLET PO SCH (21:26)
[2023-08-11] MEDS: cloBAZam 10 MG TABLET PO SCH ×3 (05:58→20:57)
[2023-08-11 07:24] LABS: HEMATOCRIT 34.4 % (35.4-49); HEMOGLOBIN 11.3 GM/dL (11.7-16.9); MCH 26.9 pg (25.7-33.7); MCHC 32.9 g/dl (32.0-35.9); MEAN CELL VOLUME 81.6 fl (80-96); MEAN PLT VOLUME 8.3 fl (7.5-11.1); PLATELET COUNT 553 10^3/uL (134-434); RBC 4.21 M/mm3 (4.00-5.60); RDW 17.3 % (11.9-15.9); WHITE BLOOD COUNT 12.2 K/mm3 (4.0-10.0)
[2023-08-11 08:04] LABS: POTASSIUM 4.3 mmol/L (3.5-5.1)
[2023-08-11 08:29] LABS: BILIRUBIN,TOTAL 0.5 mg/dL (0.2-1); PHOSPHOROUS 3.7 mg/dL (2.5-4.9); TOT PROT 5.6 g/dl (6.4-8.2)
[2023-08-11 08:30] LABS: CREATININE 0.3 mg/dL (0.55-1.3)
[2023-08-11 08:47] LABS: BLOOD UREA NITROGEN 5.8 mg/dL (7-18)
[2023-08-11 08:53] LABS: ALBUMIN 1.7 g/dl (3.4-5.0); CALCIUM 7.5 mg/dL (8.5-10.1); MAGNESIUM 1.9 mg/dL (1.8-2.4)
[2023-08-11 09:03] LABS: ANISOCYTOSIS 2+; MACROCYTOSIS 0
[2023-08-11] MEDS: diazePAM 5 MG TABLET PO SCH ×3 (10:38→21:54)
[2023-08-11] MEDS: POLYETHYLENE GLYCOL (HEALTHYLAX) 3350 17 GM PACKET PO SCH (10:38)
[2023-08-11] MEDS: ENOXAPARIN NA (PORCINE) 40 MG/0.4 ML DISP.SYRIN SQ SCH ×2 (10:38→21:02)
[2023-08-11] MEDS: levETIRAcetam 500 MG/5 ML INJECTION VIAL IVPB SCH ×3 (10:39→21:53)
[2023-08-11] MEDS: BISACODYL 10 MG SUPP.RECT PR SCH (10:39)
[2023-08-11] MEDS: MAGNESIUM HYDROX 2400MG/30ML ORAL SUSPENSION 30 ML CUP PO SCH ×3 (10:39→21:53)
[2023-08-11] MEDS ORDERED: POLYETHYLENE GLYCOL (HEALTHYLAX) 3350 17 GM PACKET PO ONE (13:30)
[2023-08-11] MEDS: PHENobarbital 30 MG TABLET PO SCH ×2 (21:01→21:54)
[2023-08-11] MEDS: CHLORHEXIDINE GLUCONATE 4% CLEANSER FOR DECOLONIZATION TP SCH (21:02)
[2023-08-11] MEDS ORDERED: ACETAMINOPHEN 1000 MG/100 ML BAG IVPB PRN (21:42)
[2023-08-12] MEDS ORDERED: cefTAZidime PENTAHYDRATE 1 GM VIAL (RESTRICTED TO ID) ONE (02:02)
[2023-08-12] MEDS: cloBAZam 10 MG TABLET PO SCH ×3 (06:08→21:40)
[2023-08-12 09:38] LABS: HEMATOCRIT 34.3 % (35.4-49); HEMOGLOBIN 11.6 GM/dL (11.7-16.9); MCH 27.2 pg (25.7-33.7); MCHC 33.8 g/dl (32.0-35.9); MEAN CELL VOLUME 80.4 fl (80-96); MEAN PLT VOLUME 7.8 fl (7.5-11.1); PLATELET COUNT 568 10^3/uL (134-434); RBC 4.26 M/mm3 (4.00-5.60); RDW 17.8 % (11.9-15.9); WHITE BLOOD COUNT 14.5 K/mm3 (4.0-10.0)
[2023-08-12 09:47] LABS: POTASSIUM 4.5 mmol/L (3.5-5.1)
[2023-08-12] MEDS: levETIRAcetam 500 MG/5 ML INJECTION VIAL IVPB SCH ×2 (09:54→21:41)
[2023-08-12] MEDS: ENOXAPARIN NA (PORCINE) 40 MG/0.4 ML DISP.SYRIN SQ SCH ×2 (09:55→21:39)
[2023-08-12] MEDS: BISACODYL 10 MG SUPP.RECT PR SCH (09:55)
[2023-08-12] MEDS: diazePAM 5 MG TABLET PO SCH ×2 (09:55→21:40)
[2023-08-12] MEDS: POLYETHYLENE GLYCOL (HEALTHYLAX) 3350 17 GM PACKET PO SCH (09:55)
[2023-08-12 09:59] LABS: CALCIUM 7.8 mg/dL (8.5-10.1)
[2023-08-12 10:00] LABS: ALBUMIN 1.9 g/dl (3.4-5.0); BLOOD UREA NITROGEN 6.4 mg/dL (7-18); MAGNESIUM 2.4 mg/dL (1.8-2.4)
[2023-08-12] MEDS ORDERED: ENOXAPARIN NA (PORCINE) 40 MG/0.4 ML DISP.SYRIN SQ SCH (10:00)
[2023-08-12 10:02] LABS: CREATININE 0.3 mg/dL (0.55-1.3); PHOSPHOROUS 3.8 mg/dL (2.5-4.9)
[2023-08-12 10:04] LABS: BILIRUBIN,TOTAL 0.6 mg/dL (0.2-1); TOT PROT 6.3 g/dl (6.4-8.2)
[2023-08-12] MEDS: MAGNESIUM HYDROX 2400MG/30ML ORAL SUSPENSION 30 ML CUP PO SCH ×2 (10:13→21:43)
[2023-08-12 10:52] LABS: ANISOCYTOSIS 0; HELMET CELLS 0; HOWELL-JOLLY BODIES 0; MACROCYTOSIS 0; OVALOCYTE 0; ROULEAU 0; SICKELED CELLS 0; TARGET CELLS 0; TEAR DROP CELLS 0; TOXIC GRANULATION 0
[2023-08-12] MEDS: AMINO ACIDS 4.25%/D5W 1,000 ML IV SCH (11:35)
[2023-08-12] MEDS: PHENobarbital 30 MG TABLET PO SCH (21:40)
[2023-08-13] MEDS: cloBAZam 10 MG TABLET PO SCH ×3 (06:02→23:33)
[2023-08-13 08:41] LABS: HEMATOCRIT 33.5 % (35.4-49); HEMOGLOBIN 11.2 GM/dL (11.7-16.9); MCHC 33.5 g/dl (32.0-35.9); MEAN CELL VOLUME 80.7 fl (80-96); PLATELET COUNT 540 10^3/uL (134-434); RBC 4.15 M/mm3 (4.00-5.60); RDW 17.4 % (11.9-15.9); WHITE BLOOD COUNT 10.7 K/mm3 (4.0-10.0)
[2023-08-13 09:00] LABS: POTASSIUM 3.8 mmol/L (3.5-5.1)
[2023-08-13 09:03] LABS: ALBUMIN 1.9 g/dl (3.4-5.0); BLOOD UREA NITROGEN 7.7 mg/dL (7-18)
[2023-08-13 09:06] LABS: CREATININE 0.4 mg/dL (0.55-1.3)
[2023-08-13 09:08] LABS: BILIRUBIN,TOTAL 0.4 mg/dL (0.2-1); TOT PROT 6.2 g/dl (6.4-8.2)
[2023-08-13] MEDS: BISACODYL 10 MG SUPP.RECT PR SCH (09:39)
[2023-08-13] MEDS: POLYETHYLENE GLYCOL (HEALTHYLAX) 3350 17 GM PACKET PO SCH (09:39)
[2023-08-13] MEDS: levETIRAcetam 500 MG/5 ML INJECTION VIAL IVPB SCH ×2 (09:39→21:56)
[2023-08-13] MEDS: ENOXAPARIN NA (PORCINE) 40 MG/0.4 ML DISP.SYRIN SQ SCH (09:39)
[2023-08-13] MEDS: diazePAM 5 MG TABLET PO SCH ×2 (09:39→23:38)
[2023-08-13] MEDS: MAGNESIUM HYDROX 2400MG/30ML ORAL SUSPENSION 30 ML CUP PO SCH ×2 (09:39→23:35)
[2023-08-13 11:06] LABS: ANISOCYTOSIS 2+; MACROCYTOSIS 0
[2023-08-13] MEDS ORDERED: ACETAMINOPHEN 1000 MG/100 ML BAG IVPB PRN (12:30)
[2023-08-13] MEDS ORDERED: IVERMECTIN 3 MG TABLET PO SCH (14:00)
[2023-08-13] MEDS: AMINO ACIDS 4.25%/D5W 1,000 ML IV SCH (14:00)
[2023-08-13] MEDS: PHENobarbital 30 MG TABLET PO SCH (23:36)
[2023-08-14] MEDS ORDERED: cefTAZidime PENTAHYDRATE 1 GM VIAL (RESTRICTED TO ID) ONE (01:13)
[2023-08-14] MEDS: cloBAZam 10 MG TABLET PO SCH ×3 (05:10→21:00)
[2023-08-14] MEDS ORDERED: BUPIVACAINE HCL/PF 0.25% (2.5MG/ML) 10 ML VIAL ONE (10:07)
[2023-08-14] MEDS: diazePAM 5 MG TABLET PO SCH ×2 (10:48→21:27)
[2023-08-14] MEDS: BISACODYL 10 MG SUPP.RECT PR SCH (10:48)
[2023-08-14] MEDS: POLYETHYLENE GLYCOL (HEALTHYLAX) 3350 17 GM PACKET PO SCH (10:48)
[2023-08-14] MEDS: MAGNESIUM HYDROX 2400MG/30ML ORAL SUSPENSION 30 ML CUP PO SCH (10:48)
[2023-08-14] MEDS: levETIRAcetam 500 MG/5 ML INJECTION VIAL IVPB SCH ×2 (10:48→21:28)
[2023-08-14] MEDS: AMINO ACIDS 4.25%/D5W 1,000 ML IV SCH (10:48)
[2023-08-14] MEDS ORDERED: LACTATED RINGERS SOLUTION 1,000 ML IV SCH ×2 (11:00→13:44)
[2023-08-14] MEDS ORDERED: ONDANSETRON 4 MG/2 ML VIAL IVPUSH PRN ×3 (11:00→14:21)
[2023-08-14] MEDS ORDERED: ROCURONIUM BROMIDE 50 MG/5 ML SYRINGE ONE (11:05)
[2023-08-14] MEDS ORDERED: PROPOFOL 20 ML ONE (11:05)
[2023-08-14] MEDS ORDERED: MIDAZOLAM HCL 2 MG/2 ML SINGLE DOSE VIAL ONE (11:05)
[2023-08-14] MEDS ORDERED: SUGAMMADEX SODIUM 200 MG/2 ML VIAL ONE (11:05)
[2023-08-14] MEDS ORDERED: FENTANYL CITRATE/PF 50 MCG/ML VIAL ONE (11:05)
[2023-08-14] MEDS ORDERED: BUPIVACAINE HCL/PF 0.25% (2.5MG/ML) 10 ML VIAL IJ ONE (11:28)
[2023-08-14] MEDS ORDERED: ceFAZolin SODIUM 1 GM VIAL IVPB ONE (11:35)
[2023-08-14] MEDS ORDERED: ONDANSETRON 4 MG/2 ML VIAL ONE (11:36)
[2023-08-14] MEDS ORDERED: ceFAZolin SODIUM 1 GM VIAL ONE (11:36)
[2023-08-14] MEDS ORDERED: ACETAMINOPHEN 1000 MG/100 ML BAG IVPB PRN ×2 (13:44→14:21)
[2023-08-14] MEDS ORDERED: ACETAMINOPHEN INJECTION 100 ML IVPB ONE (13:55)
[2023-08-14] MEDS: LACTATED RINGERS SOLUTION 1,000 ML IV SCH (14:48)
[2023-08-14] MEDS ORDERED: IVERMECTIN 3 MG TABLET PO SCH ×2 (15:00→18:00)
[2023-08-14] MEDS ORDERED: cloBAZam 10 MG TABLET PO SCH ×2 (18:00→20:00)
[2023-08-14] MEDS: PHENobarbital 30 MG TABLET PO SCH (21:27)
[2023-08-14] MEDS: ENOXAPARIN NA (PORCINE) 40 MG/0.4 ML DISP.SYRIN SQ SCH (21:28)
[2023-08-14] MEDS ORDERED: diazePAM 5 MG TABLET PO SCH (22:00)
[2023-08-14] MEDS ORDERED: levETIRAcetam 500 MG/5 ML INJECTION VIAL IVPB SCH (22:00)
[2023-08-14] MEDS ORDERED: MAGNESIUM HYDROX 2400MG/30ML ORAL SUSPENSION 30 ML CUP PO SCH (22:00)
[2023-08-14] MEDS ORDERED: ENOXAPARIN NA (PORCINE) 40 MG/0.4 ML DISP.SYRIN SQ SCH (22:00)
[2023-08-14] MEDS ORDERED: PHENobarbital 30 MG TABLET PO SCH (22:00)
[2023-08-15] MEDS: cloBAZam 10 MG TABLET PO SCH ×3 (05:42→21:00)
[2023-08-15] MEDS ORDERED: POLYETHYLENE GLYCOL (HEALTHYLAX) 3350 17 GM PACKET PO SCH (10:00)
[2023-08-15] MEDS ORDERED: AMINO ACIDS 4.25%/D5W 1,000 ML IV SCH (10:00)
[2023-08-15] MEDS ORDERED: BISACODYL 10 MG SUPP.RECT PR SCH (10:00)
[2023-08-15 10:43] LABS: BASO % 0.4 % (0-2.0); EOS % 0.6 % (0-4.5); HEMATOCRIT 33.4 % (35.4-49); HEMOGLOBIN 11.2 GM/dL (11.7-16.9); LYMPH % 16.4 % (8-40); MCH 27.3 pg (25.7-33.7); MCHC 33.4 g/dl (32.0-35.9); MEAN CELL VOLUME 81.6 fl (80-96); MEAN PLT VOLUME 7.6 fl (7.5-11.1); MONO % 5.7 % (3.8-10.2); NEUT % 76.9 % (42.8-82.8); PLATELET COUNT 508 10^3/uL (134-434); RBC 4.09 M/mm3 (4.00-5.60); WHITE BLOOD COUNT 10.4 K/mm3 (4.0-10.0)
[2023-08-15 11:00] LABS: POTASSIUM 3.9 mmol/L (3.5-5.1)
[2023-08-15 11:01] LABS: BLOOD UREA NITROGEN 5.1 mg/dL (7-18)
[2023-08-15 11:03] LABS: CALCIUM 8.2 mg/dL (8.5-10.1)
[2023-08-15 11:04] LABS: ALBUMIN 2.1 g/dl (3.4-5.0)
[2023-08-15 11:07] LABS: CREATININE 0.2 mg/dL (0.55-1.3)
[2023-08-15 11:08] LABS: TOT PROT 6.6 g/dl (6.4-8.2)
[2023-08-15 11:09] LABS: BILIRUBIN,TOTAL 0.5 mg/dL (0.2-1); MAGNESIUM 1.8 mg/dL (1.8-2.4)
[2023-08-15] MEDS: MAGNESIUM HYDROX 2400MG/30ML ORAL SUSPENSION 30 ML CUP PO SCH ×2 (11:57→21:28)
[2023-08-15] MEDS: levETIRAcetam 250 MG TABLET PO SCH ×2 (11:58→21:28)
[2023-08-15] MEDS: BISACODYL 10 MG SUPP.RECT PR SCH (11:58)
[2023-08-15] MEDS: diazePAM 5 MG TABLET PO SCH ×2 (11:59→21:28)
[2023-08-15] MEDS: ENOXAPARIN NA (PORCINE) 40 MG/0.4 ML DISP.SYRIN SQ SCH ×2 (12:00→21:29)
[2023-08-15] MEDS: levETIRAcetam 500 MG/5 ML INJECTION VIAL IVPB SCH (12:01)
[2023-08-15] MEDS: POLYETHYLENE GLYCOL (HEALTHYLAX) 3350 17 GM PACKET PO SCH (12:01)
[2023-08-15] MEDS: AMINO ACIDS 4.25%/D5W 1,000 ML IV SCH (12:30)
[2023-08-15] MEDS ORDERED: IVERMECTIN 3 MG TABLET PO SCH (14:00)
[2023-08-15] MEDS ORDERED: levoFLOXacin 750 MG TABLET PO SCH ×3 (14:45→15:30)
[2023-08-15] MEDS: LACTATED RINGERS SOLUTION 1,000 ML IV SCH (18:04)
[2023-08-15] MEDS: PHENobarbital 30 MG TABLET PO SCH (21:27)
[2023-08-16] MEDS: cloBAZam 10 MG TABLET PO SCH (05:45)
[2023-08-16] MEDS: levoFLOXacin 750 MG TABLET GT SCH (06:03)
[2023-08-16] MEDS ORDERED: APIXABAN 5 MG TABLET PO SCH (10:00)
[2023-08-16] MEDS: diazePAM 5 MG TABLET PO SCH (10:19)
[2023-08-16] MEDS: POLYETHYLENE GLYCOL (HEALTHYLAX) 3350 17 GM PACKET PO SCH (10:19)
[2023-08-16] MEDS: MAGNESIUM HYDROX 2400MG/30ML ORAL SUSPENSION 30 ML CUP PO SCH (10:20)
[2023-08-16] MEDS: levETIRAcetam 250 MG TABLET PO SCH ×2 (10:20→22:53)
[2023-08-16] MEDS: BISACODYL 10 MG SUPP.RECT PR SCH (10:21)
[2023-08-16 10:37] LABS: BASO % 0.5 % (0-2.0); EOS % 0.5 % (0-4.5); HEMATOCRIT 33.1 % (35.4-49); LYMPH % 16.4 % (8-40); MCH 27.4 pg (25.7-33.7); MCHC 33.3 g/dl (32.0-35.9); MEAN CELL VOLUME 82.4 fl (80-96); MEAN PLT VOLUME 7.7 fl (7.5-11.1); MONO % 8.5 % (3.8-10.2); NEUT % 74.1 % (42.8-82.8); PLATELET COUNT 537 10^3/uL (134-434); RBC 4.02 M/mm3 (4.00-5.60); RDW 18.2 % (11.9-15.9); WHITE BLOOD COUNT 9.1 K/mm3 (4.0-10.0)
[2023-08-16 11:04] LABS: POTASSIUM 4.1 mmol/L (3.5-5.1)
[2023-08-16 11:12] LABS: CREATININE 0.4 mg/dL (0.55-1.3); PHOSPHOROUS 3.3 mg/dL (2.5-4.9)
[2023-08-16 11:15] LABS: ALBUMIN 2.3 g/dl (3.4-5.0); BLOOD UREA NITROGEN 5.8 mg/dL (7-18)
[2023-08-16 11:17] LABS: MAGNESIUM 2.1 mg/dL (1.8-2.4)
[2023-08-16 11:18] LABS: CALCIUM 8.3 mg/dL (8.5-10.1)
[2023-08-16 11:24] LABS: BILIRUBIN,TOTAL 0.8 mg/dL (0.2-1)
[2023-08-16] MEDS ORDERED: POLYETHYLENE GLYCOL (HEALTHYLAX) 3350 17 GM PACKET GT SCH (17:10)
[2023-08-16] MEDS: cloBAZam 10 MG TABLET GT SCH ×2 (18:02→21:16)
[2023-08-16] MEDS ORDERED: BISACODYL 10 MG SUPP.RECT PR SCH (19:00)
[2023-08-16] MEDS: MAGNESIUM HYDROX 2400MG/30ML ORAL SUSPENSION 30 ML CUP GT SCH (22:46)
[2023-08-16] MEDS: APIXABAN 5 MG TABLET GT SCH (22:53)
[2023-08-16] MEDS: diazePAM 5 MG TABLET GT SCH (22:53)
[2023-08-16] MEDS: PHENobarbital 30 MG TABLET GT SCH (22:53)
[2023-08-17] MEDS: cloBAZam 10 MG TABLET GT SCH ×3 (05:56→21:10)
[2023-08-17] MEDS: levoFLOXacin 750 MG TABLET GT SCH (05:56)
[2023-08-17 09:04] LABS: HEMOGLOBIN 10.9 GM/dL (11.7-16.9); MCH 26.7 pg (25.7-33.7); MCHC 32.2 g/dl (32.0-35.9); MEAN CELL VOLUME 83.1 fl (80-96); MEAN PLT VOLUME 7.7 fl (7.5-11.1); PLATELET COUNT 560 10^3/uL (134-434); RDW 18.5 % (11.9-15.9); WHITE BLOOD COUNT 12.4 K/mm3 (4.0-10.0)
[2023-08-17 09:25] LABS: POTASSIUM 4.2 mmol/L (3.5-5.1)
[2023-08-17 09:28] LABS: CALCIUM 8.2 mg/dL (8.5-10.1)
[2023-08-17 09:29] LABS: BLOOD UREA NITROGEN 5.9 mg/dL (7-18)
[2023-08-17 09:32] LABS: CREATININE 0.3 mg/dL (0.55-1.3)
[2023-08-17] MEDS: levETIRAcetam 250 MG TABLET PO SCH ×2 (09:54→22:32)
[2023-08-17] MEDS: diazePAM 5 MG TABLET GT SCH ×2 (09:54→22:32)
[2023-08-17] MEDS: APIXABAN 5 MG TABLET GT SCH ×2 (09:54→22:32)
[2023-08-17] MEDS: MAGNESIUM HYDROX 2400MG/30ML ORAL SUSPENSION 30 ML CUP GT SCH ×2 (09:57→22:33)
[2023-08-17] MEDS ORDERED: INSULIN (NOVOLOG) ASPART 100 UNITS/ML 10ML VIAL ONE (16:56)
[2023-08-17] MEDS ORDERED: INSULIN (LEVEMIR) 100 UNITS/ML UNITS SQ ONE (16:57)
[2023-08-17] MEDS: PHENobarbital 30 MG TABLET GT SCH (22:33)
[2023-08-18] MEDS: cloBAZam 10 MG TABLET GT SCH ×3 (05:36→21:39)
[2023-08-18] MEDS: levoFLOXacin 750 MG TABLET GT SCH (05:36)
[2023-08-18] MEDS: diazePAM 5 MG TABLET GT SCH ×2 (10:39→21:39)
[2023-08-18] MEDS: APIXABAN 5 MG TABLET GT SCH ×2 (10:39→21:40)
[2023-08-18] MEDS: levETIRAcetam 250 MG TABLET PO SCH ×2 (10:39→21:39)
[2023-08-18] MEDS: MAGNESIUM HYDROX 2400MG/30ML ORAL SUSPENSION 30 ML CUP GT SCH ×2 (10:39→21:39)
[2023-08-18 10:51] LABS: HEMATOCRIT 35.8 % (35.4-49); HEMOGLOBIN 11.7 GM/dL (11.7-16.9); MCH 26.8 pg (25.7-33.7); MCHC 32.8 g/dl (32.0-35.9); MEAN CELL VOLUME 81.7 fl (80-96); PLATELET COUNT 608 10^3/uL (134-434); RBC 4.38 M/mm3 (4.00-5.60); RDW 18.9 % (11.9-15.9); WHITE BLOOD COUNT 14.6 K/mm3 (4.0-10.0)
[2023-08-18 10:53] LABS: POTASSIUM 4.8 mmol/L (3.5-5.1)
[2023-08-18 10:56] LABS: ALBUMIN 2.4 g/dl (3.4-5.0); CALCIUM 8.2 mg/dL (8.5-10.1)
[2023-08-18 10:57] LABS: BLOOD UREA NITROGEN 9.8 mg/dL (7-18); MAGNESIUM 2.3 mg/dL (1.8-2.4)
[2023-08-18 10:59] LABS: CREATININE 0.4 mg/dL (0.55-1.3)
[2023-08-18 11:00] LABS: PHOSPHOROUS 3.7 mg/dL (2.5-4.9)
[2023-08-18 11:01] LABS: BILIRUBIN,TOTAL 0.4 mg/dL (0.2-1); TOT PROT 7.1 g/dl (6.4-8.2)
[2023-08-18] MEDS: PHENobarbital 30 MG TABLET GT SCH (21:40)
[2023-08-19] MEDS: cloBAZam 10 MG TABLET GT SCH ×3 (06:09→22:59)
[2023-08-19] MEDS: levoFLOXacin 750 MG TABLET GT SCH (06:09)
[2023-08-19] MEDS: diazePAM 5 MG TABLET GT SCH ×2 (10:22→22:57)
[2023-08-19] MEDS: APIXABAN 5 MG TABLET GT SCH ×2 (10:23→22:57)
[2023-08-19] MEDS: MAGNESIUM HYDROX 2400MG/30ML ORAL SUSPENSION 30 ML CUP GT SCH ×2 (10:23→22:58)
[2023-08-19] MEDS: levETIRAcetam 250 MG TABLET PO SCH (10:23)
[2023-08-19 10:58] LABS: HEMATOCRIT 37.1 % (35.4-49); MCH 26.9 pg (25.7-33.7); MCHC 32.3 g/dl (32.0-35.9); MEAN CELL VOLUME 83.4 fl (80-96); MEAN PLT VOLUME 8.1 fl (7.5-11.1); PLATELET COUNT 635 10^3/uL (134-434); RBC 4.44 M/mm3 (4.00-5.60); RDW 18.8 % (11.9-15.9); WHITE BLOOD COUNT 15.5 K/mm3 (4.0-10.0)
[2023-08-19] MEDS: AMINO ACIDS 4.25%/D5W 1,000 ML IV SCH (11:12)
[2023-08-19 11:17] LABS: POTASSIUM 4.8 mmol/L (3.5-5.1)
[2023-08-19 11:20] LABS: CALCIUM 8.3 mg/dL (8.5-10.1)
[2023-08-19 11:21] LABS: BLOOD UREA NITROGEN 12.5 mg/dL (7-18)
[2023-08-19 11:24] LABS: CREATININE 0.4 mg/dL (0.55-1.3)
[2023-08-19] MEDS ORDERED: ACETAMINOPHEN 325 MG TABLET (FP) PO ONE (12:17)
[2023-08-19] MEDS ORDERED: ACETAMINOPHEN 650 MG/20.3 ML ORAL SOLUTION (CUPS) GT ONE (13:15)
[2023-08-19] MEDS ORDERED: ACETAMINOPHEN 650 MG/20.3 ML ORAL SOLUTION (CUPS) GT PRN (16:00)
[2023-08-19 17:44] LABS: POTASSIUM 4.8 mmol/L (3.5-5.1)
[2023-08-19 17:45] LABS: CALCIUM 8.4 mg/dL (8.5-10.1)
[2023-08-19 17:46] LABS: BLOOD UREA NITROGEN 12.9 mg/dL (7-18)
[2023-08-19 17:49] LABS: CREATININE 0.4 mg/dL (0.55-1.3)
[2023-08-19] MEDS: ACETAMINOPHEN 650 MG/20.3 ML ORAL SOLUTION (CUPS) GT SCH (19:17)
[2023-08-19] MEDS: levETIRAcetam 500 MG/5 ML ORAL SOLUTION (UNIT-DOSE CUPS) GT SCH (22:55)
[2023-08-19] MEDS: PHENobarbital 30 MG TABLET GT SCH (22:56)
[2023-08-20] MEDS: ACETAMINOPHEN 650 MG/20.3 ML ORAL SOLUTION (CUPS) GT SCH ×2 (02:40→12:48)
[2023-08-20] MEDS: cloBAZam 10 MG TABLET GT SCH ×3 (06:00→20:40)
[2023-08-20] MEDS: levoFLOXacin 750 MG TABLET GT SCH (06:41)
[2023-08-20 09:11] LABS: HEMATOCRIT 37.1 % (35.4-49); HEMOGLOBIN 11.9 GM/dL (11.7-16.9); MCH 26.9 pg (25.7-33.7); MCHC 32.1 g/dl (32.0-35.9); MEAN CELL VOLUME 83.8 fl (80-96); MEAN PLT VOLUME 8.4 fl (7.5-11.1); PLATELET COUNT 674 10^3/uL (134-434); RBC 4.43 M/mm3 (4.00-5.60); WHITE BLOOD COUNT 13.3 K/mm3 (4.0-10.0)
[2023-08-20] MEDS: diazePAM 5 MG TABLET GT SCH ×2 (09:22→22:48)
[2023-08-20] MEDS: MULTIVIT-MINERALS ORAL LIQUID PO SCH (09:22)
[2023-08-20] MEDS: levETIRAcetam 500 MG/5 ML ORAL SOLUTION (UNIT-DOSE CUPS) GT SCH ×2 (09:22→22:46)
[2023-08-20] MEDS: MAGNESIUM HYDROX 2400MG/30ML ORAL SUSPENSION 30 ML CUP GT SCH ×2 (09:22→22:46)
[2023-08-20] MEDS: ASCORBIC ACID 250 MG TABLET (FP) PO SCH (09:23)
[2023-08-20 09:44] LABS: POTASSIUM 5.2 mmol/L (3.5-5.1)
[2023-08-20 10:00] LABS: ALBUMIN 2.6 g/dl (3.4-5.0); BLOOD UREA NITROGEN 14.6 mg/dL (7-18); CALCIUM 8.4 mg/dL (8.5-10.1)
[2023-08-20 10:04] LABS: CREATININE 0.4 mg/dL (0.55-1.3)
[2023-08-20 10:06] LABS: BILIRUBIN,TOTAL 0.6 mg/dL (0.2-1); TOT PROT 7.8 g/dl (6.4-8.2)
[2023-08-20] MEDS ORDERED: ACETAMINOPHEN 1000 MG/100 ML BAG IVPB ONE ×3 (10:29→11:11)
[2023-08-20 19:06] LABS: POTASSIUM 4.8 mmol/L (3.5-5.1)
[2023-08-20 19:09] LABS: BLOOD UREA NITROGEN 14.3 mg/dL (7-18); CALCIUM 8.3 mg/dL (8.5-10.1)
[2023-08-20 19:13] LABS: CREATININE 0.4 mg/dL (0.55-1.3)
[2023-08-20] MEDS: DOXYCYCLINE MONOHYDRATE 25 MG/5 ML SUSPENSION GT SCH (20:40)
[2023-08-20] MEDS: PHENobarbital 30 MG TABLET GT SCH (22:47)
[2023-08-21] MEDS: cloBAZam 10 MG TABLET GT SCH ×3 (05:44→21:40)
[2023-08-21] MEDS: levoFLOXacin 750 MG TABLET GT SCH (06:25)
[2023-08-21] MEDS: MULTIVIT-MINERALS ORAL LIQUID PO SCH (09:57)
[2023-08-21] MEDS: ASCORBIC ACID 250 MG TABLET (FP) PO SCH (09:57)
[2023-08-21] MEDS: levETIRAcetam 500 MG/5 ML ORAL SOLUTION (UNIT-DOSE CUPS) GT SCH ×2 (09:57→21:43)
[2023-08-21] MEDS: diazePAM 5 MG TABLET GT SCH ×2 (09:57→21:43)
[2023-08-21] MEDS: DOXYCYCLINE MONOHYDRATE 25 MG/5 ML SUSPENSION GT SCH ×2 (09:58→18:13)
[2023-08-21] MEDS: MAGNESIUM HYDROX 2400MG/30ML ORAL SUSPENSION 30 ML CUP GT SCH ×2 (10:20→21:43)
[2023-08-21] MEDS: BISACODYL 10 MG SUPP.RECT PR PRN (11:23)
[2023-08-21 16:03] VITALS: RESP 18
[2023-08-21] MEDS: SILVER SULFADIAZINE 1% TOP CREAM 400 GM JAR TP SCH (19:28)
[2023-08-21] MEDS: PHENobarbital 30 MG TABLET GT SCH (21:42)
[2023-08-22] MEDS: cloBAZam 10 MG TABLET GT SCH ×3 (05:58→21:36)
[2023-08-22] MEDS: levoFLOXacin 750 MG TABLET GT SCH (06:42)
[2023-08-22 09:22] LABS: BASO % 0.8 % (0-2.0); EOS % 0.5 % (0-4.5); HEMATOCRIT 32.6 % (35.4-49); HEMOGLOBIN 11.1 GM/dL (11.7-16.9); LYMPH % 16.2 % (8-40); MCH 27.7 pg (25.7-33.7); MCHC 34.1 g/dl (32.0-35.9); MEAN CELL VOLUME 81.3 fl (80-96); MEAN PLT VOLUME 8.5 fl (7.5-11.1); MONO % 8.2 % (3.8-10.2); NEUT % 74.3 % (42.8-82.8); PLATELET COUNT 565 10^3/uL (134-434); RBC 4.01 M/mm3 (4.00-5.60); RDW 18.8 % (11.9-15.9)
[2023-08-22 09:42] LABS: POTASSIUM 4.6 mmol/L (3.5-5.1)
[2023-08-22 09:56] LABS: ALBUMIN 2.6 g/dl (3.4-5.0); BLOOD UREA NITROGEN 14.5 mg/dL (7-18); CALCIUM 8.7 mg/dL (8.5-10.1); MAGNESIUM 2.3 mg/dL (1.8-2.4)
[2023-08-22 09:58] LABS: PHOSPHOROUS 4.4 mg/dL (2.5-4.9)
[2023-08-22 09:59] LABS: CREATININE 0.4 mg/dL (0.55-1.3)
[2023-08-22 10:00] LABS: TOT PROT 7.2 g/dl (6.4-8.2)
[2023-08-22 10:02] LABS: BILIRUBIN,TOTAL 0.6 mg/dL (0.2-1)
[2023-08-22] MEDS: diazePAM 5 MG TABLET GT SCH ×2 (10:42→21:36)
[2023-08-22] MEDS: MAGNESIUM HYDROX 2400MG/30ML ORAL SUSPENSION 30 ML CUP GT SCH ×2 (10:42→21:37)
[2023-08-22] MEDS: ASCORBIC ACID 250 MG TABLET (FP) PO SCH (10:42)
[2023-08-22] MEDS: levETIRAcetam 500 MG/5 ML ORAL SOLUTION (UNIT-DOSE CUPS) GT SCH ×2 (10:42→21:37)
[2023-08-22] MEDS: DOXYCYCLINE MONOHYDRATE 25 MG/5 ML SUSPENSION GT SCH ×2 (10:42→17:14)
[2023-08-22] MEDS: SILVER SULFADIAZINE 1% TOP CREAM 400 GM JAR TP SCH (10:44)
[2023-08-22] MEDS: MULTIVIT-MINERALS ORAL LIQUID PO SCH (10:46)
[2023-08-22] MEDS: PHENobarbital 30 MG TABLET GT SCH (21:36)
[2023-08-23 03:27] VITALS: BP 121/77; PULSE 107
[2023-08-23] MEDS: cloBAZam 10 MG TABLET GT SCH (06:01)
[2023-08-23] MEDS: levoFLOXacin 750 MG TABLET GT SCH (06:01)
[2023-08-23 06:14] VITALS: TEMP 98
[2023-08-23] MEDS: diazePAM 5 MG TABLET GT SCH (09:07)
[2023-08-23] MEDS: levETIRAcetam 500 MG/5 ML ORAL SOLUTION (UNIT-DOSE CUPS) GT SCH (09:10)
[2023-08-23] MEDS: MULTIVIT-MINERALS ORAL LIQUID PO SCH (09:11)
[2023-08-23] MEDS: DOXYCYCLINE MONOHYDRATE 25 MG/5 ML SUSPENSION GT SCH (09:12)
[2023-08-23] MEDS: SILVER SULFADIAZINE 1% TOP CREAM 400 GM JAR TP SCH (09:15)
[2023-08-23] MEDS: BISACODYL 10 MG SUPP.RECT PR PRN (09:42)
[2023-08-23] MEDS: MAGNESIUM HYDROX 2400MG/30ML ORAL SUSPENSION 30 ML CUP GT SCH (09:42)
[2023-08-23] MEDS ORDERED: ASCORBIC ACID 500 MG TABLET (FP) PO SCH (10:00)
[2023-08-23] MEDS ORDERED: ZINC SULFATE 220 MG CAPSULE (FP) PO SCH (13:30)
== END 2023-08-23 10:30 | DRG 698 ==
LOC: JER 09:27 → JERBED 17:03 → JICU 21:28 → J6S 08-11 21:09
PROVIDERS: ADMIT Internal Medicine; ATTEND Internal Medicine
PROC: 05HM33Z Insertion of Infusion Device into Right Internal Jugular Vein, Percutaneous Approach (ICD-10-PCS; principal; 2023-08-04)
PROC: 0DJ08ZZ Inspection of Upper Intestinal Tract, Via Natural or Artificial Opening Endoscopic (ICD-10-PCS; 2023-08-04)
PROC: 0DH63UZ Insertion of Feeding Device into Stomach, Percutaneous Approach (ICD-10-PCS; 2023-08-14 10:00)
DX: T83.510A Infection and inflammatory reaction due to cystostomy catheter, initial encounter (principal); A41.52 Sepsis due to Pseudomonas; R65.21 Severe sepsis with septic shock; R53.2 Functional quadriplegia; F73 Profound intellectual disabilities; N13.6 Pyonephrosis; B78.9 Strongyloidiasis, unspecified; F72 Severe intellectual disabilities; Y83.8 Other surgical procedures as the cause of abnormal reaction of the patient, or of later complication, without mention of misadventure at the time of the procedure; E03.9 Hypothyroidism, unspecified; G40.909 Epilepsy, unspecified, not intractable, without status epilepticus; R13.10 Dysphagia, unspecified; R00.0 Tachycardia, unspecified; R50.9 Fever, unspecified; G80.8 Other cerebral palsy; N31.9 Neuromuscular dysfunction of bladder, unspecified; R62.7 Adult failure to thrive; Z68.23 Body mass index [BMI] 23.0-23.9, adult; L89.300 Pressure ulcer of unspecified buttock, unstageable; H47.619 Cortical blindness, unspecified side of brain; R31.9 Hematuria, unspecified; D70.8 Other neutropenia; R50.81 Fever presenting with conditions classified elsewhere; Z86.718 Personal history of other venous thrombosis and embolism; Z93.6 Other artificial openings of urinary tract status
CPT/HCPCS: 0241U-QW; 36415; 36600; 71045-TC-FY; 74018-TC-FY; 74176-TC; 74177-TC; 80048; 80053; 81003; 82308; 82550; 82553; 82803; 82962; 83010; 83605; 83615; 83735; 84100; 84484; 85025; 85027; 85384; 85610; 85651; 85730; 86140; 86682; 86850; 86900; 86901; 87040; 87086; 87186; 87635; 93005; 93010; 94760; 99285-25; G0463; Q9967

== ENCOUNTER 2023-12-11 01:49 | Emergency (ER) | payer OTHER ==
[2023-12-11 01:56] VITALS: BMI 22.2
[2023-12-11 05:59] VITALS: BP 137/94; PULSE 108; RESP 18; TEMP 98.5
== END 2023-12-11 09:25 | disposition home or self-care (01) ==
LOC: JER 01:49
DX: T83.010A Breakdown (mechanical) of cystostomy catheter, initial encounter (principal)
CPT/HCPCS: 99283-25

== ENCOUNTER 2024-06-17 19:44 | Emergency (ER) | payer OTHER ==
[2024-06-17 20:05] VITALS: BP 127/85; PULSE 83; RESP 16; TEMP 98.2; BMI 22.2
[2024-06-17 21:09] LABS: EPI CELLS 32 /uL (0-25.1); HYALINE CASTS 4 /uL (0-3.1); PH,URINE 8.5 (5.0-8.0); URINE APPEARANCE CLOUDY; URINE BACTERIA 4570 /uL (0-1359); URINE BILIRUBIN NEGATIVE (NEGATIVE); URINE COLOR YELLOW; URINE GLUCOSE (UA) NEGATIVE (NEGATIVE); URINE KETONE NEGATIVE (NEGATIVE); URINE LEUK ESTERASE 3+ (NEGATIVE); URINE NITRITE NEGATIVE (NEGATIVE); URINE PROTEIN TRACE (NEGATIVE); URINE RBC 41 /uL (0-23.9); URINE UROBILINOGEN 0.2 mg/dL (0.2-1.0); URINE WBC 86 /uL (0-25.8)
== END 2024-06-17 23:29 | disposition home or self-care (01) ==
LOC: JER 19:44
PROC: 0T2BX0Z Change Drainage Device in Bladder, External Approach (ICD-10-PCS; principal; 2024-06-17)
DX: T83.091A Other mechanical complication of indwelling urethral catheter, initial encounter (principal); N39.0 Urinary tract infection, site not specified
CPT/HCPCS: 76857; 81003; 87086; 87186; 99284-25

== ENCOUNTER 2025-02-15 21:27 | Inpatient (IN) | payer OTHER ==
[2025-02-15 22:50] LABS: ABSOLUTE IMMATURE GRANULOCYTES 0.04 x10^3/uL (0.0-0.031); BASOPHILS # 0.05 x10^3/uL (0.01-0.08); EOSINOPHIL % 2.3 % (0.8-7.0); EOSINOPHILS # 0.24 x10^3/uL (0.04-0.54); HEMATOCRIT 49.2 % (40.1-51.0); HEMOGLOBIN 16.9 g/dL (13.7-17.5); MCHC 34.3 g/dl (32.3-36.5); MEAN CELL VOLUME 85.3 fl (79.0-92.2); MEAN PLT VOLUME 10.3 fl (9.4-12.4); MONOCYTE # 0.67 x10^3/uL (0.30-0.82); MONOCYTE % 6.3 % (5.3-12.2); PLATELET COUNT 271 x10^3/uL (163-337); RDW 12.7 % (12.1-15.9)
[2025-02-15 22:57] LABS: INR 1.2 (0.83-1.09); PROTHROMBIN TIME (PATIENT) 13.1 SEC (9.7-13.0)
[2025-02-15 22:59] LABS: ACTIVATED PTT 35.1 SECONDS (25.2-36.5)
[2025-02-15 23:20] LABS: POTASSIUM 3.9 mmol/L (3.5-5.1)
[2025-02-15 23:22] LABS: ALBUMIN 3.6 g/dl (3.4-5.0); BLOOD UREA NITROGEN 21.5 mg/dL (7-18); CALCIUM 9.2 mg/dL (8.5-10.1)
[2025-02-15 23:26] LABS: CREATININE 0.5 mg/dL (0.55-1.3)
[2025-02-15 23:27] LABS: BILIRUBIN,TOTAL 0.4 mg/dL (0.2-1)
[2025-02-16] MEDS ORDERED: PATIENT'S OWN MEDICATION (NON-FORMULARY) (Midazolam [Nayzilam] 5 MG/0.1 ML Spray) NS PRN (01:19)
[2025-02-16 01:36] LABS: PH,URINE 7.5 (5.0-8.0); URINE APPEARANCE TURBID; URINE BILIRUBIN NEGATIVE (NEGATIVE); URINE COLOR ORANGE; URINE GLUCOSE (UA) NEGATIVE (NEGATIVE); URINE KETONE TRACE (NEGATIVE); URINE LEUK ESTERASE 3+ (NEGATIVE); URINE NITRITE POSITIVE (NEGATIVE); URINE PROTEIN 3+ (NEGATIVE)
[2025-02-16] MEDS ORDERED: MEROPENEM 1 GM in DEXTROSE 5%-WATER 100 ML IVPB SCH ×2 (02:45→06:00)
[2025-02-16] MEDS ORDERED: MEROPENEM-0.9% SODIUM CHLORIDE 1 GM/50 ML BAG IVPB SCH (03:00)
[2025-02-16] MEDS ORDERED: MEROPENEM 1 GM in SODIUM CHLORIDE 100 ML IVPB SCH (03:02)
[2025-02-16] MEDS: DEXTROSE 5%-0.45% SALINE 1,000 ML IV SCH (09:36)
[2025-02-16] MEDS: levETIRAcetam 500 MG/5 ML INJECTION VIAL IVPB SCH (09:36)
[2025-02-16 10:00] LABS: HEMATOCRIT 51.7 % (40.1-51.0); HEMOGLOBIN 17.8 g/dL (13.7-17.5); MCHC 34.4 g/dl (32.3-36.5); MEAN CELL VOLUME 84.9 fl (79.0-92.2); MEAN PLT VOLUME 11.3 fl (9.4-12.4); PLATELET COUNT 291 x10^3/uL (163-337); RDW 12.6 % (12.1-15.9)
[2025-02-16] MEDS ORDERED: CLOBAZAM 10 MG PO SCH (10:00)
[2025-02-16] MEDS ORDERED: levETIRAcetam 500 MG/5 ML INJECTION VIAL IVPB SCH (10:00)
[2025-02-16] MEDS ORDERED: CLOBAZAM 5 MG PO SCH (10:00)
[2025-02-16] MEDS ORDERED: ENOXAPARIN NA (PORCINE) 40 MG/0.4 ML DISP.SYRIN SQ SCH (10:00)
[2025-02-16 10:19] LABS: POTASSIUM 4.4 mmol/L (3.5-5.1)
[2025-02-16 10:23] LABS: ALBUMIN 3.8 g/dl (3.4-5.0); CALCIUM 9.3 mg/dL (8.5-10.1)
[2025-02-16 10:24] LABS: BLOOD UREA NITROGEN 17.9 mg/dL (7-18); MAGNESIUM 2.2 mg/dL (1.8-2.4)
[2025-02-16 10:26] LABS: CREATININE 0.6 mg/dL (0.55-1.3)
[2025-02-16 10:27] LABS: PHOSPHOROUS 3.6 mg/dL (2.5-4.9)
[2025-02-16 10:28] LABS: TOT PROT 7.6 g/dl (6.4-8.2)
[2025-02-16] MEDS: MEROPENEM 1 GM in DEXTROSE 5%-WATER 100 ML IVPB SCH ×2 (12:55→17:52)
[2025-02-16] MEDS ORDERED: LORazepam 2 MG/ML SDV VIAL ONE (13:21)
[2025-02-16] MEDS ORDERED: LORazepam 2 MG/ML SDV VIAL IVPUSH PRN (13:46)
[2025-02-16] MEDS: LORazepam 2 MG/ML SDV VIAL IVPUSH STA (14:02)
[2025-02-17 11:03] LABS: HEMATOCRIT 45.4 % (40.1-51.0); HEMOGLOBIN 15.2 g/dL (13.7-17.5); MCHC 33.5 g/dl (32.3-36.5); MEAN CELL VOLUME 86.8 fl (79.0-92.2); MEAN PLT VOLUME 10.6 fl (9.4-12.4); PLATELET COUNT 198 x10^3/uL (163-337); RDW 12.9 % (12.1-15.9)
[2025-02-18] MEDS ORDERED: ACETAMINOPHEN 325 MG TABLET (FP) PO PRN (06:08)
[2025-02-18] MEDS: ACETAMINOPHEN 1000 MG/100 ML BAG IVPB PRN (06:33)
[2025-02-18 08:52] LABS: HEMATOCRIT 49.2 % (40.1-51.0); HEMOGLOBIN 16.8 g/dL (13.7-17.5); MCHC 34.1 g/dl (32.3-36.5); MEAN CELL VOLUME 85.7 fl (79.0-92.2); MEAN PLT VOLUME 10.9 fl (9.4-12.4); PLATELET COUNT 220 x10^3/uL (163-337); RDW 12.6 % (12.1-15.9)
[2025-02-18 09:26] LABS: POTASSIUM 3.8 mmol/L (3.5-5.1)
[2025-02-18 09:28] LABS: ALBUMIN 3.2 g/dl (3.4-5.0); BLOOD UREA NITROGEN 7.3 mg/dL (7-18); CALCIUM 8.7 mg/dL (8.5-10.1); MAGNESIUM 1.7 mg/dL (1.8-2.4)
[2025-02-18 09:30] LABS: CREATININE 0.5 mg/dL (0.55-1.3); PHOSPHOROUS 1.6 mg/dL (2.5-4.9)
[2025-02-18 09:33] LABS: BILIRUBIN,TOTAL 0.7 mg/dL (0.2-1); TOT PROT 6.6 g/dl (6.4-8.2)
[2025-02-18 11:44] VITALS: BMI 24.3
[2025-02-18 19:04] VITALS: RESP 18
[2025-02-19 08:34] LABS: HEMATOCRIT 46.9 % (40.1-51.0); HEMOGLOBIN 16.5 g/dL (13.7-17.5); MCHC 35.2 g/dl (32.3-36.5); MEAN CELL VOLUME 83.9 fl (79.0-92.2); MEAN PLT VOLUME 11.1 fl (9.4-12.4); PLATELET COUNT 235 x10^3/uL (163-337); RDW 12.6 % (12.1-15.9)
[2025-02-19 09:06] LABS: POTASSIUM 3.8 mmol/L (3.5-5.1)
[2025-02-19 09:10] LABS: ALBUMIN 3.2 g/dl (3.4-5.0); BLOOD UREA NITROGEN 7.6 mg/dL (7-18); CALCIUM 9.1 mg/dL (8.5-10.1); MAGNESIUM 1.8 mg/dL (1.8-2.4)
[2025-02-19 09:13] LABS: CREATININE 0.5 mg/dL (0.55-1.3); PHOSPHOROUS 2.2 mg/dL (2.5-4.9)
[2025-02-19 09:14] LABS: BILIRUBIN,TOTAL 0.4 mg/dL (0.2-1); TOT PROT 6.4 g/dl (6.4-8.2)
[2025-02-19] MEDS: AMINO ACIDS/PROTEIN HYDROLYS 30 ML LIQUID.PKT PO SCH (13:02)
[2025-02-19 15:37] VITALS: BP 125/76; PULSE 71; TEMP 98.1
== END 2025-02-19 16:00 | DRG 919 ==
LOC: JER 21:27 → JERBED 21:48 → J6S 02-16 02:46
PROVIDERS: ADMIT Student in an Organized Health Care Education/Training Program; ATTEND Internal Medicine
PROC: 0D20XUZ Change Feeding Device in Upper Intestinal Tract, External Approach (ICD-10-PCS; principal; 2025-02-17)
DX: T85.528A Displacement of other gastrointestinal prosthetic devices, implants and grafts, initial encounter (principal); G82.50 Quadriplegia, unspecified; K94.23 Gastrostomy malfunction; F73 Profound intellectual disabilities; N39.0 Urinary tract infection, site not specified; G91.9 Hydrocephalus, unspecified; T83.510A Infection and inflammatory reaction due to cystostomy catheter, initial encounter; Y83.9 Surgical procedure, unspecified as the cause of abnormal reaction of the patient, or of later complication, without mention of misadventure at the time of the procedure; D72.829 Elevated white blood cell count, unspecified; G40.909 Epilepsy, unspecified, not intractable, without status epilepticus
CPT/HCPCS: 36415; 49440; 71045-TC-FY; 80053; 81003; 83735; 84100; 85025; 85027; 85610; 85730; 86850; 86900; 86901; 87086; 87186; 93005; 93010; 99285-25; J0131